=== PATIENT | female | born 1940 | race Caucasian/White ===

== ENCOUNTER 2018-03-23 11:02 | Inpatient (IN) | payer MEDICARE, BC ==
[2018-03-23 15:02] VITALS: BMI 49.6
--- NOTE | 2018-03-23 15:09 | XR ---
EXAMINATION TYPE: XR chest 1V portable DATE OF EXAM: 03/23/2018 COMPARISON: None INDICATION: Short of breath cough TECHNIQUE: Single frontal view of the chest is obtained. FINDINGS: The heart size is enlarged. The pulmonary vasculature is normal. The lungs are clear. IMPRESSION: 1. Mild cardiomegaly
[2018-03-23] MEDS ORDERED: HYDROcodone/APAP 5-325MG 1 EACH TAB PO PRN (15:29)
[2018-03-23] MEDS ORDERED: MELATONIN 3 MG TABLET PO PRN (15:29)
[2018-03-23] MEDS ORDERED: NALOXONE 0.4 MG/ML 1 ML VIAL IV PRN (15:29)
[2018-03-23] MEDS ORDERED: ALPRAZolam 0.25 MG TAB PO PRN (15:29)
[2018-03-23] MEDS ORDERED: IPRATROPIUM-ALBUTEROL 3 ML NEB INHALATION PRN (15:33)
[2018-03-23 16:13] LABS: INR 3.6 (<1.2); Prothrombin Time 32.4 sec (9.0-12.0)
[2018-03-23 16:18] LABS: Albumin 3.9 g/dL (3.5-5.0); Calcium 10.3 mg/dL (8.4-10.2); Magnesium 1.6 mg/dL (1.6-2.3); Potassium 4.1 mmol/L (3.5-5.1); Total Bilirubin 0.3 mg/dL (0.2-1.3); Total Protein 7.4 g/dL (6.3-8.2)
--- NOTE | 2018-03-23 16:19 | HP ---
HISTORY AND PHYSICAL CHIEF COMPLAINT: Cough and shortness of breath. HISTORY OF PRESENT ILLNESS: This is a 77-year-old woman with a past medical history of atrial fibrillation, diabetes, hypertension, hyperlipidemia, DJD, history of CAD with stent being followed by Dr. Mary Cuevas in the outpatient setting, apparently presented to [facility] with the complaints of features of pneumonia. The patient pneumonia. Patient had a cough for the last 3 weeks and because of failure of outpatient treatment, the patient presented to the hospital and was started on IV antibiotics. Patient was given IV Levaquin, but in the hospital, the patient was noted to have worsened lactic acidosis, hypoglycemia as well as worsening renal function. Despite IV fluids, the creatinine also appears to be worsening to 1.99. The patient was subsequently transferred to [facility] with direct admission at this time. There is no history of fever or rigors. No history of headache, loss of consciousness, seizures at this time. PAST MEDICAL HISTORY: Atrial fibrillation, diabetes mellitus type 2, hypertension, hyperlipidemia, DJD , history of chronic left lower leg wound. MEDICATIONS PRIOR TO ADMISSION INCLUDE: 1. Metformin 1000 mg b.i.d. 2. Glucotrol 20 mg b.i.d. 3. Coumadin 1 mg Sunday, Sunday, and Coumadin 4 mg daily. 4. Actos 45 mg p.o. daily. 5. Zaroxolyn 5 mg p.o. daily. 6. Mevacor 40 mg q.h.s. 7. Lasix 20 mg p.o. daily. 8. Vitamin B12 five hundred mcg p.o. daily. 9. Bumex 2 mg b.i.d. 10.Ecotrin 81 mg p.o. daily.. ALLERGIES: CLINDAMYCIN. FAMILY HISTORY: History of diabetes, history of uterine cancer in the family. SOCIAL HISTORY: No history of smoking, no history of alcohol intake. REVIEW OF SYSTEMS: ENT: Diminished hearing and diminished vision. CARDIOVASCULAR: No angina. Otherwise, as mentioned earlier. RESPIRATORY: As mentioned earlier. as mentioned earlier. GI: No nausea. : As mentioned earlier. NERVOUS SYSTEM: As mentioned earlier. ALLERGIES: No asthma or hayfever. MUSCULOSKELETAL: As mentioned earlier. HEMATOLOGY: As mentioned earlier. ONCOLOGY: As mentioned earlier. ENDOCRINE: Diabetes mellitus. CONSTITUTIONAL: As mentioned earlier. DERMATOLOGY: As mentioned earlier. RHEUMATOLOGY: Negative. PSYCHIATRY: As mentioned earlier. PHYSICAL EXAMINATION: Alert and oriented x3. The pulse is 70, blood pressure 140/60, respiration 20, temperature is normal, pulse ox 98% on room air. HEENT: Conjunctivae normal. Oral mucosa moist. Neck is no jugular venous distention. No carotid bruit, no lymph node enlargement. Accessory muscles respiration acting, otherwise. CARDIOVASCULAR SYSTEM: Muffled, irregular, no S3, no S4. RESPIRATORY: Breath sounds diminished at the bases. Bilateral scattered rhonchi, no crackles. ABDOMEN: Soft, obese, nontender. LEGS: Minimal bilateral leg edema. Left leg wound also present. NERVOUS SYSTEM: Higher functions as mentioned earlier. Moves all 4 limbs. No focal motor deficits. LYMPHATICS: No lymph node enlargement in neck or axillae. SKIN: No ulcer, rash or bleeding. LABS: Reviewed. ASSESSMENT: 1. Acute right lower lobe community acquired pneumonia with failure of outpatient treatment with possible sepsis. 2. Chronic obstructive pulmonary disease acute exacerbation. 3. Lactic acidosis. 4. Chronic left lower extremity wound. 5. Renal failure, acute on chronic possibly. 6. Atrial fibrillation. 7. Diabetes mellitus type 2. 8. Hypertension. 9. Hyperlipidemia. 10.History of degenerative joint disease. 11.History of coronary artery disease, stent. RECOMMENDATION: In this 77-year-old woman who presented with multiple complex medical issues, will monitor the patient closely, continue with the current management and symptomatic treatment. Continue with the bronchodilators. I recommend broad-spectrum IV antibiotics and IV steroids. Otherwise, I would also recommend continue with the Coumadin and monitor PT, INR closely. Pulmonology and Nephrology consultations, Cardiology also will be consulted. A 2D echo has been requested. The baseline labs and followup labs also have been ordered. Will continue to monitor them. Otherwise, cultures also obtained. Overall prognosis guarded because of multiple complex medical issues. Further recommendations to follow. MMODL / IJN: [id number] / ANTON
[2018-03-23 16:40] LABS: Anisocytosis Slight; Basophils % (A) 0 %; Eosinophils % (A) 0 %; HCT 31.7 % (34.0-46.0); HGB 9.9 gm/dL (11.4-16.0); Hypochromasia Slight; Lymphocytes # (A) 0.3 k/uL (1.0-4.8); Lymphocytes % (A) 2 %; MCH 26.1 pg (25.0-35.0); MCHC 31.3 g/dL (31.0-37.0); MCV 83.5 fL (80.0-100.0); Mean Platelet Volume 7.9; Monocytes # (A) 0.8 k/uL (0-1.0); Monocytes % (A) 4 %; Neutrophils # (A) 17.7 k/uL (1.3-7.7); Neutrophils % (A) 94 %; Platelet Count 330 k/uL (150-450); RBC 3.79 m/uL (3.80-5.40); RDW 16.4 % (11.5-15.5); WBC 18.9 k/uL (3.8-10.6)
[2018-03-23 16:56] LABS: Appearance,Urine Clear (Clear); Bilirubin,Urine Negative (Negative); Blood,Urine Small (Negative); Color,Urine Light Yellow; Glucose,Urine (UA) Trace (Negative); Hyaline Casts,Urine 1 /lpf (0-2); Ketones,Urine Negative (Negative); Leukocyte Esterase,Urine Negative (Negative); Nitrite,Urine Negative (Negative); Protein,Urine Negative (Negative); RBC,Urine <1 /hpf (0-5); Specific Gravity,Urine 1.007 (1.001-1.035); Squamous Epithelial Cell,Urine 1 /hpf (0-4); Urobilinogen,Urine <2.0 mg/dL (<2.0); WBC,Urine <1 /hpf (0-5)
[2018-03-23 16:59] LABS: Glucose,Whole Blood 189 mg/dL (75-99)
[2018-03-23] MEDS: IPRATROPIUM-ALBUTEROL 3 ML NEB INHALATION SCH ×2 (17:15→20:30)
[2018-03-23] MEDS: WARFARIN 2 MG TAB PO SCH (17:31)
[2018-03-23] MEDS: PIPERACILLIN-TAZOBACTAM 3.375 GM in DEXTROSE/WATER 1 50ML.BAG IVPB SCH (17:31)
[2018-03-23] MEDS: WARFARIN 1 MG TAB PO SCH (17:31)
[2018-03-23] MEDS: methylPREDNISolone SOD SUCCI 125 MG/2 ML VIAL IV SCH (17:31)
[2018-03-23] MEDS: SODIUM CHLORIDE 0.9% 1,000 ML IV SCH (17:32)
[2018-03-23] MEDS: INSULIN ASPART 100 UNIT/ML 1 ML 10 ML VIAL SQ SCH ×2 (17:46→22:05)
[2018-03-23] MEDS: FORMOTEROL FUMARATE 20 MCG/2 ML NEBU INHALATION SCH (20:30)
[2018-03-23] MEDS: ATORVASTATIN 10 MG TAB PO SCH (20:30)
[2018-03-23] MEDS: BUDESONIDE 1 MG/2 ML NEBU INHALATION SCH (20:30)
[2018-03-23] MEDS: glipiZIDE 10 MG TAB PO SCH (20:30)
[2018-03-23 20:43] LABS: Glucose,Whole Blood 212 mg/dL (75-99)
[2018-03-23] MEDS ORDERED: NON-FORMULARY DRUG (Metformin Hcl [Metformin Hcl] 1,000 MG) PO SCH (21:00)
[2018-03-23 23:13] LABS: Hemoglobin A1C 6.9 % (4.0-6.0)
[2018-03-24] MEDS: methylPREDNISolone SOD SUCCI 125 MG/2 ML VIAL IV SCH ×3 (00:15→12:30)
[2018-03-24] MEDS: PIPERACILLIN-TAZOBACTAM 3.375 GM in DEXTROSE/WATER 1 50ML.BAG IVPB SCH ×2 (00:15→08:39)
[2018-03-24] MEDS: ACETAMINOPHEN TAB 325 MG TAB PO PRN ×2 (00:39→08:40)
[2018-03-24 06:18] LABS: Glucose,Whole Blood 307 mg/dL (75-99)
[2018-03-24 06:38] LABS: INR 3.8 (<1.2)
[2018-03-24 06:39] LABS: Prothrombin Time 34.3 sec (9.0-12.0)
[2018-03-24 06:44] LABS: Calcium 10.1 mg/dL (8.4-10.2); Potassium 4.6 mmol/L (3.5-5.1)
[2018-03-24] MEDS: PANTOPRAZOLE 40 MG TABLET PO SCH (06:44)
[2018-03-24] MEDS: INSULIN ASPART 100 UNIT/ML 1 ML 10 ML VIAL SQ SCH ×3 (06:45→17:16)
[2018-03-24 07:14] LABS: Anisocytosis Slight; Basophils % (A) 0 %; Eosinophils % (A) 0 %; HCT 29.9 % (34.0-46.0); HGB 9.5 gm/dL (11.4-16.0); Hypochromasia Slight; Lymphocytes # (A) 0.3 k/uL (1.0-4.8); Lymphocytes % (A) 2 %; MCH 26.5 pg (25.0-35.0); MCHC 31.7 g/dL (31.0-37.0); MCV 83.7 fL (80.0-100.0); Mean Platelet Volume 8.4; Monocytes # (A) 0.4 k/uL (0-1.0); Monocytes % (A) 3 %; Neutrophils # (A) 12.9 k/uL (1.3-7.7); Neutrophils % (A) 95 %; Platelet Count 290 k/uL (150-450); RBC 3.58 m/uL (3.80-5.40); RDW 16.5 % (11.5-15.5); WBC 13.6 k/uL (3.8-10.6)
[2018-03-24] MEDS: FORMOTEROL FUMARATE 20 MCG/2 ML NEBU INHALATION SCH ×2 (07:46→20:34)
[2018-03-24] MEDS: IPRATROPIUM-ALBUTEROL 3 ML NEB INHALATION SCH ×4 (07:46→20:34)
[2018-03-24] MEDS: BUDESONIDE 1 MG/2 ML NEBU INHALATION SCH ×2 (07:46→20:34)
[2018-03-24] MEDS: ASPIRIN 81 MG PO SCH (08:40)
[2018-03-24] MEDS: PIOGLITAZONE 45 MG TAB PO SCH (08:40)
[2018-03-24] MEDS: glipiZIDE 10 MG TAB PO SCH ×2 (08:40→20:32)
[2018-03-24] MEDS: CYANOCOBALAMIN 500 MCG TAB PO SCH (08:40)
[2018-03-24] MEDS ORDERED: METOLAZONE 5 MG TAB PO SCH (09:00)
[2018-03-24] MEDS ORDERED: NON-FORMULARY DRUG (Bumetanide [Bumex] 2 MG) PO SCH (09:00)
--- NOTE | 2018-03-24 11:23 | P.CNPUL ---
History of Present Illness Consult date: 03/24/18 Requesting physician: Josh Ponce Reason for consult: dyspnea, cough, hypoxemia Chief complaint: Cough, shortness of breath, orthopnea History of present illness: This is a 77-year-old white female patient who follows with Gilmer Cuevas DNP from [place] for primary care services, who was transferred from [facility] on 03/23/2018 for community acquired pneumonia with failure of outpatient treatment. Initially patient started experiencing symptoms of coughing, chest congestion, difficulty breathing 3 weeks ago, she was diagnosed with rhonchi this, she was treated with Zithromax and Tessalon Perls which did not improve her symptoms. This was on 03/01/2018. Patient has a chronic wound on her left lower leg, she sees nursing specialist at the wound clinic in [place], she was having ongoing coughing, difficulty breathing. Her wound care doctor placed her on clindamycin, however the patient has ALLERGIES to clindamycin, and she continued to get worse, hence on 03/14/2018 he presented to the [facility] and was hospitalized at that time. There was a concern for right lower lobe pneumonia, patient was treated with Rocephin, and Levaquin. Apparently patient had worsening of her lactic acidosis, however going through the chart her lactic acid level was noted to be around 1, and no elevated values were found on the chart from [facility]. Patient describes underlying chronic kidney disease, baseline creatinine is unknown. There had been worsening of her renal function during her hospitalization at [place]. Other medical history includes chronic atrial fibrillation on Coumadin, diabetes mellitus type 2, hypertension, hyperlipidemia, DJD, coronary artery disease with prior stenting. Chest x-ray was completed here at [facility] on 03/23/2018 upon arrival from [facility], and showed mild cardiomegaly, and no other acute cardiopulmonary process. Lab work revealed WBC of 18.9, hemoglobin is 9.9, INR of 3.6, sodium 134, chloride is 96 , CO2 was 20, anion gap was found to be at 18, BUN is 52, creatinine is 1.83, troponin is were positive at 0.115 and 0.270. BNP was 2650, urinalysis was negative. Patient states she had a weight increase of about 7 pounds in one week, bilateral lower extremities are positive for chronic venous stasis changes. Patient takes Lasix, and Zaroxolyn on a regular basis. Her diuretics are on hold, patient was started on empiric antibiotics in the form of Zosyn, nebulized bronchodilators, IV steroids. Review of Systems All systems: negative Constitutional: Denies chills, Denies fever Eyes: denies blurred vision, denies pain Ears, nose, mouth and throat: Denies headache, Denies sore throat Cardiovascular: Reports dyspnea on exertion, Reports edema, Reports leg edema, Reports orthopnea, Denies chest pain, Denies shortness of breath Respiratory: Reports cough with sputum, Reports dyspnea, Denies cough Gastrointestinal: Denies abdominal pain, Denies diarrhea, Denies nausea, Denies vomiting Genitourinary: Denies dysuria, Denies hematuria Musculoskeletal: Denies myalgias Integumentary: Denies pruritus, Denies rash Neurological: Denies numbness, Denies weakness Psychiatric: Denies anxiety, Denies depression Endocrine: Denies fatigue, Denies weight change Past Medical History Past Medical History: Atrial Fibrillation, Cancer, Diabetes Mellitus, Hyperlipidemia, Hypertension, Osteoarthritis (OA), Skin Disorder Additional Past Medical History / Comment(s): chronic left lower leg wound History of Any Multi-Drug Resistant Organisms: None Reported Past Surgical History: Heart Catheterization With Stent, Hysterectomy, Orthopedic Surgery Additional Past Surgical History / Comment(s): Total Left Knee Replacement, cataracts removed, eyelids cut back, liver surgery 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 Past Psychological History: No Psychological Hx Reported Smoking Status: Never smoker Past Alcohol Use History: None Reported Past Drug Use History: None Reported - Past Family History Father Family Medical History: Diabetes Mellitus Mother Family Medical History: Cancer Additional Family Medical History / Comment(s): uterine CA Sister(s) Family Medical History: Cancer Additional Family Medical History / Comment(s): skin CA, breast CA Brother(s) Family Medical History: COPD Medications and Allergies Home Medications Medication Instructions Recorded Confirmed Type Aspirin EC [Ecotrin Low Dose] 81 mg PO DAILY 03/23/18 03/23/18 History Bumetanide [BUMEX] 2 mg PO DAILY 03/23/18 03/23/18 History Cyanocobalamin (Vitamin B-12) 5,000 mcg PO DAILY 03/23/18 03/23/18 History [Vitamin B12] Furosemide [Lasix] 20 mg PO DAILY 03/23/18 03/23/18 History Lovastatin [Mevacor] 40 mg PO HS 03/23/18 03/23/18 History Metolazone [Zaroxolyn] 5 mg PO DAILY 03/23/18 03/23/18 History Pioglitazone [Actos] 45 mg PO DAILY 03/23/18 03/23/18 History Warfarin Sodium [Coumadin] 4 mg PO DAILY 03/23/18 03/23/18 History Warfarin [Coumadin] 1 mg PO SUSA 03/23/18 03/23/18 History glipiZIDE XL [Glucotrol Xl] 20 mg PO DAILY 03/23/18 03/23/18 History metFORMIN HCL 1,000 mg PO BID 03/23/18 03/23/18 History Allergies Allergy/AdvReac Type Severity Reaction Status Date / Time clindamycin AdvReac Unknown Verified 03/23/18 14:56 Physical Exam Vitals: Vital Signs Temp Pulse Pulse Resp BP Pulse Ox 03/24/18 08:45 96.7 F L 104 H 16 126/58 98 03/24/18 08:15 101 H 16 03/24/18 08:05 100 16 03/24/18 07:46 96 16 100 03/24/18 04:40 97.7 F 87 16 149/73 100 03/24/18 00:23 18 03/24/18 00:18 97.6 F 92 18 109/51 97 03/23/18 20:58 124 H 03/23/18 20:43 122 H 03/23/18 20:40 120 H 03/23/18 20:27 97.6 F 98 20 138/76 97 03/23/18 17:28 100 03/23/18 17:15 104 H 99 03/23/18 16:00 97.6 F 108 H 20 99/52 99 Intake and Output 03/23/18 03/24/18 03/24/18 22:59 06:59 14:59 Intake Total 300 240 Output Total 500 1200 500 Balance -200 -1200 -260 Intake: Oral 300 240 Output: Urine 500 1200 500 Other: # Voids 2 2 Weight 143.7 kg 142.7 kg GENERAL EXAM: Alert, pleasant 77-year-old white female, obese, mildly short of breath with conversation,but in no apparent distress. HEAD: Normocephalic/atraumatic. EYES: Normal reaction of pupils, equal size. Conjunctiva pink, sclera white. NOSE: Clear with pink turbinates. THROAT: No erythema or exudates. NECK: No masses, no JVD, no thyroid enlargement, no adenopathy. CHEST: No chest wall deformity. Symmetrical expansion. LUNGS: Equal air entry with some scattered rhonchi, no crackles or wheezes CVS: Irregular rate and rhythm, normal S1 and S2, no gallops, no murmurs, no rubs ABDOMEN: Soft, nontender. No hepatosplenomegaly, normal bowel sounds, no guarding or rigidity. EXTREMITIES: No clubbing, ,no cyanosis, 2+ pulses and upper and lower extremities. Bilateral lower extremity edema, left greater than the right, patient has a chronic wound on the left lower extremity, covered with a dressing. Per nursing staff is in his healing stages, is dry, with no drainage. MUSCULOSKELETAL: Muscle strength and tone normal. SPINE: No scoliosis or deformity SKIN: No rashes CENTRAL NERVOUS SYSTEM: Alert and oriented -3. No focal deficits, tone is normal in all 4 extremities. PSYCHIATRIC: Alert and oriented -3. Appropriate affect. Intact judgment and insight. Results - Laboratory Findings CBC and BMP: 03/24/18 05:50 03/24/18 05:50 PT/INR, D-dimer PT 34.3 sec (9.0-12.0) H 03/24/18 05:50 INR 3.8 (<1.2) H 03/24/18 05:50 Abnormal lab findings: Abnormal Labs 03/23/18 03/23/18 03/23/18 15:50 15:50 15:50 WBC 18.9 H RBC 3.79 L Hgb 9.9 L Hct 31.7 L RDW 16.4 H Neutrophils # 17.7 H Lymphocytes # 0.3 L PT 32.4 H INR 3.6 H Sodium 134 L Chloride 96 L Carbon Dioxide 20 L BUN 52 H Creatinine 1.83 H Glucose 218 H POC Glucose (mg/dL) Hemoglobin A1c Calcium 10.3 H AST 47 H Troponin I Urine Glucose (UA) Urine Blood 03/23/18 03/23/18 03/23/18 15:50 15:50 16:28 WBC RBC Hgb Hct RDW Neutrophils # Lymphocytes # PT INR Sodium Chloride Carbon Dioxide BUN Creatinine Glucose POC Glucose (mg/dL) Hemoglobin A1c 6.9 H Calcium AST Troponin I 0.115 H* Urine Glucose (UA) Trace H Urine Blood Small H 03/23/18 03/23/18 03/24/18 16:50 20:38 05:50 WBC 13.6 H RBC 3.58 L Hgb 9.5 L Hct 29.9 L RDW 16.5 H Neutrophils # 12.9 H Lymphocytes # 0.3 L PT INR Sodium Chloride Carbon Dioxide BUN Creatinine Glucose POC Glucose (mg/dL) 189 H 212 H Hemoglobin A1c Calcium AST Troponin I Urine Glucose (UA) Urine Blood 03/24/18 03/24/18 03/24/18 05:50 05:50 05:50 WBC RBC Hgb Hct RDW Neutrophils # Lymphocytes # PT 34.3 H INR 3.8 H Sodium 135 L Chloride 95 L Carbon Dioxide BUN 57 H Creatinine 1.78 H Glucose 289 H POC Glucose (mg/dL) Hemoglobin A1c Calcium AST Troponin I 0.270 H* Urine Glucose (UA) Urine Blood 03/24/18 06:16 WBC RBC Hgb Hct RDW Neutrophils # Lymphocytes # PT INR Sodium Chloride Carbon Dioxide BUN Creatinine Glucose POC Glucose (mg/dL) 307 H Hemoglobin A1c Calcium AST Troponin I Urine Glucose (UA) Urine Blood - Diagnostic Findings Chest x-ray: report reviewed, image reviewed Assessment and Plan Plan: Assessment: #1. Dyspnea, cough, leukocytosis related to community acquired pneumonia, although chest x-ray taken at [facility] does not show any acute pulmonary abnormality. Patient had a failure of outpatient treatment, was hospitalized at [facility], and transferred to [facility] on 03/23/2018. #2. Elevated troponins, suspect non-ST elevated MT #3. Suspect congestive heart failure, proBNP was 2650 #4. Acute on chronic kidney disease, baseline creatinine is unknown. #5. Chronic atrial fibrillation, on Coumadin #6. Chronic left lower extremity wound healing stages #7. Diabetes mellitus type 2 #8. Hypertension, hyperlipidemia #9. DJD #10. Never smoker Plan: We will continue with nebulized bronchodilators, and steroids, we will restart patient's IV Lasix at 40 mg twice daily, start IV Zosyn to oral Levaquin 250 mg once daily. We will ask the staff to have radiology download the films from [facility] into the synapse for review. Sputum and blood cultures have been collected and sent, and are pending at this time. We'll continue to follow I performed a history & physical examination of the patient and discussed their management with my nurse practitioner, Priscila Christian. I reviewed the nurse practitioner's note and agree with the documented findings and plan of care. Lung sounds are positive for some scattered rhonchi. The findings and the impression was discussed with the patient. I attest to the documentation by the nurse practitioner. Time with Patient: Greater than 30
[2018-03-24 11:59] LABS: Glucose,Whole Blood 351 mg/dL (75-99)
--- NOTE | 2018-03-24 11:59 | CONS ---
CONSULTATION DATE OF SERVICE: 03/24/2018. CHIEF COMPLAINT: Atrial fibrillation. HISTORY: Marielena is a 77-year-old lady with history of atrial fibrillation, hypertension, dyslipidemia, coronary artery disease, status post angioplasty, and degenerative joint disease, who presented to [facility] initially with shortness of breath and cough and was diagnosed with pneumonia. She was admitted there and was treated with IV antibiotics. The patient developed lactic acidosis and worsening renal functions, due to which she is transferred to [place] for further care. Cardiology had been consulted because of an episode of atrial fibrillation while in the hospital. She denies chest pain, palpitations, dizziness or syncope. There is no history of focal neurological deficits. PAST MEDICAL HISTORY: Significant for atrial fibrillation, hypertension, diabetes, dyslipidemia. MEDICATIONS: At home include: 1. Metformin. 2. Glucotrol. 3. Coumadin. 4. Actos. 5. Zaroxolyn. 6. Mevacor. 7. Lasix. 8. Bumex. 9. Aspirin. ALLERGIES: CLINDAMYCIN. FAMILY HISTORY: Significant for diabetes and history of uterine cancer. SOCIAL HISTORY: Negative for smoking, EtOH abuse, or drug abuse. REVIEW OF SYSTEMS: HEENT: Unremarkable. CARDIAC: As described above. RESPIRATORY: As described above. GI: Negative. : Negative. 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 ALLERGY: Negative. MUSCULOSKELETAL: Significant for arthritis. HEMATOLOGICAL: Negative. ONCOLOGICAL: Negative. ENDOCRINE: Negative. CONSTITUTIONAL: Significant for fever, cough. SKIN: Significant for bilateral chronic lower extremity pigmentation. PSYCH: Negative. DERMATOLOGIC: Negative. EXAM: Patient is comfortable at rest. Heart rate is around 100 beats per minute. Blood pressure is 120/70, respirations 18. Chest exam reveals diminished air entry at the bases. I do not hear any crackles or rhonchi. Heart exam reveals first and second heart sounds. No gallop. No murmur. No rub. Abdomen is soft, nontender. Exam of extremities reveals bilateral chronic lower extremity stasis changes, pigmentation and mild edema. LABS: Labs show a hemoglobin of 9.5, platelet count is 290,000, potassium is 4.6, BUN is 57, creatinine is 1.7. Troponin is elevated 0.1 and 0.2, probably due to worsening renal function. EKG showed episodes of atrial fibrillation. Chest x-ray showed mild cardiomegaly. INR is 3.8. ASSESSMENT: 1. Paroxysmal atrial fibrillation. 2. Coronary artery disease, status post angioplasty. 3. Elevated troponin. 4. Pneumonia. PLAN: The patient is doing well from cardiac standpoint. The elevated troponin is related to new onset renal insufficiency. For atrial fibrillation, she is adequately anticoagulated with Coumadin. I will obtain a 2D echo to document her LV function. DEVEN / BEN: [id number] /
--- NOTE | 2018-03-24 12:19 | P.NPCON ---
History of Present Illness - Reason for Consult Consult date: 03/24/18 acute renal failure - Chief Complaint Acute kidney injury with possibility of chronic kidney disease - History of Present Illness This is a 77-year-old female seen in consultation because of elevated creatinine. Creatinine on admission was 1.7 and there is no previous creatinines available. She is admitted as a transfer from [facility] where she was admitted because of cough and possible pneumonia on 03/14/2000 1810 days ago. She was started on antibiotics. She also had additionally leg wound that has been chronic since approximately October 2017. She was under the care of a senior military analyst as an outpatient.. Since admission she is feeling better this morning. She is known with chronic kidney disease based on the fact that she was referred to a local fish receiver in [facility] but was unable to see the fish receiver. Patient known with diabetes for the last approximately 20-30 years as well as with hypertension. She has a stent in her heart. She is known with atrial fibrillation. She has had one kidney stone in the past. Her bladder has issues with incontinence. Denies taking nonsteroidals or Bactrim. No nausea vomiting diarrhea. No chest pain shortness of breath dizziness. Past Medical History Past Medical History: Atrial Fibrillation, Cancer, Diabetes Mellitus, Hyperlipidemia, Hypertension, Osteoarthritis (OA), Skin Disorder Additional Past Medical History / Comment(s): chronic left lower leg wound History of Any Multi-Drug Resistant Organisms: None Reported Past Surgical History: Heart Catheterization With Stent, Hysterectomy, Orthopedic Surgery Additional Past Surgical History / Comment(s): Total Left Knee Replacement, cataracts removed, eyelids cut back, liver surgery 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 Past Psychological History: No Psychological Hx Reported Smoking Status: Never smoker Past Alcohol Use History: None Reported Past Drug Use History: None Reported - Past Family History Father Family Medical History: Diabetes Mellitus Mother Family Medical History: Cancer Additional Family Medical History / Comment(s): uterine CA Sister(s) Family Medical History: Cancer Additional Family Medical History / Comment(s): skin CA, breast CA Brother(s) Family Medical History: COPD Medications and Allergies Home Medications Medication Instructions Recorded Confirmed Type Aspirin EC [Ecotrin Low Dose] 81 mg PO DAILY 03/23/18 03/23/18 History Bumetanide [BUMEX] 2 mg PO DAILY 03/23/18 03/23/18 History Cyanocobalamin (Vitamin B-12) 5,000 mcg PO DAILY 03/23/18 03/23/18 History [Vitamin B12] Furosemide [Lasix] 20 mg PO DAILY 03/23/18 03/23/18 History Lovastatin [Mevacor] 40 mg PO HS 03/23/18 03/23/18 History Metolazone [Zaroxolyn] 5 mg PO DAILY 03/23/18 03/23/18 History Pioglitazone [Actos] 45 mg PO DAILY 03/23/18 03/23/18 History Warfarin Sodium [Coumadin] 4 mg PO DAILY 03/23/18 03/23/18 History Warfarin [Coumadin] 1 mg PO SUSA 03/23/18 03/23/18 History glipiZIDE XL [Glucotrol Xl] 20 mg PO DAILY 03/23/18 03/23/18 History metFORMIN HCL 1,000 mg PO BID 03/23/18 03/23/18 History Allergies Allergy/AdvReac Type Severity Reaction Status Date / Time clindamycin AdvReac Unknown Verified 03/23/18 14:56 Physical Exam Vitals: Vital Signs Temp Pulse Pulse Resp BP Pulse Ox 03/24/18 08:45 96.7 F L 104 H 16 126/58 98 03/24/18 08:15 101 H 16 03/24/18 08:05 100 16 03/24/18 07:46 96 16 100 03/24/18 04:40 97.7 F 87 16 149/73 100 03/24/18 00:23 18 03/24/18 00:18 97.6 F 92 18 109/51 97 03/23/18 20:58 124 H 03/23/18 20:43 122 H 03/23/18 20:40 120 H 03/23/18 20:27 97.6 F 98 20 138/76 97 03/23/18 17:28 100 03/23/18 17:15 104 H 99 03/23/18 16:00 97.6 F 108 H 20 99/52 99 Intake and Output 03/23/18 03/24/18 03/24/18 22:59 06:59 14:59 Intake Total 300 240 Output Total 500 1200 500 Balance -200 -1200 -260 Intake: Oral 300 240 Output: Urine 500 1200 500 Other: # Voids 2 2 Weight 143.7 kg 142.7 kg On examination she is morbidly obese female. To be in no distress and is comfortable at rest. HEENT exam no JVP lymphadenopathy thyromegaly no carotid bruit neck is supple no facial asymmetry Lungs are clear to auscultation good air entry bilaterally normal to percussion Heart sounds are unremarkable for any murmur rub gallop Abdomen is obese protuberant and nontender. Extremity exam reveals moderate edema. Her left leg is bandaged. On the right she has a tight stocking. Neurologically awake alert oriented able to move all her extremities. She was able to sit in the chair and eating her lunch during this exam. Results - Lab Results Most recent lab results Calcium 10.1 mg/dL (8.4-10.2) 03/24/18 05:50 Magnesium 1.6 mg/dL (1.6-2.3) 03/23/18 15:50 03/24/18 05:50 03/24/18 05:50 Assessment and Plan Assessment: Impression 1. Chronic kidney disease secondary to nephrosclerosis with creatinine of 1.7 here on admission no previous creatinines available but she has been referred in the past to a fish receiver and has not been seeing able to see one. Urinalysis is benign with no proteinuria. Ultrasound not available. 2. Possible acute kidney injury. Baseline creatinine unknown creatinine 1.7 currently. 3. Admitted with possible pneumonia or bronchitis. Chest x-rays rather clear she denies any antibiotics for the last few weeks on and off as an outpatient and in the [facility] is 03/14/2018. 3. Left leg wound chronic since October bandaged. 4. History of diabetes and hypertension for last 20-30 years with no retinopathy and neuropathy. 5. Chronic edema and stasis. 6. History of atrial fibrillation. 7. History of stent in her heart. 8. History of 1 kidney stone few years ago. 9. Incontinence possible autonomic neuropathy with neurogenic bladder. 10. Anemia of chronic kidney disease hemoglobin is 9.5 Recommendation. 1. Maintain current medications antibiotics. 2. Check orthostatic changes. 3. Check postvoid bladder scan 4. Check iron saturation. 5. Try to obtain previous labs from her physician. Thank you for this consultation and continue to follow
[2018-03-24] MEDS: FUROSEMIDE 10 MG/ML 4 ML VIAL IV SCH ×2 (12:30→20:32)
[2018-03-24] MEDS: LEVOFLOXACIN 250 MG TAB PO SCH (12:30)
[2018-03-24] MEDS ORDERED: INSULIN REGULAR BOLUS (FROM DRIP BAG) IV ONE (12:40)
[2018-03-24] MEDS: INSULIN REGULAR 100 UNIT in SODIUM CHLORIDE 0.9% 100 ML IV SCH (14:01)
[2018-03-24 14:46] LABS: Glucose,Whole Blood 394 mg/dL (75-99)
[2018-03-24 15:38] LABS: Glucose,Whole Blood 261 mg/dL (75-99)
[2018-03-24] MEDS: WARFARIN 1 MG TAB PO SCH (16:20)
[2018-03-24] MEDS: WARFARIN 2 MG TAB PO SCH (16:21)
[2018-03-24] MEDS: SODIUM CHLORIDE 0.9% 1,000 ML IV SCH (16:23)
[2018-03-24 16:48] LABS: Glucose,Whole Blood 104 mg/dL (75-99)
--- NOTE | 2018-03-24 17:29 | PN ---
PROGRESS NOTE DATE OF SERVICE: 03/24/2018 This 71-year-old woman with a past medical history of multiple medical problems referred from [facility] because of lack of improvement, the patient had features of acute community acquired right lower lobe pneumonia with COPD. Patient also had renal failure, acute on chronic. The patient also had atrial fibrillation with fast ventricular rate. The patient is being closely monitored at this time. Multiple consultants including Cardiology, pulmonology and Nephrology following the patient closely. The patient blood sugar is also elevated. The patient on broad- spectrum IV antibiotics. PAST MEDICAL HISTORY: Reviewed. REVIEW OF SYSTEM: Cardiovascular: As mentioned earlier. Respiratory: As mentioned earlier. GI no nausea or vomiting. : No numbness or weakness. CURRENT MEDICATIONS: Reviewed and include: 1. Tylenol 650 q.6 hours p.r.n. 2. [place] 5 mg q.4. 3. DuoNeb q.i.d. and p.r.n. 4. Xanax 0.5 every 6 hours p.r.n. 5. Aspirin 81 mg. 6. Lipitor 10 mg p.o. q.h.s. 7. Pulmicort 1 mg b.i.d. 8. Vitamin B12 5000 daily. 9. Perforomist 20 mcg b.i.d. 10.Lasix 40 mg IV b.i.d. 11.Glucotrol 10 mg b.i.d. 12.NovoLog. 13.Levaquin 250 mg p.o. 14.Melatonin 3 mg p.o. q.h.s. 15.Solu-Medrol 60 IV q.6h. 16.Narcan 0.2 q.2h p.r.n. 17.Actos 45 mg p.o. daily. 18.Coumadin 1 mg and 4 mg. PHYSICAL EXAM: Patient is alert, oriented x3. Pulse is 104. Blood pressure 144/79, respirations 16, temp 97.4, pulse ox 98% on 3 L. HEENT is conjunctivae normal. Oral mucosa moist. Otherwise neck is obese. Cardiovascular: S1 and S2 muffled. Respirations: Irregular. Breath sounds diminished in the bases. Bilateral scattered rhonchi and crackles. Expiratory wheezing. Breathing efforts increased. ABDOMEN: Soft, nontender. LEGS: Bilateral leg edema. Healing lesions on the left lower leg also present which is dressed. NERVOUS SYSTEM: No focal deficits. LABS: At this time shows WBC 13.2, hemoglobin 9.8, INR 3.8, glucose 289 and creatinine is 1.7. Troponin 0.270. ASSESSMENT: 1. Acute right lower lobe pneumonia community-acquired pneumonia with failure of outpatient treatment with possible sepsis present on admission. 2. Chronic obstructive pulmonary disease acute exacerbation. 3. Troponin 0.270. Possible acute non ST elevation myocardial infarction or type 2 also possibly. 4. Lactic acidosis. 5. Renal failure acute on chronic, multifactorial. 6. Chronic left lower extremity wound. 7. Atrial fibrillation with rapid ventricular rate. 8. Diabetes mellitus type 2. 9. Hypertension. 10.Hyperlipidemia. 11.History of degenerative joint disease. 12.History of coronary artery disease, stent. 13.Obesity with body mass index of 49. RECOMMENDATION AND DISCUSSION: Recommend continue current management and treatment discharge. . Continue the current medications, Continue symptomatic treatment. Taper the IV steroids. Continue the antibiotics. Continue the bronchodilators. I would also hold the Coumadin. Follow closely with Cardiology. Prognosis guarded because of multiple complex medical issues and further recommendations to follow. MMODL / IJN: [id number] /
[2018-03-24 17:51] LABS: Glucose,Whole Blood 56 mg/dL (75-99)
[2018-03-24 18:16] LABS: Glucose,Whole Blood 82 mg/dL (75-99)
[2018-03-24 20:05] LABS: Glucose,Whole Blood 142 mg/dL (75-99)
[2018-03-24] MEDS: ATORVASTATIN 10 MG TAB PO SCH (20:32)
[2018-03-24 22:03] LABS: Glucose,Whole Blood 113 mg/dL (75-99)
[2018-03-24 23:14] LABS: Glucose,Whole Blood 105 mg/dL (75-99)
[2018-03-24] MEDS: methylPREDNISolone SOD SUCCI 40 MG/ML 1 ML VIAL IV SCH (23:39)
[2018-03-25 00:05] LABS: Glucose,Whole Blood 112 mg/dL (75-99)
[2018-03-25 01:30] LABS: Glucose,Whole Blood 117 mg/dL (75-99)
[2018-03-25 02:15] LABS: Glucose,Whole Blood 121 mg/dL (75-99)
[2018-03-25 03:07] LABS: Glucose,Whole Blood 135 mg/dL (75-99)
[2018-03-25] MEDS: guaiFENesin SYRUP 100MG/5ML 200 MG/10 ML CUP PO PRN ×2 (04:36→15:42)
[2018-03-25] MEDS: IPRATROPIUM-ALBUTEROL 3 ML NEB INHALATION SCH ×7 (04:41→19:59)
[2018-03-25 05:27] LABS: Glucose,Whole Blood 150 mg/dL (75-99)
[2018-03-25] MEDS: INSULIN REGULAR 100 UNIT in SODIUM CHLORIDE 0.9% 100 ML IV SCH ×2 (05:43→08:25)
[2018-03-25 06:17] LABS: INR 4.9 (<1.2); Prothrombin Time 43.9 sec (9.0-12.0)
[2018-03-25 06:18] LABS: Anisocytosis Slight; Basophils % (A) 0 %; Eosinophils % (A) 0 %; HGB 9.9 gm/dL (11.4-16.0); Hypochromasia Slight; Lymphocytes # (A) 0.4 k/uL (1.0-4.8); Lymphocytes % (A) 3 %; MCHC 31.9 g/dL (31.0-37.0); MCV 81.5 fL (80.0-100.0); Mean Platelet Volume 7.9; Monocytes # (A) 0.7 k/uL (0-1.0); Monocytes % (A) 5 %; Neutrophils # (A) 12.3 k/uL (1.3-7.7); Neutrophils % (A) 91 %; Platelet Count 311 k/uL (150-450); RDW 16.3 % (11.5-15.5); WBC 13.5 k/uL (3.8-10.6)
[2018-03-25 06:34] LABS: Calcium 10.4 mg/dL (8.4-10.2); Potassium 3.6 mmol/L (3.5-5.1)
[2018-03-25] MEDS: PANTOPRAZOLE 40 MG TABLET PO SCH (06:34)
[2018-03-25] MEDS: FORMOTEROL FUMARATE 20 MCG/2 ML NEBU INHALATION SCH ×3 (07:27→19:59)
[2018-03-25] MEDS: BUDESONIDE 1 MG/2 ML NEBU INHALATION SCH ×3 (07:27→19:58)
[2018-03-25 07:51] LABS: Glucose,Whole Blood 180 mg/dL (75-99)
[2018-03-25] MEDS: INSULIN ASPART 100 UNIT/ML 1 ML 10 ML VIAL SQ SCH ×3 (08:27→21:00)
[2018-03-25] MEDS: methylPREDNISolone SOD SUCCI 40 MG/ML 1 ML VIAL IV SCH (08:28)
[2018-03-25] MEDS: ASPIRIN 81 MG PO SCH (08:28)
[2018-03-25] MEDS: CYANOCOBALAMIN 500 MCG TAB PO SCH (08:29)
[2018-03-25] MEDS: FUROSEMIDE 10 MG/ML 4 ML VIAL IV SCH (08:29)
[2018-03-25] MEDS: LEVOFLOXACIN 250 MG TAB PO SCH (08:29)
[2018-03-25] MEDS: PIOGLITAZONE 45 MG TAB PO SCH ×2 (08:29→12:06)
[2018-03-25] MEDS: glipiZIDE 10 MG TAB PO SCH ×2 (08:29→20:35)
[2018-03-25 10:27] LABS: Glucose,Whole Blood 163 mg/dL (75-99)
[2018-03-25 10:41] LABS: Iron Saturation 7.72 (12.00-45.00)
--- NOTE | 2018-03-25 10:43 | P.PN ---
Subjective Progress Note Date: 03/25/18 This is a 77-year-old female with history of persistent atrial fibrillation, hypertension, hyperlipidemia, coronary artery disease with prior PCI, degenerative joint disease, who presented to [facility] initially with shortness of breath and diagnosis of pneumonia. Patient continues to be in atrial fibrillation this morning, her heart rate is under adequate control. INR today is 4.9, we will hold her Coumadin. She is sitting up in the chair, overall she does state that her breathing is improving , she states that she coughs a significant amount especially when lying down. Sputum is yellow in color. Her weight today is down 2 kg. Blood pressure 160/ 70, heart rate 90, 98% on 3 L of oxygen. White blood cell count 15.5, hemoglobin 9.9, platelet count 311. INR today 4.9, sodium 135, potassium 3.6, BUN 65, creatinine 1.6. Objective - Vital Signs Vital signs: Vital Signs Temp 97.2 F L 03/25/18 08:00 Pulse 88 03/25/18 09:25 Resp 19 03/25/18 08:00 BP 163/70 03/25/18 08:00 Pulse Ox 95 03/25/18 08:58 Intake & Output 03/24/18 03/25/18 03/25/18 18:59 06:59 18:59 Intake Total 1146.610 10.233 185.454 Output Total 2500 1650 900 Balance -1353.390 -1639.767 -714.546 Weight 140.8 kg Intake: Intake, IV Titration 216.610 10.233 5.454 Amount Insulin Regular 100 unit 56.610 10.233 5.454 In Sodium Chloride 0.9% 100 ml @ Titrate IV .Q0M VENKAT Rx#:[id number] Sodium Chloride 0.9% 1, 160 000 ml @ 20 mls/hr IV . Q24H VENKAT Rx#:[id number] Oral 930 180 Output: Urine 2500 1650 900 Other: # Voids 1 # Bowel Movements 1 1 - Exam PHYSICAL EXAMINATION: GENERAL: 77-year-old female in no acute distress at the time of my examination HEENT: Head is atraumatic, normocephalic. Pupils equal, round. Sclera anicteric. Conjunctiva are clear. Mucous membranes of the mouth are moist. Neck is supple. There is no elevated jugular venous pressure. No carotid bruit is heard. HEART EXAMINATION: S1 and S2 irregularly irregular CHEST EXAMINATION: Lungs reveal crackles to bilateral bases, fine wheezing heard. ABDOMEN: Soft, nontender. Bowel sounds are heard. No organomegaly noted. EXTREMITIES: One plus peripheral pulses with trace bilateral peripheral edema, evidence of bilateral chronic venous stasis and pigmentation, dressing in place to the left lower extremity.. NEUROLOGIC patient is awake, alert and oriented X3 . - Labs CBC & Chem 7: 03/25/18 05:39 03/25/18 05:39 Labs: Abnormal Lab Results - Last 24 Hours (Table) 03/24/18 03/24/18 03/24/18 Range/Units 11:50 14:32 15:17 WBC (3.8-10.6) k/uL Hgb (11.4-16.0) gm/dL Hct (34.0-46.0) % RDW (11.5-15.5) % Neutrophils # (1.3-7.7) k/uL Lymphocytes # (1.0-4.8) k/uL PT (9.0-12.0) sec INR (<1.2) Sodium (137-145) mmol/L Chloride (98-107) mmol/L BUN (7-17) mg/dL Creatinine (0.52-1.04) mg/dL Glucose (74-99) mg/dL POC Glucose (mg/dL) 351 H 394 H 261 H (75-99) mg/dL Calcium (8.4-10.2) mg/dL 03/24/18 03/24/18 03/24/18 Range/Units 16:25 17:30 19:53 WBC (3.8-10.6) k/uL Hgb (11.4-16.0) gm/dL Hct (34.0-46.0) % RDW (11.5-15.5) % Neutrophils # (1.3-7.7) k/uL Lymphocytes # (1.0-4.8) k/uL PT (9.0-12.0) sec INR (<1.2) Sodium (137-145) mmol/L Chloride (98-107) mmol/L BUN (7-17) mg/dL Creatinine (0.52-1.04) mg/dL Glucose (74-99) mg/dL POC Glucose (mg/dL) 104 H 56 L 142 H (75-99) mg/dL Calcium (8.4-10.2) mg/dL 03/24/18 03/24/18 03/25/18 Range/Units 22:02 23:13 00:03 WBC (3.8-10.6) k/uL Hgb (11.4-16.0) gm/dL Hct (34.0-46.0) % RDW (11.5-15.5) % Neutrophils # (1.3-7.7) k/uL Lymphocytes # (1.0-4.8) k/uL PT (9.0-12.0) sec INR (<1.2) Sodium (137-145) mmol/L Chloride (98-107) mmol/L BUN (7-17) mg/dL Creatinine (0.52-1.04) mg/dL Glucose (74-99) mg/dL POC Glucose (mg/dL) 113 H 105 H 112 H (75-99) mg/dL Calcium (8.4-10.2) mg/dL 03/25/18 03/25/18 03/25/18 Range/Units 01:18 02:11 03:06 WBC (3.8-10.6) k/uL Hgb (11.4-16.0) gm/dL Hct (34.0-46.0) % RDW (11.5-15.5) % Neutrophils # (1.3-7.7) k/uL Lymphocytes # (1.0-4.8) k/uL PT (9.0-12.0) sec INR (<1.2) Sodium (137-145) mmol/L Chloride (98-107) mmol/L BUN (7-17) mg/dL Creatinine (0.52-1.04) mg/dL Glucose (74-99) mg/dL POC Glucose (mg/dL) 117 H 121 H 135 H (75-99) mg/dL Calcium (8.4-10.2) mg/dL 03/25/18 03/25/18 03/25/18 Range/Units 05:24 05:39 05:39 WBC 13.5 H (3.8-10.6) k/uL Hgb 9.9 L (11.4-16.0) gm/dL Hct 31.0 L (34.0-46.0) % RDW 16.3 H (11.5-15.5) % Neutrophils # 12.3 H (1.3-7.7) k/uL Lymphocytes # 0.4 L (1.0-4.8) k/uL PT 43.9 H (9.0-12.0) sec INR 4.9 H (<1.2) Sodium (137-145) mmol/L Chloride (98-107) mmol/L BUN (7-17) mg/dL Creatinine (0.52-1.04) mg/dL Glucose (74-99) mg/dL POC Glucose (mg/dL) 150 H (75-99) mg/dL Calcium (8.4-10.2) mg/dL 03/25/18 03/25/18 03/25/18 Range/Units 05:39 07:48 10:22 WBC (3.8-10.6) k/uL Hgb (11.4-16.0) gm/dL Hct (34.0-46.0) % RDW (11.5-15.5) % Neutrophils # (1.3-7.7) k/uL Lymphocytes # (1.0-4.8) k/uL PT (9.0-12.0) sec INR (<1.2) Sodium 135 L (137-145) mmol/L Chloride 94 L (98-107) mmol/L BUN 65 H (7-17) mg/dL Creatinine 1.69 H (0.52-1.04) mg/dL Glucose 136 H (74-99) mg/dL POC Glucose (mg/dL) 180 H 163 H (75-99) mg/dL Calcium 10.4 H (8.4-10.2) mg/dL Microbiology - Last 24 Hours (Table) 03/23/18 16:28 Urine Culture - Final Urine,Clean Catch 03/23/18 15:50 Blood Culture - Preliminary Blood No Growth after 24 hours 03/24/18 05:30 Gram Stain - Preliminary Sputum Sputum Culture - Preliminary Assessment and Plan Plan: Assessment: #1. Dyspnea, cough, leukocytosis related to community acquired pneumonia, #2. Elevated troponins not suggestive of acute coronary syndrome, likely secondary to abnormal renal function and supply and demand mismatch. Echocardiogram with Doppler study remains pending. #3. Mild congestive heart failure, proBNP was 2650 , LV function unknown, awaiting echocardiogram with Doppler study #4. Acute on chronic kidney disease #5. Chronic, persistent atrial fibrillation, on Coumadin, INR today 4.9 #6. Chronic left lower extremity wound #7. Diabetes mellitus type 2 #8. Hypertension #9 hyperlipidemia #10 coronary artery disease with prior PCI Plan We will hold the patient's Coumadin today check daily PT/INRs. Discontinue IV Lasix and start the patient on oral diuretics today. Review echocardiogram with Doppler study. DNP note has been reviewed, I agree with a documented findings and plan of care. Patient was seen and examined.
[2018-03-25 12:00] LABS: Glucose,Whole Blood 111 mg/dL (75-99)
[2018-03-25] MEDS: FUROSEMIDE 40 MG TAB PO SCH (12:01)
--- NOTE | 2018-03-25 12:28 | ECHOF ---
Referral Reason:chf MEASUREMENTS -------- HEIGHT: 170.2 cm WEIGHT: 140.6 kg BP: IVSd: 1.2 cm (0.6 - 1.1) LVIDd: 5.1 cm (3.9 - 5.3) LVPWd: 1.3 cm (0.6 - 1.1) IVSs: 1.8 cm LVIDs: 3.1 cm LVPWs: 2.2 cm Ao Diam: 2.8 cm (2.0 - 3.7) AV Cusp: 1.7 cm (1.5 - 2.6) LA Diam: 3.8 cm (2.7 - 3.8) FINDINGS -------- Resting tachycardia (HR>100bpm). This was a technically difficult study with suboptimal views. The left ventricular size is normal. There is mild concentric left ventricular hypertrophy. Overa ll left ventricular systolic function is normal with, an EF between 55 - 60 %. The RV was not well visualized. The left atrium was not well visualized. The right atrium was not well visualized. Lumason used The aortic valve was not well visualized. The mitral valve was not well visualized. The tricuspid valve was not well visualized. The pulmonic valve was not well visualized. There is no pericardial effusion. CONCLUSIONS -------- 1. Resting tachycardia (HR>100bpm). 2. This was a technically difficult study with suboptimal views. 3. The left ventricular size is normal. 4. There is mild concentric left ventricular hypertrophy. 5. Overall left ventricular systolic function is normal with, an EF between 55 - 60 %. 6. The RV was not well visualized. 7. The left atrium was not well visualized. 8. The right atrium was not well visualized. 9. Lumason used 10. The aortic valve was not well visualized. 11. The mitral valve was not well visualized. 12. The tricuspid valve was not well visualized. 13. The pulmonic valve was not well visualized. 14. There is no pericardial effusion. BLOCK CUBER: Sarah Jean-Baptiste, [facility]
[2018-03-25 13:33] LABS: Glucose,Whole Blood 199 mg/dL (75-99)
[2018-03-25] MEDS: predniSONE 20 MG TAB PO SCH (15:48)
[2018-03-25] MEDS: SODIUM CHLORIDE 0.9% 1,000 ML IV SCH (15:49)
[2018-03-25] MEDS: LEVOTHYROXINE 100 MCG TAB PO SCH (15:49)
--- NOTE | 2018-03-25 16:20 | P.PN ---
Subjective Progress Note Date: 03/25/18 Principal diagnosis: Community-acquired pneumonia pneumonia, mild diastolic congestive heart failure This is a 77-year-old white female patient who follows with Gilmer Cuevas DNP from [place] for primary care services, who was transferred from [facility] on 03/23/2018 for community acquired pneumonia with failure of outpatient treatment. Initially patient started experiencing symptoms of coughing, chest congestion, difficulty breathing 3 weeks ago, she was diagnosed with rhonchi this, she was treated with Zithromax and Tessalon Perls which did not improve her symptoms. This was on 03/01/2018. Patient has a chronic wound on her left lower leg, she sees ict security specialist at the wound clinic in [place], she was having ongoing coughing, difficulty breathing. Her wound care doctor placed her on clindamycin, however the patient has ALLERGIES to clindamycin, and she continued to get worse, hence on 03/14/2018 he presented to the [facility] and was hospitalized at that time. There was a concern for right lower lobe pneumonia, patient was treated with Rocephin, and Levaquin. Apparently patient had worsening of her lactic acidosis, however going through the chart her lactic acid level was noted to be around 1, and no elevated values were found on the chart from [facility]. Patient describes underlying chronic kidney disease, baseline creatinine is unknown. There had been worsening of her renal function during her hospitalization at [place]. Other medical history includes chronic atrial fibrillation on Coumadin, diabetes mellitus type 2, hypertension, hyperlipidemia, DJD, coronary artery disease with prior stenting. Chest x-ray was completed here at [facility] on 03/23/2018 upon arrival from [facility], and showed mild cardiomegaly, and no other acute cardiopulmonary process. Lab work revealed WBC of 18.9, hemoglobin is 9.9, INR of 3.6, sodium 134, chloride is 96 , CO2 was 20, anion gap was found to be at 18, BUN is 52, creatinine is 1.83, troponin is were positive at 0.115 and 0.270. BNP was 2650, urinalysis was negative. Patient states she had a weight increase of about 7 pounds in one week, bilateral lower extremities are positive for chronic venous stasis changes. Patient takes Lasix, and Zaroxolyn on a regular basis. Her diuretics are on hold, patient was started on empiric antibiotics in the form of Zosyn, nebulized bronchodilators, IV steroids. On 03/25/2018 patient seen in follow-up. She is sitting up in the chair, in no acute distress. Still having some coughing spells, she stated that she coughed extensively last night. She is bringing up some phlegm. No ongoing fever or chills, no worsening shortness of breath, currently on 3 L per nasal cannula, her pulse ox is 98%. Sputum cultures are pending, so far the preliminary cultures are positive for Yomaira albicans, urine culture was negative, blood cultures are negative. Yesterday we started the patient on IV diuretics, and cardiology has switched him to oral diuretics. She is in negative fluid balance , her weight is down by 1.9 kg in the last 24 hours. Lung sounds are diminished , with some scattered rhonchi. Labs have been reviewed, INR is 4.9, Coumadin is on hold, serum sodium is 135, chloride is 94, BUN is 65, creatinine is 1.69. Overall there is been slight improvement in patient's condition, will continue with current antibiotic coverage. Objective - Vital Signs Vital signs: Vital Signs Temp 97.2 F L 03/25/18 08:00 Pulse 106 H 03/25/18 13:37 Resp 19 03/25/18 13:37 BP 142/65 03/25/18 13:37 Pulse Ox 98 03/25/18 13:37 Intake & Output 03/24/18 03/25/18 03/25/18 18:59 06:59 18:59 Intake Total 1146.610 10.233 440.627 Output Total 2500 1650 2200 Balance -1353.390 -1639.767 -1759.373 Weight 140.8 kg Intake: Intake, IV Titration 216.610 10.233 20.627 Amount Insulin Regular 100 unit 56.610 10.233 20.627 In Sodium Chloride 0.9% 100 ml @ Titrate IV .Q0M VENKAT Rx#:[id number] Sodium Chloride 0.9% 1, 160 000 ml @ 20 mls/hr IV . Q24H VENKAT Rx#:[id number] Oral 930 420 Output: Urine 2500 1650 2200 Other: # Voids 1 # Bowel Movements 1 1 - Exam GENERAL EXAM: Alert, pleasant 77-year-old white female, obese, mildly short of breath with conversation,but in no apparent distress. HEAD: Normocephalic/atraumatic. EYES: Normal reaction of pupils, equal size. Conjunctiva pink, sclera white. NOSE: Clear with pink turbinates. THROAT: No erythema or exudates. NECK: No masses, no JVD, no thyroid enlargement, no adenopathy. CHEST: No chest wall deformity. Symmetrical expansion. LUNGS: Equal air entry with some scattered rhonchi, no crackles or wheezes CVS: Irregular rate and rhythm, normal S1 and S2, no gallops, no murmurs, no rubs ABDOMEN: Soft, nontender. No hepatosplenomegaly, normal bowel sounds, no guarding or rigidity. EXTREMITIES: No clubbing, ,no cyanosis, 2+ pulses and upper and lower extremities. Bilateral lower extremity edema, left greater than the right, patient has a chronic wound on the left lower extremity, covered with a dressing. Per nursing staff is in his healing stages, is dry, with no drainage. MUSCULOSKELETAL: Muscle strength and tone normal. SPINE: No scoliosis or deformity SKIN: No rashes CENTRAL NERVOUS SYSTEM: Alert and oriented -3. No focal deficits, tone is normal in all 4 extremities. PSYCHIATRIC: Alert and oriented -3. Appropriate affect. Intact judgment and insight - Labs CBC & Chem 7: 03/25/18 05:39 03/25/18 05:39 Labs: Abnormal Lab Results - Last 24 Hours (Table) 03/24/18 03/24/18 03/24/18 Range/Units 05:50 16:25 17:30 WBC (3.8-10.6) k/uL Hgb (11.4-16.0) gm/dL Hct (34.0-46.0) % RDW (11.5-15.5) % Neutrophils # (1.3-7.7) k/uL Lymphocytes # (1.0-4.8) k/uL PT (9.0-12.0) sec INR (<1.2) Sodium (137-145) mmol/L Chloride (98-107) mmol/L BUN (7-17) mg/dL Creatinine (0.52-1.04) mg/dL Glucose (74-99) mg/dL POC Glucose (mg/dL) 104 H 56 L (75-99) mg/dL Calcium (8.4-10.2) mg/dL Iron 24 L (50-170) ug/dL Iron Saturation 7.72 L (12.00-45.00) 03/24/18 03/24/18 03/24/18 Range/Units 19:53 22:02 23:13 WBC (3.8-10.6) k/uL Hgb (11.4-16.0) gm/dL Hct (34.0-46.0) % RDW (11.5-15.5) % Neutrophils # (1.3-7.7) k/uL Lymphocytes # (1.0-4.8) k/uL PT (9.0-12.0) sec INR (<1.2) Sodium (137-145) mmol/L Chloride (98-107) mmol/L BUN (7-17) mg/dL Creatinine (0.52-1.04) mg/dL Glucose (74-99) mg/dL POC Glucose (mg/dL) 142 H 113 H 105 H (75-99) mg/dL Calcium (8.4-10.2) mg/dL Iron (50-170) ug/dL Iron Saturation (12.00-45.00) 03/25/18 03/25/18 03/25/18 Range/Units 00:03 01:18 02:11 WBC (3.8-10.6) k/uL Hgb (11.4-16.0) gm/dL Hct (34.0-46.0) % RDW (11.5-15.5) % Neutrophils # (1.3-7.7) k/uL Lymphocytes # (1.0-4.8) k/uL PT (9.0-12.0) sec INR (<1.2) Sodium (137-145) mmol/L Chloride (98-107) mmol/L BUN (7-17) mg/dL Creatinine (0.52-1.04) mg/dL Glucose (74-99) mg/dL POC Glucose (mg/dL) 112 H 117 H 121 H (75-99) mg/dL Calcium (8.4-10.2) mg/dL Iron (50-170) ug/dL Iron Saturation (12.00-45.00) 03/25/18 03/25/18 03/25/18 Range/Units 03:06 05:24 05:39 WBC 13.5 H (3.8-10.6) k/uL Hgb 9.9 L (11.4-16.0) gm/dL Hct 31.0 L (34.0-46.0) % RDW 16.3 H (11.5-15.5) % Neutrophils # 12.3 H (1.3-7.7) k/uL Lymphocytes # 0.4 L (1.0-4.8) k/uL PT (9.0-12.0) sec INR (<1.2) Sodium (137-145) mmol/L Chloride (98-107) mmol/L BUN (7-17) mg/dL Creatinine (0.52-1.04) mg/dL Glucose (74-99) mg/dL POC Glucose (mg/dL) 135 H 150 H (75-99) mg/dL Calcium (8.4-10.2) mg/dL Iron (50-170) ug/dL Iron Saturation (12.00-45.00) 03/25/18 03/25/18 03/25/18 Range/Units 05:39 05:39 07:48 WBC (3.8-10.6) k/uL Hgb (11.4-16.0) gm/dL Hct (34.0-46.0) % RDW (11.5-15.5) % Neutrophils # (1.3-7.7) k/uL Lymphocytes # (1.0-4.8) k/uL PT 43.9 H (9.0-12.0) sec INR 4.9 H (<1.2) Sodium 135 L (137-145) mmol/L Chloride 94 L (98-107) mmol/L BUN 65 H (7-17) mg/dL Creatinine 1.69 H (0.52-1.04) mg/dL Glucose 136 H (74-99) mg/dL POC Glucose (mg/dL) 180 H (75-99) mg/dL Calcium 10.4 H (8.4-10.2) mg/dL Iron (50-170) ug/dL Iron Saturation (12.00-45.00) 03/25/18 03/25/18 03/25/18 Range/Units 10:22 11:49 13:31 WBC (3.8-10.6) k/uL Hgb (11.4-16.0) gm/dL Hct (34.0-46.0) % RDW (11.5-15.5) % Neutrophils # (1.3-7.7) k/uL Lymphocytes # (1.0-4.8) k/uL PT (9.0-12.0) sec INR (<1.2) Sodium (137-145) mmol/L Chloride (98-107) mmol/L BUN (7-17) mg/dL Creatinine (0.52-1.04) mg/dL Glucose (74-99) mg/dL POC Glucose (mg/dL) 163 H 111 H 199 H (75-99) mg/dL Calcium (8.4-10.2) mg/dL Iron (50-170) ug/dL Iron Saturation (12.00-45.00) Microbiology - Last 24 Hours (Table) 03/24/18 05:30 Gram Stain - Preliminary Sputum Sputum Culture - Preliminary Yomaira albicans 03/23/18 16:28 Urine Culture - Final Urine,Clean Catch 03/23/18 15:50 Blood Culture - Preliminary Blood No Growth after 24 hours Assessment and Plan Plan: Assessment: #1. Dyspnea, cough, leukocytosis related to community acquired pneumonia, although chest x-ray taken at [facility] does not show any acute pulmonary abnormality. Patient had a failure of outpatient treatment, was hospitalized at [facility], and transferred to [facility] on 03/23/2018. #2. Elevated troponins, suspect non-ST elevated UT #3. Suspect congestive heart failure, proBNP was 2650 #4. Acute on chronic kidney disease, baseline creatinine is unknown. #5. Chronic atrial fibrillation, on Coumadin #6. Chronic left lower extremity wound healing stages #7. Diabetes mellitus type 2 #8. Hypertension, hyperlipidemia #9. DJD #10. Never smoker Plan: We'll continue oral diuretics, nebulized bronchodilators, oral prednisone. Will await the results of final sputum culture. Overall patient reports slight improvement, although she still has coughing spells. We'll continue to follow. I performed a history & physical examination of the patient and discussed their management with my nurse practitioner, Priscila Christian. I reviewed the nurse practitioner's note and agree with the documented findings and plan of care. Lung sounds are positive for some scattered rhonchi. The findings and the impression was discussed with the patient. I attest to the documentation by the nurse practitioner. Time with Patient: Less than 30
--- NOTE | 2018-03-25 16:43 | PN ---
PROGRESS NOTE DATE OF SERVICE: 03/25/2018. HISTORY: This 77-year-old woman who was admitted with acute pneumonia also has atrial fibrillation. Cardiology is following the patient. No chest pain, no palpitations, no fever. Blood sugar is also elevated. PHYSICAL EXAM: Alert and oriented x3. Pulse 106, blood pressure 140/64, respiration 18, temperature normal, pulse ox 98% on 3 L. HEENT: Conjunctivae normal. Oral mucosa moist. NECK: No jugular venous distention. No lymph node enlargement. CARDIOVASCULAR: S1 and S2 muffled. LUNGS: Breath sounds are diminished at the bases. Few scattered rhonchi and crackles. ABDOMEN: Soft, obese. NERVOUS SYSTEM: No focal deficits. LABS: WBC 13.2, hemoglobin is 9.9, and INR 4.9. Creatinine is 1.69. ASSESSMENT: 1. Acute right lower lobe pneumonia, possibly community acquired, with failure of outpatient treatment with possible sepsis present on admission. 2. Chronic obstructive pulmonary disease acute exacerbation. 3. Atrial fibrillation with fast ventricular rate. 4. Troponin 0.270. Possible acute vsv-NU-afvnjjg elevation infarction or type 2 myocardial infarction. 5. Lactic acidosis. 6. Renal failure, acute on chronic, multifactorial. 7. Chronic left lower extremity wound. 8. Morbid obesity. 9. Diabetes mellitus type 2. 10.Hypertension. 11.History of hyperlipidemia. 12.History of degenerative joint disease. 13.History of coronary artery disease with stent. RECOMMENDATIONS: Recommend to continue current management and symptomatic treatment. Taper the steroids. Stop the drip. Monitor blood sugars closely. Closely follow with Cardiology. Continue with diuretics. Repeat labs. Prognosis guarded because of multiple complex medical issues. Further recommendations to follow. MMODL / IJN: [id number] /
--- NOTE | 2018-03-25 16:58 | PN ---
PROGRESS NOTE DATE OF SERVICE: 03/25/2018. HISTORY: The patient is seen for followup for acute kidney injury. Her serum creatinine has improved slightly from 1.8 on initial admission, down to 1.69 now. We do not have any previous labs available for comparison. The patient is currently being diuresed. Lasix has been switched to p.o. from IV. PHYSICAL EXAMINATION: On examination, blood pressure was 142/65, heart rate 84 per minute, patient is afebrile. Examination of the heart S1, S2. Examination of lungs, bilateral breath sounds are heard. Abdomen is soft, nontender. Examination lower extremities shows chronic skin changes. Edema trace bilaterally. DATAPOWER DEVELOPER exam is grossly intact. LABS: Sodium 135, potassium 3.6, chloride 94, BUN 65, serum creatinine 1.69, hemoglobin 9.9, calcium was 10.4 g/dL. ASSESSMENT: 1. Acute kidney injury, currently improving, with creatinine down from 1.8 to 1.6. Baseline not known. 2. Chronic kidney disease, likely secondary to nephrosclerosis with benign urinalysis. Patient is scheduled to see Nephrology as outpatient in [place]. 3. Left leg wound, currently wrapped. 4. Possible pneumonia. 5. Anemia of chronic disease. 6. Hypercalcemia. Check PTH levels and vitamin D. 7. Iron deficiency. PLAN: Check PTH level. Check 25 hydroxy vitamin D level. Start IV iron. The patient needs follow up as outpatient for chronic kidney disease. MMODL / IJN: [id number] /
[2018-03-25 16:59] LABS: Glucose,Whole Blood 145 mg/dL (75-99)
[2018-03-25] MEDS ORDERED: INSULIN ASPART 100 UNIT/ML 1 ML 10 ML VIAL SQ SCH (17:30)
[2018-03-25] MEDS: ATORVASTATIN 10 MG TAB PO SCH (20:35)
[2018-03-25 20:38] LABS: Glucose,Whole Blood 317 mg/dL (75-99)
[2018-03-26 02:19] LABS: Parathyroid Hormone Intact 117.4 pg/mL (14.0-72.0)
[2018-03-26 04:31] LABS: Vitamin D 25 Hydroxy 11.5 ng/mL (30.0-100.0)
[2018-03-26 05:59] LABS: Glucose,Whole Blood 305 mg/dL (75-99)
[2018-03-26 06:30] LABS: INR 3.3 (<1.2); Prothrombin Time 29.3 sec (9.0-12.0)
[2018-03-26 06:32] LABS: Calcium 10.2 mg/dL (8.4-10.2); Potassium 3.8 mmol/L (3.5-5.1)
[2018-03-26] MEDS: LEVOTHYROXINE 100 MCG TAB PO SCH (06:54)
[2018-03-26] MEDS: INSULIN ASPART 100 UNIT/ML 1 ML 10 ML VIAL SQ SCH ×6 (06:54→17:33)
[2018-03-26] MEDS: PANTOPRAZOLE 40 MG TABLET PO SCH (06:54)
[2018-03-26 07:07] LABS: Anisocytosis Slight; Basophils % (A) 0 %; Eosinophils % (A) 0 %; HCT 31.7 % (34.0-46.0); Hypochromasia Slight; Lymphocytes # (A) 0.4 k/uL (1.0-4.8); Lymphocytes % (A) 3 %; MCH 26.2 pg (25.0-35.0); MCHC 31.5 g/dL (31.0-37.0); MCV 83.3 fL (80.0-100.0); Mean Platelet Volume 8.3; Monocytes # (A) 0.7 k/uL (0-1.0); Monocytes % (A) 6 %; Neutrophils # (A) 11.1 k/uL (1.3-7.7); Neutrophils % (A) 89 %; Platelet Count 252 k/uL (150-450); RDW 16.4 % (11.5-15.5); WBC 12.4 k/uL (3.8-10.6)
[2018-03-26] MEDS: FORMOTEROL FUMARATE 20 MCG/2 ML NEBU INHALATION SCH ×2 (07:39→17:48)
[2018-03-26] MEDS: BUDESONIDE 1 MG/2 ML NEBU INHALATION SCH ×2 (07:39→17:48)
[2018-03-26] MEDS: IPRATROPIUM-ALBUTEROL 3 ML NEB INHALATION SCH ×4 (07:39→17:48)
[2018-03-26 07:43] LABS: Large Platelets Present
[2018-03-26] MEDS: CYANOCOBALAMIN 500 MCG TAB PO SCH (08:51)
[2018-03-26] MEDS: FUROSEMIDE 40 MG TAB PO SCH (08:51)
[2018-03-26] MEDS: LEVOFLOXACIN 250 MG TAB PO SCH (08:51)
[2018-03-26] MEDS: ASPIRIN 81 MG PO SCH (08:51)
[2018-03-26] MEDS: glipiZIDE 10 MG TAB PO SCH (08:51)
[2018-03-26] MEDS: predniSONE 20 MG TAB PO SCH (08:51)
--- NOTE | 2018-03-26 10:54 | P.PN ---
Subjective Progress Note Date: 03/26/18 This is a 77-year-old female with history of persistent atrial fibrillation, hypertension, hyperlipidemia, coronary artery disease with prior PCI, degenerative joint disease, who presented to [facility] to [facility] initially with shortness of breath and diagnosis of pneumonia. Patient continues to be in atrial fibrillation this morning, her heart rate is under adequate control. INR today is 4.9, we will hold her Coumadin. She is sitting up in the chair, overall she does state that her breathing is improving , she states that she coughs a significant amount especially when lying down. Sputum is yellow in color. Her weight today is down 2 kg. Blood pressure 160/ 70, heart rate 90, 98% on 3 L of oxygen. White blood cell count 15.5, hemoglobin 9.9, platelet count 311. INR today 4.9, sodium 135, potassium 3.6, BUN 65, creatinine 1.6. 03/26/2018 Patient seen and examined this morning, overall feeling better, continues to have cough with sputum production. Sputum culture positive for Yomaira albicans. Blood cultures negative. Blood pressure 156/80 with a heart rate in the 80s. He 6% on room air. White blood cell count 12.4, hemoglobin 10.0, platelet count 252. INR today is 3.3. Sodium 135, potassium 3.8, BUN 65, creatinine 1.7. Patient is on oral diuretics and antibiotics. Objective - Vital Signs Vital signs: Vital Signs Temp 97.4 F L 03/26/18 08:45 Pulse 108 H 03/26/18 08:45 Resp 20 03/26/18 08:45 BP 156/87 03/26/18 08:45 Pulse Ox 96 03/26/18 08:45 Intake & Output 03/25/18 03/26/18 03/26/18 18:59 06:59 18:59 Intake Total 580.627 236 Output Total 2500 1400 Balance -1919.373 -1400 236 Weight 140.5 kg Intake: Intake, IV Titration 160.627 Amount Insulin Regular 100 unit 20.627 In Sodium Chloride 0.9% 100 ml @ Titrate IV .Q0M VENKAT Rx#:[id number] Sodium Chloride 0.9% 1, 140 000 ml @ 20 mls/hr IV . Q24H VENKAT Rx#:[id number] Oral 420 236 Output: Urine 2500 1400 Other: Voiding Method Toilet # Voids 1 - Exam PHYSICAL EXAMINATION: GENERAL: 77-year-old female in no acute distress at the time of my examination HEENT: Head is atraumatic, normocephalic. Pupils equal, round. Sclera anicteric. Conjunctiva are clear. Mucous membranes of the mouth are moist. Neck is supple. There is no elevated jugular venous pressure. No carotid bruit is heard. HEART EXAMINATION: S1 and S2 irregularly irregular CHEST EXAMINATION: Lungs reveal crackles to bilateral bases, fine wheezing heard. ABDOMEN: Soft, nontender. Bowel sounds are heard. No organomegaly noted. EXTREMITIES: One plus peripheral pulses with trace bilateral peripheral edema, evidence of bilateral chronic venous stasis and pigmentation, dressing in place to the left lower extremity.. NEUROLOGIC patient is awake, alert and oriented X3 . - Labs CBC & Chem 7: 03/26/18 05:33 03/26/18 05:33 Labs: Abnormal Lab Results - Last 24 Hours (Table) 03/25/18 03/25/18 03/25/18 Range/Units 05:39 11:49 13:31 WBC (3.8-10.6) k/uL Hgb (11.4-16.0) gm/dL Hct (34.0-46.0) % RDW (11.5-15.5) % Neutrophils # (1.3-7.7) k/uL Lymphocytes # (1.0-4.8) k/uL PT (9.0-12.0) sec INR (<1.2) Sodium (137-145) mmol/L Chloride (98-107) mmol/L BUN (7-17) mg/dL Creatinine (0.52-1.04) mg/dL Glucose (74-99) mg/dL POC Glucose (mg/dL) 111 H 199 H (75-99) mg/dL Vitamin D 25-Hydroxy 11.5 L (30.0-100.0) ng/mL PTH Intact 117.4 H (14.0-72.0) pg/mL 03/25/18 03/25/18 03/26/18 Range/Units 16:51 20:37 05:33 WBC 12.4 H (3.8-10.6) k/uL Hgb 10.0 L (11.4-16.0) gm/dL Hct 31.7 L (34.0-46.0) % RDW 16.4 H (11.5-15.5) % Neutrophils # 11.1 H (1.3-7.7) k/uL Lymphocytes # 0.4 L (1.0-4.8) k/uL PT (9.0-12.0) sec INR (<1.2) Sodium (137-145) mmol/L Chloride (98-107) mmol/L BUN (7-17) mg/dL Creatinine (0.52-1.04) mg/dL Glucose (74-99) mg/dL POC Glucose (mg/dL) 145 H 317 H (75-99) mg/dL Vitamin D 25-Hydroxy (30.0-100.0) ng/mL PTH Intact (14.0-72.0) pg/mL 03/26/18 03/26/18 03/26/18 Range/Units 05:33 05:33 05:58 WBC (3.8-10.6) k/uL Hgb (11.4-16.0) gm/dL Hct (34.0-46.0) % RDW (11.5-15.5) % Neutrophils # (1.3-7.7) k/uL Lymphocytes # (1.0-4.8) k/uL PT 29.3 H (9.0-12.0) sec INR 3.3 H (<1.2) Sodium 135 L (137-145) mmol/L Chloride 95 L (98-107) mmol/L BUN 65 H (7-17) mg/dL Creatinine 1.75 H (0.52-1.04) mg/dL Glucose 290 H (74-99) mg/dL POC Glucose (mg/dL) 305 H (75-99) mg/dL Vitamin D 25-Hydroxy (30.0-100.0) ng/mL PTH Intact (14.0-72.0) pg/mL Microbiology - Last 24 Hours (Table) 03/24/18 05:30 Gram Stain - Final Sputum Sputum Culture - Final Yomaira albicans 03/23/18 15:50 Blood Culture - Preliminary Blood No Growth after 48 hours Assessment and Plan Plan: Assessment: #1. Dyspnea, cough, leukocytosis related to community acquired pneumonia, #2. Elevated troponins not suggestive of acute coronary syndrome, likely secondary to abnormal renal function and supply and demand mismatch. Echocardiogram with Doppler study remains pending. #3. Mild congestive heart failure, proBNP was 2650 , LV function unknown, awaiting echocardiogram with Doppler study #4. Acute on chronic kidney disease #5. Chronic, persistent atrial fibrillation, on Coumadin, INR today 4.9 #6. Chronic left lower extremity wound #7. Diabetes mellitus type 2 #8. Hypertension #9 hyperlipidemia #10 coronary artery disease with prior PCI Plan From cardiology's perspective, we will recommend to continue patient on her current medications. Coumadin according to pro time to maintain an INR in the range of 2-2.5. Monitoring closely as the patient is currently on antibiotics. DNP note has been reviewed, I agree with a documented findings and plan of care. Patient was seen and examined.
[2018-03-26 11:45] LABS: Glucose,Whole Blood 390 mg/dL (75-99)
--- NOTE | 2018-03-26 13:49 | P.PN ---
Subjective Progress Note Date: 03/26/18 Principal diagnosis: Community-acquired pneumonia pneumonia, mild diastolic congestive heart failure This is a 77-year-old white female patient who follows with Gilmer Cuevas DNP from [place] for primary care services, who was transferred from [facility] on 03/23/2018 for community acquired pneumonia with failure of outpatient treatment. Initially patient started experiencing symptoms of coughing, chest congestion, difficulty breathing 3 weeks ago, she was diagnosed with rhonchi this, she was treated with Zithromax and Tessalon Perls which did not improve her symptoms. This was on 03/01/2018. Patient has a chronic wound on her left lower leg, she sees library specialist at the wound clinic in [place], she was having ongoing coughing, difficulty breathing. Her wound care doctor placed her on clindamycin, however the patient has ALLERGIES to clindamycin, and she continued to get worse, hence on 03/14/2018 he presented to the [facility] and was hospitalized at that time. There was a concern for right lower lobe pneumonia, patient was treated with Rocephin, and Levaquin. Apparently patient had worsening of her lactic acidosis, however going through the chart her lactic acid level was noted to be around 1, and no elevated values were found on the chart from [facility]. Patient describes underlying chronic kidney disease, baseline creatinine is unknown. There had been worsening of her renal function during her hospitalization at [place]. Other medical history includes chronic atrial fibrillation on Coumadin, diabetes mellitus type 2, hypertension, hyperlipidemia, DJD, coronary artery disease with prior stenting. Chest x-ray was completed here at [facility] on 03/23/2018 upon arrival from [facility], and showed mild cardiomegaly, and no other acute cardiopulmonary process. Lab work revealed WBC of 18.9, hemoglobin is 9.9, INR of 3.6, sodium 134, chloride is 96 , CO2 was 20, anion gap was found to be at 18, BUN is 52, creatinine is 1.83, troponin is were positive at 0.115 and 0.270. BNP was 2650, urinalysis was negative. Patient states she had a weight increase of about 7 pounds in one week, bilateral lower extremities are positive for chronic venous stasis changes. Patient takes Lasix, and Zaroxolyn on a regular basis. Her diuretics are on hold, patient was started on empiric antibiotics in the form of Zosyn, nebulized bronchodilators, IV steroids. On 03/25/2018 patient seen in follow-up. She is sitting up in the chair, in no acute distress. Still having some coughing spells, she stated that she coughed extensively last night. She is bringing up some phlegm. No ongoing fever or chills, no worsening shortness of breath, currently on 3 L per nasal cannula, her pulse ox is 98%. Sputum cultures are pending, so far the preliminary cultures are positive for Yomaira albicans, urine culture was negative, blood cultures are negative. Yesterday we started the patient on IV diuretics, and cardiology has switched him to oral diuretics. She is in negative fluid balance , her weight is down by 1.9 kg in the last 24 hours. Lung sounds are diminished , with some scattered rhonchi. Labs have been reviewed, INR is 4.9, Coumadin is on hold, serum sodium is 135, chloride is 94, BUN is 65, creatinine is 1.69. Overall there is been slight improvement in patient's condition, will continue with current antibiotic coverage. On 03/26/2018 patient seen in follow-up on selective care unit, she is sitting up in the chair, in no acute distress, still has mild persistent cough, and is bringing up some small amount of creamy colored sputum. IV diuretics have been transitioned to oral. No ongoing fevers, today's labs have been reviewed, WBCs 12.4, hemoglobin is 10.0, INR is 3.3, sodium is 135, chloride is 95, B1 is 65, creatinine is 1.75. No chest pain, no worsening shortness of breath, she is on room air, her pulse ox is 100%. Microbiology results have been negative, patient has been treated on an outpatient and inpatient basis with multiple rounds of antibiotics, she is currently on Levaquin. Improving. Objective - Vital Signs Vital signs: Vital Signs Temp 97.7 F 03/26/18 12:00 Pulse 80 03/26/18 12:00 Resp 18 03/26/18 12:00 BP 126/62 03/26/18 12:00 Pulse Ox 100 03/26/18 12:00 Intake & Output 03/25/18 03/26/18 03/26/18 18:59 06:59 18:59 Intake Total 580.627 396 Output Total 2500 1400 Balance -1919.373 -1400 396 Weight 140.5 kg Intake: Intake, IV Titration 160.627 160 Amount Insulin Regular 100 unit 20.627 In Sodium Chloride 0.9% 100 ml @ Titrate IV .Q0M VENKAT Rx#:[id number] Sodium Chloride 0.9% 1, 140 160 000 ml @ 20 mls/hr IV . Q24H VENKAT Rx#:[id number] Oral 420 236 Output: Urine 2500 1400 Other: Voiding Method Toilet # Voids 1 - Exam GENERAL EXAM: Alert, pleasant 77-year-old white female, obese, mildly short of breath with conversation,but in no apparent distress. HEAD: Normocephalic/atraumatic. EYES: Normal reaction of pupils, equal size. Conjunctiva pink, sclera white. NOSE: Clear with pink turbinates. THROAT: No erythema or exudates. NECK: No masses, no JVD, no thyroid enlargement, no adenopathy. CHEST: No chest wall deformity. Symmetrical expansion. LUNGS: Equal air entry with some scattered rhonchi, no crackles or wheezes CVS: Irregular rate and rhythm, normal S1 and S2, no gallops, no murmurs, no rubs ABDOMEN: Soft, nontender. No hepatosplenomegaly, normal bowel sounds, no guarding or rigidity. EXTREMITIES: No clubbing, ,no cyanosis, 2+ pulses and upper and lower extremities. Bilateral lower extremity edema, left greater than the right, patient has a chronic wound on the left lower extremity, covered with a dressing. Per nursing staff is in his healing stages, is dry, with no drainage. MUSCULOSKELETAL: Muscle strength and tone normal. SPINE: No scoliosis or deformity SKIN: No rashes CENTRAL NERVOUS SYSTEM: Alert and oriented -3. No focal deficits, tone is normal in all 4 extremities. PSYCHIATRIC: Alert and oriented -3. Appropriate affect. Intact judgment and insight - Labs CBC & Chem 7: 03/26/18 05:33 03/26/18 05:33 Labs: Abnormal Lab Results - Last 24 Hours (Table) 03/25/18 03/25/18 03/25/18 Range/Units 05:39 16:51 20:37 WBC (3.8-10.6) k/uL Hgb (11.4-16.0) gm/dL Hct (34.0-46.0) % RDW (11.5-15.5) % Neutrophils # (1.3-7.7) k/uL Lymphocytes # (1.0-4.8) k/uL PT (9.0-12.0) sec INR (<1.2) Sodium (137-145) mmol/L Chloride (98-107) mmol/L BUN (7-17) mg/dL Creatinine (0.52-1.04) mg/dL Glucose (74-99) mg/dL POC Glucose (mg/dL) 145 H 317 H (75-99) mg/dL Vitamin D 25-Hydroxy 11.5 L (30.0-100.0) ng/mL PTH Intact 117.4 H (14.0-72.0) pg/mL 03/26/18 03/26/18 03/26/18 Range/Units 05:33 05:33 05:33 WBC 12.4 H (3.8-10.6) k/uL Hgb 10.0 L (11.4-16.0) gm/dL Hct 31.7 L (34.0-46.0) % RDW 16.4 H (11.5-15.5) % Neutrophils # 11.1 H (1.3-7.7) k/uL Lymphocytes # 0.4 L (1.0-4.8) k/uL PT 29.3 H (9.0-12.0) sec INR 3.3 H (<1.2) Sodium 135 L (137-145) mmol/L Chloride 95 L (98-107) mmol/L BUN 65 H (7-17) mg/dL Creatinine 1.75 H (0.52-1.04) mg/dL Glucose 290 H (74-99) mg/dL POC Glucose (mg/dL) (75-99) mg/dL Vitamin D 25-Hydroxy (30.0-100.0) ng/mL PTH Intact (14.0-72.0) pg/mL 03/26/18 03/26/18 Range/Units 05:58 11:37 WBC (3.8-10.6) k/uL Hgb (11.4-16.0) gm/dL Hct (34.0-46.0) % RDW (11.5-15.5) % Neutrophils # (1.3-7.7) k/uL Lymphocytes # (1.0-4.8) k/uL PT (9.0-12.0) sec INR (<1.2) Sodium (137-145) mmol/L Chloride (98-107) mmol/L BUN (7-17) mg/dL Creatinine (0.52-1.04) mg/dL Glucose (74-99) mg/dL POC Glucose (mg/dL) 305 H 390 H (75-99) mg/dL Vitamin D 25-Hydroxy (30.0-100.0) ng/mL PTH Intact (14.0-72.0) pg/mL Microbiology - Last 24 Hours (Table) 03/24/18 05:30 Gram Stain - Final Sputum Sputum Culture - Final Yomaira albicans 03/23/18 15:50 Blood Culture - Preliminary Blood No Growth after 48 hours Assessment and Plan Plan: Assessment: #1. Dyspnea, cough, leukocytosis related to community acquired pneumonia, although chest x-ray taken at [facility] does not show any acute pulmonary abnormality. Patient had a failure of outpatient treatment, was hospitalized at [facility], and transferred to [facility] on 03/23/2018. #2. Elevated troponins, suspect non-ST elevated [place] #3. Suspect congestive heart failure, proBNP was 2650 #4. Acute on chronic kidney disease, baseline creatinine is unknown. #5. Chronic atrial fibrillation, on Coumadin #6. Chronic left lower extremity wound healing stages #7. Diabetes mellitus type 2 #8. Hypertension, hyperlipidemia #9. DJD #10. Never smoker Plan: Continue current antibiotic coverage, oral diuretics, nebulized bronchodilators , and oral prednisone. Patient is improving, afebrile, no acute complaints, still has some mild persistent cough, he has been ambulating, and tolerating activity well, she is on room air, lying status is improving. Cultures are negative. From pulmonary perspective patient is improving, and could be considered for discharge home in the next 24 hours. I performed a history & physical examination of the patient and discussed their management with my nurse practitioner, Priscila Christian. I reviewed the nurse practitioner's note and agree with the documented findings and plan of care. Lung sounds are positive for some scattered rhonchi. The findings and the impression was discussed with the patient. I attest to the documentation by the nurse practitioner. Time with Patient: Less than 30
--- NOTE | 2018-03-26 14:17 | CDI ---
Last Revision, May 2017 Documentation Clarification Form Date: 03/26/2018 1:59:29 PM From: Candelaria Shafer RN, CCDS Admit Date: 03/23/2018 2:17:00 PM Patient Name: Marielena Delarosa Visit Number: [id number] Discharge Date: ATTENTION: The Clinical Documentation Specialists (CDI) and [facility] Coding Staff appreciate your assistance in clarifying documentation. Please respond to the clarification below the line at the bottom and electronically sign. The CDI & [facility] Coding staff will review the response and follow-up if needed. Please note: Queries are made part of the Legal Health Record. If you have any questions, please contact the author of this message via ITS. Shankar Stevens MD History/Risk Factors: CAD, Persistent atrial fibrillation, Hypertension, Clinical Indicators: Shortness of breath diagnosis of pneumonia, noted to have mild congestive heart failure. Lungs reveal crackles to bilateral bases, fine wheezing heard. Elevated troponins not suggestive of acute coronary syndrome , likely secondary to abnormal renal function and supply and demand mismatch VS/Pulse OX: 142/65 106 19 98% 3/L BNP: 2650 Echocardiogram Results: 50-55 % Chest X Ray: Mild cardiomegaly Treatment: Lasix IV (change to PO) In your professional opinion, can you please clarify the acuity and type of CHF if known? Diastolic Heart Failure: Acute Chronic Acute on Chronic Unable to Determine Other, please specify Please continue to document in your progress notes and discharge summary in order to capture severity of illness and risk of mortality. Include clinical findings that support your diagnosis. MTDD
--- NOTE | 2018-03-26 14:44 | CDI ---
Last Revision, May 2017 Documentation Clarification Form Date: 03/26/18 From: Candelaria Shafer RN, CCDS Admit Date: 03/23/2018 2:17:00 PM Patient Name: Marielena Delarosa Visit Number: [id number] Discharge Date: ATTENTION: The Clinical Documentation Specialists (CDI) and [facility] Coding Staff appreciate your assistance in clarifying documentation. Please respond to the clarification below the line at the bottom and electronically sign. The CDI & [facility] Coding staff will review the response and follow-up if needed. Please note: Queries are made part of the Legal Health Record. If you have any questions, please contact the author of this message via ITS. Shankar Stevens MD Per your progress note on 03/25-03/26/18 you stated " Elevated troponins not suggestive of acute coronary syndrome, likely secondary to abnormal renal function and supply and demand mismatch". Patient history/risk factors: CAD, Persistent atrial fibrillation, Hypertension Clinical Indicators: Troponin is elevated probably due to worsening renal function, EKG showed episodes of atrial fibrillation Lab findings: Troponin I 0.115, 0.270 BUN 52, Cr 1.83 Chest x-ray: Mild cardiomegaly Treatment: quality assurance monitor body Monitor Labs Lasix PO ECHO In your professional opinion, can you please further clarify supply and demand mismatch? Type II myocardial Infarction Demand Ischemia with out [place] Other, please specify Unable to determine Please continue to document in your progress notes and discharge summary in order to capture severity of illness and risk of mortality. Include clinical findings that support your diagnosis. MTDD
--- NOTE | 2018-03-26 15:06 | P.PN ---
Progress Note - Text Progress Note Date: 03/26/18 This Is an addendum to the cardiology progress note of today. Patient has diastolic congestive heart failure acute on chronic. Type II myocardial infarction secondary to supply and demand mismatch. DNP note has been reviewed, I agree with a documented findings and plan of care. Patient was seen and examined.
[2018-03-26 16:42] LABS: Glucose,Whole Blood 377 mg/dL (75-99)
[2018-03-26 17:03] VITALS: BP 163/81; TEMP 97.5
[2018-03-26 17:50] VITALS: RESP 18
[2018-03-26 18:10] VITALS: PULSE 88
[2018-03-26 18:39] LABS: Glucose,Whole Blood 373 mg/dL (75-99)
[2018-03-26] MEDS: ACETAMINOPHEN TAB 325 MG TAB PO PRN (18:58)
--- NOTE | 2018-03-26 22:14 | PN ---
PROGRESS NOTE Patient is seen for followup for acute kidney injury on top of chronic kidney disease. Renal function is staying stable with creatinine about 1.7 mg/dL. The patient will be discharged home today. PHYSICAL EXAMINATION: Blood pressure is 163/81, heart rate 91 per minute. She is afebrile. Examination of the heart S1, S2. Examination of lungs bilateral breath sounds are heard. Abdomen is soft, nontender. Examination lower extremity shows chronic skin changes. Trace edema is noted bilaterally. LAB: Show sodium 135, potassium 3.8, chloride 95, BUN 65, serum creatinine 1.75, hemoglobin 10.0. ASSESSMENT: 1. Chronic kidney disease secondary to nephrosclerosis with serum creatinine staying at about 1.7 mg/dL. The patient is to follow up as outpatient with Nephrology. 2. Mild acute kidney injury with some improvement in serum creatinine level since admission. No evidence of obstructive uropathy. 3. Possible pneumonia/bronchitis, maintained on antibiotics, currently improved. 4. Chronic lower extremity edema. Continue with diuretics. Patient can be switched back to Bumex that she was taking prior to admission. 5. Type 2 diabetes. PLAN: The patient is stable for discharge from Nephrology standpoint. Follow up as outpatient with Nephrology for management of chronic kidney disease. Continue to diuresis patient and can switch to oral Bumex that she was taking prior to admission. MMODL / IJN: [id number] /
--- NOTE | 2018-03-27 11:00 | P.DS ---
Providers Date of admission: 03/23/18 14:17 Attending physician: Corrie Torres Consults: 03/23/18 15:30 Consult Physician Routine Consulting Provider: Logan Clemons Consult Reason/Comments: pneumonia Do you want consulting provider notified?: Yes 03/23/18 15:35 Consult Physician Routine Consulting Provider: Kathe Waller Consult Reason/Comments: arf Do you want consulting provider notified?: Yes 03/23/18 15:42 Consult Physician Routine Consulting Provider: Doc Diaz Consult Reason/Comments: afib Do you want consulting provider notified?: Yes Primary care physician: Stated None Hospital Course: Patient was admitted for community acquired pneumonia and patient also has elevated the creatinine unknown baseline. Patient's creatinine has come down to 1.7 and the nephrology please that's her baseline. Patient has hypertensive sclerosis as there is no proteinuria. Patient is cleared for discharge. Patient the metformin cannot be continued because of renal dysfunction. Rest of the oral hypoglycemic agents will be continued patient blood sugars are bit elevated expected to improve. Patient's metolazone is being this can you Fran is describing discuss reviewed and patient is being discharged on Bumex as recommended by nephrology. Patient Coumadin is therapeutic patient will be discharged on the milligrams of Coumadin so further break yesterday. will be discharged on 3 more days of Ceftin. She still complaining of quite a bit of cough. Patient will followed nephrology in [facility] PHYSICAL EXAMINATION: GENERAL: The patient is alert and oriented x3, not in any acute distress. Obese HEENT: Pupils are round and equally reacting to light. EOMI. No scleral icterus. No conjunctival pallor. Normocephalic, atraumatic. No pharyngeal erythema. No thyromegaly. CARDIOVASCULAR: S1 and S2 present. No murmurs, rubs, or gallops. PULMONARY: Chest is clear to auscultation, no wheezing or crackles. ABDOMEN: Soft, nontender, nondistended, normoactive bowel sounds. No palpable organomegaly. MUSCULOSKELETAL: No joint swelling or deformity. EXTREMITIES: No cyanosis, clubbing, or pedal edema. NEUROLOGICAL: Gross neurological examination did not reveal any focal deficits. SKIN: No rashes. -Community-acquired pneumonia -Mildly elevated troponin secondary to chronic any disease. 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 Patient's metformin will be discontinued -Hypertension -Degenerative joint disease Patient Condition at Discharge: Stable Plan - Discharge Summary Discharge Rx Participant: No New Discharge Prescriptions: New Albuterol Inhaler [Ventolin Hfa Inhaler] 1 - 2 puff INHALATION Q6HR PRN #1 inhaler PRN Reason: Shortness Of Breath Or Wheezing Budesonide-Formot 160-4.5 Mcg [Symbicort 160-4.5 Mcg Inhaler] 2 puff INHALATION BID #1 inhaler Cefuroxime Axetil [Ceftin] 500 mg PO BID 3 Days #6 tab Warfarin [Coumadin] 3 mg PO DAILY #30 tab Continue glipiZIDE XL [Glucotrol XL] 20 mg PO DAILY Lovastatin [Mevacor] 40 mg PO HS Bumetanide [BUMEX] 2 mg PO DAILY Aspirin EC [Ecotrin Low Dose] 81 mg PO DAILY Pioglitazone [Actos] 45 mg PO DAILY Cyanocobalamin (Vitamin B-12) [Vitamin B12] 5,000 mcg PO DAILY Levothyroxine Sodium [Synthroid] 200 mcg PO DAILY Discontinued metFORMIN HCL 1,000 mg PO BID Warfarin [Coumadin] 1 mg PO SUSA Furosemide [Lasix] 20 mg PO DAILY Warfarin Sodium [Coumadin] 4 mg PO DAILY Metolazone [Zaroxolyn] 5 mg PO DAILY Discharge Medication List Aspirin EC [Ecotrin Low Dose] 81 mg PO DAILY 03/23/18 [History] Bumetanide [BUMEX] 2 mg PO DAILY 03/23/18 [History] Cyanocobalamin (Vitamin B-12) [Vitamin B12] 5,000 mcg PO DAILY 03/23/18 [History ] Lovastatin [Mevacor] 40 mg PO HS 03/23/18 [History] Pioglitazone [Actos] 45 mg PO DAILY 03/23/18 [History] glipiZIDE XL [Glucotrol XL] 20 mg PO DAILY 03/23/18 [History] Levothyroxine Sodium [Synthroid] 200 mcg PO DAILY 03/25/18 [History] Albuterol Inhaler [Ventolin Hfa Inhaler] 1 - 2 puff INHALATION Q6HR PRN #1 inhaler 03/26/18 [Rx] Budesonide-Formot 160-4.5 Mcg [Symbicort 160-4.5 Mcg Inhaler] 2 puff INHALATION BID #1 inhaler 03/26/18 [Rx] Cefuroxime Axetil [Ceftin] 500 mg PO BID 3 Days #6 tab 03/26/18 [Rx] Warfarin [Coumadin] 3 mg PO DAILY #30 tab 03/26/18 [Rx] Follow up Appointment(s)/Referral(s): Mary Cuevas FNPBC [REFERRING] - 03/28/18 2:15 pm Shankar Burch MD [STAFF PHYSICIAN] - 04/12/18 2:30 pm (In [facility].) Patient Instructions/Handouts: Acute Kidney Injury (DC), Community Acquired Pneumonia (DC) Activity/Diet/Wound Care/Special Instructions: [facility] - [phone] Discharge Disposition: HOME WITH HOME HEALTH SERVICES
--- NOTE | 2018-04-02 09:08 | CDI ---
Documentation Clarification Form Date: 04/01/2018 5:46:00 PM From: ROLANDO Thompson; [facility] Phone: If you have a question about this query, please contact [facility] at [phone] between 8am and 5pm. Admit Date: 03/23/2018 2:17:00 PM Patient Name: Marielena Delarosa Visit Number: [id number] Discharge Date: 03/26/2018 ATTENTION: The Clinical Documentation Specialists (CDI) and [facility] Coding Staff appreciate your assistance in clarifying documentation. Please respond to the clarification below the line at the bottom and electronically sign. The CDI & [facility] Coding staff will review the response and follow-up if needed. Please note: Queries are made part of the Legal Health Record. If you have any questions, please contact the author of this message via ITS. Ezio Jones MD Per documentation in the discharge summary, patient has diabetes mellitus uncontrolled blood sugars secondary to prednisone. History/Risk Factors: Admitted with pneumonia and acute/chronic CHF, EFREN and type 2 [place]. Clinical Indicators: glucose 03/23 10/3 218, 289, 136, 290. Hemoglobin A1c 6.9. Treatment: Insulin In order to capture the severity of Illness and necessary documentation specificity, please clarify the patients diabetic control status? DM Type 2 poorly controlled DM Type 2 uncontrolled with hyperglycemia DM Type 2 uncontrolled with hypoglycemia Other, please specify Unable to Determine DM Type 2 uncontrolled with hyperglycemia MTDD
== END 2018-03-26 19:15 | disposition home health service (06) | DRG 193 ==
LOC: 6SEL 14:17
PROVIDERS: ADMIT Internal Medicine; ATTEND Internal Medicine
DX: J18.9 Pneumonia, unspecified organism (principal); I21.A1 Myocardial infarction type 2; I50.33 Acute on chronic diastolic (congestive) heart failure; J44.0 Chronic obstructive pulmonary disease with (acute) lower respiratory infection; J44.1 Chronic obstructive pulmonary disease with (acute) exacerbation; E87.2 Acidosis; I13.0 Hypertensive heart and chronic kidney disease with heart failure and stage 1 through stage 4 chronic kidney disease, or unspecified chronic kidney disease; I48.1 Persistent atrial fibrillation; N17.9 Acute kidney failure, unspecified; Z68.42 Body mass index [BMI] 45.0-49.9, adult; D63.1 Anemia in chronic kidney disease; E11.22 Type 2 diabetes mellitus with diabetic chronic kidney disease; D50.9 Iron deficiency anemia, unspecified; E66.01 Morbid (severe) obesity due to excess calories; E78.5 Hyperlipidemia, unspecified; E83.52 Hypercalcemia; E11.65 Type 2 diabetes mellitus with hyperglycemia; I25.10 Atherosclerotic heart disease of native coronary artery without angina pectoris; I48.0 Paroxysmal atrial fibrillation; I48.2 Chronic atrial fibrillation; I87.8 Other specified disorders of veins; M19.90 Unspecified osteoarthritis, unspecified site; N18.9 Chronic kidney disease, unspecified; R09.02 Hypoxemia; Z96.652 Presence of left artificial knee joint; S81.802A Unspecified open wound, left lower leg, initial encounter; R32 Unspecified urinary incontinence; Z79.01 Long term (current) use of anticoagulants; Z79.84 Long term (current) use of oral hypoglycemic drugs; Z80.3 Family history of malignant neoplasm of breast; Z80.49 Family history of malignant neoplasm of other genital organs; Z82.5 Family history of asthma and other chronic lower respiratory diseases; Z83.3 Family history of diabetes mellitus; Z87.442 Personal history of urinary calculi; Z90.710 Acquired absence of both cervix and uterus; Z95.5 Presence of coronary angioplasty implant and graft; Z79.82 Long term (current) use of aspirin; Z79.891 Long term (current) use of opiate analgesic; Z79.899 Other long term (current) drug therapy; T38.0X5A Adverse effect of glucocorticoids and synthetic analogues, initial encounter; Z88.1 Allergy status to other antibiotic agents
CPT/HCPCS: 71045; 80048; 80053; 81001; 82306; 82570; 83036; 83540; 83550; 83735; 83880; 83970; 84156; 84484; 85025; 85610; 87040; 87070; 87086; 87205; 93306; 94640; 94760

== ENCOUNTER 2018-03-27 10:58 | Inpatient (IN) | payer MEDICARE, BC ==
[2018-03-27] MEDS ORDERED: IPRATROPIUM-ALBUTEROL 3 ML NEB INHALATION PRN (15:03)
[2018-03-27] MEDS ORDERED: ZOLPIDEM 5 MG TAB PO PRN (15:12)
--- NOTE | 2018-03-27 15:13 | P.HPIM ---
History of Present Illness 71-year-old pleasant female was discharged from my service yesterday after she was treated for pneumonia acute renal failure attributed to have chronic kidney disease patient went home and her metformin was discontinued because of renal failure and creatinine being around 1.7 which is her baseline. Patient was on steroids until the time of discharge and patient went home started having blood sugars in 300s and 400s and was having generalized weakness as she was unable to sleep as she cannot get comfortable on the bed. He does of which she went to [facility] where they were concerned about the elevated white blood cell count which was present during her discharge and secondary to steroids and elevated blood sugars secondary to the steroids she was on at the time of discharge which were actually discontinued when she was discharged and generalized weakness as she is unable to sleep, along with mildly elevated troponins which are actually better than her previous hospitalization. Her troponin elevation during the previous aspiration was considered secondary to acute renal failure patient doesn't have any chest pain is coughing quite a bit does have rhonchus breath sounds feels tired and fatigued. Patient denied any fever chills nausea vomiting dysuria. Patient will be admitted for observation no changes in blood sugar medications will be made except for sliding scale insulin as I believe her blood sugars will come down automatically as she is not on any systemic steroids. Consider quite significant cough in spite of being on antibiotics for pneumonia and unable to see because of cough, I'll get the dopamine of pulmonology regarding this patient was temporally switched to Rocephin now. Patient will be continued on breathing treatments to thin her respiratory secretions which will help her bring up the phlegm Review of Systems REVIEW OF SYSTEMS: CONSTITUTIONAL: No fever HEENT: No recent visual problems or hearing problems. Denied any sore throat. CARDIOVASCULAR: No chest pain, orthopnea, PND, no palpitations, no syncope. PULMONARY: No shortness of breath, no hemoptysis. GASTROINTESTINAL: No diarrhea, no nausea, no vomiting, no abdominal pain. Normoactive bowel sounds. NEUROLOGICAL: No headaches, no weakness, no numbness. HEMATOLOGICAL: Denies any bleeding or petechiae. GENITOURINARY: Denies any burning micturition, frequency, or urgency. MUSCULOSKELETAL/RHEUMATOLOGICAL: Denies any joint pain, swelling, or any muscle pain. ENDOCRINE: Denies any polyuria or polydipsia. The rest of the 14-point review of systems is negative. Past Medical History Past Medical History: Atrial Fibrillation, Cancer, Diabetes Mellitus, Hyperlipidemia, Hypertension, Osteoarthritis (OA), Skin Disorder Additional Past Medical History / Comment(s): chronic left lower leg wound History of Any Multi-Drug Resistant Organisms: None Reported Past Surgical History: Heart Catheterization With Stent, Hysterectomy, Orthopedic Surgery Additional Past Surgical History / Comment(s): Total Left Knee Replacement, cataracts removed, eyelids cut back, liver surgery 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 Past Psychological History: No Psychological Hx Reported Smoking Status: Never smoker Past Alcohol Use History: None Reported Past Drug Use History: None Reported - Past Family History Father Family Medical History: Diabetes Mellitus Mother Family Medical History: Cancer Additional Family Medical History / Comment(s): uterine CA Sister(s) Family Medical History: Cancer Additional Family Medical History / Comment(s): skin CA, breast CA Brother(s) Family Medical History: COPD Medications and Allergies Home Medications Medication Instructions Recorded Confirmed Type Aspirin EC [Ecotrin Low Dose] 81 mg PO DAILY 03/23/18 03/27/18 History Bumetanide [BUMEX] 2 mg PO DAILY 03/23/18 03/27/18 History Cyanocobalamin (Vitamin B-12) 5,000 mcg PO DAILY 03/23/18 03/27/18 History [Vitamin B12] Lovastatin [Mevacor] 40 mg PO HS 03/23/18 03/27/18 History Pioglitazone [Actos] 45 mg PO DAILY 03/23/18 03/27/18 History glipiZIDE XL [Glucotrol XL] 20 mg PO DAILY 03/23/18 03/27/18 History Levothyroxine Sodium [Synthroid] 200 mcg PO DAILY 03/25/18 03/27/18 History Cefuroxime Axetil [Ceftin] 500 mg PO BID 3 Days #6 tab 03/26/18 03/27/18 Rx Warfarin [Coumadin] 3 mg PO DAILY #30 tab 03/26/18 03/27/18 Rx Albuterol Inhaler [Ventolin Hfa 1 - 2 puff INHALATION RT-Q6H PRN 03/27/18 History Inhaler] Budesonide-Formot 160-4.5 Mcg 2 puff INHALATION RT-BID 03/27/18 03/27/18 History [Symbicort 160-4.5 Mcg Inhaler] Allergies Allergy/AdvReac Type Severity Reaction Status Date / Time clindamycin AdvReac Unknown Verified 03/27/18 14:57 Physical Exam Vitals: Intake and Output 03/27/18 03/27/18 03/27/18 06:59 14:59 22:59 Other: Weight 137.5 kg PHYSICAL EXAMINATION: GENERAL: The patient is alert and oriented x3, not in any acute distress. Morbidly obese HEENT: Pupils are round and equally reacting to light. EOMI. No scleral icterus. No conjunctival pallor. Normocephalic, atraumatic. No pharyngeal erythema. No thyromegaly. CARDIOVASCULAR: S1 and S2 present. No murmurs, rubs, or gallops. PULMONARY: Rhonchorous breath sounds ABDOMEN: Soft, nontender, nondistended, normoactive bowel sounds. No palpable organomegaly. MUSCULOSKELETAL: No joint swelling or deformity. EXTREMITIES: Bilateral pedal edema which is chronic and does have multiple ulcerations the left leg. NEUROLOGICAL: Gross neurological examination did not reveal any focal deficits. SKIN: No rashes. Assessment and Plan Plan: -Hypoglycemia due to recent steroids which were discontinued patient will be resumed on home regimen along with sliding scale insulin monitor her blood sugars depending on her blood sugars, her diabetic regimen will be titrated -Mildly elevated troponin secondary to chronic kidney disease and patient was evaluated the by cardiology during her previous hospitalization no further intervention at this time her troponin is actually better than previous hospitalization -Cough due to recent pneumonia patient will be continued on antibiotics -Chronic kidney disease stage III creatinine at her baseline -Hyperlipidemia -Generalized fatigue and lack of sleep due to recent steroids and coughing along with possible sleep apnea and morbid obesity. We will obtain TSH -Chronic kidney disease stage III secondary to hypertensive nephrosclerosis -Hypothyroidism: Patient is on high-dose of levothyroxine and TSH will be obtained -Left lower extremity wounds local wound care -Type 2 diabetes mellitus with uncontrolled and elevated blood sugars secondary to above-mentioned reasons.
[2018-03-27] MEDS: IPRATROPIUM-ALBUTEROL 3 ML NEB INHALATION SCH ×2 (16:17→19:59)
[2018-03-27] MEDS: ACETAMINOPHEN TAB 325 MG TAB PO PRN (17:11)
[2018-03-27] MEDS: PANTOPRAZOLE 40 MG/10 ML VIAL IVP SCH (17:12)
[2018-03-27] MEDS: BUMETANIDE 1 MG TAB PO SCH (17:12)
[2018-03-27] MEDS: PIOGLITAZONE 45 MG TAB PO SCH (17:13)
[2018-03-27] MEDS: CYANOCOBALAMIN 500 MCG TAB PO SCH (17:13)
[2018-03-27] MEDS: glipiZIDE 10 MG TAB PO SCH (17:13)
[2018-03-27 17:17] LABS: Magnesium 1.7 mg/dL (1.6-2.3); Potassium 3.8 mmol/L (3.5-5.1)
[2018-03-27 17:46] LABS: Glucose,Whole Blood 259 mg/dL (75-99)
[2018-03-27] MEDS ORDERED: WARFARIN 3 MG TAB PO SCH (18:00)
[2018-03-27 18:14] LABS: T4, Free (Free Thyroxine) 1.87 ng/dL (0.78-2.19)
[2018-03-27] MEDS: SODIUM CHLORIDE 0.9% 1,000 ML IV SCH (18:44)
[2018-03-27] MEDS: INSULIN ASPART 100 UNIT/ML 1 ML 10 ML VIAL SQ SCH ×2 (18:44→22:28)
[2018-03-27] MEDS: SYMBICORT 160-4.5 MCG INHALER INHALATION SCH (19:58)
[2018-03-27 20:34] LABS: Glucose,Whole Blood 264 mg/dL (75-99)
--- NOTE | 2018-03-27 21:01 | XR ---
EXAMINATION TYPE: XR chest 2V DATE OF EXAM: 03/27/2018 COMPARISON: 03/23/2018 HISTORY: Short of breath TECHNIQUE: Frontal and lateral views of the chest are obtained. FINDINGS: There is small linear density at the left lung base. There is no heart failure. There is n o pleural effusion. Bony thorax is intact. IMPRESSION: Subsegmental atelectasis appears new in the left lower lobe compared to old exam. No hea rt failure. No pulmonary consolidation.
[2018-03-28] MEDS: ACETAMINOPHEN TAB 325 MG TAB PO PRN ×3 (00:20→12:33)
[2018-03-28 05:17] LABS: Hemoglobin A1C 6.9 % (4.0-6.0)
[2018-03-28 06:16] LABS: Glucose,Whole Blood 166 mg/dL (75-99)
[2018-03-28 06:19] LABS: INR 1.6 (<1.2); Prothrombin Time 15.1 sec (9.0-12.0)
[2018-03-28] MEDS ORDERED: LEVOTHYROXINE 100 MCG TAB PO SCH (06:30)
[2018-03-28 06:36] LABS: Calcium 9.5 mg/dL (8.4-10.2); Potassium 3.2 mmol/L (3.5-5.1)
[2018-03-28 06:37] LABS: Anisocytosis Slight; Basophils # (A) 0.1 k/uL (0-0.2); Basophils % (A) 1 %; Eosinophils # (A) 0.1 k/uL (0-0.7); Eosinophils % (A) 0 %; HCT 32.2 % (34.0-46.0); HGB 9.9 gm/dL (11.4-16.0); Hypochromasia Moderate; Lymphocytes # (A) 0.6 k/uL (1.0-4.8); Lymphocytes % (A) 4 %; MCH 25.9 pg (25.0-35.0); MCHC 30.7 g/dL (31.0-37.0); MCV 84.3 fL (80.0-100.0); Mean Platelet Volume 8.1; Monocytes % (A) 6 %; Neutrophils # (A) 14.7 k/uL (1.3-7.7); Neutrophils % (A) 88 %; Platelet Count 265 k/uL (150-450); RBC 3.81 m/uL (3.80-5.40); RDW 16.3 % (11.5-15.5); WBC 16.6 k/uL (3.8-10.6)
[2018-03-28] MEDS: INSULIN ASPART 100 UNIT/ML 1 ML 10 ML VIAL SQ SCH ×4 (07:06→21:32)
[2018-03-28] MEDS: glipiZIDE 10 MG TAB PO SCH ×2 (07:06→17:27)
[2018-03-28] MEDS: SYMBICORT 160-4.5 MCG INHALER INHALATION SCH (08:23)
[2018-03-28] MEDS: IPRATROPIUM-ALBUTEROL 3 ML NEB INHALATION SCH ×4 (08:23→21:42)
[2018-03-28] MEDS: PANTOPRAZOLE 40 MG/10 ML VIAL IVP SCH (09:12)
[2018-03-28] MEDS: ASPIRIN 81 MG PO SCH (09:12)
[2018-03-28] MEDS: CYANOCOBALAMIN 500 MCG TAB PO SCH (09:12)
[2018-03-28] MEDS: PIOGLITAZONE 45 MG TAB PO SCH (09:12)
[2018-03-28] MEDS: BUMETANIDE 1 MG TAB PO SCH (09:12)
[2018-03-28] MEDS ORDERED: Potassium Replacement Protocol 1 EACH MISC MISCELLANE PRN (11:12)
[2018-03-28] MEDS ORDERED: Magnesium Replacement Protocol 1 EACH MISC MISCELLANE PRN (11:13)
[2018-03-28 11:45] LABS: Glucose,Whole Blood 210 mg/dL (75-99)
[2018-03-28] MEDS: SODIUM CHLORIDE 0.9% 1,000 ML IV SCH ×2 (12:34→17:31)
[2018-03-28] MEDS: guaiFENesin-DM 100-10MG/5ML 10 ML CUP PO SCH ×3 (12:34→21:31)
[2018-03-28] MEDS: POTASSIUM CHLORIDE ER 20 MEQ TAB.ER PO SCH ×2 (12:34→14:09)
[2018-03-28] MEDS: MAGNESIUM SULFATE-D5W PMX 1 GM in DEXTROSE/WATER 1 100ML.BAG IVPB SCH ×2 (12:34→14:09)
[2018-03-28 14:18] VITALS: BMI 47.7
--- NOTE | 2018-03-28 16:19 | P.CNPUL ---
History of Present Illness Consult date: 03/28/18 Reason for consult: cough History of present illness: This is a 71-year-old morbidly obese female patient who was readmitted to the hospital after a recent evaluation and inpatient treatment for acute kidney injury and pneumonia. Note that her initial admission was on 03/24/2018 and the patient came in from [facility] for community acquired pneumonia that failed outpatient treatment as the patient received antibiotics including Zithromax, a combination of Rocephin and Levaquin, and subsequently Zosyn. She was also offered IV Solu-Medrol at time of her admission here in the hospital in February 2018. The patient was seen and evaluated by the hospitalist group. The patient was given antibiotics and at time of discharge the patient was given a combination of Ceftin and prednisone taper and following of discharge the patient became profoundly hyperglycemic with sugars in the 300s range and she presented herself initiated to [facility] following that the patient got transferred to us for further evaluation. I was asked to evaluate this patient knowing that she was having still cough and congestion. Clinically however the patient denies having any worsening shortness of breath other than her chronic dyspnea. No hemoptysis. No pleurisy. Chest x-ray shows questionable left lower lobe pulmonary infiltrate yet for the most part it is a low quality chest x-ray based on patient's morbidly obese body habitus and her BMI of 47.8. The patient has some chronic lower extremity edema. No nausea. No vomiting. No abdominal pain. She is a lifetime nonsmoker. She does not use any form of breathing medications or any maintenance inhalers. She has history of diabetes mellitus, hypertension and hyperlipidemia and she also has had previous cardiac catheterization and stenting for coronary artery disease. She suffers from atrial fibrillation also. She has chronic lower extremity edema and she has had wounds in the legs that are currently inactive and stable. She has a previous history of uterine cancer with a previous hysterectomy. She suffers from chronic renal failure and creatinine is stable at 1.3 for now. She is on long-term anticoagulation with warfarin and her INR is subtherapeutic at 1.6 she has a preserved LV function with ejection fraction of 55-60% on echocardiogram from 03/25/2018. Review of Systems CONSTITUTIONAL: No fever, no chills, she is chronically obese and she has no recent weight gain or weight loss. HEENT: No recent visual problems or hearing problems. Denied any sore throat. CARDIOVASCULAR: No chest pain, orthopnea, PND, no palpitations, no syncope. PULMONARY: No shortness of breath, no hemoptysis. She has a congested cough without any significant sputum production. GASTROINTESTINAL: No diarrhea, no nausea, no vomiting, no abdominal pain. Normoactive bowel sounds. NEUROLOGICAL: No headaches, no weakness, no numbness. HEMATOLOGICAL: Denies any bleeding or petechiae. GENITOURINARY: Denies any burning micturition, frequency, or urgency. MUSCULOSKELETAL/RHEUMATOLOGICAL: Denies any joint pain, swelling, or any muscle pain. ENDOCRINE: Denies any polyuria or polydipsia. The rest of the 14-point review of systems is negative. Past Medical History Past Medical History: Atrial Fibrillation, Cancer, Diabetes Mellitus, Hyperlipidemia, Hypertension, Osteoarthritis (OA), Skin Disorder Additional Past Medical History / Comment(s): Morbid obesity BMI 47.8, chronic atrial fibrillation, hypertension, hyperlipidemia, diabetes mellitus, chronic lower 70 edema and ulceration of the wound/skin in the left leg, osteoarthritis , uterine cancer with a previous hysterectomy, coronary artery disease with previous coronary artery stenting History of Any Multi-Drug Resistant Organisms: None Reported Past Surgical History: Heart Catheterization With Stent, Hysterectomy, Orthopedic Surgery Additional Past Surgical History / Comment(s): Total Left Knee Replacement, cataracts removed, eyelids cut back, liver surgery 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 Past Psychological History: No Psychological Hx Reported Smoking Status: Never smoker Past Alcohol Use History: None Reported Past Drug Use History: None Reported - Past Family History Father Family Medical History: Diabetes Mellitus Mother Family Medical History: Cancer Additional Family Medical History / Comment(s): uterine CA Sister(s) Family Medical History: Cancer Additional Family Medical History / Comment(s): skin CA, breast CA Brother(s) Family Medical History: COPD Medications and Allergies Home Medications Medication Instructions Recorded Confirmed Type Aspirin EC [Ecotrin Low Dose] 81 mg PO DAILY 03/23/18 03/27/18 History Bumetanide [BUMEX] 2 mg PO DAILY 03/23/18 03/27/18 History Cyanocobalamin (Vitamin B-12) 5,000 mcg PO DAILY 03/23/18 03/27/18 History [Vitamin B12] Lovastatin [Mevacor] 40 mg PO HS 03/23/18 03/27/18 History Pioglitazone [Actos] 45 mg PO DAILY 03/23/18 03/27/18 History glipiZIDE XL [Glucotrol XL] 20 mg PO DAILY 03/23/18 03/27/18 History Levothyroxine Sodium [Synthroid] 200 mcg PO DAILY 03/25/18 03/27/18 History Cefuroxime Axetil [Ceftin] 500 mg PO BID 3 Days #6 tab 03/26/18 03/27/18 Rx Warfarin [Coumadin] 3 mg PO DAILY #30 tab 03/26/18 03/27/18 Rx Albuterol Inhaler [Ventolin Hfa 1 - 2 puff INHALATION RT-Q6H PRN 03/27/18 History Inhaler] Budesonide-Formot 160-4.5 Mcg 2 puff INHALATION RT-BID 03/27/18 03/27/18 History [Symbicort 160-4.5 Mcg Inhaler] Allergies Allergy/AdvReac Type Severity Reaction Status Date / Time clindamycin AdvReac Unknown Verified 03/27/18 14:57 Physical Exam Vitals: Vital Signs Temp Pulse Pulse Resp BP Pulse Ox 03/28/18 12:20 103 H 16 129/69 95 03/28/18 11:55 80 03/28/18 11:40 88 03/28/18 08:33 78 03/28/18 08:23 76 03/28/18 08:00 98.1 F 107 H 16 144/62 99 03/28/18 04:00 99.4 F 112 H 18 138/73 99 03/28/18 00:00 99.0 F 101 H 18 139/65 98 03/27/18 20:15 84 03/27/18 20:00 101 H 18 157/65 100 03/27/18 19:59 80 03/27/18 16:32 84 03/27/18 16:23 80 Intake and Output 03/28/18 03/28/18 03/28/18 06:59 14:59 22:59 Intake Total 600 Output Total 2 Balance -2 600 Intake: Intake, IV Titration 600 Amount Magnesium Sulfate-D5w Pmx 200 1 gm In Dextrose/Water 1 100ml.bag @ 100 mls/hr IVPB Q1H VENKAT Rx#: [id number] Sodium Chloride 0.9% 1, 400 000 ml @ 50 mls/hr IV . Q20H VENKAT Rx#:[id number] Output: Urine 2 Other: Voiding Method Toilet Toilet # Voids 1 2 # Bowel Movements 1 Weight 138.3 kg 138.3 kg GENERAL EXAM: Alert, pleasant 77-year-old white female, obese, the patient is sitting up on a chair and she is not having any respiratory distress. HEAD: Normocephalic/atraumatic. EYES: Normal reaction of pupils, equal size. Conjunctiva pink, sclera white. NOSE: Clear with pink turbinates. THROAT: No erythema or exudates. NECK: No masses, no JVD, no thyroid enlargement, no adenopathy. CHEST: No chest wall deformity. Symmetrical expansion. LUNGS: Equal air entry with some scattered rhonchi, no crackles or wheezes CVS: Irregular rate and rhythm, normal S1 and S2, no gallops, no murmurs, no rubs ABDOMEN: Soft, nontender. No hepatosplenomegaly, normal bowel sounds, no guarding or rigidity. EXTREMITIES: No clubbing, ,no cyanosis, 2+ pulses and upper and lower extremities. Bilateral lower extremity edema, left greater than the right, patient has a chronic wound on the left lower extremity, covered with a dressing. Per nursing staff is in his healing stages, is dry, with no drainage. MUSCULOSKELETAL: Muscle strength and tone normal. SPINE: No scoliosis or deformity SKIN: No rashes CENTRAL NERVOUS SYSTEM: Alert and oriented -3. No focal deficits, tone is normal in all 4 extremities. PSYCHIATRIC: Alert and oriented -3. Appropriate affect. Intact judgment and insight. Results - Laboratory Findings CBC and BMP: 03/28/18 05:35 03/28/18 05:35 PT/INR, D-dimer PT 15.1 sec (9.0-12.0) H 03/28/18 05:35 INR 1.6 (<1.2) H 03/28/18 05:35 Abnormal lab findings: Abnormal Labs 03/27/18 03/27/18 03/27/18 16:41 16:41 17:31 WBC Hgb Hct MCHC RDW Neutrophils # Lymphocytes # PT INR Sodium Potassium Chloride Carbon Dioxide BUN Creatinine Glucose POC Glucose (mg/dL) 259 H Hemoglobin A1c 6.9 H TSH 0.187 L 03/27/18 03/28/18 03/28/18 20:33 05:35 05:35 WBC 16.6 H Hgb 9.9 L Hct 32.2 L MCHC 30.7 L RDW 16.3 H Neutrophils # 14.7 H Lymphocytes # 0.6 L PT INR Sodium 136 L Potassium 3.2 L Chloride 94 L Carbon Dioxide 32 H BUN 41 H Creatinine 1.31 H Glucose 152 H POC Glucose (mg/dL) 264 H Hemoglobin A1c TSH 03/28/18 03/28/18 03/28/18 05:35 06:14 11:36 WBC Hgb Hct MCHC RDW Neutrophils # Lymphocytes # PT 15.1 H INR 1.6 H Sodium Potassium Chloride Carbon Dioxide BUN Creatinine Glucose POC Glucose (mg/dL) 166 H 210 H Hemoglobin A1c TSH - Diagnostic Findings Chest x-ray: image reviewed Assessment and Plan Plan: Assessment 1 subacute/chronic cough following a comment acquired pneumonia that was treated in various settings including outpatient setting, [facility] and [facility] with a combination of antibiotics and is included Zithromax, Rocephin and Levaquin and ultimately IV Zosyn and the patient was discharged on Ceftin and prednisone burst taper. She continues to have congested cough and the chest x-ray some optimal due to the patient's body habitus although there is some indication for limited left lower lobe pulmonary infiltration 2 diabetes mellitus with steroid use hyperglycemia 3 chronic kidney disease stage III 4 chronic atrial fibrillation with a suboptimal PT/INR with a controlled rate 5 obesity BMI of 47.8 6 hypertension 7 hyperlipidemia 8 chronic lower extremity wounds/edema 9 degenerative arthritis 10 hypothyroidism Plan I think the same antibiotics are being repeated and the patient has been placed on IV Rocephin during this current admission. It'll be puri to stop all antibiotics and collect sputum samples if possible. If not a bronchoscopy and the bronchioloalveolar lavage will be needed to make sure there is no ongoing bacterial/microbial infection. Blood sugar control per medicine. Keep the patient off steroids. Meanwhile since this patient Pulmicort Respules in addition with warfarin. Outpatient medications of been all resumed. Offer Mucinex DM for cough. We'll continue to follow.
[2018-03-28 17:04] LABS: Glucose,Whole Blood 318 mg/dL (75-99)
[2018-03-28] MEDS: POTASSIUM CHLORIDE 10 MEQ in WATER FOR INJECTION 1 100ML.BAG IVPB SCH ×4 (17:27→22:35)
--- NOTE | 2018-03-28 17:34 | P.PN ---
Subjective Progress Note Date: 03/28/18 Progress note being dictated for Dr. Yu Interval history: This is a 77-year-old pleasant female was discharged from my service yesterday after she was treated for pneumonia acute renal failure attributed to have chronic kidney disease patient went home and her metformin was discontinued because of renal failure and creatinine being around 1.7 which is her baseline. Patient was on steroids until the time of discharge and patient went home started having blood sugars in 300s and 400s and was having generalized weakness as she was unable to sleep as she cannot get comfortable on the bed. He does of which she went to [place] [facility] where they were concerned about the elevated white blood cell count which was present during her discharge and secondary to steroids and elevated blood sugars secondary to the steroids she was on at the time of discharge which were actually discontinued when she was discharged and generalized weakness as she is unable to sleep, along with mildly elevated troponins which are actually better than her previous hospitalization. Her troponin elevation during the previous aspiration was considered secondary to acute renal failure patient doesn't have any chest pain is coughing quite a bit does have rhonchus breath sounds feels tired and fatigued. Patient denied any fever chills nausea vomiting dysuria. Patient will be admitted for observation no changes in blood sugar medications will be made except for sliding scale insulin as I believe her blood sugars will come down automatically as she is not on any systemic steroids. Consider quite significant cough in spite of being on antibiotics for pneumonia and unable to see because of cough, I'll get the dopamine of pulmonology regarding this patient was temporally switched to Rocephin now. Patient will be continued on breathing treatments to thin her respiratory secretions which will help her bring up the phlegm 03/28/2018 Maintained on IV antibiotics. Breathing improving with nonproductive cough. Levothyroxine dose decreased; TSH 0.187, free T4 1.87. Potassium 3.1, magnesium 1.6, receiving supplements. Creatinine 1.31. Significant weakness. Evaluated by physical therapy and subacute rehab recommended at discharge. Anticoagulated on Coumadin, subtherapeutic, INR 1.6 . Objective - Vital Signs Vital signs: Vital Signs Temp 98.7 F 03/28/18 15:50 Pulse 83 03/28/18 15:50 Resp 16 03/28/18 15:50 BP 115/65 03/28/18 15:50 Pulse Ox 94 L 03/28/18 15:50 Intake & Output 03/27/18 03/28/18 03/28/18 18:59 06:59 18:59 Intake Total 240 600 Output Total 3 Balance 240 -3 600 Weight 137.5 kg 138.3 kg 138.3 kg Intake: Intake, IV Titration 600 Amount Magnesium Sulfate-D5w Pmx 200 1 gm In Dextrose/Water 1 100ml.bag @ 100 mls/hr IVPB Q1H [facility] Rx#: [id number] Sodium Chloride 0.9% 1, 400 000 ml @ 50 mls/hr IV . Q20H [facility] Rx#:[id number] Oral 240 Output: Urine 3 Other: Voiding Method Toilet Toilet # Voids 1 2 # Bowel Movements 1 - Exam GENERAL: The patient is alert and oriented x3, not in any acute distress. Morbidly obese HEENT: Pupils are round and equally reacting to light. EOMI. No scleral icterus. No conjunctival pallor. Normocephalic, atraumatic. No pharyngeal erythema. No thyromegaly. CARDIOVASCULAR: S1 and S2 present. Irregular, No murmurs, rubs, or gallops. PULMONARY: Rhonchorous breath sounds, no crackles, no wheezes ABDOMEN: Soft, nontender, nondistended, normoactive bowel sounds. No palpable organomegaly. MUSCULOSKELETAL: No joint swelling or deformity. EXTREMITIES: Bilateral pedal edema which is chronic and does have multiple ulcerations the left leg. Dressing clean dry and intact NEUROLOGICAL: Gross neurological examination did not reveal any focal deficits. SKIN: No rashes. - Labs CBC & Chem 7: 03/28/18 05:35 03/28/18 16:18 Labs: Abnormal Lab Results - Last 24 Hours (Table) 03/27/18 03/27/18 03/27/18 Range/Units 16:41 16:41 17:31 WBC (3.8-10.6) k/uL Hgb (11.4-16.0) gm/dL Hct (34.0-46.0) % MCHC (31.0-37.0) g/dL RDW (11.5-15.5) % Neutrophils # (1.3-7.7) k/uL Lymphocytes # (1.0-4.8) k/uL PT (9.0-12.0) sec INR (<1.2) Sodium (137-145) mmol/L Potassium (3.5-5.1) mmol/L Chloride (98-107) mmol/L Carbon Dioxide (22-30) mmol/L BUN (7-17) mg/dL Creatinine (0.52-1.04) mg/dL Glucose (74-99) mg/dL POC Glucose (mg/dL) 259 H (75-99) mg/dL Hemoglobin A1c 6.9 H (4.0-6.0) % TSH 0.187 L (0.465-4.680) mIU/L 03/27/18 03/28/18 03/28/18 Range/Units 20:33 05:35 05:35 WBC 16.6 H (3.8-10.6) k/uL Hgb 9.9 L (11.4-16.0) gm/dL Hct 32.2 L (34.0-46.0) % MCHC 30.7 L (31.0-37.0) g/dL RDW 16.3 H (11.5-15.5) % Neutrophils # 14.7 H (1.3-7.7) k/uL Lymphocytes # 0.6 L (1.0-4.8) k/uL PT (9.0-12.0) sec INR (<1.2) Sodium 136 L (137-145) mmol/L Potassium 3.2 L (3.5-5.1) mmol/L Chloride 94 L (98-107) mmol/L Carbon Dioxide 32 H (22-30) mmol/L BUN 41 H (7-17) mg/dL Creatinine 1.31 H (0.52-1.04) mg/dL Glucose 152 H (74-99) mg/dL POC Glucose (mg/dL) 264 H (75-99) mg/dL Hemoglobin A1c (4.0-6.0) % TSH (0.465-4.680) mIU/L 03/28/18 03/28/18 03/28/18 Range/Units 05:35 06:14 11:36 WBC (3.8-10.6) k/uL Hgb (11.4-16.0) gm/dL Hct (34.0-46.0) % MCHC (31.0-37.0) g/dL RDW (11.5-15.5) % Neutrophils # (1.3-7.7) k/uL Lymphocytes # (1.0-4.8) k/uL PT 15.1 H (9.0-12.0) sec INR 1.6 H (<1.2) Sodium (137-145) mmol/L Potassium (3.5-5.1) mmol/L Chloride (98-107) mmol/L Carbon Dioxide (22-30) mmol/L BUN (7-17) mg/dL Creatinine (0.52-1.04) mg/dL Glucose (74-99) mg/dL POC Glucose (mg/dL) 166 H 210 H (75-99) mg/dL Hemoglobin A1c (4.0-6.0) % TSH (0.465-4.680) mIU/L 03/28/18 03/28/18 Range/Units 16:18 16:41 WBC (3.8-10.6) k/uL Hgb (11.4-16.0) gm/dL Hct (34.0-46.0) % MCHC (31.0-37.0) g/dL RDW (11.5-15.5) % Neutrophils # (1.3-7.7) k/uL Lymphocytes # (1.0-4.8) k/uL PT (9.0-12.0) sec INR (<1.2) Sodium (137-145) mmol/L Potassium 3.1 L (3.5-5.1) mmol/L Chloride (98-107) mmol/L Carbon Dioxide (22-30) mmol/L BUN (7-17) mg/dL Creatinine (0.52-1.04) mg/dL Glucose (74-99) mg/dL POC Glucose (mg/dL) 318 H (75-99) mg/dL Hemoglobin A1c (4.0-6.0) % TSH (0.465-4.680) mIU/L Assessment and Plan Assessment: Hyperglycemia, recently discharged on steroids. -Type 2 diabetes mellitus with uncontrolled and elevated blood sugars secondary to above-mentioned reasons. -Mildly elevated troponin secondary to chronic kidney disease and patient was evaluated the by cardiology during her previous hospitalization no further intervention at this time her troponin is actually better than previous hospitalization -Cough due to recent pneumonia patient will be continued on antibiotics -Chronic kidney disease stage III creatinine at her baseline -Hyperlipidemia -Generalized fatigue and lack of sleep due to recent steroids and coughing along with possible sleep apnea and morbid obesity. -Chronic kidney disease stage III secondary to hypertensive nephrosclerosis -Hypothyroidism: Patient is on high-dose of levothyroxine; dose decreased as mentioned above -Left lower extremity wounds local wound care Plan: Continue current medication regime ,monitoring and symptomatic treatment. Maintain nebulized bronchodilators, antibiotics. Keep patient off steroids; antibiotics discontinued, sputum culture ordered as per pulmonary. Decreased level thyroxine dose as mentioned above. Coumadin increased to 4 mg daily. Magnesium and potassium supplements as ordered. Close monitoring of renal function, electrolytes, PT/INR with repeat labs ordered for a.m. Discharge planning in progress potentially for tomorrow to subacute rehab.Daughter requesting [facility] in [place], where her father is in close to home. The impression and plan of care has been dictated as directed. : I performed a history and examination of this patient, discussed the same with the dictator. I agree with the dictator's note ,documented as a scribe. Any additional findings or plans will be noted.
[2018-03-28] MEDS ORDERED: WARFARIN 2 MG TAB PO SCH (18:00)
[2018-03-28] MEDS ORDERED: ONDANSETRON 4 MG/2 ML VIAL IVP PRN (18:21)
[2018-03-28] MEDS: BUTALB/APAP/CAFF 50-325-40MG TAB PO PRN (18:33)
[2018-03-28 20:56] LABS: Glucose,Whole Blood 237 mg/dL (75-99)
[2018-03-28] MEDS ORDERED: INSULIN DETEMIR 100 UNIT/ML 10 ML VIAL SQ SCH (21:00)
[2018-03-28] MEDS: BUDESONIDE 0.5 MG/2 ML NEBU INHALATION SCH (21:42)
[2018-03-29] MEDS: BUTALB/APAP/CAFF 50-325-40MG TAB PO PRN (02:18)
[2018-03-29 04:52] LABS: INR 1.6 (<1.2)
[2018-03-29 04:53] LABS: Prothrombin Time 14.8 sec (9.0-12.0)
[2018-03-29 04:59] LABS: Magnesium 2.1 mg/dL (1.6-2.3); Potassium 3.4 mmol/L (3.5-5.1)
[2018-03-29] MEDS ORDERED: Potassium Replacement Protocol 1 EACH MISC MISCELLANE PRN (05:15)
[2018-03-29 05:24] LABS: Anisocytosis Slight; Basophils % (A) 0 %; Eosinophils # (A) 0.1 k/uL (0-0.7); Eosinophils % (A) 1 %; HCT 27.6 % (34.0-46.0); HGB 8.5 gm/dL (11.4-16.0); Hypochromasia Slight; Lymphocytes # (A) 0.5 k/uL (1.0-4.8); Lymphocytes % (A) 4 %; MCH 25.5 pg (25.0-35.0); MCHC 30.9 g/dL (31.0-37.0); MCV 82.4 fL (80.0-100.0); Mean Platelet Volume 8.5; Monocytes # (A) 0.8 k/uL (0-1.0); Monocytes % (A) 5 %; Neutrophils # (A) 12.3 k/uL (1.3-7.7); Neutrophils % (A) 88 %; Platelet Count 203 k/uL (150-450); RBC 3.35 m/uL (3.80-5.40); RDW 16.4 % (11.5-15.5); WBC 13.9 k/uL (3.8-10.6)
[2018-03-29] MEDS: guaiFENesin-DM 100-10MG/5ML 10 ML CUP PO SCH ×3 (06:17→17:37)
[2018-03-29] MEDS ORDERED: LEVOTHYROXINE 100 MCG TAB PO SCH (06:30)
[2018-03-29] MEDS ORDERED: LEVOTHYROXINE 75 MCG TAB PO SCH (06:30)
[2018-03-29 07:01] LABS: Glucose,Whole Blood 114 mg/dL (75-99)
[2018-03-29] MEDS: IPRATROPIUM-ALBUTEROL 3 ML NEB INHALATION SCH ×3 (07:22→17:27)
[2018-03-29] MEDS: BUDESONIDE 0.5 MG/2 ML NEBU INHALATION SCH (07:22)
[2018-03-29] MEDS ORDERED: PANTOPRAZOLE 40 MG TABLET PO SCH (07:30)
[2018-03-29] MEDS: POTASSIUM CHLORIDE ER 20 MEQ TAB.ER PO SCH ×2 (07:46→12:56)
[2018-03-29] MEDS: BUMETANIDE 1 MG TAB PO SCH (07:46)
[2018-03-29] MEDS: glipiZIDE 10 MG TAB PO SCH ×2 (07:47→17:38)
[2018-03-29] MEDS: INSULIN ASPART 100 UNIT/ML 1 ML 10 ML VIAL SQ SCH ×3 (07:48→17:38)
[2018-03-29] MEDS: ASPIRIN 81 MG PO SCH (07:48)
[2018-03-29] MEDS: CYANOCOBALAMIN 500 MCG TAB PO SCH (07:48)
[2018-03-29] MEDS: PIOGLITAZONE 45 MG TAB PO SCH (07:48)
[2018-03-29 11:30] LABS: Glucose,Whole Blood 149 mg/dL (75-99)
[2018-03-29 13:10] LABS: ABG Base Excess 12.7 mmol/L; ABG HCO3 35 mmol/L (21-25); ABG Oxygen Saturation 94.2 % (94-97); ABG PCO2 42 mmHg (35-45); ABG PH 7.53 (7.35-7.45); ABG PO2 62 mmHg (83-108); ABG TCO2 37 mmol/L (19-24)
--- NOTE | 2018-03-29 13:19 | P.CRDCN ---
History of Present Illness History of present illness: Mrs. Delarosa is a pleasant 77-year-old female past medical history significant for paroxysmal atrial fibrillation on care home anticoagulation with coumadin, coronary artery disease s/p angioplasty 2005 details unavailable , hypertension, dyslipidemia, diabetes mellitus and morbid obesity. She denies history of heart failure. She states she has a application support technician in [place] who she saw last year. We have been asked to see her in consultation for elevated troponin. She was admitted here earlier this week and diagnosed with pneumonia. During that admission she was seen by Dr. Burch for an episode of atrial fibrillation and elevated troponins. She was also found to have renal insufficiency. The elevated troponins were not indicative of an acute coronary event, were secondary to renal function. She was subsequently discharged home. She went to ED in [place] yesterday for ongoing shortness of breath, cough and elevated blood sugars. She denies chest pain, dizziness, palpitations, diaphoresis, nausea, vomiting, PND or orthopnea. EKG on arrival indicates she is maintaining sinus mechanism with no acute changes noted. Chest x-ray revealed subsegmental atelectasis in the left lower lobe no overt heart failure no pulmonary consolidation. Laboratory data reviewed, WBC 13.9, hemoglobin 8.5, platelets 203, INR 1.6, sodium 134, potassium 3.4, creatinine 1.35, magnesium 2.1 troponin 0.052. On previous admission troponin was 0.270 and 0.115. Troponin obtained in [place] was 0.08. Current cardiac medications include aspirin 81 mg daily, Bumex 2 mg daily, lovastatin 40 mg daily and Coumadin 3 mg daily. Echocardiogram obtained earlier in the week reveals preserved left ventricular systolic function with ejection fraction 55-60% with mild left ventricular hypertrophy. Review of Systems At the time of my exam: CONSTITUTIONAL: Denies fever. Denies chills. EYES: Denies blurred vision. Denies vision changes. Denies eye pain. EARS, NOSE, MOUTH & THROAT: Complains of headache. Denies sore throat. Denies ear pain. CARDIOVASCULAR: Denies chest pain. Denies shortness of breath. Denies orthopnea. Denies PND. Denies palpitations. RESPIRATORY: Complains of cough. GASTROINTESTINAL: Denies abdominal pain. Denies diarrhea. Denies constipation. Denies nausea. Denies vomiting. MUSCULOSKELETAL: Denies myalgias. INTEGUMENTARY: Denies pruitis. Denies rash. NEUROLOGIC: Denies numbness. Denies tingling. Complains of weakness. PSYCHIATRIC: Denies anxiety. Denies depression. ENDOCRINE: Denies fatigue. Denies weight change. Denies polydipsia. Denies polyurina. GENITOURINARY: Denies burning, hematuria or urgency with micturation. HEMATOLOGIC: Denies history of anemia. Denies bleeding. Past Medical History Past Medical History: Atrial Fibrillation, Cancer, Diabetes Mellitus, Hyperlipidemia, Hypertension, Osteoarthritis (OA), Skin Disorder Additional Past Medical History / Comment(s): Morbid obesity BMI 47.8, chronic atrial fibrillation, hypertension, hyperlipidemia, diabetes mellitus, chronic lower 70 edema and ulceration of the wound/skin in the left leg, osteoarthritis , uterine cancer with a previous hysterectomy, coronary artery disease with previous coronary artery stenting History of Any Multi-Drug Resistant Organisms: None Reported Past Surgical History: Heart Catheterization With Stent, Hysterectomy, Orthopedic Surgery Additional Past Surgical History / Comment(s): Total Left Knee Replacement, cataracts removed, eyelids cut back, liver surgery 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 Past Psychological History: No Psychological Hx Reported Smoking Status: Never smoker Past Alcohol Use History: None Reported Past Drug Use History: None Reported - Past Family History Father Family Medical History: Diabetes Mellitus Mother Family Medical History: Cancer Additional Family Medical History / Comment(s): uterine CA Sister(s) Family Medical History: Cancer Additional Family Medical History / Comment(s): skin CA, breast CA Brother(s) Family Medical History: COPD Medications and Allergies Home Medications Medication Instructions Recorded Confirmed Type Aspirin EC [Ecotrin Low Dose] 81 mg PO DAILY 03/23/18 03/27/18 History Bumetanide [BUMEX] 2 mg PO DAILY 03/23/18 03/27/18 History Cyanocobalamin (Vitamin B-12) 5,000 mcg PO DAILY 03/23/18 03/27/18 History [Vitamin B12] Lovastatin [Mevacor] 40 mg PO HS 03/23/18 03/27/18 History Pioglitazone [Actos] 45 mg PO DAILY 03/23/18 03/27/18 History glipiZIDE XL [Glucotrol XL] 20 mg PO DAILY 03/23/18 03/27/18 History Levothyroxine Sodium [Synthroid] 200 mcg PO DAILY 03/25/18 03/27/18 History Cefuroxime Axetil [Ceftin] 500 mg PO BID 3 Days #6 tab 03/26/18 03/27/18 Rx Warfarin [Coumadin] 3 mg PO DAILY #30 tab 03/26/18 03/27/18 Rx Albuterol Inhaler [Ventolin Hfa 1 - 2 puff INHALATION RT-Q6H PRN 03/27/18 History Inhaler] Budesonide-Formot 160-4.5 Mcg 2 puff INHALATION RT-BID 03/27/18 03/27/18 History [Symbicort 160-4.5 Mcg Inhaler] Allergies Allergy/AdvReac Type Severity Reaction Status Date / Time clindamycin AdvReac Unknown Verified 03/27/18 14:57 Physical Exam Vitals: Vital Signs Temp Pulse Pulse Resp BP Pulse Ox 03/29/18 12:00 98.9 F 104 H 16 139/62 90 L 03/29/18 08:00 98.6 F 99 20 128/62 95 03/29/18 07:32 98 03/29/18 07:22 98 18 03/29/18 04:00 97.7 F 90 16 150/73 94 L 03/28/18 21:58 101 H 03/28/18 21:44 101 H 98 03/28/18 20:00 98.5 F 73 16 149/71 93 L 03/28/18 15:50 98.7 F 83 16 115/65 94 L Intake and Output 03/28/18 03/29/18 03/29/18 22:59 06:59 14:59 Intake Total 250 600 Balance 250 600 Intake: Intake, IV Titration 250 600 Amount Sodium Chloride 0.9% 1, 250 600 000 ml @ 50 mls/hr IV . Q20H [facility] Rx#:[id number] Other: Voiding Method Toilet Toilet # Voids 1 2 Blood pressure 139/62 heart rate 104 GENERAL: This is a 77-year-old female in no apparent distress at the time of my examination. Morbidly obese. HEENT: Head is atraumatic, normocephalic. Pupils are equal, round. Sclerae anicteric. Conjunctivae are clear. Mucous membranes of the mouth are moist. Neck is supple. There is no jugular venous distention. No carotid bruit is heard. LUNGS: Course rhonchi with faint bibasilar rales. No wheezing. No chest wall tenderness is noted on palpation or with deep breathing. HEART: Regular rate and rhythm without murmurs, rubs or gallops. S1 and S2 heard. Distant heart sounds. ABDOMEN: Soft, nontender. Bowel sounds are heard. No organomegaly noted. EXTREMITIES: Bilateral lower extremity discoloration and pigmentation changes, chronic indicative of venous stasis. Trace bilateral lower extremity edema. No calf tenderness noted. VASCULAR: Radial and dorsalis pedis pulses palpated, no evidence of clubbing. NEUROLOGIC: Patient is awake, alert and oriented x3. Results 03/29/18 04:24 03/29/18 10:18 Cardiac Enzymes 03/29/18 Range/Units 04:24 Troponin I 0.052 H* (0.000-0.034) ng/mL Coagulation 03/29/18 Range/Units 04:24 PT 14.8 H (9.0-12.0) sec CBC 03/29/18 Range/Units 04:24 WBC 13.9 H (3.8-10.6) k/uL RBC 3.35 L (3.80-5.40) m/uL Hgb 8.5 L (11.4-16.0) gm/dL Hct 27.6 L (34.0-46.0) % Plt Count 203 (150-450) k/uL Comprehensive Metabolic Panel 03/28/18 03/29/18 03/29/18 Range/Units 16:18 04:24 10:18 Sodium 134 L (137-145) mmol/L Potassium 3.1 L 3.4 L 3.4 L (3.5-5.1) mmol/L Chloride 95 L (98-107) mmol/L Carbon Dioxide 32 H (22-30) mmol/L BUN 37 H (7-17) mg/dL Creatinine 1.35 H (0.52-1.04) mg/dL Glucose 94 (74-99) mg/dL Calcium 9.0 (8.4-10.2) mg/dL Current Medications Generic Name Dose Route Start Last Admin Trade Name Freq PRN Reason Stop Dose Admin Acetaminophen 650 mg 03/27/18 17:07 03/28/18 12:33 Tylenol Tab PO 650 mg Q6HR PRN Administration Fever and/ or Mild Pain Acetaminophen/Butalbital/Caffeine 1 each 03/28/18 18:21 03/29/18 02:18 Fioricet 50-325-40 PO 1 each Q6H PRN Administration Headache Albuterol/Ipratropium 3 ml 03/27/18 16:00 03/29/18 11:07 Duoneb 0.5 Mg-3 Mg/3 Ml Soln INHALATION Not Given RT-QID [facility] Albuterol/Ipratropium 3 ml 03/27/18 15:03 Duoneb 0.5 Mg-3 Mg/3 Ml Soln INHALATION RT-Q2H PRN Shortness Of Breath Or Wheezing Aspirin 81 mg 03/28/18 09:00 03/29/18 07:48 Aspirin PO 81 mg DAILY [facility] Administration Budesonide 0.5 mg 03/28/18 20:00 03/29/18 07:22 Pulmicort INHALATION 0.5 mg RT-BID [facility] Administration Bumetanide 2 mg 03/27/18 15:15 03/29/18 07:46 Bumex PO 2 mg DAILY [facility] Administration Cyanocobalamin 500 mcg 03/27/18 15:00 03/29/18 07:48 Vitamin B-12 PO 500 mcg DAILY [facility] Administration Glipizide 10 mg 03/27/18 17:30 03/29/18 07:47 Glucotrol PO 10 mg AC-BID [facility] Administration Guaifenesin/Dextromethorphan 10 ml 03/28/18 11:00 03/29/18 06:17 Robitussin Dm PO Not Given Q6H [facility] Sodium Chloride 1,000 mls @ 50 mls/hr 03/27/18 15:15 03/28/18 17:31 Saline 0.9% IV 50 mls/hr .Q20H [facility] Administration Insulin Aspart 0 unit 03/27/18 17:30 03/29/18 07:48 Novolog SQ Not Given ACHS [facility] Protocol Insulin Detemir 15 unit 03/28/18 21:00 03/28/18 21:31 Levemir SQ 15 unit HS [facility] Administration Levothyroxine Sodium 100 mcg 03/29/18 06:30 03/29/18 07:47 Synthroid PO 100 mcg DAILY@0630 [facility] Administration Levothyroxine Sodium 75 mcg 03/29/18 06:30 03/29/18 07:47 Synthroid PO 75 mcg DAILY@0630 [facility] Administration Miscellaneous Information 1 each 03/28/18 11:13 Magnesium Per Protocol MISCELLANE DAILY PRN Per Protocol Protocol Miscellaneous Information 1 each 03/28/18 11:12 Potassium Per Protocol MISCELLANE DAILY PRN Per Protocol Protocol Miscellaneous Information 1 each 03/29/18 05:15 Potassium Per Protocol MISCELLANE DAILY PRN Per Protocol Protocol Ondansetron HCl 4 mg 03/28/18 18:21 03/28/18 18:33 Zofran IVP 4 mg Q6HR PRN Administration Nausea And Vomiting Pantoprazole Sodium 40 mg 03/29/18 07:30 03/29/18 07:46 Protonix PO 40 mg AC-BRKFST [facility] Administration Pioglitazone HCl 45 mg 03/27/18 15:15 03/29/18 07:48 Actos PO 45 mg DAILY [facility] Administration Warfarin Sodium 4 mg 03/28/18 18:00 03/28/18 18:33 Coumadin PO 4 mg DAILY@1800 [facility] Administration Zolpidem Tartrate 5 mg 03/27/18 15:12 Ambien PO HS PRN Insomnia Intake and Output 03/28/18 03/29/18 03/29/18 22:59 06:59 14:59 Intake Total 250 600 Balance 250 600 Intake: Intake, IV Titration 250 600 Amount Sodium Chloride 0.9% 1, 250 600 000 ml @ 50 mls/hr IV . Q20H [facility] Rx#:[id number] Other: Voiding Method Toilet Toilet # Voids 1 2 03/29/18 04:24 03/29/18 10:18 Assessment and Plan Assessment: ASSESSMENT Pneumonia, has been on treatment with IV antibiotics. Pulmonary following and requesting sputum culture. Mild troponin elevation, trending down since last admission. Secondary to acute kidney injury last admission. Paroxysmal atrial fibrillation on long tern anticoagulation, currently maintaining sinus mechanism Recent exacerbation of diastolic heart failure. She was diuresed with IV lasix and discharged home on bumex 2 mg daily. NTproBNP at that time was 2650. Leukocytosis Anemia, normocytic normochromic, hgb 8.5 today. Sub-therapeutic INR. Hypertension Diabetes mellitus Dyslipidemia History of coronary artery disease s/p stent 2004 per patient, details unavailable Morbid obesity PLAN Troponin elevation not indicative of an acute coronary event. Trending down from last admission d/c 03/26. At that time was related to kidney disease and supply demand mismatch. No further cardiac work-up required at this time. Ongoing medical management per pulmonary and primary care team. Follow up with her primary care team upon discharge. Thank you kindly for this consultation. Nurse Practitioner note has been reviewed, I agree with a documented findings and plan of care. Patient was seen and examined.
--- NOTE | 2018-03-29 14:06 | P.PN ---
Subjective Progress Note Date: 03/29/18 This is a 71-year-old morbidly obese female patient who was readmitted to the hospital after a recent evaluation and inpatient treatment for acute kidney injury and pneumonia. Note that her initial admission was on 03/24/2018 and the patient came in from [facility] for community acquired pneumonia that failed outpatient treatment as the patient received antibiotics including Zithromax, a combination of Rocephin and Levaquin, and subsequently Zosyn. She was also offered IV Solu-Medrol at time of her admission here in the hospital in February 2018. The patient was seen and evaluated by the hospitalist group. The patient was given antibiotics and at time of discharge the patient was given a combination of Ceftin and prednisone taper and following of discharge the patient became profoundly hyperglycemic with sugars in the 300s range and she presented herself initiated to [facility] following that the patient got transferred to us for further evaluation. I was asked to evaluate this patient knowing that she was having still cough and congestion. Clinically however the patient denies having any worsening shortness of breath other than her chronic dyspnea. No hemoptysis. No pleurisy. Chest x-ray shows questionable left lower lobe pulmonary infiltrate yet for the most part it is a low quality chest x-ray based on patient's morbidly obese body habitus and her BMI of 47.8. The patient has some chronic lower extremity edema. No nausea. No vomiting. No abdominal pain. She is a lifetime nonsmoker. She does not use any form of breathing medications or any maintenance inhalers. She has history of diabetes mellitus, hypertension and hyperlipidemia and she also has had previous cardiac catheterization and stenting for coronary artery disease. She suffers from atrial fibrillation also. She has chronic lower extremity edema and she has had wounds in the legs that are currently inactive and stable. She has a previous history of uterine cancer with a previous hysterectomy. She suffers from chronic renal failure and creatinine is stable at 1.3 for now. She is on long-term anticoagulation with warfarin and her INR is subtherapeutic at 1.6 she has a preserved LV function with ejection fraction of 55-60% on echocardiogram from 03/25/2018. On 03/29/2008 and I'm seeing this patient for a follow-up. Unfortunately she is still doing the same as yesterday probably slightly worse. I was told that on and off she is having episodes of confusion and she has difficulty with mobility and probably she is having some visual hallucinations also. She is unable to grab onto things appropriately. She is still communicating and there is no focal neurological deficits. She continues to have a harsh cough with chest congestion and wheezing. Based on all this, I'm going to recommend further workup this patient especially with her ongoing pneumonic symptoms that has failed repeated treatment with antibiotics. Her cough is congested. No pleurisy. No hemoptysis. She is morbidly obese. No clear signs of CO2 narcosis at this point in time. White blood count is 15.9. Cardiology is also on the case. Echocardiogram is within normal limits. Renal function is stable at creatinine of 1.3. Objective - Vital Signs Vital signs: Vital Signs Temp 98.9 F 03/29/18 12:00 Pulse 104 H 03/29/18 12:00 Resp 16 03/29/18 12:00 BP 139/62 03/29/18 12:00 Pulse Ox 90 L 03/29/18 12:00 Intake & Output 03/28/18 03/29/18 03/29/18 18:59 06:59 18:59 Intake Total 600 850 Balance 600 850 Weight 138.3 kg Intake: Intake, IV Titration 600 850 Amount Magnesium Sulfate-D5w Pmx 200 1 gm In Dextrose/Water 1 100ml.bag @ 100 mls/hr IVPB Q1H VENKAT Rx#: [id number] Sodium Chloride 0.9% 1, 400 850 000 ml @ 50 mls/hr IV . Q20H VENKAT Rx#:[id number] Other: Voiding Method Toilet Toilet # Voids 2 2 2 - Exam GENERAL EXAM: Alert, pleasant 77-year-old white female, obese, the patient is sitting up on a chair and she is not having any respiratory distress. HEAD: Normocephalic/atraumatic. EYES: Normal reaction of pupils, equal size. Conjunctiva pink, sclera white. NOSE: Clear with pink turbinates. THROAT: No erythema or exudates. NECK: No masses, no JVD, no thyroid enlargement, no adenopathy. CHEST: No chest wall deformity. Symmetrical expansion. LUNGS: Equal air entry with some scattered rhonchi, no crackles or wheezes CVS: Irregular rate and rhythm, normal S1 and S2, no gallops, no murmurs, no rubs ABDOMEN: Soft, nontender. No hepatosplenomegaly, normal bowel sounds, no guarding or rigidity. EXTREMITIES: No clubbing, ,no cyanosis, 2+ pulses and upper and lower extremities. Bilateral lower extremity edema, left greater than the right, patient has a chronic wound on the left lower extremity, covered with a dressing. Per nursing staff is in his healing stages, is dry, with no drainage. MUSCULOSKELETAL: Muscle strength and tone normal. SPINE: No scoliosis or deformity SKIN: No rashes CENTRAL NERVOUS SYSTEM: Alert and oriented -3. No focal deficits, tone is normal in all 4 extremities. The patient however is lethargic. At times she was noted to be confused. At the time of my evaluation she seemed to be appropriate without any focal neurological deficits. PSYCHIATRIC: Alert and oriented -3. Appropriate affect. Intact judgment and insight. - Labs CBC & Chem 7: 03/29/18 04:24 03/29/18 10:18 Labs: Abnormal Lab Results - Last 24 Hours (Table) 03/28/18 03/28/18 03/28/18 Range/Units 16:18 16:41 20:55 WBC (3.8-10.6) k/uL RBC (3.80-5.40) m/uL Hgb (11.4-16.0) gm/dL Hct (34.0-46.0) % MCHC (31.0-37.0) g/dL RDW (11.5-15.5) % Neutrophils # (1.3-7.7) k/uL Lymphocytes # (1.0-4.8) k/uL PT (9.0-12.0) sec INR (<1.2) ABG pH (7.35-7.45) ABG pO2 (83-108) mmHg ABG HCO3 (21-25) mmol/L ABG Total CO2 (19-24) mmol/L Sodium (137-145) mmol/L Potassium 3.1 L (3.5-5.1) mmol/L Chloride (98-107) mmol/L Carbon Dioxide (22-30) mmol/L BUN (7-17) mg/dL Creatinine (0.52-1.04) mg/dL POC Glucose (mg/dL) 318 H 237 H (75-99) mg/dL Troponin I (0.000-0.034) ng/mL 03/29/18 03/29/18 03/29/18 Range/Units 04:24 04:24 04:24 WBC (3.8-10.6) k/uL RBC (3.80-5.40) m/uL Hgb (11.4-16.0) gm/dL Hct (34.0-46.0) % MCHC (31.0-37.0) g/dL RDW (11.5-15.5) % Neutrophils # (1.3-7.7) k/uL Lymphocytes # (1.0-4.8) k/uL PT 14.8 H (9.0-12.0) sec INR 1.6 H (<1.2) ABG pH (7.35-7.45) ABG pO2 (83-108) mmHg ABG HCO3 (21-25) mmol/L ABG Total CO2 (19-24) mmol/L Sodium 134 L (137-145) mmol/L Potassium 3.4 L (3.5-5.1) mmol/L Chloride 95 L (98-107) mmol/L Carbon Dioxide 32 H (22-30) mmol/L BUN 37 H (7-17) mg/dL Creatinine 1.35 H (0.52-1.04) mg/dL POC Glucose (mg/dL) (75-99) mg/dL Troponin I 0.052 H* (0.000-0.034) ng/mL 03/29/18 03/29/18 03/29/18 Range/Units 04:24 07:00 10:18 WBC 13.9 H (3.8-10.6) k/uL RBC 3.35 L (3.80-5.40) m/uL Hgb 8.5 L (11.4-16.0) gm/dL Hct 27.6 L (34.0-46.0) % MCHC 30.9 L (31.0-37.0) g/dL RDW 16.4 H (11.5-15.5) % Neutrophils # 12.3 H (1.3-7.7) k/uL Lymphocytes # 0.5 L (1.0-4.8) k/uL PT (9.0-12.0) sec INR (<1.2) ABG pH (7.35-7.45) ABG pO2 (83-108) mmHg ABG HCO3 (21-25) mmol/L ABG Total CO2 (19-24) mmol/L Sodium (137-145) mmol/L Potassium 3.4 L (3.5-5.1) mmol/L Chloride (98-107) mmol/L Carbon Dioxide (22-30) mmol/L BUN (7-17) mg/dL Creatinine (0.52-1.04) mg/dL POC Glucose (mg/dL) 114 H (75-99) mg/dL Troponin I (0.000-0.034) ng/mL 03/29/18 03/29/18 Range/Units 11:29 13:05 WBC (3.8-10.6) k/uL RBC (3.80-5.40) m/uL Hgb (11.4-16.0) gm/dL Hct (34.0-46.0) % MCHC (31.0-37.0) g/dL RDW (11.5-15.5) % Neutrophils # (1.3-7.7) k/uL Lymphocytes # (1.0-4.8) k/uL PT (9.0-12.0) sec INR (<1.2) ABG pH 7.53 H (7.35-7.45) ABG pO2 62 L (83-108) mmHg ABG HCO3 35 H (21-25) mmol/L ABG Total CO2 37 H (19-24) mmol/L Sodium (137-145) mmol/L Potassium (3.5-5.1) mmol/L Chloride (98-107) mmol/L Carbon Dioxide (22-30) mmol/L BUN (7-17) mg/dL Creatinine (0.52-1.04) mg/dL POC Glucose (mg/dL) 149 H (75-99) mg/dL Troponin I (0.000-0.034) ng/mL Microbiology - Last 24 Hours (Table) 03/28/18 21:59 Gram Stain - Preliminary Sputum Sputum Culture - Preliminary Assessment and Plan Plan: Assessment 1 subacute/chronic cough following a comment acquired pneumonia that was treated in various settings including outpatient setting, [facility] and [facility] with a combination of antibiotics and is included Zithromax, Rocephin and Levaquin and ultimately IV Zosyn and the patient was discharged on Ceftin and prednisone burst taper. She continues to have congested cough and the chest x-ray some optimal due to the patient's body habitus although there is some indication for limited left lower lobe pulmonary infiltration On 03/29/2018, the patient's condition essentially the same. She is having increased cough congestion and wheeze and probably underlying pneumonia. Further investigation will be needed as long as the patient has failed early admission treatment. The same time, there may be some ongoing encephalopathy and delirium as the patient seems to be a bit more confused and lethargic. 2 diabetes mellitus with steroid use hyperglycemia 3 chronic kidney disease stage III 4 chronic atrial fibrillation with a suboptimal PT/INR with a controlled rate 5 obesity BMI of 47.8 6 hypertension 7 hyperlipidemia 8 chronic lower extremity wounds/edema 9 degenerative arthritis 10 hypothyroidism Plan Proceed with a CAT scan of the chest. Proceed with a CAT scan of the head. Obtain a blood gas. Had a discussion with the patient's daughter. I'm considering a bronchoscopy with the next 24-48 hours with bronchial lavage to establish microbial diagnoses specially the CAT scan of the chest shows an underlying pneumonia. Cardiology is on the case , medical team is On the case. Blood sugars under good control. We'll continue to follow.
--- NOTE | 2018-03-29 14:47 | CT ---
EXAMINATION TYPE: CT chest wo con DATE OF EXAM: 03/29/2018 COMPARISON: 03/27/2018 chest radiograph HISTORY: congestion, cough CT DLP: 1568 mGycm. Automated Exposure Control for Dose Reduction was Utilized. TECHNIQUE: CT scan of the thorax is performed without IV contrast. FINDINGS: Exam is limited secondary to patient body habitus and motion artifact. LUNGS: There is patchy airspace disease becoming more consolidated extending from the left hilum to i nvolve the left upper lobe and lingula. There appears to be left-sided peribronchial cuffing. Some rodrigues bpleural reticulation is seen bilaterally. The very inferior margin of the right lung base is not edson ged. There is no pleural effusion or pneumothorax seen. The tracheobronchial tree is patent. MEDIASTINUM: Lack of IV contrast is noted to limit evaluation for mediastinal and especially hilar ad enopathy. There are no definitive greater than 1 cm hilar or mediastinal lymph nodes. No pericardial effusion. The heart is enlarged. Extensive coronary calcifications are seen within the left anterior descending and left main coronary artery. Motion artifact in the main pulmonary artery limits accurat e measurement. OTHER: There is a small hiatal hernia. IMPRESSION: Motion artifact and patient body habitus somewhat limit evaluation. Findings are suggesti ve of multifocal left upper lobe and lingular pneumonia, however short-term follow-up is recommended after treatment to ensure resolution.
--- NOTE | 2018-03-29 14:48 | CT ---
EXAMINATION TYPE: CT brain wo con DATE OF EXAM: 03/29/2018 COMPARISON: None HISTORY: altered mental status CT DLP: 1121 mGycm Automated exposure control for dose reduction was used. FINDINGS: There is a large subdural hematoma involving the right cerebral convexity extending from anterior to posterior and along the cerebellar tentorium with a maximal thickness of 1.6 cm. Findings appear acut e with some degree of subacute component. The majority however does appear acute. There is a 4 mm rig ht to left midline shift. The calvarium is intact. Suspect there may be a second component of acute subdural hematoma along th e anterior hemispheric fissure measuring 5 mm. IMPRESSION: 1. There is a acute large subdural hematoma extending from anterior to posterior along the right cere bral calvarium and measuring a maximal thickness of 1.6 cm. There is a midline shift from right to le ft of approximately 4 mm. There does appear to be sulcal effacement on the right suggestive of right- sided edema. Correlate clinically. Report immediately called to the patient's nurse.
[2018-03-29 15:09] LABS: Glucose,Whole Blood 78 mg/dL (75-99)
[2018-03-29 15:39] LABS: Anisocytosis Slight; HCT 28.4 % (34.0-46.0); HGB 9.2 gm/dL (11.4-16.0); Hypochromasia Slight; MCH 26.8 pg (25.0-35.0); MCHC 32.5 g/dL (31.0-37.0); MCV 82.5 fL (80.0-100.0); Mean Platelet Volume 8.5; Platelet Count 192 k/uL (150-450); RBC 3.44 m/uL (3.80-5.40); RDW 16.5 % (11.5-15.5); WBC 15.7 k/uL (3.8-10.6)
[2018-03-29 15:59] LABS: Albumin 3.1 g/dL (3.5-5.0); Calcium 8.8 mg/dL (8.4-10.2); Potassium 3.9 mmol/L (3.5-5.1); Total Bilirubin 0.7 mg/dL (0.2-1.3); Total Protein 6.2 g/dL (6.3-8.2)
[2018-03-29 17:08] VITALS: RESP 18
[2018-03-29 17:13] VITALS: BP 162/59
[2018-03-29 17:17] VITALS: PULSE 71; TEMP 99.5
--- NOTE | 2018-03-29 17:26 | DS ---
DISCHARGE SUMMARY FINAL DIAGNOSES: 1. Acute right subdural hematoma. 2. Diabetes mellitus, type 2, uncontrolled. 3. Multifocal pneumonia. 4. Mildly elevated troponin. 5. Chronic kidney disease. 6. Recent pneumonia with cough. 7. Chronic obstructive pulmonary disease. 8. Hyperlipidemia. 9. Generalized fatigue. 10.Hypothyroidism. 11.Left lower extremity wound. DISCHARGE DISPOSITION: The patient will be discharged in stable condition with guarded prognosis. The patient is being transferred to [facility] for further evaluation and treatment. Total time taken 35 minutes. HISTORY OF PRESENT ILLNESS: This 77-year-old woman with a past medical history of multiple medical problems was admitted with features of hypglycemia. Patient also had a cough and other multiple medical issues. Dr. Rodríguez saw the patient. The patient was also complaining of progressive tiredness and weakness. A CT scan done on 03/29/2018 showed evidence of acute right subdural hematoma. Case was discussed with [facility] and the patient is being transferred in stable condition with guarded prognosis. The patient is on Coumadin. Fresh frozen plasma was given. A chest CT was also done which showed motion artifact, and multifocal left upper lobe and lingular pneumonia was also noted. The prognosis was extremely guarded throughout the hospital stay. Please refer to the multiple consultations and progress notes for further details. The patient was also seen by Cardiology and Dr. Rodríguez, as mentioned earlier. Please see orders for list of medications. Patient will be transferred in a stable condition with guarded prognosis to [facility] for further evaluation and treatment. MMODL / IJN: [id number] / MTDDarrin
== END 2018-03-29 17:50 | disposition short-term general hospital (02) | DRG 64 ==
LOC: 6SEL 14:20 → INTOOBSV 14:20 → 5MS5E 03-28 18:50 → OBSVTOIN 03-29 15:10 → 6ICU 03-29 15:51 → UNDODISOB 03-29 17:50
PROVIDERS: ADMIT Internal Medicine; ATTEND Internal Medicine
PROC: 30233K1 Transfusion of Nonautologous Frozen Plasma into Peripheral Vein, Percutaneous Approach (ICD-10-PCS; principal; 2018-03-29)
DX: I62.00 Nontraumatic subdural hemorrhage, unspecified (principal); J18.9 Pneumonia, unspecified organism; I13.0 Hypertensive heart and chronic kidney disease with heart failure and stage 1 through stage 4 chronic kidney disease, or unspecified chronic kidney disease; Z68.42 Body mass index [BMI] 45.0-49.9, adult; J44.0 Chronic obstructive pulmonary disease with (acute) lower respiratory infection; I50.32 Chronic diastolic (congestive) heart failure; J98.11 Atelectasis; E11.65 Type 2 diabetes mellitus with hyperglycemia; E11.22 Type 2 diabetes mellitus with diabetic chronic kidney disease; I48.2 Chronic atrial fibrillation; E66.01 Morbid (severe) obesity due to excess calories; N18.3 Chronic kidney disease, stage 3 (moderate); D64.9 Anemia, unspecified; R40.2143 Coma scale, eyes open, spontaneous, at hospital admission; R40.2363 Coma scale, best motor response, obeys commands, at hospital admission; R40.2253 Coma scale, best verbal response, oriented, at hospital admission; E78.5 Hyperlipidemia, unspecified; T38.0X5A Adverse effect of glucocorticoids and synthetic analogues, initial encounter; E03.9 Hypothyroidism, unspecified; M19.91 Primary osteoarthritis, unspecified site; I25.10 Atherosclerotic heart disease of native coronary artery without angina pectoris; L98.9 Disorder of the skin and subcutaneous tissue, unspecified; R26.9 Unspecified abnormalities of gait and mobility; R77.8 Other specified abnormalities of plasma proteins; Z71.3 Dietary counseling and surveillance; Z79.51 Long term (current) use of inhaled steroids; Z79.82 Long term (current) use of aspirin; Z79.84 Long term (current) use of oral hypoglycemic drugs; Z79.01 Long term (current) use of anticoagulants; Z79.890 Hormone replacement therapy; Z79.899 Other long term (current) drug therapy; Z95.5 Presence of coronary angioplasty implant and graft; Z85.42 Personal history of malignant neoplasm of other parts of uterus; Z90.710 Acquired absence of both cervix and uterus; Z96.652 Presence of left artificial knee joint; Z87.01 Personal history of pneumonia (recurrent); Z98.42 Cataract extraction status, left eye; Z98.41 Cataract extraction status, right eye; Z88.1 Allergy status to other antibiotic agents; Z83.3 Family history of diabetes mellitus; Z80.49 Family history of malignant neoplasm of other genital organs; Z80.3 Family history of malignant neoplasm of breast; Z82.5 Family history of asthma and other chronic lower respiratory diseases
CPT/HCPCS: 36600; 70450; 71046; 71250; 80048; 80053; 82805; 83036; 83735; 83880; 84132; 84439; 84443; 84484; 85025; 85027; 85610; 86850; 86900; 86901; 87070; 87077; 87186; 87205; 93005; 94640

== ENCOUNTER 2022-09-20 12:10 | Inpatient (IN) | payer MEDICARE, BC ==
[2022-09-20 12:47] LABS: Glucose,Whole Blood 126 mg/dL (70-110)
[2022-09-20] MEDS ORDERED: NOREPINEPHRINE 32 MG in SODIUM CHLORIDE 0.9% 218 ML IV ONE (12:54)
--- NOTE | 2022-09-20 12:54 | ED ---
General Adult HPI - General Chief complaint: Recheck/Abnormal Lab/Rx Stated complaint: recheck Time Seen by Provider: 09/20/22 12:26 Source: EMS Mode of arrival: EMS Limitations: no limitations - History of Present Illness Initial comments: Dictation was produced using [employer] dictation software. please excuse any grammatical, word or spelling errors. Chief Complaint: 81-year-old female sent in from [facility] emergency department for further care History of Present Illness: Patient is an 81-year-old female sent to emergency Department for higher level of care. Patient is allegedly a custodial patient that connected to [facility] emergency department. She initially presented for chief complaint of altered level of consciousness. Some bouts of diarrhea. She was evaluated [facility] ER and was diagnosed with UTI sepsis. Patient is a poor historian unable to buy history present illness. Did speak with Dr. Alba regarding history present illness. Triage documentation was reviewed by me showing that patient was hypotensive with evidence of urinary tract infection. She was given Zosyn. Patient has multiple comorbidities including heart failure, anemia, hypothyroidism, renal insufficiency, diabetes, diabetic ulcers. Computed tomography scan of brain was obtained showing no acute processes. 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 CT chest suggested pneumonia. Didn't appear to be some stranding of the mesenteric fat towards lower abdominal pelvis area. Suspect colitis. Radiology makes mention of perhaps small perineal abscess. The ROS documented in this emergency department record has been reviewed and confirmed by me. Those systems with pertinent positive or negative responses have been documented in the HPI. All other systems are other negative and/or noncontributory. PHYSICAL EXAM: General Impression: Alert and oriented x3, lethargic, severely obese HEENT: Normocephalic atraumatic, extra-ocular movements intact, pupils equal and reactive to light bilaterally, dry mucous membranes Cardiovascular: Heart regular rate and rhythm Chest: Able to complete full sentences, no retractions, no tachypnea Abdomen: Obese, abdomen soft, non-tender, non-distended, no organomegaly Musculoskeletal: Good cap refill to all extremities, obesity limits extremity exam no peripheral edema Motor: no focal deficits noted Neurological: CN II-XII grossly intact, no focal motor or sensory deficits noted Skin: Decubitus ulcers ED course:81-year-old female sent from [facility] emergency department for higher level of care. Patient is a resident at extended care facility connected to the emergency room. She was seen for chief complaint of altered mental status. Diagnosed with sepsis. There is multiple possible sources. She is given a dose of Zosyn. Central venous catheter was placed by outside hospital provider a pressure in emergency Department is [id number]. Patient's blood pressure waxes and wanes. Outside hospital records were reviewed. Previous discharge summary and are electronic medical record was also reviewed. Nursing notes and chart review was performed Was pt. sent in by a medical professional or institution (, [facility], QUALITY CONTROL TESTER, urgent care, hospital, or custodial...) When possible be specific @ -Sent in from outside hospital ER Did you speak to anyone other than the patient for history (EMS, parent, family, police, friend...)? What history was obtained from this source @ -Transferring physician Did you review nursing and triage notes (agree or disagree)? Why? @ -I reviewed and agree with nursing and triage notes Were old charts reviewed (outside hosp., previous admission, EMS record, old EKG, old radiological studies, urgent care reports/EKG's, custodial records)? Report findings @ -Transfer documentation documentations were reviewed from outside hospital Differential Diagnosis (chest pain, altered mental status, abdominal pain women, abdominal pain men, vaginal bleeding, musculoskeletal, weakness, fever, dyspnea, syncope, headache, dizziness, GI bleed, back pain, seizure, CVA, palpatations, mental health)? @ -Differential Altered Mental Status: Hypoglycemia, DKA, hypercapnia, ETOH, overdose, CO poisoning, trauma, myxedema coma, HTN encephalopathy, infection, encephalitis, psychosis, intercranial hemorrhage, hepatic encephalopathy, meningitis, CVA, this is not meant to be an all-inclusive list EKG interpreted by me (3pts min.). @ -None done X-rays interpreted by me (1pt min.). @ -None done CT interpreted by me (1pt min.). @ -None done U/S interpreted by me (1pt. min.). @ -None done What testing was considered but not performed or refused? (CT, X-rays, U/S, labs)? Why? @ -None What meds were considered but not given or refused? Why? @ -None Did you discuss the management of the patient with other professionals (professionals i.e. , PA, QUALITY CONTROL TESTER, lab, RT, psych nurse, school social worker, telecommunications administrator, teacher, assignment officer, counter caser)? Give summary @ -EMH and jai alai player for admission Was smoking cessation discussed for >3mins.? @ -No Was critical care preformed (if so, how long)? @ -Yes, 33 minutes Were there social determinants of health that impacted care today? How? (Homelessness, low income, unemployed, alcoholism, drug addiction, transportation, low edu. Level, literacy, decrease access to med. care, fdc, rehab)? @ -No Was there de-escalation of care discussed even if they declined (Discuss DNR or withdrawal of care, Hospice)? DNR status @ -No What co-morbidities impacted this encounter? (DM, HTN, Smoking, COPD, CAD, Cancer, CVA, ARF, Chemo, Hep., AIDS, mental health diagnosis, sleep apnea, morbid obesity)? @ -Obesity, debility Was patient admitted / discharged? Hospital course, mention meds given and route, prescriptions, significant lab abnormalities, going to OR and other pertinent info. @ -81-year-old female transferred to our facility from outside hospital for higher level of care. Clinical presentation consistent with sepsis. Central venous catheter line was placed prior to transfer to our facility. Patient has waxing and waning blood pressures. Vasopressors ordered. Patient be admitted t o the ICU. Undiagnosed new problem with uncertain prognosis? @ -No Drug Therapy requiring intensive monitoring for toxicity (Heparin, Nitro, Ins ulin, Cardizem)? @ -No Were any procedures done? @ -No Diagnosis/symptom? Acute, or Chronic, or Acute on Chronic? Uncomplicated (without systemic symptoms) or Complicated (systemic symptoms)? @ -1. Acute sepsis Side effects of treatment? @ -No Exacerbation, Progression, or Severe Exacerbation? @ -No Poses a threat to life or bodily function? How? (Chest pain, USA, ID, pneumonia, PE, COPD, DKA, ARF, appy, cholecystitis, CVA, Diverticulitis, Homicidal, Suicidal, threat to staff... and all critical care pts) @ -yes - Related Data Home Medications Medication Instructions Recorded Confirmed Aspirin EC [Ecotrin Low Dose] 81 mg PO DAILY 03/23/18 03/27/18 Bumetanide [BUMEX] 2 mg PO DAILY 03/23/18 03/27/18 Cyanocobalamin (Vitamin B-12) 5,000 mcg PO DAILY 03/23/18 03/27/18 [Vitamin B-12] Lovastatin [Mevacor] 40 mg PO HS 03/23/18 03/27/18 Pioglitazone [Actos] 45 mg PO DAILY 03/23/18 03/27/18 glipiZIDE XL [Glucotrol XL] 20 mg PO DAILY 03/23/18 03/27/18 Levothyroxine Sodium [Synthroid] 200 mcg PO DAILY 03/25/18 03/27/18 Albuterol Inhaler [Ventolin Hfa 1 - 2 puff INHALATION RT-Q6H PRN 03/27/18 03/27/18 Inhaler] Budesonide-Formot 160-4.5 Mcg 2 puff INHALATION RT-BID 03/27/18 03/27/18 [Symbicort 160-4.5 Mcg Inhaler] Previous Rx's Medication Instructions Recorded cefUROXime axetiL [Ceftin] 500 mg PO BID #10 tab 03/29/18 Allergies Allergy/AdvReac Type Severity Reaction Status Date / Time clindamycin AdvReac Unknown Verified 03/27/18 14:57 Review of Systems ROS Statement: Those systems with pertinent positive or pertinent negative responses have been documented in the HPI. ROS Other: All systems not noted in ROS Statement are negative. Past Medical History Past Medical History: Atrial Fibrillation, Cancer, Diabetes Mellitus, Hyperlipidemia, Hypertension, Osteoarthritis (OA), Skin Disorder Additional Past Medical History / Comment(s): Morbid obesity BMI 47.8, chronic atrial fibrillation, hypertension, hyperlipidemia, diabetes mellitus, chronic lower 70 edema and ulceration of the wound/skin in the left leg, osteoarthritis, uterine cancer with a previous hysterectomy, coronary artery disease with previous coronary artery stenting History of Any Multi-Drug Resistant Organisms: MRSA Date of last positivie culture/infection: 03/28/18 MDRO Source:: SPUTUM Past Surgical History: Heart Catheterization With Stent, Hysterectomy, Orthopedic Surgery Additional Past Surgical History / Comment(s): Total Left Knee Replacement, cataracts removed, eyelids cut back, liver surgery 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 Past Psychological History: No Psychological Hx Reported Smoking Status: Never smoker Past Alcohol Use History: None Reported Past Drug Use History: None Reported - Past Family History Father Family Medical History: Diabetes Mellitus Mother Family Medical History: Cancer Additional Family Medical History / Comment(s): uterine CA Sister(s) Family Medical History: Cancer Additional Family Medical History / Comment(s): skin CA, breast CA Brother(s) Family Medical History: COPD General Exam Limitations: no limitations Course Vital Signs 09/20/22 12:15 Temperature 97.7 F Pulse Rate 69 Respiratory 20 Rate Blood Pressure 94/48 O2 Sat by Pulse 100 Oximetry Medical Decision Making - Lab Data Result diagrams: 09/20/22 12:48 09/20/22 12:48 Lab Results 09/20/22 09/20/22 09/20/22 Range/Units 12:45 12:48 12:48 WBC 16.9 H (3.8-10.6) k/uL RBC 4.39 (3.80-5.40) m/uL Hgb 10.6 L (11.4-16.0) gm/dL Hct 35.3 (34.0-46.0) % MCV 80.4 (80.0-100.0) fL MCH 24.3 L (25.0-35.0) pg MCHC 30.2 L (31.0-37.0) g/dL RDW 21.7 H (11.5-15.5) % Plt Count 187 (150-450) k/uL MPV 8.8 Hypochromasia Marked Poikilocytosis Slight Anisocytosis Moderate Microcytosis Slight PT 16.3 H (9.0-12.0) sec INR 1.6 H (<1.2) APTT 26.0 (22.0-30.0) sec Sodium (137-145) mmol/L Potassium (3.5-5.1) mmol/L Chloride (98-107) mmol/L Carbon Dioxide (22-30) mmol/L Anion Gap mmol/L BUN (7-17) mg/dL Creatinine (0.52-1.04) mg/dL Est GFR (CKD-EPI)AfAm (>60 ml/min/1.73 sqM) Est GFR (CKD-EPI)NonAf (>60 ml/min/1.73 sqM) Glucose (74-99) mg/dL POC Glucose (mg/dL) 126 H (70-110) mg/dL POC Glu Worm Raiser ID Julisa Rivera Calcium (8.4-10.2) mg/dL Total Bilirubin (0.2-1.3) mg/dL AST (14-36) U/L ALT (4-34) U/L Alkaline Phosphatase (38-126) U/L Total Protein (6.3-8.2) g/dL Albumin (3.5-5.0) g/dL 09/20/22 Range/Units 12:48 WBC (3.8-10.6) k/uL RBC (3.80-5.40) m/uL Hgb (11.4-16.0) gm/dL Hct (34.0-46.0) % MCV (80.0-100.0) fL MCH (25.0-35.0) pg MCHC (31.0-37.0) g/dL RDW (11.5-15.5) % Plt Count (150-450) k/uL MPV Hypochromasia Poikilocytosis Anisocytosis Microcytosis PT (9.0-12.0) sec INR (<1.2) APTT (22.0-30.0) sec Sodium 135 L (137-145) mmol/L Potassium 4.2 (3.5-5.1) mmol/L Chloride 101 (98-107) mmol/L Carbon Dioxide 24 (22-30) mmol/L Anion Gap 10 mmol/L BUN 35 H (7-17) mg/dL Creatinine 2.07 H (0.52-1.04) mg/dL Est GFR (CKD-EPI)AfAm 25 (>60 ml/min/1.73 sqM) Est GFR (CKD-EPI)NonAf 22 (>60 ml/min/1.73 sqM) Glucose 111 H (74-99) mg/dL POC Glucose (mg/dL) (70-110) mg/dL POC Glu Worm Raiser ID Calcium 8.8 (8.4-10.2) mg/dL Total Bilirubin 3.8 H (0.2-1.3) mg/dL AST 54 H (14-36) U/L ALT 24 (4-34) U/L Alkaline Phosphatase 82 (38-126) U/L Total Protein 6.2 L (6.3-8.2) g/dL Albumin 2.5 L (3.5-5.0) g/dL Disposition Clinical Impression: Sepsis Disposition: ADMITTED IP TO THIS [facility] Condition: Critical Referrals: Mary Cuevas FNPBC [Family Provider] - 1-2 days Decision Time: 13:35
[2022-09-20] MEDS ORDERED: SODIUM CHLORIDE 0.9% 1,000 ML IV STA (12:55)
[2022-09-20 13:19] LABS: Anisocytosis Moderate; Basophils % (A) 0 %; Eosinophils # (A) 0.1 k/uL (0-0.7); Eosinophils % (A) 0 %; HCT 35.3 % (34.0-46.0); HGB 10.6 gm/dL (11.4-16.0); Hypochromasia Marked; Lymphocytes # (A) 0.5 k/uL (1.0-4.8); Lymphocytes % (A) 3 %; MCH 24.3 pg (25.0-35.0); MCHC 30.2 g/dL (31.0-37.0); MCV 80.4 fL (80.0-100.0); Mean Platelet Volume 8.8; Microcytosis Slight; Monocytes # (A) 1.3 k/uL (0-1.0); Monocytes % (A) 8 %; Neutrophils # (A) 14.5 k/uL (1.3-7.7); Neutrophils % (A) 86 %; Platelet Count 187 k/uL (150-450); Poikilocytosis Slight; RBC 4.39 m/uL (3.80-5.40); RDW 21.7 % (11.5-15.5); WBC 16.9 k/uL (3.8-10.6)
[2022-09-20 13:21] LABS: Albumin 2.5 g/dL (3.5-5.0); Calcium 8.8 mg/dL (8.4-10.2); Potassium 4.2 mmol/L (3.5-5.1); Total Bilirubin 3.8 mg/dL (0.2-1.3); Total Protein 6.2 g/dL (6.3-8.2)
[2022-09-20] MEDS ORDERED: NALOXONE 0.4 MG/ML 1 ML VIAL IV PRN (13:25)
[2022-09-20] MEDS ORDERED: ACETAMINOPHEN IV (For NPO) 1,000 MG in SALINE 1 100ML.BAG IVPB ONE (13:25)
[2022-09-20] MEDS ORDERED: VANCOMYCIN IV PER PHARMACY 1 EACH MISC MISCELLANE PRN (13:26)
[2022-09-20 13:29] LABS: INR 1.6 (<1.2); Prothrombin Time 16.3 sec (9.0-12.0)
[2022-09-20] MEDS ORDERED: SODIUM CHLORIDE 0.9% 1,000 ML IV SCH (13:30)
[2022-09-20] MEDS ORDERED: VANCOMYCIN 2,000 MG in SODIUM CHLORIDE 0.9% 500 ML 500 ML IVPB STA (13:31)
--- NOTE | 2022-09-20 14:23 | P.HPIM ---
History of Present Illness Patient is a 7-year-old female was sent in from outside the hospital for higher level of care and patient was noted to have urinary tract infection although I do not have any that labs available at this time. Patient is unable to provide any history to me. Patient although it appears to be septic was having diarrhea at the other place patient had a recent C. diff history, CT of the chest did suggest pneumonia although I do not have any images available at this time unable to find the records from the other hospital at this time patient was started on broad-spectrum antibiotics vancomycin and Zosyn subsequently admitted to the hospital. Patient is hypotensive as well patient is getting 150 of normal saline patient is quite lethargic arousable is unable to provide much of the history to me patient also had lactic acidosis with troponin elevation of 2.2. 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 Well developed, well nourished. HEENT: Pupils are round and equally reacting to light. EOMI. No scleral icterus. No conjunctival pallor. Normocephalic, atraumatic. No pharyngeal erythema. No thyromegaly. CARDIOVASCULAR: S1 and S2 present. No murmurs, rubs, or gallops. PULMONARY: Chest is clear to auscultation, no wheezing or crackles. ABDOMEN: Soft, nontender, nondistended, normoactive bowel sounds. No palpable organomegaly. MUSCULOSKELETAL: No joint swelling or deformity. EXTREMITIES: No cyanosis, clubbing, NEUROLOGICAL: Patient is lethargic SKIN: No rashes. The lateral lower extremity venous stasis redness and some edema Assessment and plan -Severe sepsis/septic shock: Presently not on pressors but patient is receiving IV fluids at 1 50 mL per hour may end up needing pressor support. The possible sources being C. diff colitis considering his recent C. diff, stool for C. diff was obtained. Other possibility is being a pneumonia or UTI although still don't have data from the other hospital available at this time. Will review those until then patient will be continued on broad-spectrum antibiotics. Infectious disease will be consulted -Lactic acidosis secondary to sepsis IV fluids as mentioned above. -Acute renal failure: Prerenal azotemia secondary to sepsis and possibly ATN secondary to sepsis we will review the urine analysis patient will be continued on IV fluids and if needed pressor support. -Chronic kidney disease: Secondary to possibly diabetic nephropathy patient has stage III chronic kidney disease with baseline creatinine of around 1.6 -Hypovolemic hyponatremia -Elevated troponins we'll repeat troponins: Elevation of troponin is probably secondary to severe sepsis -Type 2 diabetes mellitus patient was started on sliding scale hold off on oral hypertensive medications Hyperlipidemia -Hypertension patient is septic and hypotensive at this time hold off oral antidepressant medications -1 to disease -Proximal atrial fibrillation presently not on anticoagulation patient is presently rate controlled in sinus rhythm DVT prophylaxis: She will be started on sub-cutaneous heparin Past Medical History Past Medical History: Atrial Fibrillation, Cancer, Diabetes Mellitus, Hyperlipidemia, Hypertension, Osteoarthritis (OA), Skin Disorder Additional Past Medical History / Comment(s): Morbid obesity BMI 47.8, chronic atrial fibrillation, hypertension, hyperlipidemia, diabetes mellitus, chronic lower 70 edema and ulceration of the wound/skin in the left leg, osteoarthritis, uterine cancer with a previous hysterectomy, coronary artery disease with previous coronary artery stenting History of Any Multi-Drug Resistant Organisms: MRSA Date of last positivie culture/infection: 03/28/18 MDRO Source:: SPUTUM Past Surgical History: Heart Catheterization With Stent, Hysterectomy, Orthopedic Surgery Additional Past Surgical History / Comment(s): Total Left Knee Replacement, cataracts removed, eyelids cut back, liver surgery 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 Past Psychological History: No Psychological Hx Reported Smoking Status: Never smoker Past Alcohol Use History: None Reported Past Drug Use History: None Reported - Past Family History Father Family Medical History: Diabetes Mellitus Mother Family Medical History: Cancer Additional Family Medical History / Comment(s): uterine CA Sister(s) Family Medical History: Cancer Additional Family Medical History / Comment(s): skin CA, breast CA Brother(s) Family Medical History: COPD Medications and Allergies Home Medications Medication Instructions Recorded Confirmed Type Aspirin EC [Ecotrin Low Dose] 81 mg PO DAILY 03/23/18 03/27/18 History Bumetanide [BUMEX] 2 mg PO DAILY 03/23/18 03/27/18 History Cyanocobalamin (Vitamin B-12) 5,000 mcg PO DAILY 03/23/18 03/27/18 History [Vitamin B-12] Lovastatin [Mevacor] 40 mg PO HS 03/23/18 03/27/18 History Pioglitazone [Actos] 45 mg PO DAILY 03/23/18 03/27/18 History glipiZIDE XL [Glucotrol XL] 20 mg PO DAILY 03/23/18 03/27/18 History Levothyroxine Sodium [Synthroid] 200 mcg PO DAILY 03/25/18 03/27/18 History Albuterol Inhaler [Ventolin Hfa 1 - 2 puff INHALATION RT-Q6H PRN 03/27/18 03/27/18 History Inhaler] Budesonide-Formot 160-4.5 Mcg 2 puff INHALATION RT-BID 03/27/18 03/27/18 History [Symbicort 160-4.5 Mcg Inhaler] cefUROXime axetiL [Ceftin] 500 mg PO BID #10 tab 03/29/18 Rx Allergies Allergy/AdvReac Type Severity Reaction Status Date / Time clindamycin AdvReac Unknown Verified 03/27/18 14:57 Physical Exam Vitals: Vital Signs Temp Pulse Resp BP Pulse Ox 09/20/22 12:15 97.7 F 69 20 94/48 100 Intake and Output 09/19/22 09/20/22 09/20/22 22:59 06:59 14:59 Other: Weight 127.006 kg Results CBC & Chem 7: 09/20/22 12:48 09/20/22 12:48 Labs: Abnormal Lab Results - Last 24 Hours (Table) 09/20/22 09/20/22 09/20/22 Range/Units 12:45 12:48 12:48 WBC 16.9 H (3.8-10.6) k/uL Hgb 10.6 L (11.4-16.0) gm/dL MCH 24.3 L (25.0-35.0) pg MCHC 30.2 L (31.0-37.0) g/dL RDW 21.7 H (11.5-15.5) % PT 16.3 H (9.0-12.0) sec INR 1.6 H (<1.2) Sodium (137-145) mmol/L BUN (7-17) mg/dL Creatinine (0.52-1.04) mg/dL Glucose (74-99) mg/dL POC Glucose (mg/dL) 126 H (70-110) mg/dL Plasma Lactic Acid Juan (0.7-2.0) mmol/L Total Bilirubin (0.2-1.3) mg/dL AST (14-36) U/L Troponin I (0.000-0.034) ng/mL Total Protein (6.3-8.2) g/dL Albumin (3.5-5.0) g/dL 09/20/22 09/20/22 09/20/22 Range/Units 12:48 12:48 13:19 WBC (3.8-10.6) k/uL Hgb (11.4-16.0) gm/dL MCH (25.0-35.0) pg MCHC (31.0-37.0) g/dL RDW (11.5-15.5) % PT (9.0-12.0) sec INR (<1.2) Sodium 135 L (137-145) mmol/L BUN 35 H (7-17) mg/dL Creatinine 2.07 H (0.52-1.04) mg/dL Glucose 111 H (74-99) mg/dL POC Glucose (mg/dL) (70-110) mg/dL Plasma Lactic Acid Juan 2.5 H* (0.7-2.0) mmol/L Total Bilirubin 3.8 H (0.2-1.3) mg/dL AST 54 H (14-36) U/L Troponin I 2.260 H* (0.000-0.034) ng/mL Total Protein 6.2 L (6.3-8.2) g/dL Albumin 2.5 L (3.5-5.0) g/dL
[2022-09-20] MEDS: SODIUM CHLORIDE 0.9% 1,000 ML IV SCH ×2 (14:36→23:38)
--- NOTE | 2022-09-20 16:38 | P.CNPUL ---
History of Present Illness Consult date: 09/20/22 Chief complaint: Altered mental status History of present illness: This is an 82-year-old morbidly obese female patient was transferred to us from [facility] for further evaluation and treatment. The patient is suspected to have a UTI/sepsis. The [place] [facility]. The patient initially presented there to the hospital because of altered mentation. She was having also diarrhea and the patient stated that she has completed a recent treatment for C. diff colitis. In the emergency, the patient continued to have liquidy loose stools. She was also diagnosed having a UTI at [facility]. The patient herself is a very poor historian and she is not a reliable. Upon arrival to us, the patient was hypotensive. The patient was given IV fluid boluses and placed on IV Zosyn. 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 The CAT scan of the chest showed some limited effusion/atelectatic changes in lung bases. CAT scan of the abdomen suspected ongoing colitis. There was also suspicion for perianal abscesses. The patient herself denies having any significant abdominal pain. A Mustafa catheter is to be inserted. The urine sample is to be collected. The patient was hypotensive in the emergency and the patient was given saline boluses and the patient is currently on normal saline at rate of 150 mL an hour. She does have chronic venostasis involving lower extremities bilaterally. No open wounds or sores. She was given a triple-lumen catheter in the emergency in the right femoral vein. The current echoes at 16.9 with a hemoglobin of 10.6, lactic acid level is at 2.5, BUN is 35 with a creatinine of 2.07 and a sodium level is at 135. Troponin was at 2.2 and LFTs are essentially within normal limits. Review of Systems ROS unobtainable: due to mental status Constitutional: Reports chronic headaches Past Medical History Past Medical History: Atrial Fibrillation, Cancer, Diabetes Mellitus, Hyperlipidemia, Hypertension, Osteoarthritis (OA), Skin Disorder Additional Past Medical History / Comment(s): Morbid obesity BMI 47.8, chronic atrial fibrillation, hypertension, hyperlipidemia, diabetes mellitus, chronic lower 70 edema and ulceration of the wound/skin in the left leg, osteoarthritis, uterine cancer with a previous hysterectomy, coronary artery disease with previous coronary artery stenting History of Any Multi-Drug Resistant Organisms: MRSA Date of last positivie culture/infection: 03/28/18 MDRO Source:: SPUTUM Past Surgical History: Heart Catheterization With Stent, Hysterectomy, Orthopedic Surgery Additional Past Surgical History / Comment(s): Total Left Knee Replacement, cataracts removed, eyelids cut back, liver surgery 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 Past Psychological History: No Psychological Hx Reported Smoking Status: Never smoker Past Alcohol Use History: None Reported Past Drug Use History: None Reported - Past Family History Father Family Medical History: Diabetes Mellitus Mother Family Medical History: Cancer Additional Family Medical History / Comment(s): uterine CA Sister(s) Family Medical History: Cancer Additional Family Medical History / Comment(s): skin CA, breast CA Brother(s) Family Medical History: COPD Medications and Allergies Home Medications Medication Instructions Recorded Confirmed Type Albuterol Inhaler [Ventolin Hfa 2 puff INHALATION RT-Q6H PRN 03/27/18 09/20/22 History Inhaler] Acetaminophen [Tylenol] 650 mg PO Q4H PRN 09/20/22 09/20/22 History Atorvastatin Calcium [Lipitor] 40 mg PO HS 09/20/22 09/20/22 History Citalopram Hydrobromide [CeleXA] 10 mg PO DAILY 09/20/22 09/20/22 History Furosemide [Lasix] 40 mg PO DAILY 09/20/22 09/20/22 History Gabapentin [Neurontin] 200 mg PO BID 09/20/22 09/20/22 History Insulin Aspart Prot/Insuln Asp 7 unit SQ HS 09/20/22 09/20/22 History [Novolog MIX 70-30 Flexpen] Insulin Aspart Prot/Insuln Asp 10 unit SQ DAILY 09/20/22 09/20/22 History [Novolog MIX 70-30 Flexpen] Ipratropium-Albuterol Nebulize 3 ml INHALATION RT-Q4H PRN 09/20/22 09/20/22 History [Duoneb 0.5 mg-3 mg/3 ml Soln] Levothyroxine Sodium [Synthroid] 175 mcg PO DAILY 09/20/22 09/20/22 History Magnesium Hydroxide [Milk of 2,400 mg PO Q72H 09/20/22 09/20/22 History Magnesia Concentrate] Magnesium Oxide [Mag-Ox] 400 mg PO DAILY 09/20/22 09/20/22 History Multivitamins, Thera [Multivitamin 1 tab PO DAILY 09/20/22 09/20/22 History (formulary)] Na Phos,M-B/Na Phos,Di-Ba [Fleet 133 ml RECTAL Q72H 09/20/22 09/20/22 History Adult] Nystatin 100,000 Unit/gm Powd 1 applic TOPICAL BID 09/20/22 09/20/22 History [Mycostatin Powder] Potassium Chloride ER [K-Dur 10] 10 meq PO BID 09/20/22 09/20/22 History Zinc Sulfate [Orazinc] 220 mg PO DAILY 09/20/22 09/20/22 History bisacodyL [Dulcolax] 10 mg RECTAL Q72H PRN 09/20/22 09/20/22 History lisinopriL [Prinivil] 20 mg PO DAILY 09/20/22 09/20/22 History metOLazone [Zaroxolyn] 5 mg PO WEEKLY 09/20/22 09/20/22 History Allergies Allergy/AdvReac Type Severity Reaction Status Date / Time clindamycin AdvReac Unknown Verified 09/20/22 15:38 Physical Exam Vitals: Vital Signs Temp Pulse Resp BP Pulse Ox 09/20/22 12:15 97.7 F 69 20 94/48 100 Intake and Output 09/20/22 09/20/22 09/20/22 06:59 14:59 22:59 Other: Weight 127.006 kg GENERAL EXAM: Alert, pleasant 77-year-old white female, obese, the patient is still confused, poor historian, breathing is nonlabored HEAD: Normocephalic/atraumatic. EYES: Normal reaction of pupils, equal size. Conjunctiva pink, sclera white. NOSE: Clear with pink turbinates. THROAT: No erythema or exudates. NECK: No masses, no JVD, no thyroid enlargement, no adenopathy. CHEST: No chest wall deformity. Symmetrical expansion. LUNGS: Equal air entry with some scattered rhonchi, no crackles or wheezes, breath sounds are quite diminished in lung bases bilaterally CVS: Irregular rate and rhythm, normal S1 and S2, no gallops, no murmurs, no rubs ABDOMEN: Soft, nontender. No hepatosplenomegaly, normal bowel sounds, no guarding or rigidity. EXTREMITIES: No clubbing, ,no cyanosis, 2+ pulses and upper and lower extremities. Bilateral lower extremity edema, left greater than the right, patient has a chronic wound on the left lower extremity, covered with a dr essing. Per nursing staff is in his healing stages, is dry, with no drainage. MUSCULOSKELETAL: Muscle strength and tone normal. SPINE: No scoliosis or deformity SKIN: No rashes CENTRAL NERVOUS SYSTEM: Altered mentation without any focal neurological deficits. PSYCHIATRIC: No significant anxiety or depression. A detailed psychiatric evaluation cannot be done Results - Laboratory Findings CBC and BMP: 09/20/22 12:48 09/20/22 12:48 PT/INR, D-dimer PT 16.3 sec (9.0-12.0) H 09/20/22 12:48 INR 1.6 (<1.2) H 09/20/22 12:48 Abnormal lab findings: Abnormal Labs 09/20/22 09/20/22 09/20/22 12:45 12:48 12:48 WBC 16.9 H Hgb 10.6 L MCH 24.3 L MCHC 30.2 L RDW 21.7 H Neutrophils # 14.5 H Lymphocytes # 0.5 L Monocytes # 1.3 H PT 16.3 H INR 1.6 H Sodium BUN Creatinine Glucose POC Glucose (mg/dL) 126 H Plasma Lactic Acid Juan Total Bilirubin AST Troponin I Total Protein Albumin 09/20/22 09/20/22 09/20/22 12:48 12:48 13:19 WBC Hgb MCH MCHC RDW Neutrophils # Lymphocytes # Monocytes # PT INR Sodium 135 L BUN 35 H Creatinine 2.07 H Glucose 111 H POC Glucose (mg/dL) Plasma Lactic Acid Juan 2.5 H* Total Bilirubin 3.8 H AST 54 H Troponin I 2.260 H* Total Protein 6.2 L Albumin 2.5 L - Diagnostic Findings Chest x-ray: image reviewed Assessment and Plan Plan: Altered mental status likely secondary to underlying infection/sepsis. Suspect UTI. Suspect ongoing C. diff colitis as the patient continues to liquidy diarrheic stool. Sepsis with secondary hypotension, currently on IV fluids and the patient will be also started again on broad-spectrum antibiotics Acute leukocytosis secondary to above Acute non-STEMI with elevated troponins Acute kidney injury, rule out underlying sepsis-induced ATN Chronic atrial fibrillation Morbid obesity Chronic lower extremity edema and chronic venous stasis Hypertension Hyperlipidemia Diabetes mellitus2 Coronary artery disease with previous coronary stenting C. diff colitis treated recently History of liver tumor surgically resected Degenerative arthritis and the patient has undergone a left knee replacement Debilitated state and the patient lives in [place] [facility] and [facility] Will admit this patient to the intensive care unit based on his underlying hypotension The patient was already given a total of 2 L bolus and the patient is currently on a maintenance of 150 mL an hour Triple-lumen catheter was inserted Continue using pressors to maintain the artery pressure above 65 Urine cultures and blood cultures Chest x-ray was noted Monitor troponins Obtain echocardiogram Monitor urine output and renal function Stool for C. diff and add oral vancomycin if there is ongoing positivity for C. diff colitis Review of the images of the films that were sent over from [facility] Continue current antibiotic coverage Hold diuretics for now NovoLog sliding scale coverage Condition is critical and we'll continue to follow make further recommendations based on her progress..
[2022-09-20] MEDS ORDERED: PIPERACILLIN-TAZOBACTAM 3.375 GM in SODIUM CHLORIDE 0.9% 100 ML IVPB SCH (17:00)
[2022-09-20 17:26] LABS: Amorphous Sediment,Urine Occasional /hpf; Appearance,Urine Cloudy (Clear); Bilirubin,Urine 1+ (Negative); Blood,Urine Trace (Negative); Color,Urine Orange; Glucose,Urine (UA) Negative (Negative); Ketones,Urine Negative (Negative); Leukocyte Esterase,Urine Negative (Negative); Mucus,Urine Rare /hpf; Nitrite,Urine Negative (Negative); Protein,Urine 1+ (Negative); RBC,Urine 8 /hpf (0-5); Squamous Epithelial Cell,Urine 6 /hpf (0-4); WBC,Urine 3 /hpf (0-5)
[2022-09-20] MEDS: INSULIN ASPART (NovoLOG) 100 UNIT/ML VIAL SQ SCH ×2 (18:53→20:07)
[2022-09-20 18:55] LABS: Glucose,Whole Blood 119 mg/dL (70-110)
[2022-09-20] MEDS: HEPARIN SODIUM,PORCINE/PF 5,000 UNIT/0.5 ML SYRINGE SQ SCH (18:58)
[2022-09-20 20:05] LABS: Glucose,Whole Blood 122 mg/dL (70-110)
[2022-09-20] MEDS ORDERED: FAMOTIDINE 20 MG TAB PO SCH (21:00)
--- NOTE | 2022-09-20 22:45 | P.CONS ---
History of Present Illness - Reason for Consult Consult date: 09/20/22 Sepsis Requesting physician: Ezio Yu - Chief Complaint Mental status changes and weakness x one day - History of Present Illness Patient is a 81-year-old female with a past medical history significant for diabetes mellitus hypertension hyperlipidemia atrial fibrillation currently recently completed treatment for C. difficile colitis the patient was sent to the ER at the [facility] for evaluation of mental status changes as the patient was lethargic and unable to provide any history patient was evaluated at the [facility] with the patient did have a CT of the brain that was negative for any acute abnormality CT of the chest did shows right lower lobe consolidation CT scan the [facility] did shows evidence of colitis patient also have a positive UA and there was a question of possible perinephric stranding or abscess for the patient was sent to [facility] for further evaluation on presentation this visit the patient was afebrile patient was hypotensive requiring pressor support patient is currently 99 to 100% on 2 L nasal cannula patient did have a white count of 16.9 with a left shift did have elevated lactic acid elevated BUN and creatinine AST was mildly elevated patient was started on vancomycin and Zosyn infectious disease was consulted for further management most information has been obtained from review the chart and talking to the nursing staff the patient is currently lethargic and did not provide any history Review of Systems Positive points has been mentioned in HPI complete review could not be obtained because of his underlying mental status Past Medical History Past Medical History: Atrial Fibrillation, Cancer, Diabetes Mellitus, Hyperlipidemia, Hypertension, Osteoarthritis (OA), Skin Disorder Additional Past Medical History / Comment(s): Morbid obesity BMI 47.8, chronic atrial fibrillation, hypertension, hyperlipidemia, diabetes mellitus, chronic lower 70 edema and ulceration of the wound/skin in the left leg, osteoarthritis, uterine cancer with a previous hysterectomy, coronary artery disease with previous coronary artery stenting History of Any Multi-Drug Resistant Organisms: MRSA Year Discovered:: 03/28/18 MDRO Source:: SPUTUM Past Surgical History: Heart Catheterization With Stent, Hysterectomy, Orthopedic Surgery Additional Past Surgical History / Comment(s): Total Left Knee Replacement, cataracts removed, eyelids cut back, liver surgery 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 Past Psychological History: No Psychological Hx Reported Smoking Status: Never smoker Past Alcohol Use History: None Reported Past Drug Use History: None Reported - Past Family History Father Family Medical History: Diabetes Mellitus Mother Family Medical History: Cancer Additional Family Medical History / Comment(s): uterine CA Sister(s) Family Medical History: Cancer Additional Family Medical History / Comment(s): skin CA, breast CA Brother(s) Family Medical History: COPD Medications and Allergies Home Medications Medication Instructions Recorded Confirmed Type Albuterol Inhaler [Ventolin Hfa 2 puff INHALATION RT-Q6H PRN 03/27/18 09/20/22 History Inhaler] Acetaminophen [Tylenol] 650 mg PO Q4H PRN 09/20/22 09/20/22 History Atorvastatin Calcium [Lipitor] 40 mg PO HS 09/20/22 09/20/22 History Citalopram Hydrobromide [CeleXA] 10 mg PO DAILY 09/20/22 09/20/22 History Furosemide [Lasix] 40 mg PO DAILY 09/20/22 09/20/22 History Gabapentin [Neurontin] 200 mg PO BID 09/20/22 09/20/22 History Insulin Aspart Prot/Insuln Asp 7 unit SQ HS 09/20/22 09/20/22 History [Novolog MIX 70-30 Flexpen] Insulin Aspart Prot/Insuln Asp 10 unit SQ DAILY 09/20/22 09/20/22 History [Novolog MIX 70-30 Flexpen] Ipratropium-Albuterol Nebulize 3 ml INHALATION RT-Q4H PRN 09/20/22 09/20/22 History [Duoneb 0.5 mg-3 mg/3 ml Soln] Levothyroxine Sodium [Synthroid] 175 mcg PO DAILY 09/20/22 09/20/22 History Magnesium Hydroxide [Milk of 2,400 mg PO Q72H 09/20/22 09/20/22 History Magnesia Concentrate] Magnesium Oxide [Mag-Ox] 400 mg PO DAILY 09/20/22 09/20/22 History Multivitamins, Thera [Multivitamin 1 tab PO DAILY 09/20/22 09/20/22 History (formulary)] Na Phos,M-B/Na Phos,Di-Ba [Fleet 133 ml RECTAL Q72H 09/20/22 09/20/22 History Adult] Nystatin 100,000 Unit/gm Powd 1 applic TOPICAL BID 09/20/22 09/20/22 History [Mycostatin Powder] Potassium Chloride ER [K-Dur 10] 10 meq PO BID 09/20/22 09/20/22 History Zinc Sulfate [Orazinc] 220 mg PO DAILY 09/20/22 09/20/22 History bisacodyL [Dulcolax] 10 mg RECTAL Q72H PRN 09/20/22 09/20/22 History lisinopriL [Prinivil] 20 mg PO DAILY 09/20/22 09/20/22 History metOLazone [Zaroxolyn] 5 mg PO WEEKLY 09/20/22 09/20/22 History Allergies Allergy/AdvReac Type Severity Reaction Status Date / Time clindamycin AdvReac Unknown Verified 09/20/22 15:38 Physical Exam Vitals: Vital Signs Temp Pulse Resp BP Pulse Ox 09/20/22 12:15 97.7 F 69 20 94/48 100 Intake and Output 09/20/22 09/20/22 09/20/22 06:59 14:59 22:59 Other: Weight 127.006 kg GENERAL DESCRIPTION: Elderly female lying in bed, no distress. No tachypnea or accessory muscle of respiration use. HEENT: Shows Pallor , no scleral icterus. Oral mucous membrane is dry. NECK: Trachea central, no thyromegaly. LUNGS: Unlabored breathing. Decreased breath sound the bases. HEART: S1, S2, regular rate and rhythm. No loud murmur ABDOMEN: Soft, mild abdominal distention and tenderness EXTREMITIES: No edema of feet. SKIN: No rash, no masses palpable. NEUROLOGICAL: The patient is lethargic unable to afford any history Results CBC & Chem 7: 09/26/22 06:36 09/27/22 06:54 Labs: Abnormal Lab Results - Last 24 Hours (Table) 09/20/22 09/20/22 09/20/22 Range/Units 12:45 12:48 12:48 WBC 16.9 H (3.8-10.6) k/uL Hgb 10.6 L (11.4-16.0) gm/dL MCH 24.3 L (25.0-35.0) pg MCHC 30.2 L (31.0-37.0) g/dL RDW 21.7 H (11.5-15.5) % Neutrophils # 14.5 H (1.3-7.7) k/uL Lymphocytes # 0.5 L (1.0-4.8) k/uL Monocytes # 1.3 H (0-1.0) k/uL PT 16.3 H (9.0-12.0) sec INR 1.6 H (<1.2) Sodium (137-145) mmol/L BUN (7-17) mg/dL Creatinine (0.52-1.04) mg/dL Glucose (74-99) mg/dL POC Glucose (mg/dL) 126 H (70-110) mg/dL Plasma Lactic Acid Juan (0.7-2.0) mmol/L Total Bilirubin (0.2-1.3) mg/dL AST (14-36) U/L Troponin I (0.000-0.034) ng/mL Total Protein (6.3-8.2) g/dL Albumin (3.5-5.0) g/dL 09/20/22 09/20/22 09/20/22 Range/Units 12:48 12:48 13:19 WBC (3.8-10.6) k/uL Hgb (11.4-16.0) gm/dL MCH (25.0-35.0) pg MCHC (31.0-37.0) g/dL RDW (11.5-15.5) % Neutrophils # (1.3-7.7) k/uL Lymphocytes # (1.0-4.8) k/uL Monocytes # (0-1.0) k/uL PT (9.0-12.0) sec INR (<1.2) Sodium 135 L (137-145) mmol/L BUN 35 H (7-17) mg/dL Creatinine 2.07 H (0.52-1.04) mg/dL Glucose 111 H (74-99) mg/dL POC Glucose (mg/dL) (70-110) mg/dL Plasma Lactic Acid Juan 2.5 H* (0.7-2.0) mmol/L Total Bilirubin 3.8 H (0.2-1.3) mg/dL AST 54 H (14-36) U/L Troponin I 2.260 H* (0.000-0.034) ng/mL Total Protein 6.2 L (6.3-8.2) g/dL Albumin 2.5 L (3.5-5.0) g/dL Assessment and Plan (1) Sepsis Current Visit: Yes Status: Acute Code(s): A41.9 - SEPSIS, UNSPECIFIED ORGANISM SNOMED Code(s): 28193733 Plan: 1patient presented to hospital with sepsis in this patient who did have a hypertension elevated white count elevated lactic acid and concerning for possible urinary source as apparently the patient had a positive UA at the outside facility UA at this visit is currently pending there was a question of possible perinephric abscess however I do not find that information on the CT abdominal pelvis report that was done at the [facility] did shows evidence of colitis and could be component of ongoing C. difficile as the patient recently completed treatment for C. difficile colitis however no clear history of any persistent diarrhea at this point, patient also have a CT of the chest concerning for right lower lobe consolidation. 2patient to have a elevated creatinine and high risk of nephrotoxicity from vancomycin and Zosyn combination as clinic suspicion low for a gram-positive infection we will discontinue the vancomycin 3-patient to continue with the Zosyn while waiting for the work-up to be completed 4-we will obtain stool for C. difficile the patient did have no stool and await UA to be completed at this facility We will follow on clinical condition and cultures to further adjust medication if needed Thank you for this consultation we will follow the patient along with you Time with Patient: Greater than 30
[2022-09-21] MEDS ORDERED: SODIUM CHLORIDE 0.9% 1,000 ML IV ONE ×3 (00:04→19:16)
[2022-09-21] MEDS: HEPARIN SODIUM,PORCINE/PF 5,000 UNIT/0.5 ML SYRINGE SQ SCH ×4 (00:05→23:02)
[2022-09-21] MEDS ORDERED: ONDANSETRON 4 MG/2 ML VIAL IVP PRN (00:05)
[2022-09-21] MEDS ORDERED: ALBUTEROL NEBULIZED 2.5 MG/3 ML INHALATION PRN (00:05)
[2022-09-21 01:27] LABS: Glucose,Whole Blood 124 mg/dL (70-110)
[2022-09-21] MEDS ORDERED: SODIUM CHLORIDE 0.9% 500 ML 500 ML IV ONE ×2 (02:15→04:44)
[2022-09-21] MEDS: PIPERACILLIN-TAZOBACTAM 3.375 GM in SODIUM CHLORIDE 0.9% 100 ML IVPB SCH ×4 (02:55→23:03)
[2022-09-21] MEDS: INSULIN ASPART (NovoLOG) 100 UNIT/ML VIAL SQ SCH ×4 (06:05→20:03)
[2022-09-21] MEDS: LEVOTHYROXINE 88 MCG TAB PO SCH (06:12)
[2022-09-21 06:14] LABS: Glucose,Whole Blood 141 mg/dL (70-110)
[2022-09-21] MEDS ORDERED: FUROSEMIDE 10 MG/ML 2 ML VIAL IV STA (07:00)
--- NOTE | 2022-09-21 07:12 | XR ---
EXAMINATION TYPE: XR chest 1V portable DATE OF EXAM: 09/21/2022 6:11 AM COMPARISON: Chest radiographs from 03/27/2018 TECHNIQUE: XR chest 1V portable Portable AP radiograph of the chest. CLINICAL INDICATION:Female, 81 years old with history of shortness of breath; FINDINGS: Lungs/Pleura: There is no evidence of pleural effusion, focal consolidation, or pneumothorax. Pulmonary vascularity: Unremarkable. Heart/mediastinum: Cardiomediastinal silhouette is unremarkable. Two lead cardiac conduction device o verlying the left hemithorax with lead tips projecting over the right ventricle and right atrium. Musculoskeletal: No acute osseous pathology. IMPRESSION: Cardiomegaly and mild pulmonary vascular congestion. Correlate with BNP for congestive heart failure.
[2022-09-21] MEDS: FAMOTIDINE 20 MG/2 ML VIAL IV SCH (08:27)
[2022-09-21] MEDS ORDERED: FAMOTIDINE 20 MG TAB PO SCH (09:00)
--- NOTE | 2022-09-21 09:20 | P.CRDCN ---
History of Present Illness Consult date: 09/21/22 Reason for Consult (text): elevated troponin History of present illness: The patient is an 81-year-old female with multiple comorbid conditions, who was transferred to our facility for escalation of care. She recently was treated for C. diff colitis as well as recently diagnosed with urinary tract infection. She was transferred to our hospital from [place] for mental status changes and septicemia. She was started on vasopressors for hypotension and admitted to the ICU. Cardiology has been consulted for elevated troponin level. DIAGNOSTICS: Telemetry shows ventricular paced rhythm Chest x-ray shows cardiomegaly and mild pulmonary vascular congestion Lab data: WBC 16.9, hemoglobin 10.6, hematocrit 35.3, platelet 187, sodium 135, potassium 4.2, BUN 35, creatinine 2.07, initial lactic acid 2.5, troponin 2.3, 2.6, 2.6, TSH 1.58, AST 54, ALT 24 PAST MEDICAL HISTORY: Coronary artery disease with prior stenting, status post permanent pacemaker, atrial fibrillation, diabetes REVIEW OF SYSTEMS: No Chest pain or chest pressure. No dyspnea or orthopnea. No current pain. PHYSICAL EXAMINATION: This is a 81-year-old obese female in no apparent distress at the time of my examination. HEENT: Head is atraumatic, normocephalic. Pupils are equal, round. Sclerae anicteric. Conjunctivae are clear. Mucous membranes of the mouth are dry. Neck is supple. There is no jugular venous distention. No carotid bruit is heard. CHEST EXAMINATION: Lungs are diminished to auscultation. No chest wall tenderness is noted on palpation or with deep breathing. HEART EXAMINATION: Heart regular rate and rhythm. S1, S2 heard. No murmurs, g allops or rub. ABDOMEN: Soft, nontender. Bowel sounds are heard. No organomegaly noted. EXTREMITIES: Warm to touch. Stasis dermatitis noted on bilateral lower extremities NEUROLOGIC EXAMINATION: Patient is awake, alert and oriented x2. FINAL ASSESSMENT AND PLAN: Septicemia, followed by infectious disease Elevated troponin, likely secondary to the above Hypotension, currently on vasopressors Acute kidney injury Morbid obesity History of coronary artery disease, with prior stenting History of diabetes History of hypertension History of hyperlipidemia History of atrial fibrillation PLAN: Obtain records from primary fruit grad[facility] continue to hold lisinopril and metolazone for hypotension Echocardiogram and Doppler study with [facility] to establish LV function Further recommendations to be based upon clinical course I am dictating on behalf of Dr Marin Hayward's history/physical and assessment/plan. Past Medical History Past Medical History: Atrial Fibrillation, Cancer, Diabetes Mellitus, Hyperlipidemia, Hypertension, Osteoarthritis (OA), Skin Disorder Additional Past Medical History / Comment(s): Morbid obesity BMI 47.8, chronic atrial fibrillation, hypertension, hyperlipidemia, diabetes mellitus, chronic lower 70 edema and ulceration of the wound/skin in the left leg, osteoarthritis, uterine cancer with a previous hysterectomy, coronary artery disease with previous coronary artery stenting. 09/20/22 Cdiff treatment completed from [place] History of Any Multi-Drug Resistant Organisms: C-DIFF, MRSA Date of last positivie culture/infection: 03/28/18 MDRO Source:: [facility] Past Surgical History: Heart Catheterization With Stent, Hysterectomy, Orthopedic Surgery Additional Past Surgical History / Comment(s): Total Left Knee Replacement, cataracts removed, eyelids cut back, liver surgery 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 Past Psychological History: No Psychological Hx Reported Smoking Status: Never smoker Past Alcohol Use History: None Reported Past Drug Use History: None Reported - Past Family History Father Family Medical History: Diabetes Mellitus Mother Family Medical History: Cancer Additional Family Medical History / Comment(s): uterine CA Sister(s) Family Medical History: Cancer Additional Family Medical History / Comment(s): skin CA, breast CA Brother(s) Family Medical History: COPD Medications and Allergies Home Medications Medication Instructions Recorded Confirmed Type Albuterol Inhaler [Ventolin Hfa 2 puff INHALATION RT-Q6H PRN 03/27/18 09/20/22 History Inhaler] Acetaminophen [Tylenol] 650 mg PO Q4H PRN 09/20/22 09/20/22 History Atorvastatin Calcium [Lipitor] 40 mg PO HS 09/20/22 09/20/22 History Citalopram Hydrobromide [CeleXA] 10 mg PO DAILY 09/20/22 09/20/22 History Furosemide [Lasix] 40 mg PO DAILY 09/20/22 09/20/22 History Gabapentin [Neurontin] 200 mg PO BID 09/20/22 09/20/22 History Insulin Aspart Prot/Insuln Asp 7 unit SQ HS 09/20/22 09/20/22 History [Novolog MIX 70-30 Flexpen] Insulin Aspart Prot/Insuln Asp 10 unit SQ DAILY 09/20/22 09/20/22 History [Novolog MIX 70-30 Flexpen] Ipratropium-Albuterol Nebulize 3 ml INHALATION RT-Q4H PRN 09/20/22 09/20/22 History [Duoneb 0.5 mg-3 mg/3 ml Soln] Levothyroxine Sodium [Synthroid] 175 mcg PO DAILY 09/20/22 09/20/22 History Magnesium Hydroxide [Milk of 2,400 mg PO Q72H 09/20/22 09/20/22 History Magnesia Concentrate] Magnesium Oxide [Mag-Ox] 400 mg PO DAILY 09/20/22 09/20/22 History Multivitamins, Thera [Multivitamin 1 tab PO DAILY 09/20/22 09/20/22 History (formulary)] Na Phos,M-B/Na Phos,Di-Ba [Fleet 133 ml RECTAL Q72H 09/20/22 09/20/22 History Adult] Nystatin 100,000 Unit/gm Powd 1 applic TOPICAL BID 09/20/22 09/20/22 History [Mycostatin Powder] Potassium Chloride ER [K-Dur 10] 10 meq PO BID 09/20/22 09/20/22 History Zinc Sulfate [Orazinc] 220 mg PO DAILY 09/20/22 09/20/22 History bisacodyL [Dulcolax] 10 mg RECTAL Q72H PRN 09/20/22 09/20/22 History lisinopriL [Prinivil] 20 mg PO DAILY 09/20/22 09/20/22 History metOLazone [Zaroxolyn] 5 mg PO WEEKLY 09/20/22 09/20/22 History Allergies Allergy/AdvReac Type Severity Reaction Status Date / Time clindamycin AdvReac Unknown Verified 09/20/22 15:38 Physical Exam Vitals: Vital Signs Temp Pulse Resp BP Pulse Ox 09/21/22 09:00 70 10 L 113/88 97 09/21/22 08:51 98 09/21/22 08:45 69 11 L 103/57 98 09/21/22 08:30 70 9 L 115/73 97 09/21/22 08:15 103 H 13 103/66 97 09/21/22 08:00 96.4 F L 70 12 95/65 98 09/21/22 07:45 68 15 103/86 97 09/21/22 07:30 78 10 L 98 09/21/22 07:15 72 17 89/38 97 09/21/22 07:00 69 11 L 104/47 97 09/21/22 06:45 72 10 L 78/59 97 09/21/22 06:30 73 11 L 107/55 97 09/21/22 06:15 76 11 L 94/64 97 09/21/22 06:00 74 11 L 94/47 97 09/21/22 05:45 75 11 L 94/43 97 09/21/22 05:30 71 14 101/58 95 09/21/22 05:15 69 11 L 104/52 92 L 09/21/22 05:00 70 12 112/64 92 L 09/21/22 04:45 74 10 L 118/59 96 09/21/22 04:30 70 10 L 114/59 95 09/21/22 04:15 71 11 L 115/55 96 09/21/22 04:00 97.5 F L 70 11 L 110/46 96 09/21/22 03:45 74 11 L 114/52 96 09/21/22 03:30 70 10 L 111/61 97 09/21/22 03:15 69 12 106/58 97 09/21/22 03:00 69 10 L 81/37 97 09/21/22 02:45 69 10 L 92/50 97 09/21/22 02:30 80 15 83/56 99 09/21/22 02:15 77 17 90/61 97 09/21/22 02:00 68 13 94/50 98 09/21/22 01:30 95 F L 75 23 78/38 99 09/21/22 00:59 67 18 102/53 98 09/21/22 00:51 122/58 09/21/22 00:50 70 128/115 94 L 09/21/22 00:40 69 16 109/95 98 09/21/22 00:29 71 87/45 09/21/22 00:22 71 16 86/50 09/21/22 00:16 68 16 93/51 98 09/20/22 23:57 87/52 03/29/23 23:52 74 14 101/49 99 09/20/22 23:39 68 16 91/52 98 09/20/22 23:30 72 86/44 09/20/22 23:18 68 16 92/57 100 09/20/22 23:05 68 18 83/50 99 09/20/22 22:08 75 16 71/44 98 09/20/22 21:59 73 16 81/47 99 09/20/22 21:43 70 16 90/45 100 09/20/22 20:17 69 92/51 09/20/22 20:11 86/54 09/20/22 20:01 71 16 83/50 99 09/20/22 19:58 67 18 89/51 100 09/20/22 19:37 78 16 103/65 98 09/20/22 19:00 70 17 108/74 09/20/22 18:30 70 14 105/53 09/20/22 18:00 67 11 L 101/27 09/20/22 17:30 67 10 L 99/82 98 09/20/22 17:00 71 15 94/73 100 09/20/22 16:30 70 15 108/62 100 09/20/22 16:00 70 14 101/50 98 09/20/22 15:30 68 16 111/48 97 09/20/22 15:00 70 16 88/56 100 09/20/22 14:30 70 14 84/43 100 09/20/22 14:00 69 13 86/49 99 09/20/22 13:30 70 12 110/53 98 09/20/22 13:00 69 16 102/45 99 09/20/22 12:15 97.7 F 69 20 94/48 100 Intake and Output 09/20/22 09/21/22 09/21/22 22:59 06:59 14:59 Intake Total 1811.539 100 Output Total 270 10 Balance 1541.539 90 Intake: IV 700 100 Sodium Chloride 0.9% 1, 700 100 000 ml @ 100 mls/hr IV . Q10H [facility] Rx#:[id number] Intake, IV Titration 1111.539 Amount Norepinephrine 32 mg In 11.539 Sodium Chloride 0.9% 218 ml @ 0.03 MCG/KG/MIN 1. 786 mls/hr IV .Q24H [facility] Rx#:[id number] Piperacillin-Tazobactam 3 100 .375 gm In Sodium Chloride 0.9% 100 ml @ 25 mls/hr IVPB Q8H [facility] Rx#: [id number] Sodium Chloride 0.9% 500 500 ml 500 ml @ 999 mls/hr IV .Q31M [facility] Rx#:[id number] Sodium Chloride 0.9% 500 500 ml 500 ml @ 999 mls/hr IV .Q31M [facility] Rx#:[id number] Output: Urine 270 10 Other: Voiding Method Indwelling Catheter Indwelling Catheter Weight 138 kg Results 09/20/22 12:48 09/20/22 12:48 Cardiac Enzymes 09/20/22 09/20/22 09/20/22 Range/Units 12:48 12:48 15:31 AST 54 H (14-36) U/L Troponin I 2.260 H* 2.640 H* (0.000-0.034) ng/mL 09/20/22 Range/Units 18:58 AST (14-36) U/L Troponin I 2.600 H* (0.000-0.034) ng/mL Coagulation 09/20/22 Range/Units 12:48 PT 16.3 H (9.0-12.0) sec APTT 26.0 (22.0-30.0) sec CBC 09/20/22 Range/Units 12:48 WBC 16.9 H (3.8-10.6) k/uL RBC 4.39 (3.80-5.40) m/uL Hgb 10.6 L (11.4-16.0) gm/dL Hct 35.3 (34.0-46.0) % Plt Count 187 (150-450) k/uL Comprehensive Metabolic Panel 09/20/22 Range/Units 12:48 Sodium 135 L (137-145) mmol/L Potassium 4.2 (3.5-5.1) mmol/L Chloride 101 (98-107) mmol/L Carbon Dioxide 24 (22-30) mmol/L BUN 35 H (7-17) mg/dL Creatinine 2.07 H (0.52-1.04) mg/dL Glucose 111 H (74-99) mg/dL Calcium 8.8 (8.4-10.2) mg/dL AST 54 H (14-36) U/L ALT 24 (4-34) U/L Alkaline Phosphatase 82 (38-126) U/L Total Protein 6.2 L (6.3-8.2) g/dL Albumin 2.5 L (3.5-5.0) g/dL Current Medications Generic Name Dose Route Start Last Admin Trade Name Freq PRN Reason Stop Dose Admin Acetaminophen 650 mg 09/21/22 00:05 Acetaminophen Tab 325 Mg Tab PO Q6HR PRN Fever and/ or Pain Albuterol Sulfate 2.5 mg 09/21/22 00:05 Albuterol Nebulized 2.5 Mg/3 Ml INHALATION RT-Q6H PRN Shortness Of Breath Or Wheezing Atorvastatin Calcium 40 mg 09/21/22 21:00 Atorvastatin 40 Mg Tab PO HS VENKAT Famotidine 20 mg 09/21/22 09:00 09/21/22 08:27 Famotidine 20 Mg/2 Ml Vial IV 20 mg DAILY VENKAT Administration Heparin Sodium (Porcine) 5,000 unit 09/20/22 16:00 09/21/22 08:27 Heparin Sodium,Porcine/Pf 5,000 Unit/0.5 Ml Syringe SQ 5,000 unit Q8HR [facility]ENKAT Administration Norepinephrine Bitartrate 32 250 mls @ 1.786 mls/hr 09/20/22 12:54 09/21/22 06:07 mg/ Sodium Chloride IV 09/21/22 12:53 0.04 mcg/kg/min .Q24H [facility] 2.381 mls/hr Titration Protocol 0.03 MCG/KG/MIN Sodium Chloride 1,000 mls @ 100 mls/hr 09/20/22 14:15 09/20/22 23:38 Saline 0.9% IV 100 mls/hr .Q10H [facility] Administration Piperacillin Sod/Tazobactam 100 mls @ 25 mls/hr 09/21/22 03:00 09/21/22 02:55 Sod 3.375 gm/ Sodium Chloride IVPB 25 mls/hr Q8H [facility] Administration Protocol Insulin Aspart 0 unit 09/20/22 17:30 09/21/22 06:05 Insulin Aspart (Novolog) 100 Unit/Ml Vial SQ Not Given ACHS VENKAT Protocol Levothyroxine Sodium 176 mcg 09/21/22 07:00 09/21/22 06:12 Levothyroxine 88 Mcg Tab PO 176 mcg DAILY@0700 [facility] Administration Naloxone HCl 0.2 mg 09/20/22 13:25 Naloxone 0.4 Mg/Ml 1 Ml Vial IV Q2M PRN Opioid Reversal Ondansetron HCl 4 mg 09/21/22 00:05 Ondansetron 4 Mg/2 Ml Vial IVP Q6HR PRN Nausea And Vomiting Intake and Output 09/20/22 09/21/22 09/21/22 22:59 06:59 14:59 Intake Total 1811.539 100 Output Total 270 10 Balance 1541.539 90 Intake: IV 700 100 Sodium Chloride 0.9% 1, 700 100 000 ml @ 100 mls/hr IV . Q10H [facility] Rx#:[id number] Intake, IV Titration 1111.539 Amount Norepinephrine 32 mg In 11.539 Sodium Chloride 0.9% 218 ml @ 0.03 MCG/KG/MIN 1. 786 mls/hr IV .Q24H [facility] Rx#:[id number] Piperacillin-Tazobactam 3 100 .375 gm In Sodium Chloride 0.9% 100 ml @ 25 mls/hr IVPB Q8H [facility] Rx#: [id number] Sodium Chloride 0.9% 500 500 ml 500 ml @ 999 mls/hr IV .Q31M [facility] Rx#:[id number] Sodium Chloride 0.9% 500 500 ml 500 ml @ 999 mls/hr IV .Q31M [facility] Rx#:[id number] Output: Urine 270 10 Other: Voiding Method Indwelling Catheter Indwelling Catheter Weight 138 kg 09/20/22 12:48 09/20/22 12:48
--- NOTE | 2022-09-21 09:41 | P.PN ---
Subjective Progress Note Date: 09/21/22 This is an 82-year-old morbidly obese female patient was transferred to us from [facility] for further evaluation and treatment. The patient is suspected to have a UTI/sepsis. The patient presented to the correction in the [facility]. The patient initially presented there to the hospital because of altered mentation. She was having also diarrhea and the patient stated that she has completed a recent treatment for C. diff colitis. In the emergency, the patient continued to have liquidy loose stools. She was also diagnosed having a UTI at [facility]. The patient herself is a very poor historian and she is not a reliable. Upon arrival to us, the patient was hypotensive. The patient was given IV fluid boluses and placed on IV Zosyn. 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 The CAT scan of the chest showed some limited effusion/atelectatic changes in lung bases. CAT scan of the abdomen suspected ongoing colitis. There was also suspicion for perianal abscesses. The patient herself denies having any significant abdominal pain. A Mustafa catheter is to be inserted. The urine sample is to be collected. The patient was hypotensive in the emergency and the patient was given saline boluses and the patient is currently on normal saline at rate of 150 mL an hour. She does have chronic venostasis involving lower extremities bilaterally. No open wounds or sores. She was given a triple-lumen catheter in the emergency in the right femoral vein. The current echoes at 16.9 with a hemoglobin of 10.6, lactic acid level is at 2.5, BUN is 35 with a creatinine of 2.07 and a sodium level is at 135. Troponin was at 2.2 and LFTs are essentially within normal limits. On today's evaluation of 09/21/2022, the patient is in the intensive care unit. The patient is calm and comfortable and she is only on 2 L of oxygen by nasal cannula with a pulse ox of 98%. She was hospitalized yesterday because of sepsis, suspected UTI. She recently the was also treated for a C. diff colitis. She was having diarrhea in the emergency department yesterday. I asked to recheck this stool for C. diff and the results apple turner to be negative. Meanwhile, the patient is currently on Zosyn, and she was given a dose of vancomycin yesterday in the emergency Department. The urine evaluation [facility] was abnormal consistent with underlying UTI. CAT scan of the chest that was done without contrast showed some right basilar consolidation in addition to dependent atelectatic changes in the lung bases and a 2 mm calcified granuloma in the left upper lobe and another 3 mm unchanged right lower lobe pulmonary nodule. Small bilateral pleural effusions were also present. The pulmonary arteries were enlarged consistent with chronic pulmonary hypertension. CT of the abdomen also showed thickening henao of the distal sigmoid colon consistent with a recent history of C. diff colitis. There was also diffuse stranding of the mesenteric fat hours of lower abdominal area/pelv is. She was also found to have cholelithiasis without cholecystitis. The patient was aggressively resuscitated with IV fluids. After arriving today ICU, she was given additional 2 L of normal saline bolus and currently she is running normal saline at the rate of 100 mL an hour. She is also on low-dose norepinephrine running at 0.04 mcg/kg/m. Her troponins were elevated and cardiology has been involved. Objective - Vital Signs Vital signs: Vital Signs Temp 96.4 F L 09/21/22 08:00 Pulse 70 09/21/22 09:00 Resp 10 L 09/21/22 09:00 BP 113/88 09/21/22 09:00 Pulse Ox 97 09/21/22 09:00 FiO2 Intake & Output 09/20/22 09/21/22 09/21/22 18:59 06:59 18:59 Intake Total 1811.539 100 Output Total 270 10 Balance 1541.539 90 Weight 127.006 kg 138 kg Intake: IV 700 100 Sodium Chloride 0.9% 1, 700 100 000 ml @ 100 mls/hr IV . Q10H [facility] Rx#:[id number] Intake, IV Titration 1111.539 Amount Norepinephrine 32 mg In 11.539 Sodium Chloride 0.9% 218 ml @ 0.03 MCG/KG/MIN 1. 786 mls/hr IV .Q24H [facility] Rx#:[id number] Piperacillin-Tazobactam 3 100 .375 gm In Sodium Chloride 0.9% 100 ml @ 25 mls/hr IVPB Q8H [facility] Rx#: [id number] Sodium Chloride 0.9% 500 500 ml 500 ml @ 999 mls/hr IV .Q31M [facility] Rx#:[id number] Sodium Chloride 0.9% 500 500 ml 500 ml @ 999 mls/hr IV .Q31M [facility] Rx#:[id number] Output: Urine 270 10 Other: Voiding Method Indwelling Catheter Indwelling Catheter - Exam GENERAL EXAM: Alert, pleasant 77-year-old white female, obese, the patient is still confused, poor historian, breathing is nonlabored, currently she is on 2 L of oxygen by nasal cannula HEAD: Normocephalic/atraumatic. EYES: Normal reaction of pupils, equal size. Conjunctiva pink, sclera white. NOSE: Clear with pink turbinates. THROAT: No erythema or exudates. NECK: No masses, no JVD, no thyroid enlargement, no adenopathy. CHEST: No chest wall deformity. Symmetrical expansion. LUNGS: Equal air entry with some scattered rhonchi, no crackles or wheezes, breath sounds are quite diminished in lung bases bilaterally CVS: Irregular rate and rhythm, normal S1 and S2, no gallops, no murmurs, no rubs ABDOMEN: Soft, nontender. No hepatosplenomegaly, normal bowel sounds, no guarding or rigidity. EXTREMITIES: No clubbing, ,no cyanosis, 2+ pulses and upper and lower extremities. Bilateral lower extremity edema, left greater than the right, patient has a chronic wound on the left lower extremity, covered with a dressing. Per nursing staff is in his healing stages, is dry, with no drainag e. MUSCULOSKELETAL: Muscle strength and tone normal. SPINE: No scoliosis or deformity SKIN: No rashes CENTRAL NERVOUS SYSTEM: Altered mentation without any focal neurological deficits. PSYCHIATRIC: No significant anxiety or depression. A detailed psychiatric evaluation cannot be done - Labs CBC & Chem 7: 09/20/22 12:48 09/20/22 12:48 Labs: Abnormal Lab Results - Last 24 Hours (Table) 09/20/22 09/20/22 09/20/22 Range/Units 12:45 12:48 12:48 WBC 16.9 H (3.8-10.6) k/uL Hgb 10.6 L (11.4-16.0) gm/dL MCH 24.3 L (25.0-35.0) pg MCHC 30.2 L (31.0-37.0) g/dL RDW 21.7 H (11.5-15.5) % Neutrophils # 14.5 H (1.3-7.7) k/uL Lymphocytes # 0.5 L (1.0-4.8) k/uL Monocytes # 1.3 H (0-1.0) k/uL PT 16.3 H (9.0-12.0) sec INR 1.6 H (<1.2) Sodium (137-145) mmol/L BUN (7-17) mg/dL Creatinine (0.52-1.04) mg/dL Glucose (74-99) mg/dL POC Glucose (mg/dL) 126 H (70-110) mg/dL Plasma Lactic Acid Juan (0.7-2.0) mmol/L Total Bilirubin (0.2-1.3) mg/dL AST (14-36) U/L Troponin I (0.000-0.034) ng/mL Total Protein (6.3-8.2) g/dL Albumin (3.5-5.0) g/dL Urine Appearance (Clear) Urine Protein (Negative) Urine Blood (Negative) Urine Bilirubin (Negative) Urine RBC (0-5) /hpf Ur Squamous Epith Cells (0-4) /hpf Amorphous Sediment (None) /hpf Urine Mucus (None) /hpf 09/20/22 09/20/22 09/20/22 Range/Units 12:48 12:48 13:19 WBC (3.8-10.6) k/uL Hgb (11.4-16.0) gm/dL MCH (25.0-35.0) pg MCHC (31.0-37.0) g/dL RDW (11.5-15.5) % Neutrophils # (1.3-7.7) k/uL Lymphocytes # (1.0-4.8) k/uL Monocytes # (0-1.0) k/uL PT (9.0-12.0) sec INR (<1.2) Sodium 135 L (137-145) mmol/L BUN 35 H (7-17) mg/dL Creatinine 2.07 H (0.52-1.04) mg/dL Glucose 111 H (74-99) mg/dL POC Glucose (mg/dL) (70-110) mg/dL Plasma Lactic Acid Juan 2.5 H* (0.7-2.0) mmol/L Total Bilirubin 3.8 H (0.2-1.3) mg/dL AST 54 H (14-36) U/L Troponin I 2.260 H* (0.000-0.034) ng/mL Total Protein 6.2 L (6.3-8.2) g/dL Albumin 2.5 L (3.5-5.0) g/dL Urine Appearance (Clear) Urine Protein (Negative) Urine Blood (Negative) Urine Bilirubin (Negative) Urine RBC (0-5) /hpf Ur Squamous Epith Cells (0-4) /hpf Amorphous Sediment (None) /hpf Urine Mucus (None) /hpf 09/20/22 09/20/22 09/20/22 Range/Units 15:31 16:28 16:29 WBC (3.8-10.6) k/uL Hgb (11.4-16.0) gm/dL MCH (25.0-35.0) pg MCHC (31.0-37.0) g/dL RDW (11.5-15.5) % Neutrophils # (1.3-7.7) k/uL Lymphocytes # (1.0-4.8) k/uL Monocytes # (0-1.0) k/uL PT (9.0-12.0) sec INR (<1.2) Sodium (137-145) mmol/L BUN (7-17) mg/dL Creatinine (0.52-1.04) mg/dL Glucose (74-99) mg/dL POC Glucose (mg/dL) (70-110) mg/dL Plasma Lactic Acid Juan 2.1 H* (0.7-2.0) mmol/L Total Bilirubin (0.2-1.3) mg/dL AST (14-36) U/L Troponin I 2.640 H* (0.000-0.034) ng/mL Total Protein (6.3-8.2) g/dL Albumin (3.5-5.0) g/dL Urine Appearance Cloudy H (Clear) Urine Protein 1+ H (Negative) Urine Blood Trace H (Negative) Urine Bilirubin 1+ H (Negative) Urine RBC 8 H (0-5) /hpf Ur Squamous Epith Cells 6 H (0-4) /hpf Amorphous Sediment Occasional H (None) /hpf Urine Mucus Rare H (None) /hpf 09/20/22 09/20/22 09/20/22 Range/Units 18:53 18:58 20:04 WBC (3.8-10.6) k/uL Hgb (11.4-16.0) gm/dL MCH (25.0-35.0) pg MCHC (31.0-37.0) g/dL RDW (11.5-15.5) % Neutrophils # (1.3-7.7) k/uL Lymphocytes # (1.0-4.8) k/uL Monocytes # (0-1.0) k/uL PT (9.0-12.0) sec INR (<1.2) Sodium (137-145) mmol/L BUN (7-17) mg/dL Creatinine (0.52-1.04) mg/dL Glucose (74-99) mg/dL POC Glucose (mg/dL) 119 H 122 H (70-110) mg/dL Plasma Lactic Acid Juan (0.7-2.0) mmol/L Total Bilirubin (0.2-1.3) mg/dL AST (14-36) U/L Troponin I 2.600 H* (0.000-0.034) ng/mL Total Protein (6.3-8.2) g/dL Albumin (3.5-5.0) g/dL Urine Appearance (Clear) Urine Protein (Negative) Urine Blood (Negative) Urine Bilirubin (Negative) Urine RBC (0-5) /hpf Ur Squamous Epith Cells (0-4) /hpf Amorphous Sediment (None) /hpf Urine Mucus (None) /hpf 09/21/22 09/21/22 Range/Units 01:25 06:02 WBC (3.8-10.6) k/uL Hgb (11.4-16.0) gm/dL MCH (25.0-35.0) pg MCHC (31.0-37.0) g/dL RDW (11.5-15.5) % Neutrophils # (1.3-7.7) k/uL Lymphocytes # (1.0-4.8) k/uL Monocytes # (0-1.0) k/uL PT (9.0-12.0) sec INR (<1.2) Sodium (137-145) mmol/L BUN (7-17) mg/dL Creatinine (0.52-1.04) mg/dL Glucose (74-99) mg/dL POC Glucose (mg/dL) 124 H 141 H (70-110) mg/dL Plasma Lactic Acid Juan (0.7-2.0) mmol/L Total Bilirubin (0.2-1.3) mg/dL AST (14-36) U/L Troponin I (0.000-0.034) ng/mL Total Protein (6.3-8.2) g/dL Albumin (3.5-5.0) g/dL Urine Appearance (Clear) Urine Protein (Negative) Urine Blood (Negative) Urine Bilirubin (Negative) Urine RBC (0-5) /hpf Ur Squamous Epith Cells (0-4) /hpf Amorphous Sediment (None) /hpf Urine Mucus (None) /hpf Assessment and Plan Plan: Altered mental status likely secondary to underlying infection/sepsis. Suspect UTI. Patient was also treated for C. diff colitis and she completed treatment and her repeat stool evaluation for C. diff has been negative. Sepsis with secondary hypotension, currently on IV fluids and the patient will be also started again on broad-spectrum antibiotics, the patient remains on low- dose pressors for now for hemodynamic support. Acute leukocytosis secondary to above Acute non-STEMI with elevated troponins Acute kidney injury, rule out underlying sepsis-induced ATN, urine output remain s low, Mustafa cath is in place Chronic atrial fibrillation Morbid obesity Chronic lower extremity edema and chronic venous stasis Hypertension Hyperlipidemia Diabetes mellitus2 Coronary artery disease with previous coronary stenting C. diff colitis treated recently History of liver tumor surgically resected Degenerative arthritis and the patient has undergone a left knee replacement Debilitated state and the patient lives in a correction-like facility and [place] Plan Keep the patient in intensive care unit Continue IV fluids at the rate of 150 mL an hour, currently on norepinephrine at 0.04 mcg/kg/m Give another 1 L bolus of normal saline Monitor urine output Repeat labs today are still pending and this will be reviewed once available, pro-calcitonin level is still pending Cultures have been sent Cardiology consultation has been done and the patient will have an echoc ardiogram today Continue IV Zosyn ID on the case Hold diuretics and Rick inhibitors Status post fall Condition is critical and we'll continue to follow make further recommendations based on her progress..
[2022-09-21 10:56] LABS: Anisocytosis Moderate; HCT 39.7 % (34.0-46.0); HGB 11.7 gm/dL (11.4-16.0); Hypochromasia Marked; MCH 24.3 pg (25.0-35.0); MCHC 29.4 g/dL (31.0-37.0); MCV 82.8 fL (80.0-100.0); Mean Platelet Volume 10.4; Microcytosis Slight; Platelet Count 270 k/uL (150-450); Poikilocytosis Slight; RDW 21.4 % (11.5-15.5); WBC 14.6 k/uL (3.8-10.6)
[2022-09-21 10:58] VITALS: BMI 46.2
[2022-09-21 11:41] LABS: Glucose,Whole Blood 100 mg/dL (70-110)
[2022-09-21 11:43] LABS: Albumin 2.4 g/dL (3.5-5.0); Calcium 8.3 mg/dL (8.4-10.2); Potassium 3.8 mmol/L (3.5-5.1); Total Bilirubin 3.1 mg/dL (0.2-1.3); Total Protein 6.3 g/dL (6.3-8.2)
[2022-09-21] MEDS ORDERED: VANCOMYCIN 2,000 MG in SODIUM CHLORIDE 0.9% 500 ML 500 ML IVPB ONE (12:00)
[2022-09-21] MEDS: SODIUM CHLORIDE 0.9% 1,000 ML IV SCH ×3 (13:30→20:53)
[2022-09-21 17:02] LABS: Glucose,Whole Blood 99 mg/dL (70-110)
--- NOTE | 2022-09-21 18:15 | P.PN ---
Subjective Progress Note Date: 09/21/22 Principal diagnosis: Sepsis Patient is a 81-year-old female with a past medical history significant for diabetes mellitus hypertension hyperlipidemia atrial fibrillation currently recently completed treatment for C. difficile colitis the patient was sent to the ER at the [facility] for evaluation of mental status changes, patient did have a CT of the chest suspicious for right lower lobe consolidation CT of abdominal pelvis with colitis, patient did have a ne gative C. diff during this admission. on today's evaluation that is 09/21/2022, the patient is afebrile the patient is more awake and alert and did answer some simple questions and no chest pain or shortness of breath occasional cough patient did have 1 loose stool per the nursing staff and is currently on the low-dose pressor support Objective - Vital Signs Vital signs: Vital Signs Temp 96.4 F L 09/21/22 08:00 Pulse 74 09/21/22 11:15 Resp 8 L 09/21/22 11:15 BP 142/49 09/21/22 11:15 Pulse Ox 95 09/21/22 11:15 FiO2 Intake & Output 09/20/22 09/21/22 09/21/22 18:59 06:59 18:59 Intake Total 1811.539 400 Output Total 270 25 Balance 1541.539 375 Weight 127.006 kg 138 kg 138 kg Intake: IV 700 400 Sodium Chloride 0.9% 1, 700 400 000 ml @ 150 mls/hr IV . Q6H40M [facility] Rx#:[id number] Intake, IV Titration 1111.539 Amount Norepinephrine 32 mg In 11.539 Sodium Chloride 0.9% 218 ml @ 0.03 MCG/KG/MIN 1. 786 mls/hr IV .Q24H [facility] Rx#:[id number] Piperacillin-Tazobactam 3 100 .375 gm In Sodium Chloride 0.9% 100 ml @ 25 mls/hr IVPB Q8H [facility] Rx#: [id number] Sodium Chloride 0.9% 500 500 ml 500 ml @ 999 mls/hr IV .Q31M [facility] Rx#:[id number] Sodium Chloride 0.9% 500 500 ml 500 ml @ 999 mls/hr IV .Q31M [facility] Rx#:[id number] Output: Urine 270 25 Other: Voiding Method Indwelling Catheter Indwelling Catheter - Exam GENERAL DESCRIPTION: An elderly female lying in bed in no distress RESPIRATORY SYSTEM: Unlabored breathing , decreased breath sounds at bases HEART: S1 S2 regular rate and rhythm , ABDOMEN: Soft , no tenderness EXTREMITIES: Diffuse swelling bilateral lower extremity no significant redness - Labs CBC & Chem 7: 09/21/22 10:42 09/21/22 10:42 Labs: Abnormal Lab Results - Last 24 Hours (Table) 09/20/22 09/20/22 09/20/22 Range/Units 12:45 12:48 12:48 WBC 16.9 H (3.8-10.6) k/uL Hgb 10.6 L (11.4-16.0) gm/dL MCH 24.3 L (25.0-35.0) pg MCHC 30.2 L (31.0-37.0) g/dL RDW 21.7 H (11.5-15.5) % Neutrophils # 14.5 H (1.3-7.7) k/uL Lymphocytes # 0.5 L (1.0-4.8) k/uL Monocytes # 1.3 H (0-1.0) k/uL PT 16.3 H (9.0-12.0) sec INR 1.6 H (<1.2) Sodium (137-145) mmol/L Carbon Dioxide (22-30) mmol/L BUN (7-17) mg/dL Creatinine (0.52-1.04) mg/dL Glucose (74-99) mg/dL POC Glucose (mg/dL) 126 H (70-110) mg/dL Plasma Lactic Acid Juan (0.7-2.0) mmol/L Calcium (8.4-10.2) mg/dL Total Bilirubin (0.2-1.3) mg/dL AST (14-36) U/L Troponin I (0.000-0.034) ng/mL Total Protein (6.3-8.2) g/dL Albumin (3.5-5.0) g/dL Procalcitonin (0.02-0.09) ng/mL Urine Appearance (Clear) Urine Protein (Negative) Urine Blood (Negative) Urine Bilirubin (Negative) Urine RBC (0-5) /hpf Ur Squamous Epith Cells (0-4) /hpf Amorphous Sediment (None) /hpf Urine Mucus (None) /hpf 09/20/22 09/20/22 09/20/22 Range/Units 12:48 12:48 13:19 WBC (3.8-10.6) k/uL Hgb (11.4-16.0) gm/dL MCH (25.0-35.0) pg MCHC (31.0-37.0) g/dL RDW (11.5-15.5) % Neutrophils # (1.3-7.7) k/uL Lymphocytes # (1.0-4.8) k/uL Monocytes # (0-1.0) k/uL PT (9.0-12.0) sec INR (<1.2) Sodium 135 L (137-145) mmol/L Carbon Dioxide (22-30) mmol/L BUN 35 H (7-17) mg/dL Creatinine 2.07 H (0.52-1.04) mg/dL Glucose 111 H (74-99) mg/dL POC Glucose (mg/dL) (70-110) mg/dL Plasma Lactic Acid Juan 2.5 H* (0.7-2.0) mmol/L Calcium (8.4-10.2) mg/dL Total Bilirubin 3.8 H (0.2-1.3) mg/dL AST 54 H (14-36) U/L Troponin I 2.260 H* (0.000-0.034) ng/mL Total Protein 6.2 L (6.3-8.2) g/dL Albumin 2.5 L (3.5-5.0) g/dL Procalcitonin (0.02-0.09) ng/mL Urine Appearance (Clear) Urine Protein (Negative) Urine Blood (Negative) Urine Bilirubin (Negative) Urine RBC (0-5) /hpf Ur Squamous Epith Cells (0-4) /hpf Amorphous Sediment (None) /hpf Urine Mucus (None) /hpf 09/20/22 09/20/22 09/20/22 Range/Units 15:31 16:28 16:29 WBC (3.8-10.6) k/uL Hgb (11.4-16.0) gm/dL MCH (25.0-35.0) pg MCHC (31.0-37.0) g/dL RDW (11.5-15.5) % Neutrophils # (1.3-7.7) k/uL Lymphocytes # (1.0-4.8) k/uL Monocytes # (0-1.0) k/uL PT (9.0-12.0) sec INR (<1.2) Sodium (137-145) mmol/L Carbon Dioxide (22-30) mmol/L BUN (7-17) mg/dL Creatinine (0.52-1.04) mg/dL Glucose (74-99) mg/dL POC Glucose (mg/dL) (70-110) mg/dL Plasma Lactic Acid Juan 2.1 H* (0.7-2.0) mmol/L Calcium (8.4-10.2) mg/dL Total Bilirubin (0.2-1.3) mg/dL AST (14-36) U/L Troponin I 2.640 H* (0.000-0.034) ng/mL Total Protein (6.3-8.2) g/dL Albumin (3.5-5.0) g/dL Procalcitonin (0.02-0.09) ng/mL Urine Appearance Cloudy H (Clear) Urine Protein 1+ H (Negative) Urine Blood Trace H (Negative) Urine Bilirubin 1+ H (Negative) Urine RBC 8 H (0-5) /hpf Ur Squamous Epith Cells 6 H (0-4) /hpf Amorphous Sediment Occasional H (None) /hpf Urine Mucus Rare H (None) /hpf 09/20/22 09/20/22 09/20/22 Range/Units 18:53 18:58 20:04 WBC (3.8-10.6) k/uL Hgb (11.4-16.0) gm/dL MCH (25.0-35.0) pg MCHC (31.0-37.0) g/dL RDW (11.5-15.5) % Neutrophils # (1.3-7.7) k/uL Lymphocytes # (1.0-4.8) k/uL Monocytes # (0-1.0) k/uL PT (9.0-12.0) sec INR (<1.2) Sodium (137-145) mmol/L Carbon Dioxide (22-30) mmol/L BUN (7-17) mg/dL Creatinine (0.52-1.04) mg/dL Glucose (74-99) mg/dL POC Glucose (mg/dL) 119 H 122 H (70-110) mg/dL Plasma Lactic Acid Juan (0.7-2.0) mmol/L Calcium (8.4-10.2) mg/dL Total Bilirubin (0.2-1.3) mg/dL AST (14-36) U/L Troponin I 2.600 H* (0.000-0.034) ng/mL Total Protein (6.3-8.2) g/dL Albumin (3.5-5.0) g/dL Procalcitonin (0.02-0.09) ng/mL Urine Appearance (Clear) Urine Protein (Negative) Urine Blood (Negative) Urine Bilirubin (Negative) Urine RBC (0-5) /hpf Ur Squamous Epith Cells (0-4) /hpf Amorphous Sediment (None) /hpf Urine Mucus (None) /hpf 09/21/22 09/21/22 09/21/22 Range/Units 01:25 05:26 06:02 WBC (3.8-10.6) k/uL Hgb (11.4-16.0) gm/dL MCH (25.0-35.0) pg MCHC (31.0-37.0) g/dL RDW (11.5-15.5) % Neutrophils # (1.3-7.7) k/uL Lymphocytes # (1.0-4.8) k/uL Monocytes # (0-1.0) k/uL PT (9.0-12.0) sec INR (<1.2) Sodium (137-145) mmol/L Carbon Dioxide (22-30) mmol/L BUN (7-17) mg/dL Creatinine (0.52-1.04) mg/dL Glucose (74-99) mg/dL POC Glucose (mg/dL) 124 H 141 H (70-110) mg/dL Plasma Lactic Acid Juan (0.7-2.0) mmol/L Calcium (8.4-10.2) mg/dL Total Bilirubin (0.2-1.3) mg/dL AST (14-36) U/L Troponin I (0.000-0.034) ng/mL Total Protein (6.3-8.2) g/dL Albumin (3.5-5.0) g/dL Procalcitonin 7.81 H (0.02-0.09) ng/mL Urine Appearance (Clear) Urine Protein (Negative) Urine Blood (Negative) Urine Bilirubin (Negative) Urine RBC (0-5) /hpf Ur Squamous Epith Cells (0-4) /hpf Amorphous Sediment (None) /hpf Urine Mucus (None) /hpf 09/21/22 09/21/22 Range/Units 10:42 10:42 WBC 14.6 H (3.8-10.6) k/uL Hgb (11.4-16.0) gm/dL MCH 24.3 L (25.0-35.0) pg MCHC 29.4 L (31.0-37.0) g/dL RDW 21.4 H (11.5-15.5) % Neutrophils # (1.3-7.7) k/uL Lymphocytes # (1.0-4.8) k/uL Monocytes # (0-1.0) k/uL PT (9.0-12.0) sec INR (<1.2) Sodium (137-145) mmol/L Carbon Dioxide 21 L (22-30) mmol/L BUN 42 H (7-17) mg/dL Creatinine 2.38 H (0.52-1.04) mg/dL Glucose 105 H (74-99) mg/dL POC Glucose (mg/dL) (70-110) mg/dL Plasma Lactic Acid Juan (0.7-2.0) mmol/L Calcium 8.3 L (8.4-10.2) mg/dL Total Bilirubin 3.1 H (0.2-1.3) mg/dL AST 64 H (14-36) U/L Troponin I (0.000-0.034) ng/mL Total Protein (6.3-8.2) g/dL Albumin 2.4 L (3.5-5.0) g/dL Procalcitonin (0.02-0.09) ng/mL Urine Appearance (Clear) Urine Protein (Negative) Urine Blood (Negative) Urine Bilirubin (Negative) Urine RBC (0-5) /hpf Ur Squamous Epith Cells (0-4) /hpf Amorphous Sediment (None) /hpf Urine Mucus (None) /hpf Assessment and Plan (1) Sepsis Current Visit: Yes Status: Acute Code(s): A41.9 - SEPSIS, UNSPECIFIED ORGANISM SNOMED Code(s): 79938089 Plan: 1patient presented to hospital with sepsis in this patient who did have a hypertension elevated white count elevated lactic acid and concerning for possible urinary source as apparently the patient had a positive UA at the outside facility UA at this visit is currently pending there was a question of possible perinephric abscess however I do not find that information on the CT ab dominal pelvis report that was done at the [facility] did shows evidence of colitis and could be component of ongoing C. difficile as the patient recently completed treatment for C. difficile colitis however no clear history of any persistent diarrhea at this point, patient also have a CT of the chest concerning for right lower lobe consolidation. 2patient to have a elevated creatinine and high risk of nephrotoxicity from vancomycin and Zosyn combination as clinic suspicion low for a gram-positive infection , vancomycin was discontinued yesterday 3-patient to continue with the Zosyn in view of some clinical improvement and while waiting for the culture finalized Time with Patient: Less than 30
[2022-09-21] MEDS ORDERED: FUROSEMIDE 10 MG/ML 10 ML VIAL IV STA (19:16)
--- NOTE | 2022-09-21 19:27 | P.PN ---
Subjective Patient is a 7-year-old female was sent in from outside the hospital for higher level of care and patient was noted to have urinary tract infection although I do not have any that labs available at this time. Patient is unable to provide any history to me. Patient although it appears to be septic was having diarrhea at the other place patient had a recent C. diff history, CT of the chest did suggest pneumonia although I do not have any images available at this time unable to find the records from the other hospital at this time patient was started on broad-spectrum antibiotics vancomycin and Zosyn subsequently admitted to the hospital. Patient is hypotensive as well patient is getting 150 of normal saline patient is quite lethargic arousable is unable to provide much of the history to me patient also had lactic acidosis with troponin elevation of 2.2. 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 She denies any specific complaints, no pain. No urinary symptoms. The Mustafa catheter in place which was not bothering her. Patient initially admitted with severe sepsis suspected secondary to UTI and other sources could not be ruled out or identified currently. Her infection and sepsis is improving as she is currently on Zosyn while on IV vancomycin was discontinued earlier. She required levophed but her blood pressure improved after she received aggressive hydration with 2 L of normal saline and currently she is at a rate of 150 mL per hour. Her metolazone is on hold as well as DARWIN inhibitor Creatinine is slightly trending up 2.3 currently. Leukocytosis improving. Patient is still complaining of Objective - Vital Signs Vital signs: Vital Signs Temp 96.4 F L 09/21/22 08:00 Pulse 74 09/21/22 11:15 Resp 8 L 09/21/22 11:15 BP 142/49 09/21/22 11:15 Pulse Ox 95 09/21/22 11:15 FiO2 Intake & Output 09/20/22 09/21/22 09/21/22 18:59 06:59 18:59 Intake Total 1811.539 100 Output Total 270 10 Balance 1541.539 90 Weight 127.006 kg 138 kg 138 kg Intake: IV 700 100 Sodium Chloride 0.9% 1, 700 100 000 ml @ 100 mls/hr IV . Q[facility]H [facility] Rx#:[id number] Intake, IV Titration 1111.539 Amount Norepinephrine 32 mg In 11.539 Sodium Chloride 0.9% 218 ml @ 0.03 MCG/KG/MIN 1. 786 mls/hr IV .Q24H [facility] Rx#:[id number] Piperacillin-Tazobactam 3 100 .375 gm In Sodium Chloride 0.9% 100 ml @ 25 mls/hr IVPB Q8H [facility] Rx#: [id number] Sodium Chloride 0.9% 500 500 ml 500 ml @ 999 mls/hr IV .Q31M [facility] Rx#:[id number] Sodium Chloride 0.9% 500 500 ml 500 ml @ 999 mls/hr IV .Q31M [facility] Rx#:[id number] Output: Urine 270 10 Other: Voiding Method Indwelling Catheter Indwelling Catheter - Exam -GENERAL: The patient is alert and oriented x3, not in any acute distress. Morbidly obese, lethargic HEENT: Pupils are round and equally reacting to light. EOMI. No scleral icterus. No conjunctival pallor. Normocephalic, atraumatic. No pharyngeal erythema. No thyromegaly. CARDIOVASCULAR: S1 and S2 present. No murmurs, rubs, or gallops. PULMONARY: Chest is clear to auscultation, no wheezing or crackles. -ABDOMEN: Soft, nontender, nondistended, normoactive bowel sounds. No palpable organomegaly. Mustafa catheter in place MUSCULOSKELETAL: No joint swelling or deformity. EXTREMITIES: No cyanosis, clubbing, or pedal edema. NEUROLOGICAL: Gross neurological examination did not reveal any focal deficits. SKIN: No rashes. no petechiae. - Labs CBC & Chem 7: 09/21/22 10:42 09/21/22 10:42 Labs: Abnormal Lab Results - Last 24 Hours (Table) 09/20/22 09/20/22 09/20/22 Range/Units 12:45 12:48 12:48 WBC 16.9 H (3.8-10.6) k/uL Hgb 10.6 L (11.4-16.0) gm/dL MCH 24.3 L (25.0-35.0) pg MCHC 30.2 L (31.0-37.0) g/dL RDW 21.7 H (11.5-15.5) % Neutrophils # 14.5 H (1.3-7.7) k/uL Lymphocytes # 0.5 L (1.0-4.8) k/uL Monocytes # 1.3 H (0-1.0) k/uL PT 16.3 H (9.0-12.0) sec INR 1.6 H (<1.2) Sodium (137-145) mmol/L BUN (7-17) mg/dL Creatinine (0.52-1.04) mg/dL Glucose (74-99) mg/dL POC Glucose (mg/dL) 126 H (70-110) mg/dL Plasma Lactic Acid Juan (0.7-2.0) mmol/L Total Bilirubin (0.2-1.3) mg/dL AST (14-36) U/L Troponin I (0.000-0.034) ng/mL Total Protein (6.3-8.2) g/dL Albumin (3.5-5.0) g/dL Procalcitonin (0.02-0.09) ng/mL Urine Appearance (Clear) Urine Protein (Negative) Urine Blood (Negative) Urine Bilirubin (Negative) Urine RBC (0-5) /hpf Ur Squamous Epith Cells (0-4) /hpf Amorphous Sediment (None) /hpf Urine Mucus (None) /hpf 09/20/22 09/20/22 09/20/22 Range/Units 12:48 12:48 13:19 WBC (3.8-10.6) k/uL Hgb (11.4-16.0) gm/dL MCH (25.0-35.0) pg MCHC (31.0-37.0) g/dL RDW (11.5-15.5) % Neutrophils # (1.3-7.7) k/uL Lymphocytes # (1.0-4.8) k/uL Monocytes # (0-1.0) k/uL PT (9.0-12.0) sec INR (<1.2) Sodium 135 L (137-145) mmol/L BUN 35 H (7-17) mg/dL Creatinine 2.07 H (0.52-1.04) mg/dL Glucose 111 H (74-99) mg/dL POC Glucose (mg/dL) (70-110) mg/dL Plasma Lactic Acid Juan 2.5 H* (0.7-2.0) mmol/L Total Bilirubin 3.8 H (0.2-1.3) mg/dL AST 54 H (14-36) U/L Troponin I 2.260 H* (0.000-0.034) ng/mL Total Protein 6.2 L (6.3-8.2) g/dL Albumin 2.5 L (3.5-5.0) g/dL Procalcitonin (0.02-0.09) ng/mL Urine Appearance (Clear) Urine Protein (Negative) Urine Blood (Negative) Urine Bilirubin (Negative) Urine RBC (0-5) /hpf Ur Squamous Epith Cells (0-4) /hpf Amorphous Sediment (None) /hpf Urine Mucus (None) /hpf 09/20/22 09/20/22 09/20/22 Range/Units 15:31 16:28 16:29 WBC (3.8-10.6) k/uL Hgb (11.4-16.0) gm/dL MCH (25.0-35.0) pg MCHC (31.0-37.0) g/dL RDW (11.5-15.5) % Neutrophils # (1.3-7.7) k/uL Lymphocytes # (1.0-4.8) k/uL Monocytes # (0-1.0) k/uL PT (9.0-12.0) sec INR (<1.2) Sodium (137-145) mmol/L BUN (7-17) mg/dL Creatinine (0.52-1.04) mg/dL Glucose (74-99) mg/dL POC Glucose (mg/dL) (70-110) mg/dL Plasma Lactic Acid Juan 2.1 H* (0.7-2.0) mmol/L Total Bilirubin (0.2-1.3) mg/dL AST (14-36) U/L Troponin I 2.640 H* (0.000-0.034) ng/mL Total Protein (6.3-8.2) g/dL Albumin (3.5-5.0) g/dL Procalcitonin (0.02-0.09) ng/mL Urine Appearance Cloudy H (Clear) Urine Protein 1+ H (Negative) Urine Blood Trace H (Negative) Urine Bilirubin 1+ H (Negative) Urine RBC 8 H (0-5) /hpf Ur Squamous Epith Cells 6 H (0-4) /hpf Amorphous Sediment Occasional H (None) /hpf Urine Mucus Rare H (None) /hpf 09/20/22 09/20/22 09/20/22 Range/Units 18:53 18:58 20:04 WBC (3.8-10.6) k/uL Hgb (11.4-16.0) gm/dL MCH (25.0-35.0) pg MCHC (31.0-37.0) g/dL RDW (11.5-15.5) % Neutrophils # (1.3-7.7) k/uL Lymphocytes # (1.0-4.8) k/uL Monocytes # (0-1.0) k/uL PT (9.0-12.0) sec INR (<1.2) Sodium (137-145) mmol/L BUN (7-17) mg/dL Creatinine (0.52-1.04) mg/dL Glucose (74-99) mg/dL POC Glucose (mg/dL) 119 H 122 H (70-110) mg/dL Plasma Lactic Acid Juan (0.7-2.0) mmol/L Total Bilirubin (0.2-1.3) mg/dL AST (14-36) U/L Troponin I 2.600 H* (0.000-0.034) ng/mL Total Protein (6.3-8.2) g/dL Albumin (3.5-5.0) g/dL Procalcitonin (0.02-0.09) ng/mL Urine Appearance (Clear) Urine Protein (Negative) Urine Blood (Negative) Urine Bilirubin (Negative) Urine RBC (0-5) /hpf Ur Squamous Epith Cells (0-4) /hpf Amorphous Sediment (None) /hpf Urine Mucus (None) /hpf 09/21/22 09/21/22 09/21/22 Range/Units 01:25 05:26 06:02 WBC (3.8-10.6) k/uL Hgb (11.4-16.0) gm/dL MCH (25.0-35.0) pg MCHC (31.0-37.0) g/dL RDW (11.5-15.5) % Neutrophils # (1.3-7.7) k/uL Lymphocytes # (1.0-4.8) k/uL Monocytes # (0-1.0) k/uL PT (9.0-12.0) sec INR (<1.2) Sodium (137-145) mmol/L BUN (7-17) mg/dL Creatinine (0.52-1.04) mg/dL Glucose (74-99) mg/dL POC Glucose (mg/dL) 124 H 141 H (70-110) mg/dL Plasma Lactic Acid Juan (0.7-2.0) mmol/L Total Bilirubin (0.2-1.3) mg/dL AST (14-36) U/L Troponin I (0.000-0.034) ng/mL Total Protein (6.3-8.2) g/dL Albumin (3.5-5.0) g/dL Procalcitonin 7.81 H (0.02-0.09) ng/mL Urine Appearance (Clear) Urine Protein (Negative) Urine Blood (Negative) Urine Bilirubin (Negative) Urine RBC (0-5) /hpf Ur Squamous Epith Cells (0-4) /hpf Amorphous Sediment (None) /hpf Urine Mucus (None) /hpf 09/21/ Range/Units 10:42 WBC 14.6 H (3.8-10.6) k/uL Hgb (11.4-16.0) gm/dL MCH 24.3 L (25.0-35.0) pg MCHC 29.4 L (31.0-37.0) g/dL RDW 21.4 H (11.5-15.5) % Neutrophils # (1.3-7.7) k/uL Lymphocytes # (1.0-4.8) k/uL Monocytes # (0-1.0) k/uL PT (9.0-12.0) sec INR (<1.2) Sodium (137-145) mmol/L BUN (7-17) mg/dL Creatinine (0.52-1.04) mg/dL Glucose (74-99) mg/dL POC Glucose (mg/dL) (70-110) mg/dL Plasma Lactic Acid Juan (0.7-2.0) mmol/L Total Bilirubin (0.2-1.3) mg/dL AST (14-36) U/L Troponin I (0.000-0.034) ng/mL Total Protein (6.3-8.2) g/dL Albumin (3.5-5.0) g/dL Procalcitonin (0.02-0.09) ng/mL Urine Appearance (Clear) Urine Protein (Negative) Urine Blood (Negative) Urine Bilirubin (Negative) Urine RBC (0-5) /hpf Ur Squamous Epith Cells (0-4) /hpf Amorphous Sediment (None) /hpf Urine Mucus (None) /hpf Assessment and Plan Assessment: -Severe sepsis/, improving Acute urinary tract infection, other sources cannot be ruled out Severe hypotension secondary to infection and hypovolemia, improving with IV fluid Metabolic encephalopathy, improving Diarrhea, rule out C. diff Elevated troponin, suspicious for non-STEMI, being followed by cardiology team Acute on chronic kidney disease stage III His bilirubin Paroxysmal atrial fibrillation Plan: Continue with antibiotic, currently Zosyn: Continue with aggressive hydration normal saline 1 50 mL/h Follow-up culture result Follow-up echocardiogram Several consultants on the case including cardiology, ID team and pulmonary/critical care team Labs and medication were reviewed.. Continue same treatment. Continue with symptomatic treatment. Resume home medication. Monitor labs and vitals. DVT and GI prophylaxis. Further recommendations as per clinical course of the patient DVT prophylaxis: Subcutaneous heparin GI Prophylaxis: Pepcid Prognosis is guarded
[2022-09-21 19:56] LABS: Glucose,Whole Blood 104 mg/dL (70-110)
[2022-09-21] MEDS: ATORVASTATIN 40 MG TAB PO SCH (20:02)
[2022-09-21] MEDS: ACETAMINOPHEN TAB 325 MG TAB PO PRN (20:03)
[2022-09-21] MEDS: NOREPINEPHRINE 32 MG in SODIUM CHLORIDE 0.9% 218 ML IV SCH (20:30)
[2022-09-22 04:58] LABS: Albumin 2.5 g/dL (3.5-5.0); Calcium 7.9 mg/dL (8.4-10.2); Magnesium 1.6 mg/dL (1.6-2.3); Potassium 3.9 mmol/L (3.5-5.1); Total Bilirubin 2.5 mg/dL (0.2-1.3); Total Protein 6.3 g/dL (6.3-8.2)
[2022-09-22 05:07] LABS: Anisocytosis Moderate; Basophils # (A) 0.1 k/uL (0-0.2); Basophils % (A) 1 %; Eosinophils # (A) 0.1 k/uL (0-0.7); Eosinophils % (A) 1 %; HCT 38.3 % (34.0-46.0); HGB 11.4 gm/dL (11.4-16.0); Hypochromasia Marked; Lymphocytes # (A) 0.6 k/uL (1.0-4.8); Lymphocytes % (A) 5 %; MCH 24.6 pg (25.0-35.0); MCHC 29.6 g/dL (31.0-37.0); MCV 82.9 fL (80.0-100.0); Mean Platelet Volume 9.9; Microcytosis Slight; Monocytes # (A) 0.6 k/uL (0-1.0); Monocytes % (A) 6 %; Neutrophils % (A) 85 %; Platelet Count 245 k/uL (150-450); Poikilocytosis Slight; RBC 4.62 m/uL (3.80-5.40); RDW 21.4 % (11.5-15.5); WBC 10.6 k/uL (3.8-10.6)
[2022-09-22] MEDS: LEVOTHYROXINE 88 MCG TAB PO SCH (06:46)
[2022-09-22] MEDS: INSULIN ASPART (NovoLOG) 100 UNIT/ML VIAL SQ SCH ×4 (06:46→20:42)
[2022-09-22] MEDS: SODIUM CHLORIDE 0.9% 1,000 ML IV SCH ×2 (06:46→16:38)
[2022-09-22 06:47] LABS: Glucose,Whole Blood 110 mg/dL (70-110)
[2022-09-22] MEDS ORDERED: Magnesium Replacement Protocol 1 EACH MISC MISCELLANE PRN (07:17)
[2022-09-22] MEDS ORDERED: Potassium Replacement Protocol 1 EACH MISC MISCELLANE PRN (07:18)
--- NOTE | 2022-09-22 09:17 | P.PN ---
Subjective Progress Note Date: 09/22/22 The patient is an 81-year-old female with multiple comorbid conditions who is transferred for septicemia. She was admitted to the ICU for hypotension. She has now off vasopressors. Infectious disease is following and she is currently being treated with Zosyn. Vancomycin has been discontinued for possible nephrotoxicity. Cardiology has been consulted for elevated troponins. Initial elevation with plateau. Patient is asymptomatic currently. GENERAL: Well-appearing, obese female and in no acute distress. NECK: Supple without JVD or thyromegaly. LUNGS: Breath sounds diminished to auscultation bilaterally. Respiration equal and unlabored. No wheezes, rales or rhonchi. HEART: Regular rate and rhythm without murmurs, rubs or gallops. S1 and S2 heard. EXTREMITIES: Warm to touch. Stasis dermatitis noted on bilateral lower extremities. VITALS: Blood pressure 102/53, pulse 70, respiratory rate 12, SpO2 97% on 2 L nasal cannula TELEMETRY: Ventricular paced rhythm LABS: WBC 10.6, hemoglobin 11.4, hematocrit 30.4, platelet 245, sodium 139, potassium 3.9, BUN 41, creatinine 2.51, AST 58, ALT 30 IMPRESSION: Septicemia Elevated troponin, likely secondary to the above Hypotension, improved Acute kidney injury, possible nephrotoxicity from vancomycin Morbid obesity History of permanent pacemaker History of coronary artery disease History diabetes History of hypertension History of hyperlipidemia History of atrial fibrillation PLAN: Attempt to obtain records from primary burglary investigator as she has a reported history of atrial fibrillation but is not on anticoagulation Awaiting echocardiogram results Continue supportive treatment Further recommendations to be based on clinical course I am dictating on behalf of Dr Marin Hayward's history/physical and assessment/plan. Objective - Vital Signs Vital signs: Vital Signs Temp 97 F L 09/22/22 04:00 Pulse 70 09/22/22 07:15 Resp 19 09/22/22 07:15 BP 76/63 09/22/22 07:15 Pulse Ox 98 09/22/22 07:55 FiO2 Intake & Output 09/21/22 09/22/22 09/22/22 18:59 06:59 18:59 Intake Total 3600 1770.748 150 Output Total 105 505 50 Balance 3495 1265.748 100 Weight 138 kg Intake: IV 3600 1650 150 Sodium Chloride 0.9% 1, 1600 1650 150 000 ml @ 150 mls/hr IV . Q6H40M [facility] Rx#:[id number] Sodium Chloride 0.9% 1, 2000 000 ml @ 999 mls/hr IV . Q1H1M [facility] Rx#:[id number] Intake, IV Titration 120.748 Amount Norepinephrine 32 mg In 20.748 Sodium Chloride 0.9% 218 ml @ 0.03 MCG/KG/MIN 1. 941 mls/hr IV .Q24H [facility] Rx#:[id number] Piperacillin-Tazobactam 3 100 .375 gm In Sodium Chloride 0.9% 100 ml @ 25 mls/hr IVPB Q12H [facility] Rx# :[id number] Output: Urine 105 505 50 Other: Voiding Method Indwelling Catheter Indwelling Catheter # Bowel Movements 1 1 - Labs CBC & Chem 7: 09/22/22 04:04 09/22/22 04:04 Labs: Abnormal Lab Results - Last 24 Hours (Table) 09/21/22 09/21/22 09/21/22 Range/Units 05:26 10:42 10:42 WBC 14.6 H (3.8-10.6) k/uL MCH 24.3 L (25.0-35.0) pg MCHC 29.4 L (31.0-37.0) g/dL RDW 21.4 H (11.5-15.5) % Neutrophils # (1.3-7.7) k/uL Lymphocytes # (1.0-4.8) k/uL Chloride (98-107) mmol/L Carbon Dioxide 21 L (22-30) mmol/L BUN 42 H (7-17) mg/dL Creatinine 2.38 H (0.52-1.04) mg/dL Glucose 105 H (74-99) mg/dL Calcium 8.3 L (8.4-10.2) mg/dL Total Bilirubin 3.1 H (0.2-1.3) mg/dL AST 64 H (14-36) U/L Albumin 2.4 L (3.5-5.0) g/dL Procalcitonin 7.81 H (0.02-0.09) ng/mL 09/22/22 09/22/22 Range/Units 04:04 04:04 WBC (3.8-10.6) k/uL MCH 24.6 L (25.0-35.0) pg MCHC 29.6 L (31.0-37.0) g/dL RDW 21.4 H (11.5-15.5) % Neutrophils # 9.0 H (1.3-7.7) k/uL Lymphocytes # 0.6 L (1.0-4.8) k/uL Chloride 110 H (98-107) mmol/L Carbon Dioxide 19 L (22-30) mmol/L BUN 41 H (7-17) mg/dL Creatinine 2.51 H (0.52-1.04) mg/dL Glucose 117 H (74-99) mg/dL Calcium 7.9 L (8.4-10.2) mg/dL Total Bilirubin 2.5 H (0.2-1.3) mg/dL AST 58 H (14-36) U/L Albumin 2.5 L (3.5-5.0) g/dL Procalcitonin (0.02-0.09) ng/mL Microbiology - Last 24 Hours (Table) 09/20/22 13:55 Blood Culture - Preliminary Blood No Growth after 24 hours 09/20/22 13:40 Blood Culture - Preliminary Blood No Growth after 24 hours
[2022-09-22] MEDS: MAGNESIUM SULFATE-D5W PMX 1 GM in DEXTROSE/WATER 1 100ML.BAG IVPB SCH ×2 (10:47→12:04)
[2022-09-22] MEDS: FAMOTIDINE 20 MG/2 ML VIAL IV SCH (10:47)
[2022-09-22] MEDS: POTASSIUM CHLORIDE 10 MEQ in WATER FOR INJECTION 1 100ML.BAG IVPB SCH ×2 (10:47→12:07)
[2022-09-22] MEDS: HEPARIN SODIUM,PORCINE/PF 5,000 UNIT/0.5 ML SYRINGE SQ SCH ×2 (10:48→17:16)
--- NOTE | 2022-09-22 10:59 | P.PN ---
Subjective Progress Note Date: 09/22/22 This is an 82-year-old morbidly obese female patient was transferred to us from [facility] for further evaluation and treatment. The patient is suspected to have a UTI/sepsis. The patient presented to the shelter in the [facility]. The patient initially presented there to the hospital because of altered mentation. She was having also diarrhea and the patient stated that she has completed a recent treatment for C. diff colitis. In the emergency, the patient continued to have liquidy loose stools. She was also diagnosed having a UTI at [facility]. The patient herself is a very poor historian and she is not a reliable. Upon arrival to us, the patient was hypotensive. The patient was given IV fluid boluses and placed on IV Zosyn. 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 The CAT scan of the chest showed some limited effusion/atelectatic changes in lung bases. CAT scan of the abdomen suspected ongoing colitis. There was also suspicion for perianal abscesses. The patient herself denies having any significant abdominal pain. A Mustafa catheter is to be inserted. The urine sample is to be collected. The patient was hypotensive in the emergency and the patient was given saline boluses and the patient is currently on normal saline at rate of 150 mL an hour. She does have chronic venostasis involving lower extremities bilaterally. No open wounds or sores. She was given a triple-lumen catheter in the emergency in the right femoral vein. The current echoes at 16.9 with a hemoglobin of 10.6, lactic acid level is at 2.5, BUN is 35 with a creatinine of 2.07 and a sodium level is at 135. Troponin was at 2.2 and LFTs are essentially within normal limits. On today's evaluation of 09/21/2022, the patient is in the intensive care unit. The patient is calm and comfortable and she is only on 2 L of oxygen by nasal cannula with a pulse ox of 98%. She was hospitalized yesterday because of sepsis, suspected UTI. She recently the was also treated for a C. diff colitis. She was having diarrhea in the emergency department yesterday. I asked to recheck this stool for C. diff and the results turn out worker to be negative. Meanwhile, the patient is currently on Zosyn, and she was given a dose of vancomycin yesterday in the emergency Department. The urine evaluation [facility] was abnormal consistent with underlying UTI. CAT scan of the chest that was done without contrast showed some right basilar consolidation in addition to dependent atelectatic changes in the lung bases and a 2 mm calcified granuloma in the left upper lobe and another 3 mm unchanged right lower lobe pulmonary nodule. Small bilateral pleural effusions were also present. The pulmonary arteries were enlarged consistent with chronic pulmonary hypertension. CT of the abdomen also showed thickening henao of the distal sigmoid colon consistent with a recent history of C. diff colitis. There was also diffuse stranding of the mesenteric fat hours of lower abdominal area/pelv is. She was also found to have cholelithiasis without cholecystitis. The patient was aggressively resuscitated with IV fluids. After arriving today ICU, she was given additional 2 L of normal saline bolus and currently she is running normal saline at the rate of 100 mL an hour. She is also on low-dose norepinephrine running at 0.04 mcg/kg/m. Her troponins were elevated and cardiology has been involved. On 09/22/2022, the patient is much more comfortable and awake and alert compared to yesterday. Her breathing is nonlabored. She remains on oxygen at 2 L nasal cannula. Hemodynamically, she got bolused with several liters of fluid yesterday, a total of 5 L since this current admission, 2 additional boluses were given yesterday. This was done and the patient was being hypotensive and low urine output was also noted. After adequate resuscitation, she was given a dose of Lasix 80 mg IV. Since then, there has been slight improvement in her urine output. Currently she is producing urine output in order of 50 mL an hour. Her creatinine is up to 2.51 and the patient sustained an acute kidney injury on top of her chronic kidney disease. BUN is at 41. Serum bicarbs of 19. IV fluids are currently in the form of normal saline at the rate of 150 mL an hour. On a separate note, the patient is off pressors. She is still having some diarrhea. As mentioned, stool for C. diff has been negative. She did have a component of colitis based on the CAT scan findings from the other hospital. Most recent BP is 107/47. Blood cultures have been negative. Patient is covered with IV Zosyn at this point in time. Infectious disease is on the case. No abdominal pain. No open wounds or sores. Objective - Vital Signs Vital signs: Vital Signs Temp 97 F L 09/22/22 04:00 Pulse 70 09/22/22 07:15 Resp 19 09/22/22 07:15 BP 76/63 09/22/22 07:15 Pulse Ox 98 09/22/22 07:55 FiO2 Intake & Output 09/21/22 09/22/22 09/22/22 18:59 06:59 18:59 Intake Total 3600 1770.748 600 Output Total 105 505 250 Balance 3495 1265.748 350 Weight 138 kg Intake: IV 3600 1650 600 Sodium Chloride 0.9% 1, 1600 1650 600 000 ml @ 150 mls/hr IV . Q6H40M [facility] Rx#:[id number] Sodium Chloride 0.9% 1, 2000 000 ml @ 999 mls/hr IV . Q1H1M [facility] Rx#:[id number] Intake, IV Titration 120.748 Amount Norepinephrine 32 mg In 20.748 Sodium Chloride 0.9% 218 ml @ 0.03 MCG/KG/MIN 1. 941 mls/hr IV .Q24H [facility] Rx#:[id number] Piperacillin-Tazobactam 3 100 .375 gm In Sodium Chloride 0.9% 100 ml @ 25 mls/hr IVPB Q12H [facility] Rx# :[id number] Output: Urine 105 505 250 Other: Voiding Method Indwelling Catheter Indwelling Catheter # Bowel Movements 1 1 - Exam GENERAL EXAM: Alert, pleasant 77-year-old white female, obese, the patient is still confused, poor historian, breathing is nonlabored, currently she is on 2 L of oxygen by nasal cannula HEAD: Normocephalic/atraumatic. EYES: Normal reaction of pupils, equal size. Conjunctiva pink, sclera white. NOSE: Clear with pink turbinates. THROAT: No erythema or exudates. NECK: No masses, no JVD, no thyroid enlargement, no adenopathy. CHEST: No chest wall deformity. Symmetrical expansion. LUNGS: Equal air entry with some scattered rhonchi, no crackles or wheezes, breath sounds are quite diminished in lung bases bilaterally CVS: Irregular rate and rhythm, normal S1 and S2, no gallops, no murmurs, no rubs ABDOMEN: Soft, nontender. No hepatosplenomegaly, normal bowel sounds, no guarding or rigidity. EXTREMITIES: No clubbing, ,no cyanosis, 2+ pulses and upper and lower extremities. Bilateral lower extremity edema, left greater than the right, patient has a chronic wound on the left lower extremity, covered with a dressing. Per nursing staff is in his healing stages, is dry, with no drainage. MUSCULOSKELETAL: Muscle strength and tone normal. SPINE: No scoliosis or deformity SKIN: No rashes CENTRAL NERVOUS SYSTEM: Alert and awake and communicating, neurologic exam is nonfocal, she is profoundly weak. PSYCHIATRIC: No significant anxiety or depression. A detailed psychiatric evaluation cannot be done - Labs CBC & Chem 7: 09/22/22 04:04 09/22/22 04:04 Labs: Abnormal Lab Results - Last 24 Hours (Table) 09/21/22 09/21/22 09/22/22 Range/Units 10:42 10:42 04:04 WBC 14.6 H (3.8-10.6) k/uL MCH 24.3 L 24.6 L (25.0-35.0) pg MCHC 29.4 L 29.6 L (31.0-37.0) g/dL RDW 21.4 H 21.4 H (11.5-15.5) % Neutrophils # 9.0 H (1.3-7.7) k/uL Lymphocytes # 0.6 L (1.0-4.8) k/uL Chloride (98-107) mmol/L Carbon Dioxide 21 L (22-30) mmol/L BUN 42 H (7-17) mg/dL Creatinine 2.38 H (0.52-1.04) mg/dL Glucose 105 H (74-99) mg/dL Calcium 8.3 L (8.4-10.2) mg/dL Total Bilirubin 3.1 H (0.2-1.3) mg/dL AST 64 H (14-36) U/L Albumin 2.4 L (3.5-5.0) g/dL 09/22/22 Range/Units 04:04 WBC (3.8-10.6) k/uL MCH (25.0-35.0) pg MCHC (31.0-37.0) g/dL RDW (11.5-15.5) % Neutrophils # (1.3-7.7) k/uL Lymphocytes # (1.0-4.8) k/uL Chloride 110 H (98-107) mmol/L Carbon Dioxide 19 L (22-30) mmol/L BUN 41 H (7-17) mg/dL Creatinine 2.51 H (0.52-1.04) mg/dL Glucose 117 H (74-99) mg/dL Calcium 7.9 L (8.4-10.2) mg/dL Total Bilirubin 2.5 H (0.2-1.3) mg/dL AST 58 H (14-36) U/L Albumin 2.5 L (3.5-5.0) g/dL Microbiology - Last 24 Hours (Table) 09/20/22 13:55 Blood Culture - Preliminary Blood No Growth after 24 hours 09/20/22 13:40 Blood Culture - Preliminary Blood No Growth after 24 hours Assessment and Plan Plan: Altered mental status likely secondary to underlying infection/sepsis. Mental status is improved as a septic workup still in progress. Suspect UTI. Recent episode of C. diff colitis, ongoing diarrhea, stool was negative for C. diff upon repeated evaluation. Sepsis with secondary hypotension, aggressively resuscitated IV fluids, urine output improved and the patient is currently off pressors Acute leukocytosis secondary to above, improving and a white cell count is down to 10 Acute non-STEMI with elevated troponins Acute kidney injury, rule out underlying sepsis-induced ATN, urine output remains low, Mustafa cath is in place, urine output is improved and the creatinine is currently at 2.5 Chronic atrial fibrillation, controlled rate Morbid obesity Chronic lower extremity edema and chronic venous stasis Hypertension Hyperlipidemia Diabetes mellitus type 2 Coronary artery disease with previous coronary stenting C. diff colitis treated recently History of liver tumor surgically resected Degenerative arthritis and the patient has undergone a left knee replacement Debilitated state and the patient lives in a shelter-like facility and [facility] Keep the patient in intensive care unit Continue IV fluids at the rate of 150 mL an hour Off pressors since 6:30 AM this morning Monitor urine output Repeat labs today are still pending and this will be reviewed once available, pro-calcitonin level was high at the time of admission at 7.8 Cultures have been sent, we'll send also stool cultures and urine cultures. Blood cultures are negative Cardiology consultation has been done and the patient will have an echocardiogram and the patient underwent an echocardiogram, there is also still pending for now Continue IV Zosyn ID on the case Hold diuretics and Rick inhibitors Status post fall Condition is critical and we'll continue to follow make further recommendations based on her progress..
--- NOTE | 2022-09-22 11:27 | CDI ---
Documentation Clarification Form Date: 09/22/2022 10:38:15 AM From: Candelaria Shafer RN, CCDS Admit Date: 09/20/2022 1:26:00 PM Patient Name: Marielena Delarosa Visit Number: [id number] Discharge Date: ATTENTION: The Clinical Documentation Specialists (CDI) and [facility] Coding Staff appreciate your assistance in clarifying documentation. Please respond to the clarification below the line at the bottom and electronically sign. The CDI & [facility] Coding staff will review the response and follow-up if needed. Please note: Queries are made part of the Legal Health Record. If you have any questions, please contact the author of this message via ITS. Dr. Arnulfo Nunez A pressure ulcer on buttock and left quezada is documented by Nursing Wound Care assessment on 09/20/22. Based on this information and the findings below, is there an additional diagnosis that is clinically appropriate for this patient? History/Risk Factors: Diabetes Mellitus, Diabetic ulcers, Hypertension, Heart failure, Stage III chronic kidney disease Clinical Indicators: 81-year-old female transfer to [facility] ER with diagnosis of UTI sepsis. She was hypotensive with evidence of urinary tract infection. ER assessment has edema and ulceration of the wound/skin in the left leg. She has 1+ pitting edema bilateral lower extremity. 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 09/20 Nursing wound assessment: Buttock pressure injury: staging I 09/20 Left quezada pressure injury: Stage IV Location: Buttock and Left quezada Treatment: Turn and positioning Q2 hrs. 2 person assist Right side Absorbent Underpad Air Mattress, check hourly Specialty Bed Is there an additional diagnosis that is clinically appropriate for this patient to clarify the Buttock and Left Quezada Ulcer? Specify if Diabetic Ulcer [ X] Buttock Pressure Ulcer Stage 1 [ ] Buttock Pressure Ulcer Stage 2 [ ] Buttock Pressure Ulcer Stage 3 [ ] Buttock Pressure Ulcer unstageable [ ] Other condition, please specify [ ] Unable to determine [ ] Left Quezada Ulcer Stage 1 [ ] Left quezada Pressure Ulcer Stage 1 [ ] Left quezada Pressure Ulcer Stage 2 [ ] Left Quezada Pressure Ulcer Stage 3 [ ] Left Quezada Pressure Ulcer Stage IV [ ] Left Quezada Pressure Ulcer unstageable [ X ] Other condition, please specify , not a pressure ulcer/just laceration [ ] Unable to determine Clinical Definitions: Stage 1 Pressure Ulcer: intact skin, non-blanching redness of local area Stage 2 Pressure Ulcer: Partial thickness, loss of dermis, pink wound bed Stage 3 Pressure Ulcer: Full thickness tissue loss Stage 4 Pressure Ulcer: Full thickness tissue loss with exposed bone, tendon, or muscle. Unstageable pressure ulcer: Full thickness tissue loss in which the base of the ulcer is covered by slough (yellow, tinaejro, ocampo, green or brown) and/or eschar (tinajero, brown or black) in the wound bed. (Template Last Revised: August 2020) MTDD
[2022-09-22 11:36] LABS: Glucose,Whole Blood 107 mg/dL (70-110)
[2022-09-22] MEDS: PIPERACILLIN-TAZOBACTAM 3.375 GM in SODIUM CHLORIDE 0.9% 100 ML IVPB SCH (12:07)
--- NOTE | 2022-09-22 13:35 | CA ---
Transthoracic Echo Report Name: Marielena Delarosa Age: 81 Gender: F : 1940 Exam Date: 09/21/2022 09:50 Exam Location: [place] [facility] Ht (in): 68 Wt (lb): 304 Ordering Physician: Cynthia Doran Attending/Referring Phys: [id number], Andreea Insulation Manager Faiza Palm, RIGO Procedure CPT: Indications: Elevated troponin, history of CAD Cardiac Hx: Technical Quality: Technically difficult study Contrast 1: Total Dose (mL): Contrast 2: Total Dose (mL): MEASUREMENTS (Male / Female) Normal Values 2D ECHO LV Diastolic Diameter PLAX 4.5 cm 4.2 - 5.9 / 3.9 - 5.3 cm LV Systolic Diameter PLAX 3.3 cm IVS Diastolic Thickness 1.6 cm 0.6 - 1.0 / 0.6 - 0.9 cm LVPW Diastolic Thickness 1.5 cm 0.6 - 1.0 / 0.6 - 0.9 cm LV Relative Wall Thickness 0.7 RV Internal Dim ED PLAX 3.6 cm LVOT Diameter 2.3 cm M-MODE Aortic Root Diameter MM 2.3 cm MV E Point Septal Separation 0.7 cm AV Cusp Separation MM 1.2 cm DOPPLER AV Peak Velocity 240.6 cm/s AV Peak Gradient 23.1 mmHg AV Mean Velocity 183.3 cm/s AV Mean Gradient 14.9 mmHg AV Velocity Time Integral 49.5 cm LVOT Peak Velocity 62.9 cm/s LVOT Peak Gradient 1.6 mmHg AV Area Cont Eq pk 1.1 cm??? MV Peak Velocity 145.5 cm/s MV Peak Gradient 8.5 mmHg MV Mean Velocity 70.5 cm/s MV Mean Gradient 2.6 mmHg MV Velocity Time Integral 30.1 cm MV Area PHT 2.6 cm??? TR Peak Velocity 261.7 cm/s TR Peak Gradient 27.4 mmHg FINDINGS Left Ventricle Moderately increased septal wall thickness. Moderately increased posterior wall thickness. Diastolic dysfunction. Left ventricular ejection fraction is estimated at 35%. Right Ventricle Moderate right ventricular dilatation. Mildly reduced right ventricular global systolic function. Right Atrium Moderate right atrial dilatation. Left Atrium Mild to moderately dilated left atrial size. Mitral Valve Mitral annular calcification. Trace mitral regurgitation. Aortic Valve Trileaflet aortic valve. Aortic valve sclerosis. No aortic regurgitation. No aortic stenosis. Tricuspid Valve Moderate tricuspid regurgitation. Pulmonic Valve [id number] pulmonic regurgitation. Pericardium No pericardial or pleural effusion. Aorta Normal size aortic root and proximal ascending aorta. CONCLUSIONS Left ventricular ejection fraction 35% with global hypokinesis Moderate increased left ventricular wall thickness Moderate right ventricular dilation Mildly reduced right ventricular systolic function Moderately dilated right atrium Moderate tricuspid regurgitation Previewed by: Dr. Gregg Terry DO (Electronically Signed) Final Date: 22 September 2022 13:34
[2022-09-22 17:10] LABS: Glucose,Whole Blood 133 mg/dL (70-110)
[2022-09-22] MEDS: ACETAMINOPHEN TAB 325 MG TAB PO PRN (19:55)
[2022-09-22 20:39] LABS: Glucose,Whole Blood 187 mg/dL (70-110)
[2022-09-22] MEDS: ATORVASTATIN 40 MG TAB PO SCH (20:41)
--- NOTE | 2022-09-22 21:21 | P.PN ---
Subjective Progress Note Date: 09/22/22 Principal diagnosis: Sepsis Patient is a 81-year-old female with a past medical history significant for diabetes mellitus hypertension hyperlipidemia atrial fibrillation currently recently completed treatment for C. difficile colitis the patient was sent to the ER at the [facility] for evaluation of mental status changes, patient did have a CT of the chest suspicious for right lower lobe consolidation CT of abdominal pelvis with colitis, patient did have a ne gative C. diff during this admission. On today's evaluation that is 09/22/2022, the patient is afebrile patient slightly more awake and alert today the patient is currently off the pressor support per the nursing staff patient denies having any chest pain or shortness of breath minimal cough no abdominal pain and no worsening diarrhea has been reported by the nursing staff Objective - Vital Signs Vital signs: Vital Signs Temp 97 F L 09/22/22 04:00 Pulse 70 09/22/22 07:15 Resp 19 09/22/22 07:15 BP 76/63 09/22/22 07:15 Pulse Ox 98 09/22/22 07:55 FiO2 Intake & Output 09/21/22 09/22/22 09/22/22 18:59 06:59 18:59 Intake Total 3600 1770.748 150 Output Total 105 505 50 Balance 3495 1265.748 100 Weight 138 kg Intake: IV 3600 1650 150 Sodium Chloride 0.9% 1, 1600 1650 150 000 ml @ 150 mls/hr IV . Q6H40M [facility] Rx#:[id number] Sodium Chloride 0.9% 1, 2000 000 ml @ 999 mls/hr IV . Q1H1M [facility] Rx#:[id number] Intake, IV Titration 120.748 Amount Norepinephrine 32 mg In 20.748 Sodium Chloride 0.9% 218 ml @ 0.03 MCG/KG/MIN 1. 941 mls/hr IV .Q24H [facility] Rx#:[id number] Piperacillin-Tazobactam 3 100 .375 gm In Sodium Chloride 0.9% 100 ml @ 25 mls/hr IVPB Q12H [facility] Rx# :[id number] Output: Urine 105 505 50 Other: Voiding Method Indwelling Catheter Indwelling Catheter # Bowel Movements 1 1 - Exam GENERAL DESCRIPTION: An elderly female lying in bed in no distress RESPIRATORY SYSTEM: Unlabored breathing , decreased breath sounds at bases HEART: S1 S2 regular rate and rhythm , ABDOMEN: Soft , no tenderness EXTREMITIES: Diffuse swelling bilateral lower extremity no significant redness - Labs CBC & Chem 7: 09/22/22 04:04 09/22/22 04:04 Labs: Abnormal Lab Results - Last 24 Hours (Table) 09/21/22 09/21/22 09/21/22 Range/Units 05:26 10:42 10:42 WBC 14.6 H (3.8-10.6) k/uL MCH 24.3 L (25.0-35.0) pg MCHC 29.4 L (31.0-37.0) g/dL RDW 21.4 H (11.5-15.5) % Neutrophils # (1.3-7.7) k/uL Lymphocytes # (1.0-4.8) k/uL Chloride (98-107) mmol/L Carbon Dioxide 21 L (22-30) mmol/L BUN 42 H (7-17) mg/dL Creatinine 2.38 H (0.52-1.04) mg/dL Glucose 105 H (74-99) mg/dL Calcium 8.3 L (8.4-10.2) mg/dL Total Bilirubin 3.1 H (0.2-1.3) mg/dL AST 64 H (14-36) U/L Albumin 2.4 L (3.5-5.0) g/dL Procalcitonin 7.81 H (0.02-0.09) ng/mL 09/22/22 09/22/22 Range/Units 04:04 04:04 WBC (3.8-10.6) k/uL MCH 24.6 L (25.0-35.0) pg MCHC 29.6 L (31.0-37.0) g/dL RDW 21.4 H (11.5-15.5) % Neutrophils # 9.0 H (1.3-7.7) k/uL Lymphocytes # 0.6 L (1.0-4.8) k/uL Chloride 110 H (98-107) mmol/L Carbon Dioxide 19 L (22-30) mmol/L BUN 41 H (7-17) mg/dL Creatinine 2.51 H (0.52-1.04) mg/dL Glucose 117 H (74-99) mg/dL Calcium 7.9 L (8.4-10.2) mg/dL Total Bilirubin 2.5 H (0.2-1.3) mg/dL AST 58 H (14-36) U/L Albumin 2.5 L (3.5-5.0) g/dL Procalcitonin (0.02-0.09) ng/mL Microbiology - Last 24 Hours (Table) 09/20/22 13:55 Blood Culture - Preliminary Blood No Growth after 24 hours 09/20/22 13:40 Blood Culture - Preliminary Blood No Growth after 24 hours Assessment and Plan (1) Sepsis Current Visit: Yes Status: Acute Code(s): A41.9 - SEPSIS, UNSPECIFIED ORGANISM SNOMED Code(s): 56074694 Plan: 1patient presented to hospital with sepsis in this patient who did have a hypertension elevated white count elevated lactic acid and concerning for possible urinary source as apparently the patient had a positive UA at the outside facility UA at this visit is currently pending there was a question of possible perinephric abscess however I do not find that information on the CT abdominal pelvis report that was done at the [facility] did shows evidence of colitis and could be component of ongoing C. difficile as the patient recently completed treatment for C. difficile colitis however no clear history of any persistent diarrhea at this point, patient also have a CT of the chest concerning for right lower lobe consolidation. 2Patient seem to have shown some clinical improvement off the pressor support the patient white count has normalized we will keep the patient on Zosyn while waiting for the culture to finalize and monitor clinical course closely Time with Patient: Less than 30
--- NOTE | 2022-09-22 21:53 | P.PN ---
Subjective Patient is a 7-year-old female was sent in from outside the hospital for higher level of care and patient was noted to have urinary tract infection although I do not have any that labs available at this time. Patient is unable to provide any history to me. Patient although it appears to be septic was having diarrhea at the other place patient had a recent C. diff history, CT of the chest did suggest pneumonia although I do not have any images available at this time unable to find the records from the other hospital at this time patient was started on broad-spectrum antibiotics vancomycin and Zosyn subsequently admitted to the hospital. Patient is hypotensive as well patient is getting 150 of normal saline patient is quite lethargic arousable is unable to provide much of the history to me patient also had lactic acidosis with troponin elevation of 2.2. 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 She denies any specific complaints, no pain. No urinary symptoms. The Mustafa catheter in place which was not bothering her. Patient initially admitted with severe sepsis suspected secondary to UTI and other sources could not be ruled out or identified currently. Her infection and sepsis is improving as she is currently on Zosyn while on IV vancomycin was discontinued earlier. She required levophed but her blood pressure improved after she received aggressive hydration with 2 L of normal saline and currently she is at a rate of 150 mL per hour. Her metolazone is on hold as well as DARWIN inhibitor Creatinine is slightly trending up 2.3 currently. Leukocytosis improving. Patient is still complaining of 09/22/2022 Patient is awake and alert but lethargic and generally very weak. Her blood pressure is holding well this morning but she needed small dose of pressors overnight. She still treated for infection with Zosyn. Also she has good urine output and creatinine on is slightly worse at 2.5. Echocardiogram showing ejection fraction of 35% with global hypokinesia and moderate tricuspid regurgitation Her IV fluids running at 100 mL per hour. Diuretics on hold. Check labs in the morning. Follow-upcalcitonin Objective - Vital Signs Vital signs: Vital Signs Temp 97.8 F 09/22/22 08:00 Pulse 75 09/22/22 11:00 Resp 12 09/22/22 11:00 BP 107/47 09/22/22 11:00 Pulse Ox 97 09/22/22 11:00 FiO2 Intake & Output 09/21/22 09/22/22 09/22/22 18:59 06:59 18:59 Intake Total 3600 1770.748 750 Output Total 105 505 295 Balance 3495 1265.748 455 Weight 138 kg Intake: IV 3600 1650 750 Sodium Chloride 0.9% 1, 1600 1650 750 000 ml @ 150 mls/hr IV . Q6H40M [facility] Rx#:[id number] Sodium Chloride 0.9% 1, 2000 000 ml @ 999 mls/hr IV . Q1H1M [facility] Rx#:[id number] Intake, IV Titration 120.748 Amount Norepinephrine 32 mg In 20.748 Sodium Chloride 0.9% 218 ml @ 0.03 MCG/KG/MIN 1. 941 mls/hr IV .Q24H [facility] Rx#:[id number] Piperacillin-Tazobactam 3 100 .375 gm In Sodium Chloride 0.9% 100 ml @ 25 mls/hr IVPB Q12H [facility] Rx# :[id number] Output: Urine 105 505 295 Other: Voiding Method Indwelling Catheter Indwelling Catheter Indwelling Catheter # Bowel Movements 1 1 1 - Exam -GENERAL: The patient is alert and oriented x3, not in any acute distress. Morbidly obese, lethargic HEENT: Pupils are round and equally reacting to light. EOMI. No scleral icterus. No conjunctival pallor. Normocephalic, atraumatic. No pharyngeal erythema. No thyromegaly. CARDIOVASCULAR: S1 and S2 present. No murmurs, rubs, or gallops. PULMONARY: Chest is clear to auscultation, no wheezing or crackles. -ABDOMEN: Soft, nontender, nondistended, normoactive bowel sounds. No palpable organomegaly. Mustafa catheter in place MUSCULOSKELETAL: No joint swelling or deformity. EXTREMITIES: No cyanosis, clubbing, or pedal edema. NEUROLOGICAL: Gross neurological examination did not reveal any focal deficits. SKIN: No rashes. no petechiae. - Labs CBC & Chem 7: 09/22/22 04:04 09/22/22 04:04 Labs: Abnormal Lab Results - Last 24 Hours (Table) 09/22/22 09/22/22 Range/Units 04:04 04:04 MCH 24.6 L (25.0-35.0) pg MCHC 29.6 L (31.0-37.0) g/dL RDW 21.4 H (11.5-15.5) % Neutrophils # 9.0 H (1.3-7.7) k/uL Lymphocytes # 0.6 L (1.0-4.8) k/uL Chloride 110 H (98-107) mmol/L Carbon Dioxide 19 L (22-30) mmol/L BUN 41 H (7-17) mg/dL Creatinine 2.51 H (0.52-1.04) mg/dL Glucose 117 H (74-99) mg/dL Calcium 7.9 L (8.4-10.2) mg/dL Total Bilirubin 2.5 H (0.2-1.3) mg/dL AST 58 H (14-36) U/L Albumin 2.5 L (3.5-5.0) g/dL Microbiology - Last 24 Hours (Table) 09/20/22 13:55 Blood Culture - Preliminary Blood No Growth after 24 hours 09/20/22 13:40 Blood Culture - Preliminary Blood No Growth after 24 hours Assessment and Plan Assessment: -Severe sepsis/, improving Acute urinary tract infection, other sources cannot be ruled out Cardiomyopathy with ejection fraction of 55% with global hypokinesis Severe hypotension secondary to infection and hypovolemia, improving with IV fluid Acute on chronic kidney disease stage III with good urine output Metabolic encephalopathy, improving and resolved Diarrhea, rule out C. diff Elevated troponin, suspicious for non-STEMI, being followed by cardiology team His bilirubin Paroxysmal atrial fibrillation Plan: Continue with antibiotic, currently Zosyn: Continue with aggressive hydration normal saline 150 mL/h (currently running at 100 mL per hour) Follow-up culture result Several consultants on the case including cardiology, ID team and pulmonary/critical care team Labs and medication were reviewed.. Continue same treatment. Continue with symptomatic treatment. Resume home medication. Monitor labs and vitals. DVT and GI prophylaxis. Further recommendations as per clinical course of the p atient DVT prophylaxis: Subcutaneous heparin GI Prophylaxis: Pepcid Prognosis is guarded
[2022-09-23] MEDS: PIPERACILLIN-TAZOBACTAM 3.375 GM in SODIUM CHLORIDE 0.9% 100 ML IVPB SCH ×3 (00:17→23:46)
[2022-09-23] MEDS: SODIUM CHLORIDE 0.9% 1,000 ML IV SCH ×3 (00:20→08:16)
[2022-09-23] MEDS: HEPARIN SODIUM,PORCINE/PF 5,000 UNIT/0.5 ML SYRINGE SQ SCH ×4 (00:25→23:46)
[2022-09-23 06:37] LABS: Magnesium 1.9 mg/dL (1.6-2.3); Potassium 3.4 mmol/L (3.5-5.1)
[2022-09-23 06:38] LABS: Anisocytosis Moderate; Basophils # (A) 0.1 k/uL (0-0.2); Basophils % (A) 1 %; Eosinophils # (A) 0.1 k/uL (0-0.7); Eosinophils % (A) 3 %; HCT 36.3 % (34.0-46.0); HGB 10.7 gm/dL (11.4-16.0); Hypochromasia Marked; Lymphocytes # (A) 0.5 k/uL (1.0-4.8); Lymphocytes % (A) 10 %; MCH 24.9 pg (25.0-35.0); MCHC 29.6 g/dL (31.0-37.0); MCV 84.1 fL (80.0-100.0); Mean Platelet Volume 10.3; Microcytosis Slight; Monocytes # (A) 0.3 k/uL (0-1.0); Monocytes % (A) 7 %; Neutrophils # (A) 3.8 k/uL (1.3-7.7); Neutrophils % (A) 76 %; Platelet Count 209 k/uL (150-450); Poikilocytosis Slight; RBC 4.31 m/uL (3.80-5.40); RDW 21.4 % (11.5-15.5)
[2022-09-23] MEDS: FAMOTIDINE 20 MG TAB PO SCH (08:16)
[2022-09-23] MEDS ORDERED: FUROSEMIDE 10 MG/ML 4 ML VIAL IV STA (09:02)
[2022-09-23] MEDS: INSULIN ASPART (NovoLOG) 100 UNIT/ML VIAL SQ SCH ×4 (09:55→21:46)
[2022-09-23] MEDS: METOPROLOL TARTRATE 12.5 MG TAB PO SCH ×2 (09:56→20:46)
[2022-09-23] MEDS: ASPIRIN 81 MG PO SCH (09:58)
--- NOTE | 2022-09-23 10:37 | P.PN ---
Subjective Progress Note Date: 09/23/22 This is an 82-year-old morbidly obese female patient was transferred to us from [facility] for further evaluation and treatment. The patient is suspected to have a UTI/sepsis. The patient presented to the senior care in the [facility]. The patient initially presented there to the hospital because of altered mentation. She was having also diarrhea and the patient stated that she has completed a recent treatment for C. diff colitis. In the emergency, the patient continued to have liquidy loose stools. She was also diagnosed having a UTI at [facility]. The patient herself is a very poor historian and she is not a reliable. Upon arrival to us, the patient was hypotensive. The patient was given IV fluid boluses and placed on IV Zosyn. 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 The CAT scan of the chest showed some limited effusion/atelectatic changes in lung bases. CAT scan of the abdomen suspected ongoing colitis. There was also suspicion for perianal abscesses. The patient herself denies having any significant abdominal pain. A Mustafa catheter is to be inserted. The urine sample is to be collected. The patient was hypotensive in the emergency and the patient was given saline boluses and the patient is currently on normal saline at rate of 150 mL an hour. She does have chronic venostasis involving lower extremities bilaterally. No open wounds or sores. She was given a triple-lumen catheter in the emergency in the right femoral vein. The current echoes at 16.9 with a hemoglobin of 10.6, lactic acid level is at 2.5, BUN is 35 with a creatinine of 2.07 and a sodium level is at 135. Troponin was at 2.2 and LFTs are essentially within normal limits. On today's evaluation of 09/21/2022, the patient is in the intensive care unit. The patient is calm and comfortable and she is only on 2 L of oxygen by nasal cannula with a pulse ox of 98%. She was hospitalized yesterday because of sepsis, suspected UTI. She recently the was also treated for a C. diff colitis. She was having diarrhea in the emergency department yesterday. I asked to recheck this stool for C. diff and the results turning lathe tender to be negative. Meanwhile, the patient is currently on Zosyn, and she was given a dose of vancomycin yesterday in the emergency Department. The urine evaluation [facility] was abnormal consistent with underlying UTI. CAT scan of the chest that was done without contrast showed some right basilar consolidation in addition to dependent atelectatic changes in the lung bases and a 2 mm calcified granuloma in the left upper lobe and another 3 mm unchanged right lower lobe pulmonary nodule. Small bilateral pleural effusions were also present. The pulmonary arteries were enlarged consistent with chronic pulmonary hypertension. CT of the abdomen also showed thickening henao of the distal sigmoid colon consistent with a recent history of C. diff colitis. There was also diffuse stranding of the mesenteric fat hours of lower abdominal area/pelv is. She was also found to have cholelithiasis without cholecystitis. The patient was aggressively resuscitated with IV fluids. After arriving today ICU, she was given additional 2 L of normal saline bolus and currently she is running normal saline at the rate of 100 mL an hour. She is also on low-dose norepinephrine running at 0.04 mcg/kg/m. Her troponins were elevated and cardiology has been involved. On 09/22/2022, the patient is much more comfortable and awake and alert compared to yesterday. Her breathing is nonlabored. She remains on oxygen at 2 L nasal cannula. Hemodynamically, she got bolused with several liters of fluid yesterday, a total of 5 L since this current admission, 2 additional boluses were given yesterday. This was done and the patient was being hypotensive and low urine output was also noted. After adequate resuscitation, she was given a dose of Lasix 80 mg IV. Since then, there has been slight improvement in her urine output. Currently she is producing urine output in order of 50 mL an hour. Her creatinine is up to 2.51 and the patient sustained an acute kidney injury on top of her chronic kidney disease. BUN is at 41. Serum bicarbs of 19. IV fluids are currently in the form of normal saline at the rate of 150 mL an hour. On a separate note, the patient is off pressors. She is still having some diarrhea. As mentioned, stool for C. diff has been negative. She did have a component of colitis based on the CAT scan findings from the other hospital. Most recent BP is 107/47. Blood cultures have been negative. Patient is covered with IV Zosyn at this point in time. Infectious disease is on the case. No abdominal pain. No open wounds or sores. On today's evaluation of 09/23/2022, the patient feels better compared to yesterday. She was in the intensive care unit for hypotension and diarrhea. Stool for C. diff came back negative. The patient is being also treated for a presumed UTI. White cell count at 5 with a hemoglobin of 10.7 and a platelet count of 209. BUN is 39 with a creatinine of 2.5 and a sodium level is at 141. She is currently on 2 L of oxygen by nasal cannula. Chronic edema lower extremities bilaterally. Mustafa cath is also in place. She is awake and alert. She is communicating. Objective - Vital Signs Vital signs: Vital Signs Temp 98.6 F 09/22/22 16:00 Pulse 70 09/23/22 08:16 Resp 20 09/23/22 08:16 BP 102/70 09/23/22 08:16 Pulse Ox 100 09/23/22 08:16 FiO2 Intake & Output 09/22/22 09/23/22 09/23/22 18:59 06:59 18:59 Intake Total 1800 2100 Output Total 570 475 Balance 1230 1625 Intake: IV 1800 1800 Sodium Chloride 0.9% 1, 1800 1800 000 ml @ 150 mls/hr IV . Q6H40M [facility] Rx#:[id number] Intake, IV Titration 100 Amount Piperacillin-Tazobactam 3 100 .375 gm In Sodium Chloride 0.9% 100 ml @ 25 mls/hr IVPB Q12H [facility] Rx# :[id number] Oral 200 Output: Urine 570 475 Other: Voiding Method Indwelling Catheter Indwelling Catheter Indwelling Catheter # Bowel Movements 1 - Exam GENERAL EXAM: Alert, pleasant 77-year-old white female, obese, the patient is still confused, poor historian, breathing is nonlabored, currently she is on 2 L of oxygen by nasal cannula HEAD: Normocephalic/atraumatic. EYES: Normal reaction of pupils, equal size. Conjunctiva pink, sclera white. NOSE: Clear with pink turbinates. THROAT: No erythema or exudates. NECK: No masses, no JVD, no thyroid enlargement, no adenopathy. CHEST: No chest wall deformity. Symmetrical expansion. LUNGS: Equal air entry with some scattered rhonchi, no crackles or wheezes, b reath sounds are quite diminished in lung bases bilaterally CVS: Irregular rate and rhythm, normal S1 and S2, no gallops, no murmurs, no rubs ABDOMEN: Soft, nontender. No hepatosplenomegaly, normal bowel sounds, no guarding or rigidity. EXTREMITIES: No clubbing, ,no cyanosis, 2+ pulses and upper and lower extremities. Bilateral lower extremity edema, left greater than the right, patient has a chronic wound on the left lower extremity, covered with a dressing. Per nursing staff is in his healing stages, is dry, with no drainage. MUSCULOSKELETAL: Muscle strength and tone normal. SPINE: No scoliosis or deformity SKIN: No rashes CENTRAL NERVOUS SYSTEM: Alert and awake and communicating, neurologic exam is nonfocal, she is profoundly weak. PSYCHIATRIC: No significant anxiety or depression. A detailed psychiatric evaluation cannot be done - Labs CBC & Chem 7: 09/23/22 05:18 09/23/22 05:18 Labs: Abnormal Lab Results - Last 24 Hours (Table) 09/22/22 09/22/22 09/23/22 Range/Units 17:09 20:37 05:18 Hgb (11.4-16.0) gm/dL MCH (25.0-35.0) pg MCHC (31.0-37.0) g/dL RDW (11.5-15.5) % Lymphocytes # (1.0-4.8) k/uL Potassium 3.4 L (3.5-5.1) mmol/L Chloride 111 H (98-107) mmol/L Carbon Dioxide 20 L (22-30) mmol/L BUN 39 H (7-17) mg/dL Creatinine 2.50 H (0.52-1.04) mg/dL Glucose 116 H (74-99) mg/dL POC Glucose (mg/dL) 133 H 187 H (70-110) mg/dL Calcium 8.0 L (8.4-10.2) mg/dL Total Bilirubin 2.0 H (0.2-1.3) mg/dL Procalcitonin (0.02-0.09) ng/mL 09/23/22 09/23/22 Range/Units 05:18 05:18 Hgb 10.7 L (11.4-16.0) gm/dL MCH 24.9 L (25.0-35.0) pg MCHC 29.6 L (31.0-37.0) g/dL RDW 21.4 H (11.5-15.5) % Lymphocytes # 0.5 L (1.0-4.8) k/uL Potassium (3.5-5.1) mmol/L Chloride (98-107) mmol/L Carbon Dioxide (22-30) mmol/L BUN (7-17) mg/dL Creatinine (0.52-1.04) mg/dL Glucose (74-99) mg/dL POC Glucose (mg/dL) (70-110) mg/dL Calcium (8.4-10.2) mg/dL Total Bilirubin (0.2-1.3) mg/dL Procalcitonin 5.19 H (0.02-0.09) ng/mL Microbiology - Last 24 Hours (Table) 09/22/22 18:54 Stool Culture - Preliminary Stool 09/20/22 13:55 Blood Culture - Preliminary Blood No Growth after 48 hours 09/20/22 13:40 Blood Culture - Preliminary Blood No Growth after 48 hours Assessment and Plan Plan: Altered mental status likely secondary to underlying infection/sepsis. Mental status is improved Suspect UTI. Recent episode of C. diff colitis, ongoing diarrhea, stool was negative for C. diff upon repeated evaluation. The patient's diarrhea is essentially subsiding Sepsis with secondary hypotension, aggressively resuscitated IV fluids, urine output improved and the patient is currently off pressors Acute leukocytosis secondary to above, improving and a white cell count is down to 10 Acute non-STEMI with elevated troponins Acute kidney injury, rule out underlying sepsis-induced ATN, urine output remains low, Mustafa cath is in place, urine output is improved and the creatinine is currently at 2.5 Chronic atrial fibrillation, controlled rate Morbid obesity Chronic lower extremity edema and chronic venous stasis Hypertension Hyperlipidemia Diabetes mellitus type 2 Coronary artery disease with previous coronary stenting C. diff colitis treated recently History of liver tumor surgically resected Degenerative arthritis and the patient has undergone a left knee replacement Debilitated state and the patient lives in a senior care-like facility and [facility] Patient is on the medical floor Change IV fluids to KVO Advance diet Monitor urine output pro-calcitonin level was high at the time of admission at 7.8 with a down trending Cultures have been sent, we'll send also stool cultures and urine cultures. Blood cultures are negative Cardiology consultation has been done and the patient will have an echocardiogram and the patient underwent an echocardiogram, there is also still pending for now Continue IV Zosyn ID on the case We'll follow
--- NOTE | 2022-09-23 11:22 | P.PN ---
Subjective Progress Note Date: 09/23/22 The patient is an 81-year-old female with multiple comorbid conditions who is transferred for septicemia. She was admitted to the ICU for hypotension. She has now off vasopressors. Infectious disease is following and she is currently being treated with Zosyn. Vancomycin has been discontinued for possible nephrotoxicity. Echocardiogram has revealed low ejection fraction of 35% with global hypokinesis, moderate RV dilation and moderate tricuspid regurgitation. The patient has been downgraded to the medical floor where she continues to get IV fluids in addition to her antibiotics. The patient's breathing today is more labored and her lung sounds are coarse. The patient states she is slightly short of breath, but states her weakness and fatigue has improved over the last several days. No current chest pain or chest pressure. GENERAL: Well-appearing, obese female and in no acute distress. NECK: Supple without JVD or thyromegaly. LUNGS: Breath sounds diminished to auscultation bilaterally. Respiration equal and unlabored. Bilateral rhonchi. HEART: Regular rate and rhythm without murmurs, rubs or gallops. S1 and S2 heard. EXTREMITIES: Warm to touch. Stasis dermatitis noted on bilateral lower extremities. VITALS: Blood pressure 102/ 70, pulse 70, respiratory rate 20, SpO2 97% on 2 L nasal cannula TELEMETRY: Ventricular paced rhythm LABS: WBC 5.0, hemoglobin 10.7, hematocrit 36.3, platelet 209, sodium 141, potassium 3.4, BUN 39, creatinine 2.50, magnesium 1.9, BNP 8560 IMPRESSION: Septicemia Elevated troponin, likely secondary to the above Hypotension, improved Acute kidney injury, possible nephrotoxicity from vancomycin Cardiomyopathy, EF 35% with global hypokinesis Morbid obesity History of permanent pacemaker History of coronary artery disease History diabetes History of hypertension History of hyperlipidemia History of atrial fibrillation, unconfirmed, not on anticoagulation PLAN: Discontinue IV fluids Furosemide 40 mg once IV push Obtain records with device dish room worker for device interrogation Further recommendations based on clinical course I am dictating on behalf of Dr Marin Hayward's history/physical and assessment/plan. Objective - Vital Signs Vital signs: Vital Signs Temp 98.6 F 09/22/22 16:00 Pulse 70 09/23/22 08:16 Resp 20 09/23/22 08:16 BP 102/70 09/23/22 08:16 Pulse Ox 100 09/23/22 08:16 FiO2 Intake & Output 09/22/22 09/23/22 09/23/22 18:59 06:59 18:59 Intake Total 1800 2100 Output Total 570 475 Balance 1230 1625 Intake: IV 1800 1800 Sodium Chloride 0.9% 1, 1800 1800 000 ml @ 150 mls/hr IV . Q6H40M [facility] Rx#:[id number] Intake, IV Titration 100 Amount Piperacillin-Tazobactam 3 100 .375 gm In Sodium Chloride 0.9% 100 ml @ 25 mls/hr IVPB Q12H [facility] Rx# :[id number] Oral 200 Output: Urine 570 475 Other: Voiding Method Indwelling Catheter Indwelling Catheter Indwelling Catheter # Bowel Movements 1 - Labs CBC & Chem 7: 09/23/22 05:18 09/23/22 05:18 Labs: Abnormal Lab Results - Last 24 Hours (Table) 09/22/22 09/22/22 09/23/22 Range/Units 17:09 20:37 05:18 Hgb (11.4-16.0) gm/dL MCH (25.0-35.0) pg MCHC (31.0-37.0) g/dL RDW (11.5-15.5) % Lymphocytes # (1.0-4.8) k/uL Potassium 3.4 L (3.5-5.1) mmol/L Chloride 111 H (98-107) mmol/L Carbon Dioxide 20 L (22-30) mmol/L BUN 39 H (7-17) mg/dL Creatinine 2.50 H (0.52-1.04) mg/dL Glucose 116 H (74-99) mg/dL POC Glucose (mg/dL) 133 H 187 H (70-110) mg/dL Calcium 8.0 L (8.4-10.2) mg/dL Total Bilirubin 2.0 H (0.2-1.3) mg/dL Procalcitonin (0.02-0.09) ng/mL 09/23/22 09/23/22 Range/Units 05:18 05:18 Hgb 10.7 L (11.4-16.0) gm/dL MCH 24.9 L (25.0-35.0) pg MCHC 29.6 L (31.0-37.0) g/dL RDW 21.4 H (11.5-15.5) % Lymphocytes # 0.5 L (1.0-4.8) k/uL Potassium (3.5-5.1) mmol/L Chloride (98-107) mmol/L Carbon Dioxide (22-30) mmol/L BUN (7-17) mg/dL Creatinine (0.52-1.04) mg/dL Glucose (74-99) mg/dL POC Glucose (mg/dL) (70-110) mg/dL Calcium (8.4-10.2) mg/dL Total Bilirubin (0.2-1.3) mg/dL Procalcitonin 5.19 H (0.02-0.09) ng/mL Microbiology - Last 24 Hours (Table) 09/22/22 18:54 Stool Culture - Preliminary Stool 09/20/22 13:55 Blood Culture - Preliminary Blood No Growth after 48 hours 09/20/22 13:40 Blood Culture - Preliminary Blood No Growth after 48 hours
[2022-09-23 11:44] LABS: Glucose,Whole Blood 169 mg/dL (70-110)
[2022-09-23 16:14] LABS: Glucose,Whole Blood 167 mg/dL (70-110)
--- NOTE | 2022-09-23 16:53 | P.PN ---
Subjective Progress Note Date: 09/23/22 Principal diagnosis: Sepsis Patient is a 81-year-old female with a past medical history significant for diabetes mellitus hypertension hyperlipidemia atrial fibrillation currently recently completed treatment for C. difficile colitis the patient was sent to the ER at the [facility] for evaluation of mental status changes, patient did have a CT of the chest suspicious for right lower lobe consolidation CT of abdominal pelvis with colitis, patient did have a ne gative C. diff during this admission. On today's evaluation that is 09/23/2022, the patient remains to be afebrile patient has been moved out of the ICU and is off the pressor support , patient not a very good historian as she did not answer any question no vomiting or any worsening diarrhea has been reported Objective - Vital Signs Vital signs: Vital Signs Temp 98.6 F 09/22/22 16:00 Pulse 70 09/23/22 08:16 Resp 20 09/23/22 08:16 BP 102/70 09/23/22 08:16 Pulse Ox 100 09/23/22 08:16 FiO2 Intake & Output 09/22/22 09/23/22 09/23/22 18:59 06:59 18:59 Intake Total 1800 2100 Output Total 570 475 Balance 1230 1625 Intake: IV 1800 1800 Sodium Chloride 0.9% 1, 1800 1800 000 ml @ 150 mls/hr IV . Q6H40M [facility] Rx#:[id number] Intake, IV Titration 100 Amount Piperacillin-Tazobactam 3 100 .375 gm In Sodium Chloride 0.9% 100 ml @ 25 mls/hr IVPB Q12H [facility] Rx# :[id number] Oral 200 Output: Urine 570 475 Other: Voiding Method Indwelling Catheter Indwelling Catheter Indwelling Catheter # Bowel Movements 1 - Exam GENERAL DESCRIPTION: An elderly female lying in bed in no distress RESPIRATORY SYSTEM: Unlabored breathing , decreased breath sounds at bases HEART: S1 S2 regular rate and rhythm , ABDOMEN: Soft , no tenderness EXTREMITIES: Diffuse swelling bilateral lower extremity no significant redness - Labs CBC & Chem 7: 09/23/22 05:18 09/23/22 05:18 Labs: Abnormal Lab Results - Last 24 Hours (Table) 09/22/22 09/22/22 09/23/22 Range/Units 17:09 20:37 05:18 Hgb (11.4-16.0) gm/dL MCH (25.0-35.0) pg MCHC (31.0-37.0) g/dL RDW (11.5-15.5) % Lymphocytes # (1.0-4.8) k/uL Potassium 3.4 L (3.5-5.1) mmol/L Chloride 111 H (98-107) mmol/L Carbon Dioxide 20 L (22-30) mmol/L BUN 39 H (7-17) mg/dL Creatinine 2.50 H (0.52-1.04) mg/dL Glucose 116 H (74-99) mg/dL POC Glucose (mg/dL) 133 H 187 H (70-110) mg/dL Calcium 8.0 L (8.4-10.2) mg/dL Total Bilirubin 2.0 H (0.2-1.3) mg/dL Procalcitonin (0.02-0.09) ng/mL 09/23/22 09/23/22 09/23/22 Range/Units 05:18 05:18 11:43 Hgb 10.7 L (11.4-16.0) gm/dL MCH 24.9 L (25.0-35.0) pg MCHC 29.6 L (31.0-37.0) g/dL RDW 21.4 H (11.5-15.5) % Lymphocytes # 0.5 L (1.0-4.8) k/uL Potassium (3.5-5.1) mmol/L Chloride (98-107) mmol/L Carbon Dioxide (22-30) mmol/L BUN (7-17) mg/dL Creatinine (0.52-1.04) mg/dL Glucose (74-99) mg/dL POC Glucose (mg/dL) 169 H (70-110) mg/dL Calcium (8.4-10.2) mg/dL Total Bilirubin (0.2-1.3) mg/dL Procalcitonin 5.19 H (0.02-0.09) ng/mL Microbiology - Last 24 Hours (Table) 09/22/22 18:54 Stool Culture - Preliminary Stool 09/20/22 13:55 Blood Culture - Preliminary Blood No Growth after 48 hours 09/20/22 13:40 Blood Culture - Preliminary Blood No Growth after 48 hours Assessment and Plan (1) Sepsis Current Visit: Yes Status: Acute Code(s): A41.9 - SEPSIS, UNSPECIFIED ORGANISM SNOMED Code(s): 42261095 Plan: 1patient presented to hospital with sepsis in this patient who did have a hypertension elevated white count elevated lactic acid and concerning for poss ible urinary source as apparently the patient had a positive UA at the outside facility UA at this visit is currently pending there was a question of possible perinephric abscess however I do not find that information on the CT abdominal pelvis report that was done at the [facility] did shows evidence of colitis and could be component of ongoing C. difficile as the patient recently completed treatment for C. difficile colitis however no clear history of any persistent diarrhea at this point, patient also have a CT of the chest concerning for right lower lobe consolidation. 2Patient has shown clinical improvement off the pressor support the patient white count has normalized , stool culture has been requested currently pending continue Zosyn and monitor clinical course closely Time with Patient: Less than 30
[2022-09-23] MEDS: LEVOTHYROXINE 88 MCG TAB PO SCH (17:03)
[2022-09-23] MEDS: ATORVASTATIN 40 MG TAB PO SCH (20:47)
[2022-09-23 21:43] LABS: Glucose,Whole Blood 147 mg/dL (70-110)
--- NOTE | 2022-09-23 22:27 | P.PN ---
Subjective Patient is a 7-year-old female was sent in from outside the hospital for higher level of care and patient was noted to have urinary tract infection although I do not have any that labs available at this time. Patient is unable to provide any history to me. Patient although it appears to be septic was having diarrhea at the other place patient had a recent C. diff history, CT of the chest did suggest pneumonia although I do not have any images available at this time unable to find the records from the other hospital at this time patient was started on broad-spectrum antibiotics vancomycin and Zosyn subsequently admitted to the hospital. Patient is hypotensive as well patient is getting 150 of normal saline patient is quite lethargic arousable is unable to provide much of the history to me patient also had lactic acidosis with troponin elevation of 2.2. 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 She denies any specific complaints, no pain. No urinary symptoms. The Msutafa catheter in place which was not bothering her. Patient initially admitted with severe sepsis suspected secondary to UTI and other sources could not be ruled out or identified currently. Her infection and sepsis is improving as she is currently on Zosyn while on IV vancomycin was discontinued earlier. She required levophed but her blood pressure improved after she received aggressive hydration with 2 L of normal saline and currently she is at a rate of 150 mL per hour. Her metolazone is on hold as well as DARWIN inhibitor Creatinine is slightly trending up 2.3 currently. Leukocytosis improving. Patient is still complaining of 09/22/2022 Patient is awake and alert but lethargic and generally very weak. Her blood pressure is holding well this morning but she needed small dose of pressors overnight. She still treated for infection with Zosyn. Also she has good urine output and creatinine on is slightly worse at 2.5. Echocardiogram showing ejection fraction of 35% with global hypokinesia and moderate tricuspid regurgitation Her IV fluids running at 100 mL per hour. Diuretics on hold. Check labs in the morning. Follow-upcalcitonin 09/23/2022 Patient improvement clinically and she is more awake and alert but she still significantly lethargic which is improving slowly and gradually At the same time her progress calcitonin is trending down and she skipped on antibiotics with Zosyn. Suspected source is UTI, less likely pneumonia or other sources. IV fluid was discontinued and she received 1 dose of Lasix. Also baby aspirin added as well as metoprolol 12.5. Metolazone remains on hold. Echocardiogram showing ejection fraction of 35% with global hypokinesia and moderate tricuspid regurgitation. Objective - Vital Signs Vital signs: Vital Signs Temp 98.6 F 09/22/22 16:00 Pulse 70 09/23/22 08:16 Resp 20 09/23/22 08:16 BP 102/70 09/23/22 08:16 Pulse Ox 100 09/23/22 08:16 FiO2 Intake & Output 09/22/22 09/23/22 09/23/22 18:59 06:59 18:59 Intake Total 1800 2100 Output Total 570 475 Balance 1230 1625 Intake: IV 1800 1800 Sodium Chloride 0.9% 1, 1800 1800 000 ml @ 150 mls/hr IV . Q6H40M [facility] Rx#:[id number] Intake, IV Titration 100 Amount Piperacillin-Tazobactam 3 100 .375 gm In Sodium Chloride 0.9% 100 ml @ 25 mls/hr IVPB Q12H [facility] Rx# :[id number] Oral 200 Output: Urine 570 475 Other: Voiding Method Indwelling Catheter Indwelling Catheter Indwelling Catheter # Bowel Movements 1 - Exam -GENERAL: The patient is alert and oriented x3, not in any acute distress. Morbidly obese, lethargic HEENT: Pupils are round and equally reacting to light. EOMI. No scleral icterus. No conjunctival pallor. Normocephalic, atraumatic. No pharyngeal erythema. No thyromegaly. CARDIOVASCULAR: S1 and S2 present. No murmurs, rubs, or gallops. PULMONARY: Chest is clear to auscultation, no wheezing or crackles. -ABDOMEN: Soft, nontender, nondistended, normoactive bowel sounds. No palpable organomegaly. Mustafa catheter in place MUSCULOSKELETAL: No joint swelling or deformity. EXTREMITIES: No cyanosis, clubbing, or pedal edema. NEUROLOGICAL: Gross neurological examination did not reveal any focal deficits. SKIN: No rashes. no petechiae. - Labs CBC & Chem 7: 09/23/22 05:18 09/23/22 05:18 Labs: Abnormal Lab Results - Last 24 Hours (Table) 09/22/22 09/22/22 09/23/22 Range/Units 17:09 20:37 05:18 Hgb (11.4-16.0) gm/dL MCH (25.0-35.0) pg MCHC (31.0-37.0) g/dL RDW (11.5-15.5) % Lymphocytes # (1.0-4.8) k/uL Potassium 3.4 L (3.5-5.1) mmol/L Chloride 111 H (98-107) mmol/L Carbon Dioxide 20 L (22-30) mmol/L BUN 39 H (7-17) mg/dL Creatinine 2.50 H (0.52-1.04) mg/dL Glucose 116 H (74-99) mg/dL POC Glucose (mg/dL) 133 H 187 H (70-110) mg/dL Calcium 8.0 L (8.4-10.2) mg/dL Total Bilirubin 2.0 H (0.2-1.3) mg/dL Procalcitonin (0.02-0.09) ng/mL 09/23/22 09/23/22 Range/Units 05:18 05:18 Hgb 10.7 L (11.4-16.0) gm/dL MCH 24.9 L (25.0-35.0) pg MCHC 29.6 L (31.0-37.0) g/dL RDW 21.4 H (11.5-15.5) % Lymphocytes # 0.5 L (1.0-4.8) k/uL Potassium (3.5-5.1) mmol/L Chloride (98-107) mmol/L Carbon Dioxide (22-30) mmol/L BUN (7-17) mg/dL Creatinine (0.52-1.04) mg/dL Glucose (74-99) mg/dL POC Glucose (mg/dL) (70-110) mg/dL Calcium (8.4-10.2) mg/dL Total Bilirubin (0.2-1.3) mg/dL Procalcitonin 5.19 H (0.02-0.09) ng/mL Microbiology - Last 24 Hours (Table) 03/31/23 18:54 Stool Culture - Preliminary Stool 09/20/22 13:55 Blood Culture - Preliminary Blood No Growth after 48 hours 09/20/22 13:40 Blood Culture - Preliminary Blood No Growth after 48 hours Assessment and Plan Assessment: -Severe sepsis/, improving Acute urinary tract infection, other sources cannot be ruled out Cardiomyopathy with ejection fraction of 35% with global hypokinesis Severe hypotension secondary to infection and hypovolemia, improving with IV fluid. Currently however fluid was discontinued Acute on chronic kidney disease stage III with good urine output Metabolic encephalopathy, improving and resolved Diarrhea, rule out C. diff Elevated troponin, suspicious for non-STEMI, being followed by cardiology team His bilirubin Paroxysmal atrial fibrillation Plan: Continue with antibiotic, currently Zosyn: OptiFlow discontinued. Status post Lasix 1 Continue with aspirin and start low-dose metoprolol per penal officer given her cardiomyopathy Follow-up culture result Several consultants on the case including cardiology, ID team and pulmonary/critical care team Labs and medication were reviewed.. Continue same treatment. Continue with symptomatic treatment. Resume home medication. Monitor labs and vitals. DVT and GI prophylaxis. Further recommendations as per clinical course of the patient DVT prophylaxis: Subcutaneous heparin GI Prophylaxis: Pepcid Prognosis is guarded
[2022-09-24 05:36] LABS: Glucose,Whole Blood 92 mg/dL (70-110)
[2022-09-24] MEDS: INSULIN ASPART (NovoLOG) 100 UNIT/ML VIAL SQ SCH ×4 (06:13→20:31)
[2022-09-24] MEDS: LEVOTHYROXINE 88 MCG TAB PO SCH (06:17)
[2022-09-24] MEDS: NOREPINEPHRINE 32 MG in SODIUM CHLORIDE 0.9% 218 ML IV SCH (07:32)
[2022-09-24] MEDS: METOPROLOL TARTRATE 12.5 MG TAB PO SCH (08:53)
[2022-09-24] MEDS: ASPIRIN 81 MG PO SCH (08:53)
[2022-09-24] MEDS: HEPARIN SODIUM,PORCINE/PF 5,000 UNIT/0.5 ML SYRINGE SQ SCH ×4 (08:53→23:29)
[2022-09-24] MEDS: FAMOTIDINE 20 MG TAB PO SCH (08:53)
[2022-09-24 09:12] LABS: African American GFR (CKD) 19.4 (60.0-200.0); Anion Gap 14.7 mmol/L (10.00-18.00); BUN/Creat Ratio 15.37 Ratio (12.00-20.00); Blood Urea Nitrogen 39.5 mg/dL (9.0-27.0); Calcium 8.8 mg/dL (8.7-10.3); Non-African American GFR(CKD) 16.8 (60.0-200.0); Potassium 3.9 mmol/L (3.5-5.5)
[2022-09-24 09:29] LABS: HGB 11.5 g/dL (12.0-15.0); MCH 23.6 pg (27.0-32.0); MCV 84.2 fL (80.0-97.0); Mean Platelet Volume 11.2 fL (9.5-12.2); NRBC Per 100 WBC 2.8 /100 WBCS (0.0-0.0); Platelet Count 237 X 10*3/uL (140-440); RBC 4.87 X 10*6/uL (4.10-5.20); WBC 5.01 X 10*3/uL (4.50-10.00)
[2022-09-24 10:20] LABS: Basophils # (A) 0.11 X 10*3/uL (0.00-0.10); Basophils % (A) 2.2 %; Crenated RBC 2+; Eosinophils # (A) 0 X 10*3/uL (0.04-0.35); Eosinophils % (A) 0 %; Immature Grans, Automated 1.2 %; Lymphocytes # (A) 0.52 X 10*3/uL (0.90-5.00); Lymphocytes % (A) 10.4 %; Monocytes # (A) 0.63 X 10*3/uL (0.20-1.00); Monocytes % (A) 12.6 %; Neutrophils # (A) 3.69 X 10*3/uL (1.80-7.70); Neutrophils % (A) 73.6 %; Polychromasia 2+; Toxic Vacuolation 2+
--- NOTE | 2022-09-24 10:39 | P.PN ---
Subjective Progress Note Date: 09/24/22 This is an 82-year-old morbidly obese female patient was transferred to us from [facility] for further evaluation and treatment. The patient is suspected to have a UTI/sepsis. The patient presented to the long term in the [facility]. The patient initially presented there to the hospital because of altered mentation. She was having also diarrhea and the patient stated that she has completed a recent treatment for C. diff colitis. In the emergency, the patient continued to have liquidy loose stools. She was also diagnosed having a UTI at [facility]. The patient herself is a very poor historian and she is not a reliable. Upon arrival to us, the patient was hypotensive. The patient was given IV fluid boluses and placed on IV Zosyn. 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 The CAT scan of the chest showed some limited effusion/atelectatic changes in lung bases. CAT scan of the abdomen suspected ongoing colitis. There was also suspicion for perianal abscesses. The patient herself denies having any significant abdominal pain. A Mustafa catheter is to be inserted. The urine sample is to be collected. The patient was hypotensive in the emergency and the patient was given saline boluses and the patient is currently on normal saline at rate of 150 mL an hour. She does have chronic venostasis involving lower extremities bilaterally. No open wounds or sores. She was given a triple-lumen catheter in the emergency in the right femoral vein. The current echoes at 16.9 with a hemoglobin of 10.6, lactic acid level is at 2.5, BUN is 35 with a creatinine of 2.07 and a sodium level is at 135. Troponin was at 2.2 and LFTs are essentially within normal limits. On today's evaluation of 09/21/2022, the patient is in the intensive care unit. The patient is calm and comfortable and she is only on 2 L of oxygen by nasal cannula with a pulse ox of 98%. She was hospitalized yesterday because of sepsis, suspected UTI. She recently the was also treated for a C. diff colitis. She was having diarrhea in the emergency department yesterday. I asked to recheck this stool for C. diff and the results turn down attendant to be negative. Meanwhile, the patient is currently on Zosyn, and she was given a dose of vancomycin yesterday in the emergency Department. The urine evaluation [facility] was abnormal consistent with underlying UTI. CAT scan of the chest that was done without contrast showed some right basilar consolidation in addition to dependent atelectatic changes in the lung bases and a 2 mm calcified granuloma in the left upper lobe and another 3 mm unchanged right lower lobe pulmonary nodule. Small bilateral pleural effusions were also present. The pulmonary arteries were enlarged consistent with chronic pulmonary hypertension. CT of the abdomen also showed thickening henao of the distal sigmoid colon consistent with a recent history of C. diff colitis. There was also diffuse stranding of the mesenteric fat hours of lower abdominal area/pelv is. She was also found to have cholelithiasis without cholecystitis. The patient was aggressively resuscitated with IV fluids. After arriving today ICU, she was given additional 2 L of normal saline bolus and currently she is running normal saline at the rate of 100 mL an hour. She is also on low-dose norepinephrine running at 0.04 mcg/kg/m. Her troponins were elevated and cardiology has been involved. On 09/22/2022, the patient is much more comfortable and awake and alert compared to yesterday. Her breathing is nonlabored. She remains on oxygen at 2 L nasal cannula. Hemodynamically, she got bolused with several liters of fluid yesterday, a total of 5 L since this current admission, 2 additional boluses were given yesterday. This was done and the patient was being hypotensive and low urine output was also noted. After adequate resuscitation, she was given a dose of Lasix 80 mg IV. Since then, there has been slight improvement in her urine output. Currently she is producing urine output in order of 50 mL an hour. Her creatinine is up to 2.51 and the patient sustained an acute kidney injury on top of her chronic kidney disease. BUN is at 41. Serum bicarbs of 19. IV fluids are currently in the form of normal saline at the rate of 150 mL an hour. On a separate note, the patient is off pressors. She is still having some diarrhea. As mentioned, stool for C. diff has been negative. She did have a component of colitis based on the CAT scan findings from the other hospital. Most recent BP is 107/47. Blood cultures have been negative. Patient is covered with IV Zosyn at this point in time. Infectious disease is on the case. No abdominal pain. No open wounds or sores. On today's evaluation of 09/23/2022, the patient feels better compared to yesterday. She was in the intensive care unit for hypotension and diarrhea. Stool for C. diff came back negative. The patient is being also treated for a presumed UTI. White cell count at 5 with a hemoglobin of 10.7 and a platelet count of 209. BUN is 39 with a creatinine of 2.5 and a sodium level is at 141. She is currently on 2 L of oxygen by nasal cannula. Chronic edema lower extremities bilaterally. Mustafa cath is also in place. She is awake and alert. She is communicating. 09/24/2022, the patient is being seen for a follow-up. Resting comfortably in bed on 2 L of oxygen nasal cannula. No signs of any respiratory distress. No hemodynamic instability. No nausea or vomiting or abdominal pain. Patient is being essentially supported on the medical floor. She was in the intensive care unit and she was septic and she got fluid resuscitated and she was given antibiotics. There was a concern of ongoing significant colitis. The repeat stool samples came back negative. Rest of the cultures are all negative. White cell count is currently at 5 with a hemoglobin 11.7 and a platelet count of 237. Sodium is at 141, potassium of 3.9, BUN is 39 with a creatinine of 2.6. Serum bicarbs of 18. Her pro calcitonin level has been dropping from 7.8 down to 5.1. Stool cultures negative. The blood culture is negative. The patient remains on IV Zosyn. IVs on the case. She is back on Lasix 80 mg by mouth daily. Objective - Vital Signs Vital signs: Vital Signs Temp 97.4 F L 09/24/22 08:17 Pulse 71 09/24/22 08:17 Resp 19 09/24/22 08:17 BP 152/72 09/24/22 08:17 Pulse Ox 98 09/24/22 09:24 FiO2 Intake & Output 09/23/22 09/24/22 09/24/22 18:59 06:59 18:59 Intake Total 118 340 Output Total 750 650 Balance -632 -310 Intake: Intake, IV Titration 100 Amount Piperacillin-Tazobactam 3 100 .375 gm In Sodium Chloride 0.9% 100 ml @ 25 mls/hr IVPB Q12H [facility] Rx# :[id number] Oral 118 240 Output: Urine 750 650 Other: Voiding Method Indwelling Catheter Indwelling Catheter # Bowel Movements 1 - Exam GENERAL EXAM: Alert, pleasant 77-year-old white female, obese, the patient is still confused, poor historian, breathing is nonlabored, currently she is on 2 L of oxygen by nasal cannula HEAD: Normocephalic/atraumatic. EYES: Normal reaction of pupils, equal size. Conjunctiva pink, sclera white. NOSE: Clear with pink turbinates. THROAT: No erythema or exudates. NECK: No masses, no JVD, no thyroid enlargement, no adenopathy. CHEST: No chest wall deformity. Symmetrical expansion. LUNGS: Equal air entry with some scattered rhonchi, no crackles or wheezes, breath sounds are quite diminished in lung bases bilaterally CVS: Irregular rate and rhythm, normal S1 and S2, no gallops, no murmurs, no rubs ABDOMEN: Soft, nontender. No hepatosplenomegaly, normal bowel sounds, no guarding or rigidity. EXTREMITIES: No clubbing, ,no cyanosis, 2+ pulses and upper and lower extremities. Bilateral lower extremity edema, left greater than the right, patient has a chronic wound on the left lower extremity, covered with a dressing. Per nursing staff is in his healing stages, is dry, with no drainage. MUSCULOSKELETAL: Muscle strength and tone normal. SPINE: No scoliosis or deformity SKIN: No rashes CENTRAL NERVOUS SYSTEM: Alert and awake and communicating, neurologic exam is nonfocal, she is profoundly weak. PSYCHIATRIC: No significant anxiety or depression. A detailed psychiatric evaluation cannot be done - Labs CBC & Chem 7: 09/24/22 04:34 09/24/22 04:34 Labs: Abnormal Lab Results - Last 24 Hours (Table) 09/23/22 09/23/22 09/23/22 Range/Units 11:43 16:12 21:41 Hgb (12.0-15.0) g/dL MCH (27.0-32.0) pg MCHC (32.0-37.0) g/dL RDW (11.5-14.5) % Absolute Nucleated RBC (0.00-0.00) X 10*3/uL Immature Gran # (0.00-0.04) X 10*3/uL Lymphocytes # (0.90-5.00) X 10*3/uL Eosinophils # (0.04-0.35) X 10*3/uL Basophils # (0.00-0.10) X 10*3/uL NRBC/100 WBC Diff (0.0-0.0) /100 WBCS Carbon Dioxide (20.0-27.5) mmol/L BUN (9.0-27.0) mg/dL Creatinine (0.6-1.5) mg/dL Est GFR (CKD-EPI)AfAm (60.0-200.0) Est GFR (CKD-EPI)NonAf (60.0-200.0) POC Glucose (mg/dL) 169 H 167 H 147 H (70-110) mg/dL 09/24/22 09/24/22 Range/Units 04:34 04:34 Hgb 11.5 L (12.0-15.0) g/dL MCH 23.6 L (27.0-32.0) pg MCHC 28.0 L (32.0-37.0) g/dL RDW 25.0 H (11.5-14.5) % Absolute Nucleated RBC 0.14 H (0.00-0.00) X 10*3/uL Immature Gran # 0.06 H (0.00-0.04) X 10*3/uL Lymphocytes # 0.52 L (0.90-5.00) X 10*3/uL Eosinophils # 0 L (0.04-0.35) X 10*3/uL Basophils # 0.11 H (0.00-0.10) X 10*3/uL NRBC/100 WBC Diff 2.8 H (0.0-0.0) /100 WBCS Carbon Dioxide 18.0 L (20.0-27.5) mmol/L BUN 39.5 H (9.0-27.0) mg/dL Creatinine 2.6 H (0.6-1.5) mg/dL Est GFR (CKD-EPI)AfAm 19.4 L (60.0-200.0) Est GFR (CKD-EPI)NonAf 16.8 L (60.0-200.0) POC Glucose (mg/dL) (70-110) mg/dL Microbiology - Last 24 Hours (Table) 09/20/22 13:55 Blood Culture - Preliminary Blood No Growth after 72 hours 09/20/22 13:40 Blood Culture - Preliminary Blood No Growth after 72 hours Assessment and Plan Plan: Altered mental status likely secondary to underlying infection/sepsis. Mental status is improved Suspect UTI. Recent episode of C. diff colitis, ongoing diarrhea, stool was negative for C. diff upon repeated evaluation. The patient's diarrhea is essentially subsiding Sepsis with secondary hypotension, aggressively resuscitated IV fluids, urine output improved and the patient is currently off pressors Acute leukocytosis secondary to above, improving and a white cell count is down to 10 Acute non-STEMI with elevated troponins Acute kidney injury, rule out underlying sepsis-induced ATN, urine output remains low, Mustafa cath is in place, urine output is improved and the creatinine is currently at 2.5 Chronic atrial fibrillation, controlled rate Morbid obesity Chronic lower extremity edema and chronic venous stasis Hypertension Hyperlipidemia Diabetes mellitus type 2 Coronary artery disease with previous coronary stenting C. diff colitis treated recently History of liver tumor surgically resected Degenerative arthritis and the patient has undergone a left knee replacement Debilitated state and the patient lives in a long term-like facility and [place] Plan Patient is on the medical floor Continue supportive care Mental status improved Hemodynamically stable Patient is back on Lasix Pro calcitonin level has been down trending Change IV fluids to KVO Advance diet Monitor urine output Cultures have been sent, we'll send also stool cultures and urine cultures. Blood cultures are negative Cardiology consultation has been done and the patient will have an echocardiogram and the patient underwent an echocardiogram, there is also still pending for now Continue IV Zosyn ID on the case We'll see this patient when necessary
[2022-09-24 11:40] LABS: Glucose,Whole Blood 75 mg/dL (70-110)
--- NOTE | 2022-09-24 12:31 | P.PN ---
Subjective Progress Note Date: 09/24/22 The patient is an 81-year-old female with multiple comorbid conditions who is transferred for septicemia. She was admitted to the ICU for hypotension. She has now off vasopressors. Infectious disease is following and she is currently being treated with Zosyn. Vancomycin has been discontinued for possible nephrotoxicity. Echocardiogram has revealed low ejection fraction of 35% with global hypokinesis, moderate RV dilation and moderate tricuspid regurgitation. Yesterday the patient was found to be in heart failure. IV fluids were discontinued and the patient received IV diuresis. Medical records received from previous hospitalization. Patient's echocardiogram revealed preserved LV function in 2020. Patient also had pacemaker placed in 2019, where the patient has a dual-chamber pacemaker with HIS lead. The patient has a known history of persistent atrial fibrillation and did undergo watchman procedure. She states she still has shortness of breath if she attempts to move herself around in the bed, however she states she is fine at rest. Denies any chest pain or chest pressure. GENERAL: Well-appearing, obese female and in no acute distress. NECK: Supple without JVD or thyromegaly. LUNGS: Breath sounds diminished to auscultation bilaterally. Respiration equal and unlabored. Bilateral rhonchi. HEART: Regular rate and rhythm without murmurs, rubs or gallops. S1 and S2 heard. EXTREMITIES: Warm to touch. Stasis dermatitis noted on bilateral lower extremities. +2 generalized edema. VITALS: Blood pressure 152/72, pulse 71, respiratory rate 19, afebrile, SpO2 99% on 2 L nasal cannula TELEMETRY: Ventricular paced rhythm LABS: WBC 5.01, hemoglobin 11.5, hematocrit 41.0, platelet 237, sodium 141, potassium 3.9, BUN 39, creatinine 2.6 IMPRESSION: Septicemia Elevated troponin, likely secondary to the above Hypotension, improved Acute kidney injury, possible nephrotoxicity from vancomycin Cardiomyopathy, EF 35% with global hypokinesis, likely secondary to recent Morbid obesity History of permanent pacemaker, HIS lead pacing History of coronary artery disease History diabetes History of hypertension History of hyperlipidemia History of atrial fibrillation, persistent, status post watchman procedure PLAN: Transition to oral furosemide Continue aggressive pulmonary hygiene Further recommendations to be based upon clinical course I am dictating on behalf of Dr Marin Hayward's history/physical and assessment/plan. Objective - Vital Signs Vital signs: Vital Signs Temp 97.4 F L 09/24/22 08:17 Pulse 71 09/24/22 08:17 Resp 19 09/24/22 08:17 BP 152/72 09/24/22 08:17 Pulse Ox 98 09/24/22 09:24 FiO2 Intake & Output 09/23/22 09/24/22 09/24/22 18:59 06:59 18:59 Intake Total 118 340 Output Total 750 650 Balance -632 -310 Intake: Intake, IV Titration 100 Amount Piperacillin-Tazobactam 3 100 .375 gm In Sodium Chloride 0.9% 100 ml @ 25 mls/hr IVPB Q12H [facility] Rx# :[id number] Oral 118 240 Output: Urine 750 650 Other: Voiding Method Indwelling Catheter Indwelling Catheter Indwelling Catheter # Bowel Movements 1 - Labs CBC & Chem 7: 09/24/22 04:34 09/24/22 04:34 Labs: Abnormal Lab Results - Last 24 Hours (Table) 09/23/22 09/23/22 09/24/22 Range/Units 16:12 21:41 04:34 Hgb 11.5 L (12.0-15.0) g/dL MCH 23.6 L (27.0-32.0) pg MCHC 28.0 L (32.0-37.0) g/dL RDW 25.0 H (11.5-14.5) % Absolute Nucleated RBC 0.14 H (0.00-0.00) X 10*3/uL Immature Gran # 0.06 H (0.00-0.04) X 10*3/uL Lymphocytes # 0.52 L (0.90-5.00) X 10*3/uL Eosinophils # 0 L (0.04-0.35) X 10*3/uL Basophils # 0.11 H (0.00-0.10) X 10*3/uL NRBC/100 WBC Diff 2.8 H (0.0-0.0) /100 WBCS Carbon Dioxide (20.0-27.5) mmol/L BUN (9.0-27.0) mg/dL Creatinine (0.6-1.5) mg/dL Est GFR (CKD-EPI)AfAm (60.0-200.0) Est GFR (CKD-EPI)NonAf (60.0-200.0) POC Glucose (mg/dL) 167 H 147 H (70-110) mg/dL 09/24/22 Range/Units 04:34 Hgb (12.0-15.0) g/dL MCH (27.0-32.0) pg MCHC (32.0-37.0) g/dL RDW (11.5-14.5) % Absolute Nucleated RBC (0.00-0.00) X 10*3/uL Immature Gran # (0.00-0.04) X 10*3/uL Lymphocytes # (0.90-5.00) X 10*3/uL Eosinophils # (0.04-0.35) X 10*3/uL Basophils # (0.00-0.10) X 10*3/uL NRBC/100 WBC Diff (0.0-0.0) /100 WBCS Carbon Dioxide 18.0 L (20.0-27.5) mmol/L BUN 39.5 H (9.0-27.0) mg/dL Creatinine 2.6 H (0.6-1.5) mg/dL Est GFR (CKD-EPI)AfAm 19.4 L (60.0-200.0) Est GFR (CKD-EPI)NonAf 16.8 L (60.0-200.0) POC Glucose (mg/dL) (70-110) mg/dL Microbiology - Last 24 Hours (Table) 09/20/22 13:55 Blood Culture - Preliminary Blood No Growth after 72 hours 09/20/22 13:40 Blood Culture - Preliminary Blood No Growth after 72 hours
[2022-09-24] MEDS: PIPERACILLIN-TAZOBACTAM 3.375 GM in SODIUM CHLORIDE 0.9% 100 ML IVPB SCH ×2 (12:55→23:29)
[2022-09-24] MEDS: ACETAMINOPHEN TAB 325 MG TAB PO PRN ×2 (12:58→20:31)
[2022-09-24] MEDS: FUROSEMIDE 80 MG TAB PO SCH (12:59)
--- NOTE | 2022-09-24 16:26 | P.PN ---
Subjective Progress Note Date: 09/24/22 Principal diagnosis: Sepsis Patient is a 81-year-old female with a past medical history significant for diabetes mellitus hypertension hyperlipidemia atrial fibrillation currently recently completed treatment for C. difficile colitis the patient was sent to the ER at the [facility] for evaluation of mental status changes, patient did have a CT of the chest suspicious for right lower lobe consolidation CT of abdominal pelvis with colitis, patient did have a ne gative C. diff during this admission. On today's evaluation that is 09/24/2022, the patient continues to be afebrile patient is breathing comfortably on room air, and no chest pain or shortness of breath occasional cough no abdominal pain patient did have mucousy stools per the nursing staff Objective - Vital Signs Vital signs: Vital Signs Temp 97.9 F 09/24/22 12:48 Pulse 70 09/24/22 12:48 Resp 18 09/24/22 12:48 BP 119/75 09/24/22 12:48 Pulse Ox 100 09/24/22 12:48 FiO2 Intake & Output 09/23/22 09/24/22 09/24/22 18:59 06:59 18:59 Intake Total 118 340 Output Total 750 650 Balance -632 -310 Intake: Intake, IV Titration 100 Amount Piperacillin-Tazobactam 3 100 .375 gm In Sodium Chloride 0.9% 100 ml @ 25 mls/hr IVPB Q12H [facility] Rx# :[id number] Oral 118 240 Output: Urine 750 650 Other: Voiding Method Indwelling Catheter Indwelling Catheter Indwelling Catheter # Bowel Movements 1 - Exam GENERAL DESCRIPTION: An elderly female lying in bed in no distress RESPIRATORY SYSTEM: Unlabored breathing , decreased breath sounds at bases HEART: S1 S2 regular rate and rhythm , ABDOMEN: Soft , no tenderness EXTREMITIES: Diffuse swelling bilateral lower extremity no significant redness - Labs CBC & Chem 7: 09/24/22 04:34 09/24/22 04:34 Labs: Abnormal Lab Results - Last 24 Hours (Table) 09/23/22 09/23/22 09/24/22 Range/Units 16:12 21:41 04:34 Hgb 11.5 L (12.0-15.0) g/dL MCH 23.6 L (27.0-32.0) pg MCHC 28.0 L (32.0-37.0) g/dL RDW 25.0 H (11.5-14.5) % Absolute Nucleated RBC 0.14 H (0.00-0.00) X 10*3/uL Immature Gran # 0.06 H (0.00-0.04) X 10*3/uL Lymphocytes # 0.52 L (0.90-5.00) X 10*3/uL Eosinophils # 0 L (0.04-0.35) X 10*3/uL Basophils # 0.11 H (0.00-0.10) X 10*3/uL NRBC/100 WBC Diff 2.8 H (0.0-0.0) /100 WBCS Carbon Dioxide (20.0-27.5) mmol/L BUN (9.0-27.0) mg/dL Creatinine (0.6-1.5) mg/dL Est GFR (CKD-EPI)AfAm (60.0-200.0) Est GFR (CKD-EPI)NonAf (60.0-200.0) POC Glucose (mg/dL) 167 H 147 H (70-110) mg/dL 09/24/22 Range/Units 04:34 Hgb (12.0-15.0) g/dL MCH (27.0-32.0) pg MCHC (32.0-37.0) g/dL RDW (11.5-14.5) % Absolute Nucleated RBC (0.00-0.00) X 10*3/uL Immature Gran # (0.00-0.04) X 10*3/uL Lymphocytes # (0.90-5.00) X 10*3/uL Eosinophils # (0.04-0.35) X 10*3/uL Basophils # (0.00-0.10) X 10*3/uL NRBC/100 WBC Diff (0.0-0.0) /100 WBCS Carbon Dioxide 18.0 L (20.0-27.5) mmol/L BUN 39.5 H (9.0-27.0) mg/dL Creatinine 2.6 H (0.6-1.5) mg/dL Est GFR (CKD-EPI)AfAm 19.4 L (60.0-200.0) Est GFR (CKD-EPI)NonAf 16.8 L (60.0-200.0) POC Glucose (mg/dL) (70-110) mg/dL Microbiology - Last 24 Hours (Table) 09/20/22 13:55 Blood Culture - Preliminary Blood No Growth after 72 hours 09/20/22 13:40 Blood Culture - Preliminary Blood No Growth after 72 hours Assessment and Plan (1) Sepsis Current Visit: Yes Status: Acute Code(s): A41.9 - SEPSIS, UNSPECIFIED ORGANISM SNOMED Code(s): 61918356 Plan: 1patient presented to hospital with sepsis in this patient who did have a hypertension elevated white count elevated lactic acid and concerning for possible urinary source as apparently the patient had a positive UA at the outside facility UA at this visit is currently pending there was a question of possible perinephric abscess however I do not find that information on the CT abdominal pelvis report that was done at the [facility] did shows evidence of colitis and could be component of ongoing C. difficile as the patient recently completed treatment for C. difficile colitis however no clear history of any persistent diarrhea at this point, patient also have a CT of the chest concerning for right lower lobe consolidation. 2Patient has shown clinical improvement off the pressor support the patient white count has normalized , stool culture are currently pending, patient to continue Zosyn and monitor clinical course closely Time with Patient: Less than 30
[2022-09-24 16:31] LABS: Glucose,Whole Blood 85 mg/dL (70-110)
[2022-09-24 20:00] LABS: Glucose,Whole Blood 84 mg/dL (70-110)
[2022-09-24] MEDS: METOPROLOL TARTRATE 25 MG TAB PO SCH (20:31)
[2022-09-24] MEDS: ATORVASTATIN 40 MG TAB PO SCH (20:32)
--- NOTE | 2022-09-24 21:18 | P.PN ---
Subjective Patient is a 7-year-old female was sent in from outside the hospital for higher level of care and patient was noted to have urinary tract infection although I do not have any that labs available at this time. Patient is unable to provide any history to me. Patient although it appears to be septic was having diarrhea at the other place patient had a recent C. diff history, CT of the chest did suggest pneumonia although I do not have any images available at this time unable to find the records from the other hospital at this time patient was started on broad-spectrum antibiotics vancomycin and Zosyn subsequently admitted to the hospital. Patient is hypotensive as well patient is getting 150 of normal saline patient is quite lethargic arousable is unable to provide much of the history to me patient also had lactic acidosis with troponin elevation of 2.2. 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 She denies any specific complaints, no pain. No urinary symptoms. The Mustafa catheter in place which was not bothering her. Patient initially admitted with severe sepsis suspected secondary to UTI and other sources could not be ruled out or identified currently. Her infection and sepsis is improving as she is currently on Zosyn while on IV vancomycin was discontinued earlier. She required levophed but her blood pressure improved after she received aggressive hydration with 2 L of normal saline and currently she is at a rate of 150 mL per hour. Her metolazone is on hold as well as DARWIN inhibitor Creatinine is slightly trending up 2.3 currently. Leukocytosis improving. Patient is still complaining of 09/22/2022 Patient is awake and alert but lethargic and generally very weak. Her blood pressure is holding well this morning but she needed small dose of pressors overnight. She still treated for infection with Zosyn. Also she has good urine output and creatinine on is slightly worse at 2.5. Echocardiogram showing ejection fraction of 35% with global hypokinesia and moderate tricuspid regurgitation Her IV fluids running at 100 mL per hour. Diuretics on hold. Check labs in the morning. Follow-upcalcitonin 09/23/2022 Patient improvement clinically and she is more awake and alert but she still significantly lethargic which is improving slowly and gradually At the same time her progress calcitonin is trending down and she skipped on antibiotics with Zosyn. Suspected source is UTI, less likely pneumonia or other sources. IV fluid was discontinued and she received 1 dose of Lasix. Also baby aspirin added as well as metoprolol 12.5. Metolazone remains on hold. Echocardiogram showing ejection fraction of 35% with global hypokinesia and moderate tricuspid regurgitation. 09/24/2022 We will order PT/OT Patient continued to improve slowly and gradually Her infection is well controlled while she is on Zosyn, she is not hypotensive anymore, she is hemodynamically stable, she does not need IV fluid and her priorcalcitonin is trending down. She has elevated creatinine since admission, today is stable at 2.6 compared to 2.5 over the last 2 days. Most likely this is cardiorenal syndrome. She has low ejection fraction of 35% and she is fluid overload, IV fluids were discontinued since yesterday and she is placed on oral Lasix 80 mg today. Also she is on other cardiac medication like metoprolol dose increased to 25 mg daily and aspirin 81 mg added. Mustafa catheter still in place Order physical therapy evaluation Objective - Vital Signs Vital signs: Vital Signs Temp 97.9 F 09/24/22 12:48 Pulse 70 09/24/22 12:48 Resp 18 09/24/22 12:48 BP 119/75 09/24/22 12:48 Pulse Ox 100 09/24/22 12:48 FiO2 Intake & Output 09/23/22 09/24/22 09/24/22 18:59 06:59 18:59 Intake Total 118 340 Output Total 750 650 Balance -632 -310 Intake: Intake, IV Titration 100 Amount Piperacillin-Tazobactam 3 100 .375 gm In Sodium Chloride 0.9% 100 ml @ 25 mls/hr IVPB Q12H [facility] Rx# :[id number] Oral 118 240 Output: Urine 750 650 Other: Voiding Method Indwelling Catheter Indwelling Catheter Indwelling Catheter # Bowel Movements 1 - Exam -GENERAL: The patient is alert and oriented x3, not in any acute distress. Morbidly obese, lethargic HEENT: Pupils are round and equally reacting to light. EOMI. No scleral icterus. No conjunctival pallor. Normocephalic, atraumatic. No pharyngeal erythema. No thyromegaly. CARDIOVASCULAR: S1 and S2 present. No murmurs, rubs, or gallops. PULMONARY: Chest is clear to auscultation, no wheezing or crackles. -ABDOMEN: Soft, nontender, nondistended, normoactive bowel sounds. No palpable organomegaly. Mustafa catheter in place MUSCULOSKELETAL: No joint swelling or deformity. EXTREMITIES: No cyanosis, clubbing, or pedal edema. NEUROLOGICAL: Gross neurological examination did not reveal any focal deficits. SKIN: No rashes. no petechiae. - Labs CBC & Chem 7: 09/24/22 04:34 09/24/22 04:34 Labs: Abnormal Lab Results - Last 24 Hours (Table) 09/23/22 09/23/22 09/24/22 Range/Units 16:12 21:41 04:34 Hgb 11.5 L (12.0-15.0) g/dL MCH 23.6 L (27.0-32.0) pg MCHC 28.0 L (32.0-37.0) g/dL RDW 25.0 H (11.5-14.5) % Absolute Nucleated RBC 0.14 H (0.00-0.00) X 10*3/uL Immature Gran # 0.06 H (0.00-0.04) X 10*3/uL Lymphocytes # 0.52 L (0.90-5.00) X 10*3/uL Eosinophils # 0 L (0.04-0.35) X 10*3/uL Basophils # 0.11 H (0.00-0.10) X 10*3/uL NRBC/100 WBC Diff 2.8 H (0.0-0.0) /100 WBCS Carbon Dioxide (20.0-27.5) mmol/L BUN (9.0-27.0) mg/dL Creatinine (0.6-1.5) mg/dL Est GFR (CKD-EPI)AfAm (60.0-200.0) Est GFR (CKD-EPI)NonAf (60.0-200.0) POC Glucose (mg/dL) 167 H 147 H (70-110) mg/dL 09/24/22 Range/Units 04:34 Hgb (12.0-15.0) g/dL MCH (27.0-32.0) pg MCHC (32.0-37.0) g/dL RDW (11.5-14.5) % Absolute Nucleated RBC (0.00-0.00) X 10*3/uL Immature Gran # (0.00-0.04) X 10*3/uL Lymphocytes # (0.90-5.00) X 10*3/uL Eosinophils # (0.04-0.35) X 10*3/uL Basophils # (0.00-0.10) X 10*3/uL NRBC/100 WBC Diff (0.0-0.0) /100 WBCS Carbon Dioxide 18.0 L (20.0-27.5) mmol/L BUN 39.5 H (9.0-27.0) mg/dL Creatinine 2.6 H (0.6-1.5) mg/dL Est GFR (CKD-EPI)AfAm 19.4 L (60.0-200.0) Est GFR (CKD-EPI)NonAf 16.8 L (60.0-200.0) POC Glucose (mg/dL) (70-110) mg/dL Microbiology - Last 24 Hours (Table) 09/20/22 13:55 Blood Culture - Preliminary Blood No Growth after 72 hours 09/20/22 13:40 Blood Culture - Preliminary Blood No Growth after 72 hours Assessment and Plan Assessment: -Severe sepsis/, improving Acute urinary tract infection, other sources cannot be ruled out Cardiomyopathy with ejection fraction of 35% with global hypokinesis Severe hypotension secondary to infection and hypovolemia, improving with IV fluid. Currently however fluid was discontinued Acute on chronic kidney disease stage III with good urine output Metabolic encephalopathy, improving and resolved Diarrhea, rule out C. diff Elevated troponin, suspicious for non-STEMI, being followed by cardiology team His bilirubin Paroxysmal atrial fibrillation Plan: Continue with antibiotic, currently Zosyn: Intravenous fluids discontinued. Continue with oral Lasix Continue with aspirin and continue with metoprolol per medical billing and coding specialist given her cardiomyopathy Follow-up culture result Several consultants on the case including cardiology, ID team and pulmonary/ critical care team Labs and medication were reviewed.. Continue same treatment. Continue with symptomatic treatment. Resume home medication. Monitor labs and vitals. DVT and GI prophylaxis. Further recommendations as per clinical course of the patient DVT prophylaxis: Subcutaneous heparin GI Prophylaxis: Pepcid PT/OT ordered Prognosis is guarded
[2022-09-25] MEDS: INSULIN ASPART (NovoLOG) 100 UNIT/ML VIAL SQ SCH ×4 (06:03→20:58)
[2022-09-25 06:05] LABS: Glucose,Whole Blood 73 mg/dL (70-110)
[2022-09-25] MEDS: LEVOTHYROXINE 88 MCG TAB PO SCH (06:16)
[2022-09-25] MEDS ORDERED: FUROSEMIDE 80 MG TAB PO SCH (09:00)
[2022-09-25] MEDS: FUROSEMIDE 80 MG TAB PO SCH (09:36)
[2022-09-25] MEDS: ASPIRIN 81 MG PO SCH (09:36)
[2022-09-25] MEDS: METOPROLOL TARTRATE 25 MG TAB PO SCH ×2 (09:36→21:00)
[2022-09-25] MEDS: HEPARIN SODIUM,PORCINE/PF 5,000 UNIT/0.5 ML SYRINGE SQ SCH ×3 (09:36→23:20)
[2022-09-25] MEDS: FAMOTIDINE 20 MG TAB PO SCH (09:36)
[2022-09-25 11:31] LABS: African American GFR (CKD) 16.8 (60.0-200.0); Anion Gap 15.7 mmol/L (10.00-18.00); BUN/Creat Ratio 14.1 Ratio (12.00-20.00); Blood Urea Nitrogen 40.9 mg/dL (9.0-27.0); Calcium 9.2 mg/dL (8.7-10.3); Carbon Dioxide 17.3 mmol/L (20.0-27.5); Non-African American GFR(CKD) 14.5 (60.0-200.0); Potassium 3.7 mmol/L (3.5-5.5)
[2022-09-25] MEDS: PIPERACILLIN-TAZOBACTAM 3.375 GM in SODIUM CHLORIDE 0.9% 100 ML IVPB SCH ×2 (11:34→23:20)
[2022-09-25 11:57] LABS: Glucose,Whole Blood 91 mg/dL (70-110)
--- NOTE | 2022-09-25 13:22 | P.PN ---
Subjective Progress Note Date: 09/25/22 The patient is an 81-year-old female with multiple comorbid conditions who is transferred for septicemia. She was admitted to the ICU for hypotension. She has now off vasopressors. Infectious disease is following and she is currently being treated with Zosyn. Vancomycin has been discontinued for possible nephrotoxicity. Echocardiogram has revealed low ejection fraction of 35% with global hypokinesis, moderate RV dilation and moderate tricuspid regurgitation. Yesterday the patient was found to be in heart failure. IV fluids were discontinued and the patient received IV diuresis. Medical records received from previous hospitalization. Patient's echocardiogram revealed preserved LV function in 2020. Patient also had pacemaker placed in 2019, where the patient has a dual-chamber pacemaker with HIS lead. The patient has a known history of persistent atrial fibrillation and did undergo watchman procedure. She states she still has shortness of breath if she attempts to move herself around in the bed, however she states she is fine at rest. Denies any chest pain or chest pressure. 09/24 Patient is sleepy today. She denies shortness of breath. No chest pain. She's been transitioned to oral Lasix at 80 mg daily. Blood pressure 121/76, heart rate in the 70s, pulse ox 100% on 3 L nasal cannula. Noted increased seen creatinine at 2.9 BUN 17. She is continued on IV antibiotics. No further cardiac workup at this time. GENERAL: Well-appearing, obese female and in no acute distress. NECK: Supple without JVD or thyromegaly. LUNGS: Breath sounds diminished to auscultation bilaterally. Respiration equal and unlabored. Bilateral rhonchi. HEART: Regular rate and rhythm without murmurs, rubs or gallops. S1 and S2 heard. EXTREMITIES: Warm to touch. Stasis dermatitis noted on bilateral lower extremities. +2 generalized edema. IMPRESSION: Septicemia Elevated troponin, likely secondary to the above Hypotension, improved Acute kidney injury, possible nephrotoxicity from vancomycin Cardiomyopathy, EF 35% with global hypokinesis, likely secondary to recent Morbid obesity History of permanent pacemaker, HIS lead pacing History of coronary artery disease History diabetes History of hypertension History of hyperlipidemia History of atrial fibrillation, persistent, status post watchman procedure PLAN: Patient has been transitioned to oral furosemide Continue aggressive pulmonary hygiene Cardiology will sign off and follow on an as-needed basis. Please reconsult for any new concerns. Nurse practitioner note has been reviewed, I agree with the documented findings and plan of care. Patient was seen and examined. Objective - Vital Signs Vital signs: Vital Signs Temp 96.2 F L 09/25/22 07:26 Pulse 70 09/25/22 07:26 Resp 18 09/25/22 07:26 BP 121/76 09/25/22 07:26 Pulse Ox 100 09/25/22 07:26 FiO2 Intake & Output 09/24/22 09/25/22 09/25/22 18:59 06:59 18:59 Intake Total 340 Output Total 475 250 420 Balance -475 90 -420 Intake: Oral 340 Output: Urine 475 250 420 Uretheral (Mustafa) 250 210 Other: Voiding Method Indwelling Catheter Indwelling Catheter Indwelling Catheter # Bowel Movements 2 1 - Labs CBC & Chem 7: 09/24/22 04:34 09/25/22 07:03 Labs: Abnormal Lab Results - Last 24 Hours (Table) 09/25/22 Range/Units 07:03 Carbon Dioxide 17.3 L (20.0-27.5) mmol/L BUN 40.9 H (9.0-27.0) mg/dL Creatinine 2.9 H (0.6-1.5) mg/dL Est GFR (CKD-EPI)AfAm 16.8 L (60.0-200.0) Est GFR (CKD-EPI)NonAf 14.5 L (60.0-200.0) Glucose 69 L (70-110) mg/dL Microbiology - Last 24 Hours (Table) 09/22/22 18:54 Stool Culture - Preliminary Stool Yomaira albicans 09/20/22 13:55 Blood Culture - Preliminary Blood No Growth after 96 hours 09/20/22 13:40 Blood Culture - Preliminary Blood No Growth after 96 hours
[2022-09-25 17:04] LABS: Glucose,Whole Blood 75 mg/dL (70-110)
[2022-09-25 20:09] LABS: Glucose,Whole Blood 88 mg/dL (70-110)
[2022-09-25] MEDS: ATORVASTATIN 40 MG TAB PO SCH (21:00)
--- NOTE | 2022-09-26 03:32 | PN ---
PROGRESS NOTE DATE OF SERVICE: 09/25/2022 SUBJECTIVE: This is an 81-year-old woman, who was admitted with UTI and sepsis, on broad-spectrum IV antibiotics. The patient also has history of cardiomyopathy. No chest pain. No palpitations. No fever. OBJECTIVE: VITAL SIGNS: Pulse is 70, blood pressure 139/76, respirations 18. CHEST: Clear to auscultation. CARDIOVASCULAR: S1, S2. ABDOMEN: Soft. LABS: Showing creatinine 2.9. ASSESSMENT: 1. Acute urinary tract infection with sepsis. 2. Cardiomyopathy. 3. Severe hypotension, present on admission. 4. Acute on chronic kidney disease, baseline kidney disease, stage 3.. 5. Multiple medical issues. RECOMMENDATIONS AND DISCUSSION: Recommend to continue current management. Continue symptomatic treatment. Continue with antibiotics. Repeat labs in the morning. Prognosis guarded. Further recommendations to follow. [id number] / BEN: [id number] /
[2022-09-26 06:01] LABS: Glucose,Whole Blood 223 mg/dL (70-110)
[2022-09-26] MEDS: ACETAMINOPHEN TAB 325 MG TAB PO PRN (06:09)
[2022-09-26] MEDS: LEVOTHYROXINE 88 MCG TAB PO SCH (06:09)
[2022-09-26] MEDS: INSULIN ASPART (NovoLOG) 100 UNIT/ML VIAL SQ SCH ×4 (06:09→21:23)
[2022-09-26] MEDS: ASPIRIN 81 MG PO SCH (09:34)
[2022-09-26] MEDS: METOPROLOL TARTRATE 25 MG TAB PO SCH ×2 (09:34→21:23)
[2022-09-26] MEDS: FAMOTIDINE 20 MG TAB PO SCH (09:34)
[2022-09-26] MEDS: FUROSEMIDE 80 MG TAB PO SCH (09:35)
[2022-09-26] MEDS: HEPARIN SODIUM,PORCINE/PF 5,000 UNIT/0.5 ML SYRINGE SQ SCH ×2 (09:35→17:21)
[2022-09-26 11:02] LABS: Glucose,Whole Blood 54 mg/dL (70-110)
[2022-09-26 11:22] LABS: Glucose,Whole Blood 54 mg/dL (70-110)
[2022-09-26 11:41] LABS: Glucose,Whole Blood 90 mg/dL (70-110)
[2022-09-26 12:23] LABS: African American GFR (CKD) 16.1 (60.0-200.0); Albumin 2.8 g/dL (3.8-4.9); Albumin/Globulin Ratio 0.67 (1.60-3.17); Anion Gap 19.9 mmol/L (10.00-18.00); BUN/Creat Ratio 14.17 Ratio (12.00-20.00); Blood Urea Nitrogen 42.5 mg/dL (9.0-27.0); Calcium 9.4 mg/dL (8.7-10.3); Carbon Dioxide 16.1 mmol/L (20.0-27.5); Globulin 4.2 g/dL (1.6-3.3); Non-African American GFR(CKD) 13.9 (60.0-200.0); Potassium 3.6 mmol/L (3.5-5.5); Total Bilirubin 1.7 mg/dL (0.30-1.20)
[2022-09-26] MEDS: PIPERACILLIN-TAZOBACTAM 3.375 GM in SODIUM CHLORIDE 0.9% 100 ML IVPB SCH (13:21)
[2022-09-26 13:49] LABS: HCT 44.6 % (37.2-46.3); HGB 12.7 g/dL (12.0-15.0); MCH 23.1 pg (27.0-32.0); MCHC 28.5 g/dL (32.0-37.0); MCV 81.2 fL (80.0-97.0); Mean Platelet Volume 10.6 fL (9.5-12.2); NRBC Per 100 WBC 1.3 /100 WBCS (0.0-0.0); Platelet Count 228 X 10*3/uL (140-440); RBC 5.49 X 10*6/uL (4.10-5.20); RDW 25.6 % (11.5-14.5); WBC 6.02 X 10*3/uL (4.50-10.00)
[2022-09-26 13:50] LABS: Basophils # (M) 0.18 X 10*3/uL (0.00-0.10); Eosinophils # (M) 0.12 X 10*3/uL (0.04-0.35); Macrocytosis (M) 2+; Myelocytes % 3 % (0-0); Neutrophils # (M) 4.64 X 10*3/uL (2.00-8.90); Neutrophils % (M) 77 %
--- NOTE | 2022-09-26 15:44 | P.NPCON ---
History of Present Illness - Reason for Consult acute renal failure, chronic renal failure - History of Present Illness Reason for consultation: Acute kidney injury on chronic kidney disease History of present illness: Patient is a 81-year-old female seen in renal consultation for acute kidney injury on chronic kidney disease. Patient has chronic kidney disease stage IIIB with baseline creatinine near 1.3 in March 2018. This admission patient's creatinine was 2.07 is up to 3.0 today. Patient presented to the hospital on 09/20/2022 from [facility] due to altered mental status. She was having diarrhea and initially went to [facility] and was diagnosed with UTI and then transferred here for higher level of care. Patient is not a very reliable historian. It is noted the patient was hypotensive when she initially arrived in the ER. Patient's blood pressure is currently stable. She is on room air. She does take diuretics at home and is currently receiving Lasix 80 mg orally once daily. She has received IV Lasix this admission as well. She is also been receiving IV fluids this admission and is currently on normal saline at 50 mL an hour. Patient's UA from this admission doesn't show significant UTI. Sputum culture positive for Yomaira. Patient does have history of diabetes. She does have history of systolic CHF with ejection fraction of 35% With moderate tricuspid regurgitation. Vital signs are stable. General: Resting in bed. Doesn't answer questions. HEENT: Head exam is unremarkable. LUNGS: No audible rhonchi or wheezes. HEART: Rate and Rhythm are regular. ABDOMEN: Obese. Nontender. EXTREMITITES: 1+ edema. Chronic changes noted. Past Medical History Past Medical History: Atrial Fibrillation, Cancer, Diabetes Mellitus, Hyp erlipidemia, Hypertension, Osteoarthritis (OA), Skin Disorder Additional Past Medical History / Comment(s): Morbid obesity BMI 47.8, chronic atrial fibrillation, hypertension, hyperlipidemia, diabetes mellitus, chronic lower 70 edema and ulceration of the wound/skin in the left leg, osteoarthritis, uterine cancer with a previous hysterectomy, coronary artery disease with p revious coronary artery stenting. 09/20/22 Cdiff treatment completed from [facility] History of Any Multi-Drug Resistant Organisms: C-DIFF, MRSA Date of last positivie culture/infection: 03/28/18 MDRO Source:: SPUTUM Past Surgical History: Heart Catheterization With Stent, Hysterectomy, Orthopedic Surgery Additional Past Surgical History / Comment(s): Total Left Knee Replacement, cataracts removed, eyelids cut back, liver surgery 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 Past Psychological History: No Psychological Hx Reported Smoking Status: Never smoker Past Alcohol Use History: None Reported Past Drug Use History: None Reported - Past Family History Father Family Medical History: Diabetes Mellitus Mother Family Medical History: Cancer Additional Family Medical History / Comment(s): uterine CA Sister(s) Family Medical History: Cancer Additional Family Medical History / Comment(s): skin CA, breast CA Brother(s) Family Medical History: COPD Medications and Allergies Home Medications Medication Instructions Recorded Confirmed Type Albuterol Inhaler [Ventolin Hfa 2 puff INHALATION RT-Q6H PRN 03/27/18 09/20/22 History Inhaler] Acetaminophen [Tylenol] 650 mg PO Q4H PRN 09/20/22 09/20/22 History Atorvastatin Calcium [Lipitor] 40 mg PO HS 09/20/22 09/20/22 History Citalopram Hydrobromide [CeleXA] 10 mg PO DAILY 09/20/22 09/20/22 History Furosemide [Lasix] 40 mg PO DAILY 09/20/22 09/20/22 History Gabapentin [Neurontin] 200 mg PO BID 09/20/22 09/20/22 History Insulin Aspart Prot/Insuln Asp 7 unit SQ HS 09/20/22 09/20/22 History [Novolog MIX 70-30 Flexpen] Insulin Aspart Prot/Insuln Asp 10 unit SQ DAILY 09/20/22 09/20/22 History [Novolog MIX 70-30 Flexpen] Ipratropium-Albuterol Nebulize 3 ml INHALATION RT-Q4H PRN 09/20/22 09/20/22 History [Duoneb 0.5 mg-3 mg/3 ml Soln] Levothyroxine Sodium [Synthroid] 175 mcg PO DAILY 09/20/22 09/20/22 History Magnesium Hydroxide [Milk of 2,400 mg PO Q72H 09/20/22 09/20/22 History Magnesia Concentrate] Magnesium Oxide [Mag-Ox] 400 mg PO DAILY 09/20/22 09/20/22 History Multivitamins, Thera [Multivitamin 1 tab PO DAILY 09/20/22 09/20/22 History (formulary)] Na Phos,M-B/Na Phos,Di-Ba [Fleet 133 ml RECTAL Q72H 09/20/22 09/20/22 History Adult] Nystatin 100,000 Unit/gm Powd 1 applic TOPICAL BID 09/20/22 09/20/22 History [Mycostatin Powder] Potassium Chloride ER [K-Dur 10] 10 meq PO BID 09/20/22 09/20/22 History Zinc Sulfate [Orazinc] 220 mg PO DAILY 09/20/22 09/20/22 History bisacodyL [Dulcolax] 10 mg RECTAL Q72H PRN 09/20/22 09/20/22 History lisinopriL [Prinivil] 20 mg PO DAILY 09/20/22 09/20/22 History metOLazone [Zaroxolyn] 5 mg PO WEEKLY 09/20/22 09/20/22 History Allergies Allergy/AdvReac Type Severity Reaction Status Date / Time clindamycin AdvReac Unknown Verified 09/20/22 15:38 Physical Exam Vitals: Vital Signs Temp Pulse Resp BP Pulse Ox 09/26/22 14:00 98.7 F 70 17 131/76 98 09/26/22 08:00 76 16 09/26/22 07:10 98.7 F 76 16 101/69 97 09/26/22 02:00 97.8 F 70 17 166/68 99 09/25/22 19:37 98.4 F 77 18 147/81 98 Intake and Output 09/26/22 09/26/22 09/26/22 06:59 14:59 22:59 Output Total 1500 475 300 Balance -1500 -475 -300 Output: Urine 900 475 300 Uretheral (Mustafa) 475 Post Void Residual 600 Other: Voiding Method Indwelling Catheter # Bowel Movements 4 2 Results - Lab Results Most recent lab results Calcium 9.4 mg/dL (8.7-10.3) 09/26/22 06:36 Magnesium 1.9 mg/dL (1.6-2.3) 09/23/22 05:18 09/26/22 06:36 09/26/22 06:36 Assessment and Plan Plan: Assessment: 1. Acute kidney injury secondary to ATN secondary to severe sepsis as well as cardiorenal syndrome. Creatinine 2.07 on admission and is 3.0 today. 2. Chronic kidney disease stage III. Baseline creatinine near 1.3 in March 2018. Etiology is likely diabetic kidney disease. 3. Metabolic acidosis secondary to acute kidney injury and IV fluids. 4. Acute on chronic systolic CHF with ejection fraction of 35% with moderate tricuspid regurgitation. 5. Volume overload. 6. Diabetes mellitus. 7. Severe sepsis secondary to pneumonia/UTI. ID following. On antibiotics. Plan: Hep-Lock IV fluids. Maintain oral Lasix. Add oral bicarb. Check renal ultrasound. Avoid nephrotoxins. Continue to monitor renal function and urine output. Thank you for the consultation. I will continue to follow the patient with you during her hospital stay.
[2022-09-26 16:17] LABS: Glucose,Whole Blood 86 mg/dL (70-110)
--- NOTE | 2022-09-26 16:37 | US ---
EXAMINATION TYPE: US kidneys/renal and bladder DATE OF EXAM: 09/26/2022 COMPARISON: NONE CLINICAL HISTORY: efren. 300lbs, UTI, EFREN EXAM MEASUREMENTS: Right Kidney: 11.6 x 4.9 x 5.7 cm Left Kidney: Not seen Right Kidney: Decreased corticomedullary differentiation Left Kidney: not seen due to habitus and bowel gas Bladder: not seen, patient does have fuentes There is no evidence for hydronephrosis at this point in time. No nephrolithiasis is seen. No noemi s are identified. Fuentes catheter in place. IMPRESSION: 1. No evidence of right hydroureter nephrosis. 2. Nonvisualization of the left kidney. 3. Medical renal disease the right kidney.
[2022-09-26 16:41] LABS: Glucose,Whole Blood 83 mg/dL (70-110)
--- NOTE | 2022-09-26 17:14 | P.PN ---
Subjective Progress Note Date: 09/25/22 Principal diagnosis: Sepsis Patient is a 81-year-old female with a past medical history significant for diabetes mellitus hypertension hyperlipidemia atrial fibrillation currently recently completed treatment for C. difficile colitis the patient was sent to the ER at the [facility] for evaluation of mental status changes, patient did have a CT of the chest suspicious for right lower lobe consolidation CT of abdominal pelvis with colitis, patient did have a ne gative C. diff during this admission. On today's evaluation that is 09/25/2022, the patient remains to be afebrile , the patient is breathing comfortably on room air, the patient denies chest pain or shortness of breath occasional cough no abdominal pain patient did have mucous stools per the nursing staff Objective - Vital Signs Vital signs: Vital Signs Temp 96.2 F L 09/25/22 07:26 Pulse 70 09/25/22 07:26 Resp 18 09/25/22 07:26 BP 121/76 09/25/22 07:26 Pulse Ox 100 09/25/22 07:26 FiO2 Intake & Output 09/24/22 09/25/22 09/25/22 18:59 06:59 18:59 Intake Total 340 Output Total 475 250 420 Balance -475 90 -420 Intake: Oral 340 Output: Urine 475 250 420 Uretheral (Mustafa) 250 210 Other: Voiding Method Indwelling Catheter Indwelling Catheter Indwelling Catheter # Bowel Movements 2 1 - Exam GENERAL DESCRIPTION: An elderly female lying in bed in no distress RESPIRATORY SYSTEM: Unlabored breathing , decreased breath sounds at bases HEART: S1 S2 regular rate and rhythm , ABDOMEN: Soft , no tenderness EXTREMITIES: Diffuse swelling bilateral lower extremity no significant redness - Labs CBC & Chem 7: 09/26/22 06:36 09/26/22 06:36 Labs: Abnormal Lab Results - Last 24 Hours (Table) 09/25/22 Range/Units 07:03 Carbon Dioxide 17.3 L (20.0-27.5) mmol/L BUN 40.9 H (9.0-27.0) mg/dL Creatinine 2.9 H (0.6-1.5) mg/dL Est GFR (CKD-EPI)AfAm 16.8 L (60.0-200.0) Est GFR (CKD-EPI)NonAf 14.5 L (60.0-200.0) Glucose 69 L (70-110) mg/dL Microbiology - Last 24 Hours (Table) 09/22/22 18:54 Stool Culture - Preliminary Stool Yomaira albicans 09/20/22 13:55 Blood Culture - Preliminary Blood No Growth after 96 hours 09/20/22 13:40 Blood Culture - Preliminary Blood No Growth after 96 hours Assessment and Plan (1) Sepsis Current Visit: Yes Status: Acute Code(s): A41.9 - SEPSIS, UNSPECIFIED ORGANISM SNOMED Code(s): 50803929 Plan: 1patient presented to hospital with sepsis in this patient who did have a hypertension elevated white count elevated lactic acid and concerning for p ossible urinary source as apparently the patient had a positive UA at the outside facility UA at this visit is currently pending there was a question of possible perinephric abscess however I do not find that information on the CT abdominal pelvis report that was done at the [facility] did shows evidence of colitis and could be component of ongoing C. difficile as the patient recently completed treatment for C. difficile colitis however no clear history of any persistent diarrhea at this point, patient also have a CT of the chest concerning for right lower lobe consolidation. 2Patient has shown clinical improvement off the pressor support the patient white count has normalized , the patient stool culture are currently pending, patient to continue Zosyn and continue supportive care Time with Patient: Less than 30
--- NOTE | 2022-09-26 17:15 | P.PN ---
Subjective Progress Note Date: 09/26/22 Principal diagnosis: Sepsis Patient is a 81-year-old female with a past medical history significant for diabetes mellitus hypertension hyperlipidemia atrial fibrillation currently recently completed treatment for C. difficile colitis the patient was sent to the ER at the [facility] for evaluation of mental status changes, patient did have a CT of the chest suspicious for right lower lobe consolidation CT of abdominal pelvis with colitis, patient did have a ne gative C. diff during this admission. On today's evaluation that is 09/26/2022, the patient continues to be afebrile , the patient is breathing comfortably on room air, the patient denies chest emily n or shortness of breath , denies any cough or sputum production, no abdominal pain , 1 bowel movement per the nursing staff was not clear if it was loose or formed Objective - Vital Signs Vital signs: Vital Signs Temp 98.7 F 09/26/22 07:10 Pulse 76 09/26/22 08:00 Resp 16 09/26/22 08:00 BP 101/69 09/26/22 07:10 Pulse Ox 97 09/26/22 07:10 FiO2 Intake & Output 09/25/22 09/26/22 09/26/22 18:59 06:59 18:59 Intake Total 120 Output Total 420 1500 475 Balance -300 -1500 -475 Weight 138 kg Intake: Oral 120 Output: Urine 420 900 475 Uretheral (Mustafa) 210 475 Post Void Residual 600 Other: Voiding Method Indwelling Catheter External Catheter External Catheter # Bowel Movements 2 4 2 - Exam GENERAL DESCRIPTION: An elderly female lying in bed in no distress RESPIRATORY SYSTEM: Unlabored breathing , decreased breath sounds at bases HEART: S1 S2 regular rate and rhythm , ABDOMEN: Soft , no tenderness EXTREMITIES: Diffuse swelling bilateral lower extremity no significant redness - Labs CBC & Chem 7: 09/26/22 06:36 09/26/22 06:36 Labs: Abnormal Lab Results - Last 24 Hours (Table) 09/26/22 09/26/22 09/26/22 Range/Units 05:59 06:36 11:00 Carbon Dioxide 16.1 L (20.0-27.5) mmol/L Anion Gap 19.90 H (10.00-18.00) mmol/L BUN 42.5 H (9.0-27.0) mg/dL Creatinine 3.0 H (0.6-1.5) mg/dL Est GFR (CKD-EPI)AfAm 16.1 L (60.0-200.0) Est GFR (CKD-EPI)NonAf 13.9 L (60.0-200.0) Glucose 64 L (70-110) mg/dL POC Glucose (mg/dL) 223 H 54 L (70-110) mg/dL Total Bilirubin 1.70 H (0.30-1.20) mg/dL AST 107 H (13-35) U/L ALT 62 H (8-44) U/L Albumin 2.8 L (3.8-4.9) g/dL Globulin 4.2 H (1.6-3.3) g/dL Albumin/Globulin Ratio 0.67 L (1.60-3.17) g/dL 09/26/22 Range/Units 11:20 Carbon Dioxide (20.0-27.5) mmol/L Anion Gap (10.00-18.00) mmol/L BUN (9.0-27.0) mg/dL Creatinine (0.6-1.5) mg/dL Est GFR (CKD-EPI)AfAm (60.0-200.0) Est GFR (CKD-EPI)NonAf (60.0-200.0) Glucose (70-110) mg/dL POC Glucose (mg/dL) 54 L (70-110) mg/dL Total Bilirubin (0.30-1.20) mg/dL AST (13-35) U/L ALT (8-44) U/L Albumin (3.8-4.9) g/dL Globulin (1.6-3.3) g/dL Albumin/Globulin Ratio (1.60-3.17) g/dL Microbiology - Last 24 Hours (Table) 09/22/22 18:54 Stool Culture - Final Stool Yomaira albicans 09/20/22 13:55 Blood Culture - Preliminary Blood No Growth after 120 hours 09/20/22 13:40 Blood Culture - Preliminary Blood No Growth after 120 hours Assessment and Plan (1) Sepsis Current Visit: Yes Status: Acute Code(s): A41.9 - SEPSIS, UNSPECIFIED ORGANISM SNOMED Code(s): 75505541 Plan: 1patient presented to hospital with sepsis in this patient who did have a hypertension elevated white count elevated lactic acid and concerning for possible urinary source as apparently the patient had a positive UA at the outside facility UA at this visit is currently pending there was a question of possible perinephric abscess however I do not find that information on the CT abdominal pelvis report that was done at the [facility] did shows evidence of colitis and could be component of ongoing C. difficile as the patient recently completed treatment for C. difficile colitis however no clear history of any persistent diarrhea at this point, patient also have a CT of the chest concerning for right lower lobe consolidation. 2Patient has shown clinical improvement off the pressor support the patient white count has normalized , the patient stool culture growing Yomaira more likely colonizer, patient to continue Zosyn and may consider short course of oral Augmentin on discharge Time with Patient: Less than 30
[2022-09-26] MEDS: SODIUM BICARBONATE TAB 650 MG TAB PO SCH ×2 (17:21→21:23)
--- NOTE | 2022-09-26 20:23 | PN ---
PROGRESS NOTE DATE OF SERVICE: 09/26/2022 SUBJECTIVE: This is an 81-year-old woman, who was admitted with acute urinary tract infection with sepsis, also had significant gait dysfunction. The patient is morbidly obese. Possible problems for ambulation as well. No chest pain or palpitation. PHYSICAL EXAMINATION: VITAL SIGNS: Pulse is 70, blood pressure 101/69, respirations 16. CHEST: Few scattered rhonchi. ABDOMEN: Soft, obese. LEGS: Bilateral leg edema. SKIN: Chronic skin changes. LABORATORY DATA: Creatinine 3, rest of the labs are noted. ASSESSMENT: 1. Acute urinary tract infection with sepsis. 2. Cardiomyopathy. 3. Severe gait dysfunction. 4. Super morbid obesity with a BMI of 46.3. 5. Cardiomyopathy. 6. Severe hypotension present on admission. 7. Acute on chronic kidney disease, baseline kidney disease, stage III. 8. Multiple medical issues. RECOMMENDATIONS: Recommended to continue current management, continue symptomatic treatment. Otherwise, the cultures are rather negative at this time, but I would recommend repeat labs and also get a PT OT evaluation. Seems like the patient will require significant help in the form of possible ECF rehab and further recommendations to follow. Multiple consultants following the patient including Cardiology, Infectious Disease and I would also recommend nephrology evaluation also. MMODL / IJN: [id number] /
[2022-09-26 20:28] LABS: Glucose,Whole Blood 135 mg/dL (70-110)
[2022-09-26] MEDS: ATORVASTATIN 40 MG TAB PO SCH (21:23)
[2022-09-27] MEDS: PIPERACILLIN-TAZOBACTAM 3.375 GM in SODIUM CHLORIDE 0.9% 100 ML IVPB SCH ×2 (00:17→12:01)
[2022-09-27] MEDS: HEPARIN SODIUM,PORCINE/PF 5,000 UNIT/0.5 ML SYRINGE SQ SCH ×3 (00:17→15:32)
[2022-09-27 06:00] LABS: Glucose,Whole Blood 88 mg/dL (70-110)
[2022-09-27] MEDS: INSULIN ASPART (NovoLOG) 100 UNIT/ML VIAL SQ SCH ×4 (06:00→20:52)
[2022-09-27] MEDS: LEVOTHYROXINE 88 MCG TAB PO SCH (06:06)
[2022-09-27] MEDS: PANTOPRAZOLE 40 MG TABLET PO SCH (06:07)
[2022-09-27] MEDS: FUROSEMIDE 80 MG TAB PO SCH (07:56)
[2022-09-27] MEDS: ASPIRIN 81 MG PO SCH (07:56)
[2022-09-27] MEDS: METOPROLOL TARTRATE 25 MG TAB PO SCH ×2 (07:56→21:18)
[2022-09-27] MEDS: SODIUM BICARBONATE TAB 650 MG TAB PO SCH ×3 (07:58→21:18)
[2022-09-27 08:02] LABS: African American GFR (CKD) 18 (>60 ml/min/1.73 sqM); Anion Gap 14 mmol/L; Blood Urea Nitrogen 43 mg/dL (7-17); Calcium 9.2 mg/dL (8.4-10.2); Carbon Dioxide 18 mmol/L (22-30); Chloride 114 mmol/L (98-107); Glucose 81 mg/dL (74-99); Magnesium 1.9 mg/dL (1.6-2.3); Non-African American GFR(CKD) 15 (>60 ml/min/1.73 sqM); Potassium 3.5 mmol/L (3.5-5.1); Sodium 146 mmol/L (137-145)
--- NOTE | 2022-09-27 10:59 | P.PN ---
Subjective Patient is seen in follow-up for acute kidney injury and chronic kidney disease. Mustafa catheter inserted 09/26/2022 due to urinary retention. Nonoliguric. On oral Lasix. Renal function a little better today. Vital signs are stable. General: No acute distress. HEENT: Head exam is unremarkable. LUNGS: No audible rhonchi or wheezes. HEART: Rate and Rhythm are regular. ABDOMEN: Soft, obese. EXTREMITITES: 1+ edema. Chronic changes noted. Objective - Vital Signs Vital signs: Vital Signs Temp 98.7 F 09/27/22 07:35 Pulse 70 09/27/22 07:35 Resp 18 09/27/22 07:35 BP 126/72 09/27/22 07:35 Pulse Ox 99 09/27/22 09:42 FiO2 Intake & Output 09/26/22 09/27/22 09/27/22 18:59 06:59 18:59 Output Total 775 1300 Balance -775 -1300 Output: Urine 775 1300 Uretheral (Mustafa) 475 Other: Voiding Method Indwelling Catheter Indwelling Catheter Indwelling Catheter # Bowel Movements 1 1 - Labs CBC & Chem 7: 09/26/22 06:36 09/27/22 06:54 Labs: Abnormal Lab Results - Last 24 Hours (Table) 09/26/22 09/26/22 09/26/22 Range/Units 06:36 06:36 11:00 RBC 5.49 H (4.10-5.20) X 10*6/uL MCH 23.1 L (27.0-32.0) pg MCHC 28.5 L (32.0-37.0) g/dL RDW 25.6 H (11.5-14.5) % Absolute Nucleated RBC 0.08 H (0.00-0.00) X 10*3/uL Myelocytes % 3 H (0-0) % Lymphocytes # (Manual) 0.60 L (0.90-5.00) X 10*3/uL Basophils # (Manual) 0.18 H (0.00-0.10) X 10*3/uL NRBC/100 WBC Diff 1.3 H (0.0-0.0) /100 WBCS Sodium (137-145) mmol/L Chloride (98-107) mmol/L Carbon Dioxide 16.1 L (20.0-27.5) mmol/L Anion Gap 19.90 H (10.00-18.00) mmol/L BUN 42.5 H (9.0-27.0) mg/dL Creatinine 3.0 H (0.6-1.5) mg/dL Est GFR (CKD-EPI)AfAm 16.1 L (60.0-200.0) Est GFR (CKD-EPI)NonAf 13.9 L (60.0-200.0) Glucose 64 L (70-110) mg/dL POC Glucose (mg/dL) 54 L (70-110) mg/dL Total Bilirubin 1.70 H (0.30-1.20) mg/dL AST 107 H (13-35) U/L ALT 62 H (8-44) U/L Albumin 2.8 L (3.8-4.9) g/dL Globulin 4.2 H (1.6-3.3) g/dL Albumin/Globulin Ratio 0.67 L (1.60-3.17) g/dL 09/26/22 09/26/22 09/27/22 Range/Units 11:20 20:27 06:54 RBC (4.10-5.20) X 10*6/uL MCH (27.0-32.0) pg MCHC (32.0-37.0) g/dL RDW (11.5-14.5) % Absolute Nucleated RBC (0.00-0.00) X 10*3/uL Myelocytes % (0-0) % Lymphocytes # (Manual) (0.90-5.00) X 10*3/uL Basophils # (Manual) (0.00-0.10) X 10*3/uL NRBC/100 WBC Diff (0.0-0.0) /100 WBCS Sodium 146 H (137-145) mmol/L Chloride 114 H (98-107) mmol/L Carbon Dioxide 18 L (20.0-27.5) mmol/L Anion Gap (10.00-18.00) mmol/L BUN 43 H (9.0-27.0) mg/dL Creatinine 2.77 H (0.6-1.5) mg/dL Est GFR (CKD-EPI)AfAm (60.0-200.0) Est GFR (CKD-EPI)NonAf (60.0-200.0) Glucose (70-110) mg/dL POC Glucose (mg/dL) 54 L 135 H (70-110) mg/dL Total Bilirubin (0.30-1.20) mg/dL AST (13-35) U/L ALT (8-44) U/L Albumin (3.8-4.9) g/dL Globulin (1.6-3.3) g/dL Albumin/Globulin Ratio (1.60-3.17) g/dL Microbiology - Last 24 Hours (Table) 09/20/22 13:55 Blood Culture - Final Blood No Growth after 144 hours 09/20/22 13:40 Blood Culture - Final Blood No Growth after 144 hours 09/22/22 18:54 Stool Culture - Final Stool Yomaira albicans Assessment and Plan Plan: Assessment: 1. Acute kidney injury secondary to ATN secondary to severe sepsis as well as cardiorenal syndrome. Also component of urinary retention. Creatinine 2.07 on admission and peaked at 3.0 this admission - 2.77 today. Nonoliguric. No hydronephrosis noted on kidney ultrasound. Left kidney not visualized. 2. Chronic kidney disease stage III. Baseline creatinine near 1.3 in March 2018. Etiology is likely diabetic kidney disease. 3. Metabolic acidosis secondary to acute kidney injury and IV fluids. On oral bicarb. Better. 4. Acute on chronic systolic CHF with ejection fraction of 35% with moderate tricuspid regurgitation. 5. Volume overload. 6. Diabetes mellitus. 7. Severe sepsis secondary to pneumonia/UTI. ID following. On antibiotics. 8. Urinary retention status post Mustafa catheter placement. 9. Mild hyponatremia from lack of oral water intake. Plan: Start D5W at 50 mL an hour. Maintain oral Lasix. Avoid nephrotoxins. Continue to monitor renal function and urine output. Add Flomax.
[2022-09-27] MEDS: TAMSULOSIN 0.4 MG CAP.ER.24H PO SCH (11:57)
[2022-09-27 11:58] LABS: Glucose,Whole Blood 117 mg/dL (70-110)
[2022-09-27] MEDS: DEXTROSE 5% IN WATER 1,000 ML IV SCH (11:58)
[2022-09-27] MEDS: MULTIVITAMINS, THERA 1 EACH TAB PO SCH (12:01)
[2022-09-27] MEDS: FOLIC ACID 1 MG TAB PO SCH (12:01)
[2022-09-27] MEDS: THIAMINE 100 MG TAB PO SCH (12:01)
[2022-09-27] MEDS ORDERED: IPRATROPIUM-ALBUTEROL 3 ML NEB INHALATION PRN (13:00)
[2022-09-27] MEDS ORDERED: IPRATROPIUM 0.5 MG/2.5 ML NEBU INHALATION PRN (13:15)
[2022-09-27] MEDS ORDERED: ALBUTEROL NEBULIZED 2.5 MG/3 ML INHALATION PRN (13:15)
--- NOTE | 2022-09-27 13:39 | PN ---
PROGRESS NOTE DATE OF SERVICE: 09/27/2022 SUBJECTIVE: This is an 81-year-old woman, who was admitted with acute urinary tract infection with sepsis, is being closely monitored. No chest pain. No palpitations. No fever. The patient has significant weakness. OBJECTIVE: VITAL SIGNS: Pulse 70, blood pressure is 126/70, respirations 18. CHEST: Clear to auscultation. CARDIOVASCULAR: S1, S2. ABDOMEN: Soft. NERVOUS SYSTEM: Diffusely weak. LABORATORY DATA: Cultures showing Yomaira albicans in the stool. ASSESSMENT: 1. Acute urinary tract infection with sepsis. 2. Cardiomyopathy. 3. Severe gait dysfunction. 4. Super morbid obesity with BMI of 46.3. 5. Cardiomyopathy. 6. Severe hypotension, present on admission. 7. Acute on chronic kidney disease, baseline kidney disease, stage 3. 8. Multiple medical issues. RECOMMENDATIONS AND DISCUSSION: Recommend to continue current management. Continue symptomatic treatment. Otherwise, at this time, I recommend continue with antibiotics and PT/OT evaluation, possible ECF rehab. Prognosis extremely guarded because of multiple complex medical issues in this morbidly obese individual. MMODL / IJN: [id number] /
--- NOTE | 2022-09-27 13:55 | P.PN ---
Subjective Progress Note Date: 09/27/22 Principal diagnosis: Sepsis Patient is a 81-year-old female with a past medical history significant for diabetes mellitus hypertension hyperlipidemia atrial fibrillation currently recently completed treatment for C. difficile colitis the patient was sent to the ER at the Loc[facility] for evaluation of mental status changes, patient did have a CT of the chest suspicious for right lower lobe consolidation CT of abdominal pelvis with colitis, patient did have a ne gative C. diff during this admission. On today's evaluation that is 09/27/2022, the patient remains to be afebrile , the patient is breathing comfortably on room air, the patient slightly lethargic and sleepy and did not answer any question and no vomiting or any worsening diarrhea has been reported by the nursing staff Objective - Vital Signs Vital signs: Vital Signs Temp 98.7 F 09/27/22 07:35 Pulse 70 09/27/22 07:35 Resp 18 09/27/22 07:35 BP 126/72 09/27/22 07:35 Pulse Ox 99 09/27/22 09:42 FiO2 Intake & Output 09/26/22 09/27/22 09/27/22 18:59 06:59 18:59 Output Total 775 1300 Balance -775 -1300 Output: Urine 775 1300 Uretheral (Mustafa) 475 Other: Voiding Method Indwelling Catheter Indwelling Catheter Indwelling Catheter # Bowel Movements 1 1 - Exam GENERAL DESCRIPTION: An elderly female lying in bed in no distress RESPIRATORY SYSTEM: Unlabored breathing , decreased breath sounds at bases HEART: S1 S2 regular rate and rhythm , ABDOMEN: Soft , no tenderness EXTREMITIES: Diffuse swelling bilateral lower extremity no significant redness - Labs CBC & Chem 7: 09/26/22 06:36 09/27/22 06:54 Labs: Abnormal Lab Results - Last 24 Hours (Table) 09/26/22 09/26/22 09/27/22 Range/Units 06:36 20:27 06:54 RBC 5.49 H (4.10-5.20) X 10*6/uL MCH 23.1 L (27.0-32.0) pg MCHC 28.5 L (32.0-37.0) g/dL RDW 25.6 H (11.5-14.5) % Absolute Nucleated RBC 0.08 H (0.00-0.00) X 10*3/uL Myelocytes % 3 H (0-0) % Lymphocytes # (Manual) 0.60 L (0.90-5.00) X 10*3/uL Basophils # (Manual) 0.18 H (0.00-0.10) X 10*3/uL NRBC/100 WBC Diff 1.3 H (0.0-0.0) /100 WBCS Sodium 146 H (137-145) mmol/L Chloride 114 H (98-107) mmol/L Carbon Dioxide 18 L (22-30) mmol/L BUN 43 H (7-17) mg/dL Creatinine 2.77 H (0.52-1.04) mg/dL POC Glucose (mg/dL) 135 H (70-110) mg/dL 09/27/22 Range/Units 11:56 RBC (4.10-5.20) X 10*6/uL MCH (27.0-32.0) pg MCHC (32.0-37.0) g/dL RDW (11.5-14.5) % Absolute Nucleated RBC (0.00-0.00) X 10*3/uL Myelocytes % (0-0) % Lymphocytes # (Manual) (0.90-5.00) X 10*3/uL Basophils # (Manual) (0.00-0.10) X 10*3/uL NRBC/100 WBC Diff (0.0-0.0) /100 WBCS Sodium (137-145) mmol/L Chloride (98-107) mmol/L Carbon Dioxide (22-30) mmol/L BUN (7-17) mg/dL Creatinine (0.52-1.04) mg/dL POC Glucose (mg/dL) 117 H (70-110) mg/dL Microbiology - Last 24 Hours (Table) 09/20/22 13:55 Blood Culture - Final Blood No Growth after 144 hours 09/20/22 13:40 Blood Culture - Final Blood No Growth after 144 hours 09/22/22 18:54 Stool Culture - Final Stool Yomaira albicans Assessment and Plan (1) Sepsis Current Visit: Yes Status: Acute Code(s): A41.9 - SEPSIS, UNSPECIFIED ORGANISM SNOMED Code(s): 06253504 Plan: 1patient presented to hospital with sepsis in this patient who did have a hypertension elevated white count elevated lactic acid and concerning for possible urinary source as apparently the patient had a positive UA at the outside facility UA at this visit is currently pending there was a question of possible perinephric abscess however I do not find that information on the CT abdominal pelvis report that was done at the [facility] did shows evidence of colitis and could be component of ongoing C. difficile as the patient recently completed treatment for C. difficile colitis however no clear history of any persistent diarrhea at this point, patient also have a CT of the chest concerning for right lower lobe consolidation. 2Patient has shown clinical improvement off the pressor support the patient white count has normalized , the patient stool culture growing Yomaira more likely colonizer, patient currently being treated Zosyn and will be able to finish therapy with short course of oral Augmentin on discharge Time with Patient: Less than 30
[2022-09-27] MEDS: FLUCONAZOLE 100 MG TAB PO SCH (15:32)
[2022-09-27 17:01] LABS: Glucose,Whole Blood 118 mg/dL (70-110)
[2022-09-27 20:20] LABS: Glucose,Whole Blood 128 mg/dL (70-110)
[2022-09-27] MEDS: ATORVASTATIN 40 MG TAB PO SCH (21:17)
[2022-09-28] MEDS: PIPERACILLIN-TAZOBACTAM 3.375 GM in SODIUM CHLORIDE 0.9% 100 ML IVPB SCH ×2 (00:03→12:51)
[2022-09-28] MEDS: HEPARIN SODIUM,PORCINE/PF 5,000 UNIT/0.5 ML SYRINGE SQ SCH ×3 (00:03→15:05)
[2022-09-28 06:28] LABS: Glucose,Whole Blood 143 mg/dL (70-110)
[2022-09-28] MEDS: INSULIN ASPART (NovoLOG) 100 UNIT/ML VIAL SQ SCH ×3 (07:30→17:07)
[2022-09-28] MEDS: PANTOPRAZOLE 40 MG TABLET PO SCH (07:30)
[2022-09-28] MEDS: LEVOTHYROXINE 88 MCG TAB PO SCH (07:31)
[2022-09-28 08:14] LABS: African American GFR (CKD) 17 (>60 ml/min/1.73 sqM); Anion Gap 12 mmol/L; Blood Urea Nitrogen 42 mg/dL (7-17); Calcium 8.9 mg/dL (8.4-10.2); Carbon Dioxide 21 mmol/L (22-30); Chloride 112 mmol/L (98-107); Glucose 126 mg/dL (74-99); Magnesium 1.9 mg/dL (1.6-2.3); Non-African American GFR(CKD) 15 (>60 ml/min/1.73 sqM); Potassium 3.2 mmol/L (3.5-5.1); Sodium 145 mmol/L (137-145)
[2022-09-28] MEDS: SODIUM BICARBONATE TAB 650 MG TAB PO SCH ×2 (08:58→15:05)
[2022-09-28] MEDS: TAMSULOSIN 0.4 MG CAP.ER.24H PO SCH (08:58)
[2022-09-28] MEDS: FLUCONAZOLE 100 MG TAB PO SCH (08:58)
[2022-09-28] MEDS: METOPROLOL TARTRATE 25 MG TAB PO SCH (08:58)
[2022-09-28] MEDS: ASPIRIN 81 MG PO SCH (08:59)
[2022-09-28] MEDS ORDERED: CITALOPRAM HYDROBROMIDE 10 MG TAB PO SCH (09:00)
[2022-09-28] MEDS: POTASSIUM CHLORIDE ER 20 MEQ TAB.ER PO SCH ×2 (10:11→11:06)
[2022-09-28] MEDS: FUROSEMIDE 80 MG TAB PO SCH (11:06)
[2022-09-28] MEDS: DEXTROSE 5% IN WATER 1,000 ML IV SCH (11:07)
--- NOTE | 2022-09-28 11:11 | P.PN ---
Subjective Patient is seen in follow-up for acute kidney injury and chronic kidney disease. Mustafa catheter inserted 09/26/2022 due to urinary retention. Nonoliguric. On oral Lasix. Renal function stable. Oral intake good. Hemodynamically stable. On room air. Vital signs are stable. General: No acute distress. HEENT: Head exam is unremarkable. LUNGS: No audible rhonchi or wheezes. HEART: Rate and Rhythm are regular. ABDOMEN: Soft, obese. EXTREMITITES: 1+ edema. Chronic changes noted. Objective - Vital Signs Vital signs: Vital Signs Temp 97.4 F L 09/28/22 08:00 Pulse 72 09/28/22 08:00 Resp 20 09/28/22 08:00 BP 100/66 09/28/22 08:00 Pulse Ox 97 09/28/22 02:00 FiO2 Intake & Output 09/27/22 09/28/22 09/28/22 18:59 06:59 18:59 Intake Total 120 Output Total 735 420 Balance -735 -420 120 Intake: Oral 120 Output: Urine 735 420 Other: Voiding Method Indwelling Catheter Indwelling Catheter Indwelling Catheter # Bowel Movements 1 1 - Labs CBC & Chem 7: 09/26/22 06:36 09/28/22 06:18 Labs: Abnormal Lab Results - Last 24 Hours (Table) 09/27/22 09/27/22 09/27/22 Range/Units 11:56 16:59 20:18 Potassium (3.5-5.1) mmol/L Chloride (98-107) mmol/L Carbon Dioxide (22-30) mmol/L BUN (7-17) mg/dL Creatinine (0.52-1.04) mg/dL Glucose (74-99) mg/dL POC Glucose (mg/dL) 117 H 118 H 128 H (70-110) mg/dL 09/28/22 09/28/22 Range/Units 06:18 06:25 Potassium 3.2 L (3.5-5.1) mmol/L Chloride 112 H (98-107) mmol/L Carbon Dioxide 21 L (22-30) mmol/L BUN 42 H (7-17) mg/dL Creatinine 2.83 H (0.52-1.04) mg/dL Glucose 126 H (74-99) mg/dL POC Glucose (mg/dL) 143 H (70-110) mg/dL Assessment and Plan Plan: Assessment: 1. Acute kidney injury secondary to ATN secondary to severe sepsis as well as cardiorenal syndrome. Also component of urinary retention. Creatinine 2.07 on admission and peaked at 3.0 this admission - 2.83 today. Nonoliguric. No hydronephrosis noted on kidney ultrasound. Left kidney not visualized. 2. Chronic kidney disease stage III. Baseline creatinine near 1.3 in March 2018. Etiology is likely diabetic kidney disease. 3. Metabolic acidosis secondary to acute kidney injury and IV fluids. On oral bicarb. Better. 4. Acute on chronic systolic CHF with ejection fraction of 35% with moderate tricuspid regurgitation. 5. Volume overload. 6. Diabetes mellitus. 7. Severe sepsis secondary to pneumonia/UTI. ID following. On antibiotics. 8. Urinary retention status post Mustafa catheter placement. On Flomax. 9. Mild hypernatremia from lack of oral water intake. 10. Hypokalemia from diuresis. Magnesium normal. Plan: Maintain D5W for now. Encouraged oral intake, including free water. Maintain oral Lasix. Avoid nephrotoxins. Continue to monitor renal function and urine output. Trial of void today. Potassium being replaced. Admit maintenance potassium supplementation. Repeat BMP and magnesium level 2-3 days postdischarge. Follow up outpatient in 1 week.
[2022-09-28 11:29] LABS: Glucose,Whole Blood 177 mg/dL (70-110)
[2022-09-28 12:17] LABS: HCT 39.4 % (37.2-46.3); HGB 11.5 g/dL (12.0-15.0); MCH 23.4 pg (27.0-32.0); MCHC 29.2 g/dL (32.0-37.0); MCV 80.1 fL (80.0-97.0); Mean Platelet Volume 10.4 fL (9.5-12.2); NRBC Per 100 WBC 1.4 /100 WBCS (0.0-0.0); Platelet Count 214 X 10*3/uL (140-440); RBC 4.92 X 10*6/uL (4.10-5.20); RDW 25.6 % (11.5-14.5); WBC 6.61 X 10*3/uL (4.50-10.00)
[2022-09-28 12:20] LABS: Acanthocytes 2+; Eosinophils # (M) 0.07 X 10*3/uL (0.04-0.35); Lymphocytes # (M) 0.59 X 10*3/uL (0.90-5.00); Monocytes # (M) 0.73 X 10*3/uL (0.20-1.00); Neutrophils # (M) 5.02 X 10*3/uL (2.00-8.90); Neutrophils % (M) 76 %
[2022-09-28] MEDS: MULTIVITAMINS, THERA 1 EACH TAB PO SCH (12:51)
[2022-09-28] MEDS: FOLIC ACID 1 MG TAB PO SCH (12:51)
[2022-09-28] MEDS: THIAMINE 100 MG TAB PO SCH (12:51)
--- NOTE | 2022-09-28 12:58 | XR ---
EXAMINATION TYPE: XR chest 1V portable DATE OF EXAM: 09/28/2022 Comparison: 09/21/2022 Clinical History: 81-year-old female short of breath Findings: Left anterior chest wall pacemaker generator with right atrial and right ventricular leads. Patient i s rotated towards the left altering the normal cardiac mediastinal contours and obscuring the right h eart margin. There is a stable occluder device projecting on the left side of the heart. Mild atheros clerotic arch calcifications. Diffuse interstitial density. Suspect trace lateral pleural effusions. Impression: Correlation for mild CHF with pulmonary vascular congestion.
--- NOTE | 2022-09-28 13:24 | P.DS ---
Providers Date of admission: 09/20/22 13:26 Expected date of discharge: 09/28/22 Attending physician: Josh Ponce Consults: 09/20/22 13:25 Consult Physician Stat Consulting Provider: Candi Rodríguez Consult Reason/Comments: icu patient Do you want consulting provider notified?: Yes 09/20/22 14:12 Consult Physician Routine Consulting Provider: Arnulfo Nunez Consult Reason/Comments: Sepsis Do you want consulting provider notified?: Yes 09/20/22 14:23 Consult Physician Routine Consulting Provider: Marin Hayward Consult Reason/Comments: Troponin elevation Do you want consulting provider notified?: Yes 09/26/22 12:32 Consult Physician Routine Consulting Provider: Jean Paul Duncan Consult Reason/Comments: arf Do you want consulting provider notified?: Yes Primary care physician: Jarret Coyne MD Hospital Course: Final diagnosis Acute urinary tract infection with sepsis, present on admission Cardiomyopathy History of chronic atrial fibrillation Diabetes mellitus Hyperlipidemia History of hypertension Severe gait dysfunction Severe morbid obesity with a BMI of 46.3 Hypotension, present on admission, improved Acute on chronic kidney disease stage III Discharge disposition Patient is being discharged in a stable condition with guarded prognosis to [facility]. Patient will follow-up with nurse practitioner Calderon Cuevas in the outpatient setting upon discharge. Patient is to follow-up with nephrology along with urology in the outpatient setting in 1 week as scheduled. Patient is to continue with indwelling Mustafa catheter for now with trial void with urology outpatient. Total time taken is greater than 35 minutes. Hospital course This is a 81-year-old female who was recently admitted with acute urinary tract infection with sepsis being closely monitored. Patient also with chronic kidney disease stage III being followed closely by nephrology. Patient had some urinary retention requiring indwelling Mustafa catheter. Patient has had IV antibiotics with infectious disease following and will continue short course of Augmentin on discharge. Patient is maintained on Lasix and will continue at 80 mg daily and recommend repeat labs in the next few days to monitor kidney functions. Patient will need urology follow-up outpatient for trial voiding and is to continue with indwelling Mustafa catheter for now. Patient will continue on Augmentin for short course on discharge. Recommend nephrology follow-up in the next 1-2 weeks as well. Currently no reports of chest pain, shortness of breath, or palpitations. Patient is afebrile. No reports of nausea or vomiting and patient is tolerating diet. Patient will be going to [facility] today. Guarded prognosis. Physical exam: Gen: This is a 81-year-old female who is awake, alert and oriented 2-3, well- developed, well-nourished, morbidly obese HEENT: Head is atraumatic, normocephalic. Pupils equal, round. Sclerae is anicteric. NECK: Supple. No JVD. No lymphadenopathy. No thyromegaly. LUNGS: Breath sounds diminished with no wheezes or rhonchi. No intercostal retractions. HEART: Regular rate and rhythm. No murmur. ABDOMEN: Soft. Bowel sounds are present. No masses. No tenderness. EXTREMITIES: No pedal edema. No calf tenderness. NEUROLOGICAL: Patient is awake, alert and oriented x3. Cranial nerves 2 through 12 are grossly intact. Please refer to medication reconciliation sheet for a list of medications. The impression and plan of care has been dictated by Mariela Waldron, Nurse Practitioner as directed. Dr. Kris MD I have performed a history and examination and MDM of this patient, discussed the same with the dictator, and agree with the dictator's assessment and plan as written ,documented as a scribe. Based on total visit time, I have performed more than 50% of the visit. Patient Condition at Discharge: Fair Plan - Discharge Summary Discharge Rx Participant: No New Discharge Prescriptions: New Aspirin 81 mg PO DAILY tab Fluconazole [Diflucan] 100 mg PO DAILY 4 Days #4 tab Tamsulosin [Flomax] 0.4 mg PO PC-BRKFST cap Furosemide [Lasix] 80 mg PO DAILY tab Metoprolol Tartrate [Lopressor] 25 mg PO BID tab Pantoprazole [Protonix] 40 mg PO AC-BRKFST tab Sodium Bicarbonate Tab 650 mg PO TID tab Ipratropium Nebulized [Atrovent Nebulized 0.2 MG/ML] 0.5 mg INHALATION RT-Q4H PRN ml PRN Reason: Shortness Of Breath Or Wheezing Folic Acid 1 mg PO DAILY@1200 tab Potassium Chloride ER [K-Dur 20] 40 meq PO DAILY tab Thiamine [Vitamin B-1] 100 mg PO DAILY@1200 tab Continue Albuterol Inhaler [Ventolin Hfa Inhaler] 2 puff INHALATION RT-Q6H PRN PRN Reason: Shortness Of Breath Or Wheezing Magnesium Hydroxide [Milk of Magnesia Concentrate] 2,400 mg PO Q72H Insulin Aspart Prot/Insuln Asp [Novolog MIX 70-30 Flexpen] 10 unit SQ DAILY Insulin Aspart Prot/Insuln Asp [Novolog MIX 70-30 Flexpen] 7 unit SQ HS Acetaminophen [Tylenol] 650 mg PO Q4H PRN PRN Reason: Fever And/ Or Pain Multivitamins, Thera [Multivitamin (formulary)] 1 tab PO DAILY Citalopram Hydrobromide [CeleXA] 10 mg PO DAILY Na Phos,M-B/Na Phos,Di-Ba [Fleet Adult] 133 ml RECTAL Q72H bisacodyL [Dulcolax] 10 mg RECTAL Q72H PRN PRN Reason: Constipation Nystatin 100,000 Unit/gm Powd [Mycostatin Powder] 1 applic TOPICAL BID Magnesium Oxide [Mag-Ox] 400 mg PO DAILY Levothyroxine Sodium [Synthroid] 175 mcg PO DAILY Ipratropium-Albuterol Nebulize [Duoneb 0.5 mg-3 mg/3 ml Soln] 3 ml INHALATION RT-Q4H PRN PRN Reason: Shortness Of Breath Atorvastatin Calcium [Lipitor] 40 mg PO HS Discontinued lisinopriL [Prinivil] 20 mg PO DAILY Potassium Chloride ER [K-Dur 10] 10 meq PO BID Zinc Sulfate [Orazinc] 220 mg PO DAILY Gabapentin [Neurontin] 200 mg PO BID metOLazone [Zaroxolyn] 5 mg PO WEEKLY Furosemide [Lasix] 40 mg PO DAILY Discharge Medication List Albuterol Inhaler [Ventolin Hfa Inhaler] 2 puff INHALATION RT-Q6H PRN 03/27/18 [History] Acetaminophen [Tylenol] 650 mg PO Q4H PRN 09/20/22 [History] Atorvastatin Calcium [Lipitor] 40 mg PO HS 09/20/22 [History] Citalopram Hydrobromide [CeleXA] 10 mg PO DAILY 09/20/22 [History] Insulin Aspart Prot/Insuln Asp [Novolog MIX 70-30 Flexpen] 7 unit SQ HS 09/20/22 [History] Insulin Aspart Prot/Insuln Asp [Novolog MIX 70-30 Flexpen] 10 unit SQ DAILY 09/20/22 [History] Ipratropium-Albuterol Nebulize [Duoneb 0.5 mg-3 mg/3 ml Soln] 3 ml INHALATION RT-Q4H PRN 09/20/22 [History] Levothyroxine Sodium [Synthroid] 175 mcg PO DAILY 09/20/22 [History] Magnesium Hydroxide [Milk of Magnesia Concentrate] 2,400 mg PO Q72H 09/20/22 [H istory] Magnesium Oxide [Mag-Ox] 400 mg PO DAILY 09/20/22 [History] Multivitamins, Thera [Multivitamin (formulary)] 1 tab PO DAILY 09/20/22 [History] Na Phos,M-B/Na Phos,Di-Ba [Fleet Adult] 133 ml RECTAL Q72H 09/20/22 [History] Nystatin 100,000 Unit/gm Powd [Mycostatin Powder] 1 applic TOPICAL BID 09/20/22 [History] bisacodyL [Dulcolax] 10 mg RECTAL Q72H PRN 09/20/22 [History] Aspirin 81 mg PO DAILY tab 09/28/22 [Rx] Fluconazole [Diflucan] 100 mg PO DAILY 4 Days #4 tab 09/28/22 [Rx] Folic Acid 1 mg PO DAILY@1200 tab 09/28/22 [Rx] Furosemide [Lasix] 80 mg PO DAILY tab 09/28/22 [Rx] Ipratropium Nebulized [Atrovent Nebulized 0.2 MG/ML] 0.5 mg INHALATION RT-Q4H PRN ml 09/28/22 [Rx] Metoprolol Tartrate [Lopressor] 25 mg PO BID tab 09/28/22 [Rx] Pantoprazole [Protonix] 40 mg PO AC-BRKFST tab 09/28/22 [Rx] Potassium Chloride ER [K-Dur 20] 40 meq PO DAILY tab 09/28/22 [Rx] Sodium Bicarbonate Tab 650 mg PO TID tab 09/28/22 [Rx] Tamsulosin [Flomax] 0.4 mg PO PC-BRKFST cap 09/28/22 [Rx] Thiamine [Vitamin B-1] 100 mg PO DAILY@1200 tab 09/28/22 [Rx] Follow up Appointment(s)/Referral(s): Brown,Mary, FNPBC [Family Provider] - 1-2 days Cuco Franco MD [STAFF PHYSICIAN] - 1 Week Jean Paul Duncan DO [STAFF PHYSICIAN] - 1 Week Ambulatory/Diagnostic Orders: Basic Metabolic Panel [LAB.AMB] Time Frame: 3 Days, Location: None Selected Discharge Disposition: TRANSFER TO SNF/ECF
[2022-09-28 14:06] VITALS: BP 142/79; PULSE 71; RESP 17; TEMP 98.4
[2022-09-28 16:32] LABS: Glucose,Whole Blood 196 mg/dL (70-110)
--- NOTE | 2022-09-28 18:23 | P.PN ---
Subjective Progress Note Date: 09/28/22 Principal diagnosis: Sepsis Patient is a 81-year-old female with a past medical history significant for diabetes mellitus hypertension hyperlipidemia atrial fibrillation currently recently completed treatment for C. difficile colitis the patient was sent to the ER at the [facility] for evaluation of mental status changes, patient did have a CT of the chest suspicious for right lower lobe consolidation CT of abdominal pelvis with colitis, patient did have a ne gative C. diff during this admission. On today's evaluation that is 09/28/2022, the patient continues to be afebrile , the patient is breathing comfortably on room air, the patient denies any chest pain shortness of breath or cough no abdominal pain and no worsening diarrhea has been reported Objective - Vital Signs Vital signs: Vital Signs Temp 97.4 F L 09/28/22 08:00 Pulse 72 09/28/22 08:00 Resp 20 09/28/22 08:00 BP 100/66 09/28/22 08:00 Pulse Ox 97 09/28/22 02:00 FiO2 Intake & Output 09/27/22 09/28/22 09/28/22 18:59 06:59 18:59 Intake Total 120 Output Total 735 420 Balance -735 -420 120 Intake: Oral 120 Output: Urine 735 420 Other: Voiding Method Indwelling Catheter Indwelling Catheter Indwelling Catheter # Bowel Movements 1 1 - Exam GENERAL DESCRIPTION: An elderly female lying in bed in no distress RESPIRATORY SYSTEM: Unlabored breathing , decreased breath sounds at bases HEART: S1 S2 regular rate and rhythm , ABDOMEN: Soft , no tenderness EXTREMITIES: Diffuse swelling bilateral lower extremity no significant redness - Labs CBC & Chem 7: 09/28/22 06:18 09/28/22 06:18 Labs: Abnormal Lab Results - Last 24 Hours (Table) 09/27/22 09/27/22 09/28/22 Range/Units 16:59 20:18 06:18 Hgb 11.5 L (12.0-15.0) g/dL MCH 23.4 L (27.0-32.0) pg MCHC 29.2 L (32.0-37.0) g/dL RDW 25.6 H (11.5-14.5) % Absolute Nucleated RBC 0.09 H (0.00-0.00) X 10*3/uL Lymphocytes # (Manual) 0.59 L (0.90-5.00) X 10*3/uL Basophils # (Manual) 0.20 H (0.00-0.10) X 10*3/uL NRBC/100 WBC Diff 1.4 H (0.0-0.0) /100 WBCS Potassium (3.5-5.1) mmol/L Chloride (98-107) mmol/L Carbon Dioxide (22-30) mmol/L BUN (7-17) mg/dL Creatinine (0.52-1.04) mg/dL Glucose (74-99) mg/dL POC Glucose (mg/dL) 118 H 128 H (70-110) mg/dL 09/28/22 09/28/22 09/28/22 Range/Units 06:18 06:25 11:27 Hgb (12.0-15.0) g/dL MCH (27.0-32.0) pg MCHC (32.0-37.0) g/dL RDW (11.5-14.5) % Absolute Nucleated RBC (0.00-0.00) X 10*3/uL Lymphocytes # (Manual) (0.90-5.00) X 10*3/uL Basophils # (Manual) (0.00-0.10) X 10*3/uL NRBC/100 WBC Diff (0.0-0.0) /100 WBCS Potassium 3.2 L (3.5-5.1) mmol/L Chloride 112 H (98-107) mmol/L Carbon Dioxide 21 L (22-30) mmol/L BUN 42 H (7-17) mg/dL Creatinine 2.83 H (0.52-1.04) mg/dL Glucose 126 H (74-99) mg/dL POC Glucose (mg/dL) 143 H 177 H (70-110) mg/dL Assessment and Plan (1) Sepsis Current Visit: Yes Status: Acute Code(s): A41.9 - SEPSIS, UNSPECIFIED ORGANISM SNOMED Code(s): 96653006 Plan: 1patient presented to hospital with sepsis in this patient who did have a hypertension elevated white count elevated lactic acid and concerning for possible urinary source as apparently the patient had a positive UA at the outside facility UA at this visit is currently pending there was a question of possible perinephric abscess however I do not find that information on the CT abdominal pelvis report that was done at the [facility] did shows evidence of colitis and could be component of ongoing C. difficile as the patient recently completed treatment for C. difficile colitis however no clear history of any persistent diarrhea at this point, patient also have a CT of the chest concerning for right lower lobe consolidation. 2Patient has shown clinical improvement off the pressor support the patient white count has normalized , the patient stool culture growing Yomaira more likely colonizer, patient has shown overall clinical improvement on Zosyn plan is for short course of oral Augmentin on discharge and close outpatient follow- up Time with Patient: Less than 30
[2022-09-29] MEDS ORDERED: POTASSIUM CHLORIDE ER 20 MEQ TAB.ER PO SCH (09:00)
== END 2022-09-28 20:27 | DRG 871 ==
LOC: EC 12:10 → 2SICU 13:26 → 3SCARD 18:50 → 2SICU 09-21 00:09 → 4SSUR 09-23 06:28
PROVIDERS: ADMIT Hospitalist; ATTEND Hospitalist
PROC: 3E033XZ Introduction of Vasopressor into Peripheral Vein, Percutaneous Approach (ICD-10-PCS; principal; 2022-09-21)
DX: A41.9 Sepsis, unspecified organism (principal); B37.1 Pulmonary candidiasis; N17.0 Acute kidney failure with tubular necrosis; R65.21 Severe sepsis with septic shock; G93.41 Metabolic encephalopathy; I50.23 Acute on chronic systolic (congestive) heart failure; I21.4 Non-ST elevation (NSTEMI) myocardial infarction; E87.20 Acidosis, unspecified; I13.0 Hypertensive heart and chronic kidney disease with heart failure and stage 1 through stage 4 chronic kidney disease, or unspecified chronic kidney disease; I42.9 Cardiomyopathy, unspecified; E87.0 Hyperosmolality and hypernatremia; E87.1 Hypo-osmolality and hyponatremia; I48.19 Other persistent atrial fibrillation; Z68.42 Body mass index [BMI] 45.0-49.9, adult; N39.0 Urinary tract infection, site not specified; K61.0 Anal abscess; I27.20 Pulmonary hypertension, unspecified; D63.1 Anemia in chronic kidney disease; J84.10 Pulmonary fibrosis, unspecified; E11.22 Type 2 diabetes mellitus with diabetic chronic kidney disease; E86.1 Hypovolemia; E66.01 Morbid (severe) obesity due to excess calories; E03.9 Hypothyroidism, unspecified; N18.32 Chronic kidney disease, stage 3b; I07.1 Rheumatic tricuspid insufficiency; R26.9 Unspecified abnormalities of gait and mobility; I87.8 Other specified disorders of veins; T36.8X5A Adverse effect of other systemic antibiotics, initial encounter; K80.20 Calculus of gallbladder without cholecystitis without obstruction; R91.1 Solitary pulmonary nodule; I87.2 Venous insufficiency (chronic) (peripheral); E87.6 Hypokalemia; R60.0 Localized edema; E78.5 Hyperlipidemia, unspecified; M17.9 Osteoarthritis of knee, unspecified; R53.81 Other malaise; K52.9 Noninfective gastroenteritis and colitis, unspecified; R51.9 Headache, unspecified; I25.10 Atherosclerotic heart disease of native coronary artery without angina pectoris; Z96.652 Presence of left artificial knee joint; Z86.14 Personal history of Methicillin resistant Staphylococcus aureus infection; Z95.5 Presence of coronary angioplasty implant and graft; Z88.1 Allergy status to other antibiotic agents; Z79.899 Other long term (current) drug therapy; Z79.890 Hormone replacement therapy; Z79.84 Long term (current) use of oral hypoglycemic drugs; Z79.51 Long term (current) use of inhaled steroids; Z79.82 Long term (current) use of aspirin; Z86.19 Personal history of other infectious and parasitic diseases; Z86.73 Personal history of transient ischemic attack (TIA), and cerebral infarction without residual deficits; Z95.0 Presence of cardiac pacemaker; Z79.4 Long term (current) use of insulin
CPT/HCPCS: 36415; 71045; 76770; 80048; 80053; 81001; 82247; 83605; 83735; 83880; 84145; 84443; 84484; 85025; 85027; 85610; 85730; 87040; 87045; 87046; 87324; 93306; 94760; 96361; 96365; 96366; 96367; 96372; 96375; 99285